=== PATIENT | male | born 1995 | race Caucasian/White ===

== ENCOUNTER 2021-03-25 11:50 | Emergency (ER) | payer BC ==
[2021-03-25 11:56] VITALS: RESP 18; TEMP 97.2
--- NOTE | 2021-03-25 12:38 | ED ---
General Adult HPI - General Chief complaint: Arrhythmia/Palpitations Stated complaint: elevated heart rate Time Seen by Provider: 03/25/21 11:55 Source: patient, RN notes reviewed, old records reviewed Mode of arrival: ambulatory Limitations: no limitations - History of Present Illness Initial comments: This is a 25-year-old male who presents emergency department stating that he missed his dialysis on Wednesday so he was dialyzed yesterday and again today. At the end of dialysis staff noted that when he got up and walked around his heart rate went up to 136 so they wanted him sent over to the emergency department to be evaluated. Patient himself indicated that he had quite a bit of fluid taken off over the last 2 days which is not typical because he normally has his dialysis today out. Patient denies any fever chills or cough. Patient denies chest pain difficulty breathing shortness of breath per patient does any abdominal pain patient has nausea vomiting or diarrhea. Patient states he currently has no symptoms she stated that when his heart was racing he can feel a racing a little but other than that he has no symptoms whatsoever and feels at his baseline. - Related Data Allergies Allergy/AdvReac Type Severity Reaction Status Date / Time No Known Allergies Allergy Verified 03/25/21 11:56 Review of Systems ROS Statement: Those systems with pertinent positive or pertinent negative responses have been documented in the HPI. ROS Other: All systems not noted in ROS Statement are negative. Past Medical History Past Medical History: Renal Disease History of Any Multi-Drug Resistant Organisms: None Reported Additional Past Surgical History / Comment(s): left kidney removed as child Past Psychological History: No Psychological Hx Reported Smoking Status: Never smoker Past Alcohol Use History: None Reported Past Drug Use History: None Reported General Exam - General Exam Comments Initial Comments: GENERAL: Patient is well-developed and well-nourished. Patient is nontoxic and well- hydrated and is in no acute distress. ENT: Neck is soft and supple. No significant lymphadenopathy is noted. Oropharynx is clear. Moist mucous membranes. Neck has full range of motion without eliciting any pain. EYES: The sclera were anicteric and conjunctiva were pink and moist. Extraocular movements were intact and pupils were equal round and reactive to light. Eyelids were unremarkable. PULMONARY: Unlabored respirations. Good breath sounds bilaterally. No audible rales rhonchi or wheezing was noted. CARDIOVASCULAR: There is a regular rate and rhythm without any murmurs gallops or rubs. Patient's heart rate is currently 86 beats ABDOMEN: Soft and nontender with normal bowel sounds. No palpable organomegaly was noted. There is no palpable pulsatile mass. SKIN: Skin is clear with no lesions or rashes and otherwise unremarkable. NEUROLOGIC: Patient is alert and oriented x3. Cranial nerves II through XII are grossly intact. Motor and sensory are also intact. Normal speech, volume and content. Symmetrical smile. MUSCULOSKELETAL: Normal extremities with adequate strength and full range of motion. No lower extremity swelling or edema. No calf tenderness. LYMPHATICS: No significant lymphadenopathy is noted PSYCHIATRIC: Normal psychiatric evaluation. Limitations: no limitations Course Vital Signs 03/25/21 03/25/21 11:53 12:37 Temperature 97.2 F L Pulse Rate 106 H Pulse Rate [ 85 Sitting [employer]] Pulse Rate [ 97 Standing [employer] Level [employer] ] Pulse Rate [ 80 Supine [employer]] Respiratory 18 Rate Blood Pressure 146/92 Blood Pressure 148/96 [Left Arm Sitting] Blood Pressure 139/100 [Left Arm Standing] Blood Pressure 139/96 [Left Arm Supine] O2 Sat by Pulse 100 Oximetry Medical Decision Making - Medical Decision Making EKG shows normal sinus rhythm at 85 bpm OH interval 152 QRS is 96 QT interval 414 QTC is 492. Patient's EKG shows no ST segment elevation or depression. I will back and reevaluate the patient he was drinking water and heart rate was in the 80s. Patient got up and ambulated his heart rate stayed below 100 at all times. Patient has no complaints at this time. - Lab Data Result diagrams: 03/25/21 12:36 03/25/21 12:36 Lab Results 03/25/21 03/25/21 Range/Units 12:36 12:36 WBC 4.8 (3.8-10.6) k/uL RBC 2.53 L (4.30-5.90) m/uL Hgb 8.1 L (13.0-17.5) gm/dL Hct 23.7 L (39.0-53.0) % MCV 93.9 (80.0-100.0) fL MCH 32.2 (25.0-35.0) pg MCHC 34.3 (31.0-37.0) g/dL RDW 14.4 (11.5-15.5) % Plt Count 233 (150-450) k/uL MPV 6.8 Neutrophils % 66 % Lymphocytes % 24 % Monocytes % 8 % Eosinophils % 0 % Basophils % 0 % Neutrophils # 3.2 (1.3-7.7) k/uL Lymphocytes # 1.1 (1.0-4.8) k/uL Monocytes # 0.4 (0-1.0) k/uL Eosinophils # 0.0 (0-0.7) k/uL Basophils # 0.0 (0-0.2) k/uL Poikilocytosis Slight Sodium 137 (137-145) mmol/L Potassium 3.4 L (3.5-5.1) mmol/L Chloride 94 L (98-107) mmol/L Carbon Dioxide 36 H (22-30) mmol/L Anion Gap 7 mmol/L BUN 5 L (9-20) mg/dL Creatinine 1.61 H (0.66-1.25) mg/dL Est GFR (CKD-EPI)AfAm 68 (>60 ml/min/1.73 sqM) Est GFR (CKD-EPI)NonAf 58 (>60 ml/min/1.73 sqM) Glucose 88 (74-99) mg/dL Calcium 8.2 L (8.4-10.2) mg/dL Total Bilirubin 0.4 (0.2-1.3) mg/dL AST 24 (17-59) U/L ALT 12 (4-49) U/L Alkaline Phosphatase 127 H (38-126) U/L Total Protein 6.3 (6.3-8.2) g/dL Albumin 3.4 L (3.5-5.0) g/dL Disposition Clinical Impression: Tachycardia Disposition: HOME SELF-CARE Condition: Good Instructions (If sedation given, give patient instructions): Supraventricular Tachycardia (ED), Tachycardia (ED) Is patient prescribed a controlled substance at d/c from ED?: No Referrals: Carol Ann Ordaz MD [Primary Care Provider] - 1-2 days Time of Disposition: 13:27
[2021-03-25 13:02] LABS: Basophils % (A) 0 %; Eosinophils % (A) 0 %; HCT 23.7 % (39.0-53.0); HGB 8.1 gm/dL (13.0-17.5); Lymphocytes # (A) 1.1 k/uL (1.0-4.8); Lymphocytes % (A) 24 %; MCH 32.2 pg (25.0-35.0); MCHC 34.3 g/dL (31.0-37.0); MCV 93.9 fL (80.0-100.0); Mean Platelet Volume 6.8; Monocytes # (A) 0.4 k/uL (0-1.0); Monocytes % (A) 8 %; Neutrophils # (A) 3.2 k/uL (1.3-7.7); Neutrophils % (A) 66 %; Platelet Count 233 k/uL (150-450); Poikilocytosis Slight; RBC 2.53 m/uL (4.30-5.90); RDW 14.4 % (11.5-15.5); WBC 4.8 k/uL (3.8-10.6)
[2021-03-25 13:23] LABS: Albumin 3.4 g/dL (3.5-5.0); Calcium 8.2 mg/dL (8.4-10.2); Potassium 3.4 mmol/L (3.5-5.1); Total Bilirubin 0.4 mg/dL (0.2-1.3); Total Protein 6.3 g/dL (6.3-8.2)
[2021-03-25 14:13] VITALS: BP 135/97; PULSE 67
== END 2021-03-25 14:11 | disposition home or self-care (01) ==
LOC: EC 11:50
DX: R00.0 Tachycardia, unspecified (principal)
CPT/HCPCS: 36415; 80053; 85025; 93005; 99285

== ENCOUNTER 2021-10-20 06:16 | Day surgery (SDC) | payer MEDICARE, OTHER ==
[2021-10-17 10:19] VITALS: BMI 28.1
[~2021-10-20 06:16] MED LIST: ACETAMINOPHEN TAB 500 MG TAB PO PRN; HEPARIN SODIUM,PORCINE/PF 5,000 UNIT/0.5 ML SYRINGE SQ PRN
[2021-10-20] MEDS ORDERED: SODIUM CHLORIDE 0.9% 1,000 ML IV ONE (07:15)
[2021-10-20 07:27] LABS: HGB 12.5 gm/dL (13.0-17.5); MCH 33.7 pg (25.0-35.0); MCHC 32.9 g/dL (31.0-37.0); MCV 102.3 fL (80.0-100.0); Macrocytosis Slight; Mean Platelet Volume 7.3; Platelet Count 158 k/uL (150-450); RBC 3.71 m/uL (4.30-5.90); RDW 13.8 % (11.5-15.5); WBC 8.9 k/uL (3.8-10.6)
[2021-10-20] MEDS ORDERED: ONDANSETRON 4 MG/2 ML VIAL ONE (07:35)
[2021-10-20] MEDS ORDERED: ONDANSETRON 4 MG/2 ML VIAL IVP ONE ×2 (07:46→10:07)
[2021-10-20] MEDS ORDERED: DEXAMETHASONE SOD PHOSPHATE 4 MG/ML 1 ML VIAL IVP ONE (07:46)
--- NOTE | 2021-10-20 07:46 | P.GSHP ---
History of Present Illness H&P Date: 10/20/21 Chief Complaint: renal failure 26-year-old male here today for dialysis catheter placement. Patient with history of hemodialysis since earlier this year. He uses a right IJ permacath for that access sites. Patient with poor venous access in other areas apparently. Patient has seen transplant surgery and preoperative testing is underway. No known hernias, no prior surgeries. Past Medical History Past Medical History: Hypertension, Renal Disease, Seizure Disorder Additional Past Medical History / Comment(s): HEMODIALYSIS TUTHSA. LAST SEIZURES IN FEBRUARY 2021., few episodes of tachycardia. History of Any Multi-Drug Resistant Organisms: None Reported Additional Past Surgical History / Comment(s): left kidney removed as child Past Anesthesia/Blood Transfusion Reactions: No Reported Reaction Smoking Status: Never smoker - Past Family History Mother Family Medical History: No Reported History Father Family Medical History: Cancer Additional Family Medical History / Comment(s): Liver Medications and Allergies Home Medications Medication Instructions Recorded Confirmed Type Calcium Carbonate [Calcium] 1 tab PO DAILY 08/20/21 10/20/21 History Sevelamer [Renvela] 2,400 mg PO AC-TID 08/20/21 10/20/21 History carvediloL [Coreg] 12.5 mg PO BID 08/20/21 10/20/21 History lisinopriL [Zestril] 20 mg PO HS 08/20/21 10/20/21 History Multivitamins, Thera [Multivitamin 1 tab PO DAILY 10/17/21 10/20/21 History (formulary)] Allergies Allergy/AdvReac Type Severity Reaction Status Date / Time No Known Allergies Allergy Verified 10/20/21 06:53 Surgical - Exam Vital Signs Temp Pulse Resp BP Pulse Ox 97.2 F L 65 16 169/104 97 10/20/21 07:03 10/20/21 07:03 10/20/21 07:03 10/20/21 07:03 10/20/21 07:03 Physical exam: General: Well-developed, well-nourished HEENT: Normocephalic, sclerae nonicteric Abdomen: Nontender, nondistended Extremities: No edema Neuro: Alert and oriented Results - Labs 10/20/21 07:15 Abnormal Lab Results - Last 24 Hours (Table) 10/20/21 Range/Units 07:15 RBC 3.71 L (4.30-5.90) m/uL Hgb 12.5 L (13.0-17.5) gm/dL Hct 38.0 L (39.0-53.0) % MCV 102.3 H (80.0-100.0) fL Assessment and Plan (1) Renal failure Narrative/Plan: Will proceed with peritoneal dialysis catheter placement at this time. Risks of bleeding, infection, poor function, scarring, fluid leak, peritonitis, bladder and bowel injury reviewed. He understands and wishes to proceed. Current Visit: Yes Status: Acute Code(s): N19 - UNSPECIFIED KIDNEY FAILURE SNOMED Code(s): 28654894
[2021-10-20] MEDS ORDERED: MINERAL OIL 1 APPLIC/ML OIL TOPICAL ONE ×2 (08:02→08:47)
[2021-10-20] MEDS ORDERED: BUPIVACAIN-EPI 0.25%-1:200,000 30 ML VIAL SQ ONE ×3 (08:03→09:00)
[2021-10-20 08:19] LABS: Calcium 9.6 mg/dL (8.4-10.2); Potassium 5.5 mmol/L (3.5-5.1)
[2021-10-20] MEDS ORDERED: PROPOFOL 10 MG/ML 20 ML VIAL IV ONE (08:20)
[2021-10-20] MEDS ORDERED: HYDROmorphone (PF) 1 MG/ML ONE (08:20)
[2021-10-20] MEDS ORDERED: MIDAZOLAM 2 MG/2 ML VIAL ONE (08:20)
[2021-10-20] MEDS ORDERED: LIDOCAINE 2% INJ 20 MG/ML (2 ML VIAL) ONE (08:20)
[2021-10-20] MEDS ORDERED: fentaNYL (PF) 50 MCG/ML 2 ML AMP ONE (08:20)
[2021-10-20] MEDS ORDERED: NALOXONE 0.4 MG/ML 1 ML VIAL IV PRN (09:37)
[2021-10-20] MEDS ORDERED: HYDROcodone/APAP 5-325MG 1 EACH TAB PO PRN (09:37)
[2021-10-20 09:40] VITALS: TEMP 97.9
--- NOTE | 2021-10-20 09:42 | P.OP ---
Date of Procedure: 10/20/21 Procedure(s) Performed: PREOPERATIVE DIAGNOSIS: Renal failure POSTOPERATIVE DIAGNOSIS: Same PROCEDURE: Peritoneal dialysis catheter insertion SURGEON: Rosa EBL: Minimal ANESTHESIA: Sedation plus local COMPLICATIONS: None OPERATIVE PROCEDURE: The patient was placed in the operative table in the supine position. The abdomen was prepped and draped in usual sterile fashion. A small vertical incision was made in the left periumbilical location. Dissection down through the subcutaneous tissues took place using electrocautery. The anterior rectus was divided vertically using the scalpel. The rectus was bluntly. The posterior rectus was visualized. An 0 Vicryl pursestring was placed. A small opening in the posterior rectus fascia and peritoneum took place using a Metzenbaum scissors. There were no adhesions to the suture that was placed. The pigtail catheter was advanced into the pelvis over a stylette. No resistance was met. The inner cuff was secured to the fascia using the 0 Vicryl pursestring that was placed. The catheter was tunneled to an exit site in the left lateral lower quadrant. The catheter was connected to the 1 L bag of saline and approximated 800 mL of saline was easily introduced into the peritoneal cavity. The fluid was then allowed to evacuate. The majority of the fluid was returned. The anterior rectus fascia was then reapproximated using a running 0 Vicryl stitch. The subcutaneous tissues reprepped using 3-0 Vicryl sutures and the skin using 4-0 Monocryl sutures. The outpatient dialysis adapter was applied to the end of the catheter. Sterile dressings were then applied after skin glue was placed over the incision. DISPOSITION: Stable to recovery room
[2021-10-20] MEDS ORDERED: DEXAMETHASONE SOD PHOSPHATE 4 MG/ML 1 ML VIAL IV ONE (10:07)
[2021-10-20] MEDS ORDERED: HYDROmorphone 0.5 MG/0.5 ML SYRINGE IVP PRN (10:07)
[2021-10-20] MEDS ORDERED: LACTATED RINGERS 1,000 ML IV SCH (10:07)
[2021-10-20] MEDS ORDERED: HYDROcodone/APAP 5-325MG 1 EACH TAB PO ONE (10:29)
[2021-10-20 10:43] VITALS: BP 160/100; PULSE 57; RESP 17
== END 2021-10-20 11:01 | disposition home or self-care (01) ==
LOC: OR 06:16
PROVIDERS: ATTEND Surgery
DX: I12.9 Hypertensive chronic kidney disease with stage 1 through stage 4 chronic kidney disease, or unspecified chronic kidney disease (principal); N18.9 Chronic kidney disease, unspecified; Z99.2 Dependence on renal dialysis; G40.909 Epilepsy, unspecified, not intractable, without status epilepticus; Z90.5 Acquired absence of kidney; Z80.0 Family history of malignant neoplasm of digestive organs; Z79.899 Other long term (current) drug therapy
CPT/HCPCS: 80048; 85027; 49421; C1752; J2250; J1100; J0690; J2405; J3010; J1170; J2704; J1644; J2001

== ENCOUNTER 2021-10-24 22:14 | Emergency (ER) | payer MEDICARE, OTHER ==
[2021-10-24 22:26] VITALS: PULSE 68; TEMP 97.9
--- NOTE | 2021-10-24 23:11 | ED ---
Recheck HPI - General Chief Complaint: Recheck/Abnormal Lab/Rx Stated Complaint: Catheter issues Time Seen by Provider: 10/24/21 22:55 Source: patient Mode of arrival: ambulatory Limitations: no limitations - Related Data Home Medications Medication Instructions Recorded Confirmed Calcium Carbonate [Calcium] 1 tab PO DAILY 08/20/21 10/20/21 Sevelamer [Renvela] 2,400 mg PO AC-TID 08/20/21 10/20/21 carvediloL [Coreg] 12.5 mg PO BID 08/20/21 10/20/21 lisinopriL [Zestril] 20 mg PO HS 08/20/21 10/20/21 Multivitamins, Thera [Multivitamin 1 tab PO DAILY 10/17/21 10/20/21 (formulary)] Previous Rx's Medication Instructions Recorded HYDROcodone/APAP 5-325MG [Kirk 1 tab PO Q6HR PRN 3 Days #6 tab 10/20/21 5-325] Allergies Allergy/AdvReac Type Severity Reaction Status Date / Time No Known Allergies Allergy Verified 10/24/21 22:26 Review of Systems ROS Statement: Those systems with pertinent positive or pertinent negative responses have been documented in the HPI. ROS Other: All systems not noted in ROS Statement are negative. Past Medical History Past Medical History: Hypertension, Renal Disease, Seizure Disorder Additional Past Medical History / Comment(s): HEMODIALYSIS TUTHSA. LAST SEIZURES IN FEBRUARY 2021., few episodes of tachycardia. History of Any Multi-Drug Resistant Organisms: None Reported Additional Past Surgical History / Comment(s): left kidney removed as child Past Anesthesia/Blood Transfusion Reactions: No Reported Reaction Past Psychological History: No Psychological Hx Reported Smoking Status: Never smoker Past Alcohol Use History: None Reported Past Drug Use History: None Reported - Past Family History Mother Family Medical History: No Reported History Father Family Medical History: Cancer Additional Family Medical History / Comment(s): Liver General Exam Limitations: no limitations Course Vital Signs 10/24/21 22:22 Temperature 97.9 F Pulse Rate 68 Respiratory 22 Rate Blood Pressure 165/103 O2 Sat by Pulse 99 Oximetry Disposition Clinical Impression: Encounter for wound re-check Disposition: HOME SELF-CARE Condition: Good Instructions (If sedation given, give patient instructions): Normal Exam (ED) Is patient prescribed a controlled substance at d/c from ED?: No Referrals: Carlos Manuel Mauro MD [Primary Care Provider] - 1-2 days
[2021-10-24 23:38] VITALS: BP 156/116; RESP 16
== END 2021-10-24 23:37 | disposition home or self-care (01) ==
LOC: EC 22:14
DX: Z48.01 Encounter for change or removal of surgical wound dressing (principal); I10 Essential (primary) hypertension; Z98.890 Other specified postprocedural states
CPT/HCPCS: 99281

== ENCOUNTER → 2022-11-16 | Outpatient (CLI) | payer MEDICARE, OTHER ==
--- NOTE | 2022-11-16 12:37 | CA ---
Stress Echo Report Lauri Last Age: 27 Gender: M : 1995 Exam Date: 11/16/2022 10:47 Exam Location: [facility] Ht (in): 67 Wt (lb): 215 Ordering Physician: Sanjiv Vieira MD Referring Physician: SANJIV VIEIRA,, Slag Wheeler: Maricel Malcolm RDCS Technologist Procedure CPT: Indication: Z01.810 pre operative cardiac eval ICD-9 Codes: Rhythm: Patient History: Asymptomatic Cardiac Medications: Medications in past 24 hours: Contrast: Stress Results Protocol: German Total dose(mL): Exercise Duration (min:sec): 9:[address] Depression (mm): Angina Score: Suarez Score: METS: 10.5 Resting HR: 82 Resting BP: 125 / 84 Peak HR: 159 Peak BP: 169 / 72 Max Predicted HR: 192 83 % Max Predicted HR Target HR: 163 Double Product: 24147 Stress Summary: The patient's target heart rate was not achieved due to leg pain BP Response: Normal Reason for Termination: General/leg fatigue Cardiac Symptoms: Leg fatigue ECG Analysis Resting ECG: Stress ECG: Arrhythmia: Echo Analysis Resting Echo: Peak Echo Analysis: MEASUREMENTS (Male/Female) Normal Values CONCLUSIONS Exercise stress echo Normal heart rate and blood pressure response Patient was short of breath at peak exercise Good exercise capacity and a German protocol for 9 minutes No ECG evidence for ischemia or arrhythmia No echocardiographic evidence for ischemia Dr. Alex Herrera MD (Electronically Signed) Final Date: 16 November 2022 12:36
== END | disposition home or self-care (01) ==
LOC: RADNMMAIN 09:36
PROVIDERS: ATTEND Transplant Surgery
DX: Z01.810 Encounter for preprocedural cardiovascular examination (principal); Z13.6 Encounter for screening for cardiovascular disorders; Z76.82 Awaiting organ transplant status
CPT/HCPCS: 93351

== ENCOUNTER 2023-01-29 00:29 | Observation (INO) | payer MEDICARE, OTHER ==
[2023-01-29] MEDS ORDERED: ACETAMINOPHEN TAB 500 MG TAB PO STA (00:52)
[2023-01-29] MEDS ORDERED: SODIUM CHLORIDE 0.9% 500 ML 500 ML IV STA (00:54)
[2023-01-29 01:32] LABS: Basophils % (A) 0 %; Eosinophils # (A) 0.2 k/uL (0-0.7); Eosinophils % (A) 1 %; HCT 32.3 % (39.0-53.0); HGB 11.2 gm/dL (13.0-17.5); Lymphocytes # (A) 1.2 k/uL (1.0-4.8); Lymphocytes % (A) 11 %; MCHC 34.5 g/dL (31.0-37.0); MCV 101.6 fL (80.0-100.0); Macrocytosis Slight; Mean Platelet Volume 7.7; Monocytes # (A) 0.5 k/uL (0-1.0); Monocytes % (A) 4 %; Neutrophils # (A) 9.2 k/uL (1.3-7.7); Neutrophils % (A) 82 %; Platelet Count 196 k/uL (150-450); RBC 3.18 m/uL (4.30-5.90); RDW 13.7 % (11.5-15.5); WBC 11.2 k/uL (3.8-10.6)
[2023-01-29 01:38] LABS: ALT 90 U/L (4-49); AST 62 U/L (17-59); Albumin 4.3 g/dL (3.5-5.0); Alkaline Phosphatase 110 U/L (38-126); Anion Gap 16 mmol/L; Blood Urea Nitrogen 56 mg/dL (9-20); Calcium 8.8 mg/dL (8.4-10.2); Carbon Dioxide 22 mmol/L (22-30); Chloride 97 mmol/L (98-107); Glucose 106 mg/dL (74-99); Sodium 135 mmol/L (137-145); Total Bilirubin 0.7 mg/dL (0.2-1.3); Total Protein 6.8 g/dL (6.3-8.2)
[2023-01-29 01:44] LABS: African American GFR (CKD) 4 (>60 ml/min/1.73 sqM); Non-African American GFR(CKD) 4 (>60 ml/min/1.73 sqM)
--- NOTE | 2023-01-29 02:44 | XR ---
EXAM: XR Chest, 2 Views CLINICAL HISTORY: XR Reason: cough, fever TECHNIQUE: Frontal and lateral views of the chest. COMPARISON: No relevant prior studies available. FINDINGS: Lungs: There are streaky linear densities in the lung bases consistent with subsegmental atelectasis versus infiltrates or scarring. No focal consolidation is seen. Pleural space: Unremarkable. No pneumothorax. Heart: Unremarkable. No cardiomegaly. Mediastinum: Unremarkable. Bones/joints: Unremarkable. Upper abdomen: There is no pneumoperitoneum under the diaphragm. IMPRESSION: There are streaky linear densities in the lung bases consistent with subsegmental atelectasis versus infiltrates or scarring. No focal consolidation is seen.
[2023-01-29] MEDS ORDERED: ACETAMINOPHEN TAB 325 MG TAB PO PRN (03:44)
[2023-01-29] MEDS ORDERED: NALOXONE 0.4 MG/ML 1 ML VIAL IV PRN (03:44)
--- NOTE | 2023-01-29 03:47 | ED ---
Recheck HPI - General Chief Complaint: Recheck/Abnormal Lab/Rx Stated Complaint: SOB Time Seen by Provider: 01/29/23 00:44 Source: patient Mode of arrival: ambulatory Limitations: no limitations - History of Present Illness Initial Comments: 27-year-old male peritoneal dialysis presenting with chief complaint of cough and shortness of breath. Patient was seen at [facility] on Wednesday for diarrhea, he was diagnosed with C. diff and was started on oral vancomycin for a 10 day course. Patient is continuing to have diarrhea and some abdominal discomfort. Patient developed a fever today. He also noted that his heart rate was elevated and he was hypotensive. He is having a cough and congestion. No chest pain. No vomiting. - Related Data Home Medications Medication Instructions Recorded Confirmed carvediloL [Coreg] 25 mg PO BID 08/20/21 12/01/22 Acetaminophen Tab [Tylenol] 500 mg PO Q6H PRN 12/01/22 12/01/22 Calcium Acetate 668 Mg Tab 3,340 mg PO TID-W/MEALS 12/01/22 12/01/22 Ergocalciferol (Vitamin D2) 1,250 mcg PO Q14D 12/01/22 12/01/22 [Drisdol (50,000 Iu)] Lanthanum Carbonate [Lanthanum 1,000 mg PO TID-W/MEALS 12/01/22 12/01/22 Carbonate Chew] Vit B Comp No.3/Folic/C/Biotin 1 tab PO DAILY 12/01/22 12/01/22 [Sheyla-Ariana Rx Tablet] calcitrioL [Calcitriol] 0.25 mcg PO MO 12/01/22 12/01/22 diphenhydrAMINE [Benadryl] 25 mg PO HS PRN 12/01/22 12/01/22 Previous Rx's Medication Instructions Recorded Darbepoetin Javid [Aranesp] 40 mcg SQ Q7D each 12/04/22 cefTAZidime [Fortaz] 1 gm INTRAPERIT Q24H each 12/04/22 Allergies Allergy/AdvReac Type Severity Reaction Status Date / Time shellfish derived [Shellfish] Allergy Rash/Hives Verified 01/29/23 00:31 Review of Systems ROS Statement: Those systems with pertinent positive or pertinent negative responses have been documented in the HPI. ROS Other: All systems not noted in ROS Statement are negative. Past Medical History Past Medical History: Hypertension, Renal Disease, Seizure Disorder Additional Past Medical History / Comment(s): HEMODIALYSIS TUTHSA. LAST SEIZURES IN FEBRUARY 2021., few episodes of tachycardia. History of Any Multi-Drug Resistant Organisms: None Reported, C-DIFF Date of last positivie culture/infection: 01/25/2023 MDRO Source:: stool Additional Past Surgical History / Comment(s): left kidney removed as child Past Anesthesia/Blood Transfusion Reactions: No Reported Reaction Past Psychological History: No Psychological Hx Reported Smoking Status: Never smoker Past Alcohol Use History: None Reported Past Drug Use History: None Reported - Past Family History Mother Family Medical History: No Reported History Father Family Medical History: Cancer Additional Family Medical History / Comment(s): Liver General Exam Limitations: no limitations General appearance: alert, in no apparent distress Head exam: Present: atraumatic, normocephalic, normal inspection Eye exam: Present: normal appearance, EOMI Neck exam: Present: normal inspection, full ROM Respiratory exam: Present: normal lung sounds bilaterally. Absent: respiratory distress, wheezes, rales, rhonchi, stridor Cardiovascular Exam: Present: normal rhythm, tachycardia, normal heart sounds. Absent: systolic murmur, diastolic murmur, rubs, gallop, clicks GI/Abdominal exam: Present: soft, tenderness. Absent: distended, guarding, rebound, rigid Neurological exam: Present: alert, oriented X3 Psychiatric exam: Present: normal affect, normal mood Skin exam: Present: warm, dry, intact, normal color. Absent: rash Course Vital Signs 01/29/23 01/29/23 01/29/23 00:31 01:42 02:52 Temperature 100.4 F H 99.1 F 99.8 F H Pulse Rate 134 H 105 H 109 H Respiratory 20 16 19 Rate Blood Pressure 97/63 100/51 O2 Sat by Pulse 97 98 96 Oximetry 01/29/23 01/29/23 01/29/23 03:26 03:50 04:45 Temperature 99.0 F 98.6 F Pulse Rate 104 H 108 H 98 Respiratory 19 23 17 Rate Blood Pressure 97/58 97/57 106/63 O2 Sat by Pulse 98 97 98 Oximetry Medical Decision Making - Medical Decision Making Was pt. sent in by a medical professional or institution (, PA, SYSTEMS REQUIREMENTS PLANNER, urgent care, hospital, or prison...) When possible be specific @ -No Did you speak to anyone other than the patient for history (EMS, parent, family, police, friend...)? What history was obtained from this source @ -No Did you review nursing and triage notes (agree or disagree)? Why? @ -I reviewed and agree with nursing and triage notes Were old charts reviewed (outside hosp., previous admission, EMS record, old EKG, old radiological studies, urgent care reports/EKG's, prison records)? Report findings @ -No old charts were reviewed Differential Diagnosis (chest pain, altered mental status, abdominal pain women, abdominal pain men, vaginal bleeding, weakness, fever, dyspnea, syncope, headache, dizziness, GI bleed, back pain, seizure, CVA, palpatations, mental health, musculoskeletal)? @ -MDM Differential Dyspnea: Coronary syndrome, arrhythmia, tamponade, asthma, COPD, pulmonary embolism, pneumonia, pneumothorax, pulmonary effusion, anaphylaxis, diabetic ketoacidosis, flailed chest, pulmonary contusion, diaphragmatic rupture, anemia, neuromuscular this is not meant to be an all-inclusive list. EKG interpreted by me (3pts min.). @ -As above X-rays interpreted by me (1pt min.). @ -There streaky linear densities in the lung bases consistent with subsegmental atelectasis versus infiltrates or scarring. No focal consolidation is seen. CT interpreted by me (1pt min.). @ -None done U/S interpreted by me (1pt. min.). @ -None done What testing was considered but not performed or refused? (CT, X-rays, U/S, labs)? Why? @ -None What meds were considered but not given or refused? Why? @ -None Did you discuss the management of the patient with other professionals (professionals i.e. , PA, SYSTEMS REQUIREMENTS PLANNER, lab, RT, psych nurse, high school social studies teacher, doctor of dental medicine, teacher, chemistry technical officer, case briefer)? Give summary @ -I spoke with Dr. Mauro who accepted admission Was smoking cessation discussed for >3mins.? @ -No Was critical care preformed (if so, how long)? @ -No Were there social determinants of health that impacted care today? How? (Homelessness, low income, unemployed, alcoholism, drug addiction, transportation, low edu. Level, literacy, decrease access to med. care, [place] [facility], rehab)? @ -No Was there de-escalation of care discussed even if they declined (Discuss DNR or withdrawal of care, Hospice)? DNR status @ -No What co-morbidities impacted this encounter? (DM, HTN, Smoking, COPD, CAD, Cancer, CVA, ARF, Chemo, Hep., AIDS, mental health diagnosis, sleep apnea, morbid obesity)? @ -Peritoneal dialysis Was patient admitted / discharged? Hospital course, mention meds given and route, prescriptions, significant lab abnormalities, going to OR and other pertinent info. @ -27-year-old male on peritoneal dialysis presenting with chief complaint of cough congestion and fever. He was recently diagnosed with C. diff and started on oral vancomycin about 4 days ago. Physical exam is conducted. There is nonspecific abdominal tenderness. WBC 11.2. BUN and creatinine are consistent with baseline. He is positive for Covid. Chest x-ray appears consistent with atypical pneumonia, to be expected given positive Covid test. Given the patient's multiple comorbidities and conditions he'll be admitted. Patient is agreeable with this plan. I discussed this case with my attending Dr. Daniels Undiagnosed new problem with uncertain prognosis? @ -No Drug Therapy requiring intensive monitoring for toxicity (Heparin, Nitro, In sulin, Cardizem)? @ -No Were any procedures done? @ -No Diagnosis/symptom? @ -Covid Acute, or Chronic, or Acute on Chronic? @ -Acute Uncomplicated (without systemic symptoms) or Complicated (systemic symptoms)? @ -complicated Side effects of treatment? @ -No Exacerbation, Progression, or Severe Exacerbation? @ -No Poses a threat to life or bodily function? How? (Chest pain, [place], [place], pneumonia, PE, COPD, DKA, ARF, appy, cholecystitis, CVA, Diverticulitis, Homicidal, Suicidal, threat to staff... and all critical care pts) @ -yes - Lab Data Result diagrams: 01/29/23 01:12 01/29/23 01:12 Lab Results 01/29/23 01/29/23 01/29/23 Range/Units 01:12 01:12 01:12 WBC 11.2 H (3.8-10.6) k/uL RBC 3.18 L (4.30-5.90) m/uL Hgb 11.2 L (13.0-17.5) gm/dL Hct 32.3 L (39.0-53.0) % MCV 101.6 H (80.0-100.0) fL MCH 35.0 (25.0-35.0) pg MCHC 34.5 (31.0-37.0) g/dL RDW 13.7 (11.5-15.5) % Plt Count 196 (150-450) k/uL MPV 7.7 Neutrophils % 82 % Lymphocytes % 11 % Monocytes % 4 % Eosinophils % 1 % Basophils % 0 % Neutrophils # 9.2 H (1.3-7.7) k/uL Lymphocytes # 1.2 (1.0-4.8) k/uL Monocytes # 0.5 (0-1.0) k/uL Eosinophils # 0.2 (0-0.7) k/uL Basophils # 0.0 (0-0.2) k/uL Macrocytosis Slight Sodium (137-145) mmol/L Potassium (3.5-5.1) mmol/L Chloride (98-107) mmol/L Carbon Dioxide (22-30) mmol/L Anion Gap mmol/L BUN (9-20) mg/dL Creatinine (0.66-1.25) mg/dL Est GFR (CKD-EPI)AfAm (>60 ml/min/1.73 sqM) Est GFR (CKD-EPI)NonAf (>60 ml/min/1.73 sqM) Glucose (74-99) mg/dL Calcium (8.4-10.2) mg/dL Total Bilirubin (0.2-1.3) mg/dL AST (17-59) U/L ALT (4-49) U/L Alkaline Phosphatase (38-126) U/L Total Protein (6.3-8.2) g/dL Albumin (3.5-5.0) g/dL Influenza Type A (PCR) Not Detected (Not Detectd) Influenza Type B (PCR) Not Detected (Not Detectd) RSV (PCR) Not Detected (Not Detectd) SARS-CoV-2 (PCR) Detected A (Not Detectd) Group A Strep (PCR) NOT DETECTED (Not Detectd) 01/29/23 Range/Units 01:12 WBC (3.8-10.6) k/uL RBC (4.30-5.90) m/uL Hgb (13.0-17.5) gm/dL Hct (39.0-53.0) % MCV (80.0-100.0) fL MCH (25.0-35.0) pg MCHC (31.0-37.0) g/dL RDW (11.5-15.5) % Plt Count (150-450) k/uL MPV Neutrophils % % Lymphocytes % % Monocytes % % Eosinophils % % Basophils % % Neutrophils # (1.3-7.7) k/uL Lymphocytes # (1.0-4.8) k/uL Monocytes # (0-1.0) k/uL Eosinophils # (0-0.7) k/uL Basophils # (0-0.2) k/uL Macrocytosis Sodium 135 L (137-145) mmol/L Potassium 4.0 (3.5-5.1) mmol/L Chloride 97 L (98-107) mmol/L Carbon Dioxide 22 (22-30) mmol/L Anion Gap 16 mmol/L BUN 56 H (9-20) mg/dL Creatinine 16.14 H* (0.66-1.25) mg/dL Est GFR (CKD-EPI)AfAm 4 (>60 ml/min/1.73 sqM) Est GFR (CKD-EPI)NonAf 4 (>60 ml/min/1.73 sqM) Glucose 106 H (74-99) mg/dL Calcium 8.8 (8.4-10.2) mg/dL Total Bilirubin 0.7 (0.2-1.3) mg/dL AST 62 H (17-59) U/L ALT 90 H (4-49) U/L Alkaline Phosphatase 110 (38-126) U/L Total Protein 6.8 (6.3-8.2) g/dL Albumin 4.3 (3.5-5.0) g/dL Influenza Type A (PCR) (Not Detectd) Influenza Type B (PCR) (Not Detectd) RSV (PCR) (Not Detectd) SARS-CoV-2 (PCR) (Not Detectd) Group A Strep (PCR) (Not Detectd) Disposition Clinical Impression: COVID, C. difficile diarrhea Disposition: ADMITTED IP TO THIS HOSP Condition: Fair Time of Disposition: 03:47
[2023-01-29] MEDS ORDERED: DEXAMETHASONE SOD PHOSPHATE 10 MG/ML 1 ML VIAL IVP SCH (09:00)
[2023-01-29] MEDS: DIALYSIS (PERIT 1.5%) 2,000 ML 30 G/2,000 ML BAG INTRAPERIT SCH ×4 (09:00→23:40)
[2023-01-29] MEDS: VANCOMYCIN 125 MG CAPSULE PO SCH ×4 (10:22→20:34)
[2023-01-29] MEDS: SODIUM CHLORIDE 0.9% 1,000 ML IV SCH (10:44)
--- NOTE | 2023-01-29 11:45 | P.NPCON ---
History of Present Illness - Reason for Consult end stage renal disease - History of Present Illness Reason for consultation: End-stage renal disease History of present illness: Patient is a 27-year-old male seen in renal consultation for end-stage renal disease. He is maintained on peritoneal dialysis. Patient says dialysate has been clear and he denies any problems with PD changes. Patient did have peritonitis and completed intraperitoneal antibiotics over a week ago. Outpatient WBC count was 19 dated 01/27/2023. Patient also had C. diff and completed antibiotics a couple weeks ago but states that Wednesday diarrhea recurred. It was progressively getting worse but is now starting to taper down. Patient felt quite dehydrated and wasn't eating and drinking much and came to the hospital. Blood pressures stable. Denies chest pain shortness of breath. No abdominal pain. Patient did have a fever of 100.4F on admission. No history of diabetes or heart disease. Vital signs are stable. General: No audible rhonchi or wheezes. HEENT: Head exam is unremarkable. LUNGS: No audible rhonchi or wheezes. HEART: Rate and Rhythm are regular. ABDOMEN: Nontender. EXTREMITITES: No edema. Past Medical History Past Medical History: Hypertension, Renal Disease, Seizure Disorder Additional Past Medical History / Comment(s): HEMODIALYSIS TUTHSA. LAST SEIZURES IN FEBRUARY 2021., few episodes of tachycardia. History of Any Multi-Drug Resistant Organisms: None Reported, C-DIFF Date of last positivie culture/infection: 01/25/2023 MDRO Source:: stool Additional Past Surgical History / Comment(s): left kidney removed as child Past Anesthesia/Blood Transfusion Reactions: No Reported Reaction Past Psychological History: No Psychological Hx Reported Smoking Status: Never smoker Past Alcohol Use History: None Reported Past Drug Use History: None Reported - Past Family History Mother Family Medical History: No Reported History Father Family Medical History: Cancer Additional Family Medical History / Comment(s): Liver Medications and Allergies Home Medications Medication Instructions Recorded Confirmed Type Calcium Acetate 668 Mg Tab 3,340 mg PO TID-W/MEALS 12/01/22 01/29/23 History Ergocalciferol (Vitamin D2) 1,250 mcg PO Q14D 12/01/22 01/29/23 History [Drisdol (50,000 Iu)] Lanthanum Carbonate [Lanthanum 1,000 mg PO TID-W/MEALS 12/01/22 01/29/23 History Carbonate Chew] Vit B Comp No.3/Folic/C/Biotin 1 tab PO DAILY 12/01/22 01/29/23 History [Sheyla-Ariana Rx Tablet] calcitrioL [Calcitriol] 0.25 mcg PO MO 12/01/22 01/29/23 History Vancomycin 125 mg PO QID 01/29/23 01/29/23 History Allergies Allergy/AdvReac Type Severity Reaction Status Date / Time shellfish derived [Shellfish] Allergy Rash/Hives Verified 01/29/23 07:00 Physical Exam Vitals: Vital Signs Temp Pulse Resp BP Pulse Ox 01/29/23 10:27 110 H 18 118/80 98 01/29/23 09:38 99 F 105 H 18 109/64 100 01/29/23 08:45 98.4 F 102 H 18 100/72 99 01/29/23 07:25 98.1 F 98 18 110/68 97 01/29/23 06:00 98.6 F 98 17 108/77 100 01/29/23 05:10 94 16 101/72 98 01/29/23 04:45 98.6 F 98 17 106/63 98 01/29/23 03:50 108 H 23 97/57 97 01/29/23 03:26 99.0 F 104 H 19 97/58 98 01/29/23 02:52 99.8 F H 109 H 19 100/51 96 01/29/23 01:42 99.1 F 105 H 16 98 01/29/23 00:31 100.4 F H 134 H 20 97/63 97 Intake and Output 01/28/23 01/29/23 01/29/23 22:59 06:59 14:59 Other: Weight 94.347 kg Results - Lab Results Most recent lab results Calcium 8.8 mg/dL (8.4-10.2) 01/29/23 01:12 01/29/23 01:12 01/29/23 01:12 Assessment and Plan Plan: Assessment: 1. End-stage renal disease maintained on peritoneal dialysis. 2. COVID-19 infection. 3. Diarrhea with recent C. diff infection. On oral vancomycin. 4. Peritonitis status post intraperitoneal antibiotics completed over a week ago. 5. Chronic kidney disease mineral bone disease. 6. Hypovolemia from diarrhea and poor intake. Plan: Start PD - 2 L exchanges every 6 hours with 1.5% solution. Check dialysate for cell count culture and Gram stain. Check stool for C. diff. Start normal saline. Check phosphorus level. Thank you for the consultation. I will continue to follow the patient with you during his hospital stay.
[2023-01-29 16:49] LABS: Appearance,BF Clear (Clear); RBC, Body Fluid 1 /UL (0-2000)
--- NOTE | 2023-01-29 18:27 | P.HPIM ---
History of Present Illness H&P Date: 01/29/23 Chief Complaint: Covid, recurrent C. diff This is a 27-year-old gentleman past medical history significant for end-stage renal disease maintained on peritoneal dialysis,recent C. diff. approximately one month ago, completed antibiotic treatment about 2 weeks ago. 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 Now reports diarrhea improving. States decreased appetite since Wednesday, felt dehydrated. Developed sore throat, congestion, dizziness and shortness of breath yesterday and came in to the hospital, testing positive for Covid-19. Reports his brother was also sick earlier in the week. Denies chest pain, palpitations. Denies nausea or vomiting, no abdominal pain. T-max 100.4, tachycardic on admission, and she O2 sats in the high 90s on room air, blood pressures soft. CBC 11.2, hemoglobin 11.2, MCV 101.6, platelets 196, sodium 135, potassium 4, chloride 97, bicarb 22, BUN 56, creatinine 16.14, glucose 106, AST 62, ALT 90. Chest x-ray reporting streaky linear densities in the lung bases consistent with subsegmental atelectasis versus infiltrates or scarring, no focal consolidation. Review of Systems ROS Other: All systems not noted in ROS Statement are negative. ROS Statement: Those systems with pertinent positive or pertinent negative responses have been documented in the HPI. Past Medical History Past Medical History: Hypertension, Renal Disease, Seizure Disorder Additional Past Medical History / Comment(s): HEMODIALYSIS TUTHSA. LAST SEIZURES IN FEBRUARY 2021., few episodes of tachycardia. History of Any Multi-Drug Resistant Organisms: None Reported, C-DIFF Date of last positivie culture/infection: 01/25/2023 MDRO Source:: stool Additional Past Surgical History / Comment(s): left kidney removed as child Past Anesthesia/Blood Transfusion Reactions: No Reported Reaction Past Psychological History: No Psychological Hx Reported Smoking Status: Never smoker Past Alcohol Use History: None Reported Past Drug Use History: None Reported - Past Family History Mother Family Medical History: No Reported History Father Family Medical History: Cancer Additional Family Medical History / Comment(s): Liver Medications and Allergies Home Medications Medication Instructions Recorded Confirmed Type Calcium Acetate 668 Mg Tab 3,340 mg PO TID-W/MEALS 09/05/23 11/03/23 History Ergocalciferol (Vitamin D2) 1,250 mcg PO Q14D 12/01/22 01/29/23 History [Drisdol (50,000 Iu)] Lanthanum Carbonate [Lanthanum 1,000 mg PO TID-W/MEALS 12/01/22 01/29/23 History Carbonate Chew] Vit B Comp No.3/Folic/C/Biotin 1 tab PO DAILY 12/01/22 01/29/23 History [Sheyla-Ariana Rx Tablet] calcitrioL [Calcitriol] 0.25 mcg PO MO 12/01/22 01/29/23 History Vancomycin 125 mg PO QID 01/29/23 01/29/23 History Allergies Allergy/AdvReac Type Severity Reaction Status Date / Time shellfish derived [Shellfish] Allergy Rash/Hives Verified 01/29/23 07:00 Physical Exam Vitals: Vital Signs Temp Pulse Resp BP Pulse Ox 01/29/23 11:30 104 H 18 98/50 94 L 01/29/23 11:00 105 H 18 118/82 95 01/29/23 10:27 110 H 18 118/80 98 01/29/23 09:38 99 F 105 H 18 109/64 100 01/29/23 08:45 98.4 F 102 H 18 100/72 99 01/29/23 07:25 98.1 F 98 18 110/68 97 01/29/23 06:00 98.6 F 98 17 108/77 100 01/29/23 05:10 94 16 101/72 98 01/29/23 04:45 98.6 F 98 17 106/63 98 01/29/23 03:50 108 H 23 97/57 97 01/29/23 03:26 99.0 F 104 H 19 97/58 98 01/29/23 02:52 99.8 F H 109 H 19 100/51 96 01/29/23 01:42 99.1 F 105 H 16 98 01/29/23 00:31 100.4 F H 134 H 20 97/63 97 Intake and Output 01/29/23 01/29/23 01/29/23 06:59 14:59 22:59 Other: Weight 94.347 kg PHYSICAL EXAM: VITAL SIGNS: As above GENERAL: Lying flat on stretcher, no acute distress HEENT: Normocephalic Conjunctivae normal. eyes normal. NECK: Supple No JVD. No thyroid enlargement. No LNs CARDIOVASCULAR: S1, S2 regular.. No murmur RESPIRATION: Unlabored, Breath sounds diminished in the bases. No rhonchi or crackles. No bronchial breathing. ABDOMEN: Soft, nontender, PD catheter .No guarding. no masses palpable. No ascites, No hepatosplenomegaly.Bowel sounds heard. LEGS: No edema. no swelling PSYCHIATRY: Alert and oriented X3, mood and affect normal. NERVOUS SYSTEM: Cranial N 2-12 grossly normal. No focal deficits. Strength and sensation grossly intact. Skin: Warm and dry, no rash Results CBC & Chem 7: 01/29/23 01:12 01/29/23 01:12 Labs: Abnormal Lab Results - Last 24 Hours (Table) 01/29/23 01/29/23 01/29/23 Range/Units 01:12 01:12 01:12 WBC 11.2 H (3.8-10.6) k/uL RBC 3.18 L (4.30-5.90) m/uL Hgb 11.2 L (13.0-17.5) gm/dL Hct 32.3 L (39.0-53.0) % MCV 101.6 H (80.0-100.0) fL Neutrophils # 9.2 H (1.3-7.7) k/uL Sodium 135 L (137-145) mmol/L Chloride 97 L (98-107) mmol/L BUN 56 H (9-20) mg/dL Creatinine 16.14 H* (0.66-1.25) mg/dL Glucose 106 H (74-99) mg/dL AST 62 H (17-59) U/L ALT 90 H (4-49) U/L SARS-CoV-2 (PCR) Detected A (Not Detectd) Assessment and Plan Assessment: Acute Covid-19 infection Recurrent C. difficile colitis-reports diagnosed at [facility] on 01/25/2023, started on oral vancomycin. Recent C. diff. approximately one month ago, completed antibiotic treatment about 2 weeks ago. Recheck stool for C. difficile Dehydration, hypovolemia secondary to the above History of recent peritonitis, discharged on 12/04/2022, completed intraperitoneal antibiotics X 3 weeks as per ID. End-stage renal disease maintained on peritoneal dialysis, Solitary right kidney Hypertension Plan: Continue on current medication regime ,monitoring and symptomatic treatment. Dexamethasone IV push, IV fluid hydration, oral vancomycin resumed. Check Stool for C. diff. ID consult in place. PD as per nephrology. The impression and plan of care has been dictated as directed. : I performed a history and examination of this patient, discussed the same with the dictator. I agree with the dictator's note ,documented as a scribe. Any additional findings or plans will be noted.
--- NOTE | 2023-01-29 21:44 | P.CONS ---
History of Present Illness - Reason for Consult Consult date: 01/29/23 Recent C. diff diagnoses Requesting physician: Sadi Hull - Chief Complaint Diarrhea 4 days - History of Present Illness Patient is a 27-year-old male with a past medical history significant for hypertension seizure disorder history of end-stage renal disease on peritoneal dialysis was admitted in November 2022 with the PD catheter associated peritonitis cultures was negative patient was given a 3-week course of vancomycin and Fortaz intraperitoneally and the patient seem to have shown overall improvement patient is now presenting to the hospital of the diarrhea that started on Wednesday and this patient complaining of multiple loose stools patient denies having any blood or mucus in the stool did have some crampy abdominal pain mild to moderate intensity without any radiation some nausea but no vomiting about a day or 2 ago the patient also have some URI symptoms denies having any chest pain did have some shortness of breath and minimal cough but no sputum production with the symptoms the patient presented to the hospital on arrival to the ER patient did have a low-grade fever 100.4 F patient was mildly tachycardic however no significant hypoxemia or need for supplemental oxygen patient did have vital of 11.2 with a left shift did have elevated BUN/creatinine levels as mildly elevated just tested positive for COVID-19 C. difficile came back negative patient was started on oral vancomycin infectious disease was consulted for further management of possible C. difficile and COVID- 19 infection patient denies having any cloudy peritoneal fluid Review of Systems Positive point and negatives has been mentioned in the HPI, complete review of systems was performed and all other systems are negative Past Medical History Past Medical History: Hypertension, Renal Disease, Seizure Disorder Additional Past Medical History / Comment(s): HEMODIALYSIS TUTHSA. LAST SEIZURES IN FEBRUARY 2021., few episodes of tachycardia. History of Any Multi-Drug Resistant Organisms: None Reported, C-DIFF Year Discovered:: 01/25/2023 MDRO Source:: stool Additional Past Surgical History / Comment(s): left kidney removed as child Past Anesthesia/Blood Transfusion Reactions: No Reported Reaction Past Psychological History: No Psychological Hx Reported Smoking Status: Never smoker Past Alcohol Use History: None Reported Past Drug Use History: None Reported - Past Family History Mother Family Medical History: No Reported History Father Family Medical History: Cancer Additional Family Medical History / Comment(s): Liver Medications and Allergies Home Medications Medication Instructions Recorded Confirmed Type Calcium Acetate 668 Mg Tab 3,340 mg PO TID-W/MEALS 12/01/22 01/29/23 History Ergocalciferol (Vitamin D2) 1,250 mcg PO Q14D 12/01/22 01/29/23 History [Drisdol (50,000 Iu)] Lanthanum Carbonate [Lanthanum 1,000 mg PO TID-W/MEALS 12/01/22 01/29/23 History Carbonate Chew] Vit B Comp No.3/Folic/C/Biotin 1 tab PO DAILY 12/01/22 01/29/23 History [Sheyla-Ariana Rx Tablet] calcitrioL [Calcitriol] 0.25 mcg PO MO 12/01/22 01/29/23 History Vancomycin 125 mg PO QID 01/29/23 01/29/23 History Diphenox-Atrop 2.5-0.025 mg 1 tab PO 5XD PRN 3 Days #15 tablet 01/31/23 Rx [Lomotil] Allergies Allergy/AdvReac Type Severity Reaction Status Date / Time shellfish derived [Shellfish] Allergy Rash/Hives Verified 01/29/23 07:00 Physical Exam Vitals: Vital Signs Temp Pulse Resp BP Pulse Ox 01/29/23 11:30 104 H 18 98/50 94 L 01/29/23 11:00 105 H 18 118/82 95 01/29/23 10:27 110 H 18 118/80 98 01/29/23 09:38 99 F 105 H 18 109/64 100 01/29/23 08:45 98.4 F 102 H 18 100/72 99 01/29/23 07:25 98.1 F 98 18 110/68 97 01/29/23 06:00 98.6 F 98 17 108/77 100 01/29/23 05:10 94 16 101/72 98 01/29/23 04:45 98.6 F 98 17 106/63 98 01/29/23 03:50 108 H 23 97/57 97 01/29/23 03:26 99.0 F 104 H 19 97/58 98 01/29/23 02:52 99.8 F H 109 H 19 100/51 96 01/29/23 01:42 99.1 F 105 H 16 98 01/29/23 00:31 100.4 F H 134 H 20 97/63 97 Intake and Output 01/28/23 01/29/23 01/29/23 22:59 06:59 14:59 Other: Weight 94.347 kg GENERAL DESCRIPTION: Middle-aged male lying in bed, no distress. No tachypnea or accessory muscle of respiration use. HEENT: Shows Pallor , no scleral icterus. Oral mucous membrane is dry. No pharyngeal erythema or thrush NECK: Trachea central, no thyromegaly. LUNGS: Unlabored breathing. Clear to auscultation anteriorly. No wheeze or crackle. HEART: S1, S2, regular rate and rhythm. No loud murmur ABDOMEN: Soft, no tenderness EXTREMITIES: No edema of feet. SKIN: No rash, no masses palpable. NEUROLOGICAL: The patient is awake, alert, oriented x3, mood and affect normal. Results CBC & Chem 7: 01/30/23 07:18 01/31/23 06:39 Labs: Abnormal Lab Results - Last 24 Hours (Table) 01/29/23 01/29/23 01/29/23 Range/Units 01:12 01:12 01:12 WBC 11.2 H (3.8-10.6) k/uL RBC 3.18 L (4.30-5.90) m/uL Hgb 11.2 L (13.0-17.5) gm/dL Hct 32.3 L (39.0-53.0) % MCV 101.6 H (80.0-100.0) fL Neutrophils # 9.2 H (1.3-7.7) k/uL Sodium 135 L (137-145) mmol/L Chloride 97 L (98-107) mmol/L BUN 56 H (9-20) mg/dL Creatinine 16.14 H* (0.66-1.25) mg/dL Glucose 106 H (74-99) mg/dL AST 62 H (17-59) U/L ALT 90 H (4-49) U/L SARS-CoV-2 (PCR) Detected A (Not Detectd) Assessment and Plan (1) COVID Current Visit: Yes Status: Acute Code(s): U07.1 - COVID-19 SNOMED Code(s): 528867254 (2) Diarrhea Current Visit: Yes Status: Acute Code(s): R19.7 - DIARRHEA, UNSPECIFIED SNOMED Code(s): 87869802 Plan: 1patient present to hospital with diarrhea 4 days duration in this patient did have previous history of C. difficile colitis and recent exposure antibiotics fo r PD catheter associated peritonitis high clinical suspicious for C. difficile colitis the initial test came back negative 2-patient also have some URI symptoms and tested positive for COVID-19 however no significant hypoxemia or need for supplemental oxygen chest x-ray with some atelectasis no focal consolidation treatment will be mostly supportive 3-we will check a stool C. difficile PCR and also check a stool culture 4-patient will be given zinc and ascorbic acid heparin, no need for remdesivir at this point We will follow on clinical condition and cultures to further adjust medication if needed Thank you for this consultation we will follow the patient along with you Dictation was produced using [employer] dictation software. please excuse any grammatical, word or spelling errors. Time with Patient: Greater than 30
[2023-01-30] MEDS: SODIUM CHLORIDE 0.9% 1,000 ML IV SCH ×2 (01:25→15:42)
[2023-01-30] MEDS: DIALYSIS (PERIT 1.5%) 2,000 ML 30 G/2,000 ML BAG INTRAPERIT SCH ×4 (05:46→23:37)
[2023-01-30 08:15] LABS: Basophils % (A) 0 %; Eosinophils % (A) 0 %; HCT 28.3 % (39.0-53.0); HGB 9.9 gm/dL (13.0-17.5); Lymphocytes # (A) 0.9 k/uL (1.0-4.8); Lymphocytes % (A) 7 %; MCH 35.9 pg (25.0-35.0); MCHC 34.9 g/dL (31.0-37.0); Macrocytosis Slight; Mean Platelet Volume 7.8; Monocytes # (A) 0.4 k/uL (0-1.0); Monocytes % (A) 4 %; Neutrophils # (A) 10.5 k/uL (1.3-7.7); Neutrophils % (A) 88 %; Platelet Count 215 k/uL (150-450); RBC 2.75 m/uL (4.30-5.90); RDW 13.6 % (11.5-15.5)
[2023-01-30 08:32] LABS: Anion Gap 18 mmol/L; Blood Urea Nitrogen 61 mg/dL (9-20); Calcium 8.3 mg/dL (8.4-10.2); Carbon Dioxide 19 mmol/L (22-30); Chloride 97 mmol/L (98-107); Glucose 131 mg/dL (74-99); Potassium 4.3 mmol/L (3.5-5.1); Sodium 134 mmol/L (137-145)
[2023-01-30 08:37] LABS: African American GFR (CKD) 4 (>60 ml/min/1.73 sqM); Non-African American GFR(CKD) 3 (>60 ml/min/1.73 sqM)
--- NOTE | 2023-01-30 08:55 | P.PN ---
Subjective Patient is a pleasant 27 old male came in with the recurrent diarrhea recurrent C. diff history, patient was recently treated for but that is better with the 2 antibiotics. Patient diarrhea improved today patient had 5 episodes of diarrhea strength yesterday. Patient was started on oral vancomycin. C. diff is negative with Grace testing because of which we [place] is being obtained. Patient is on 70 mL of IV fluids nephrology will manage the fluids and the patient is being continued on peritoneal dialysis. Patient is presently not on any other antibiotics. Constitutional: Denied any fatigue denied any fever. Cardio vascular: denied any chest pain, palpitations Gastrointestinal denied any nausea vomiting Pulmonary: Denied any shortness of breath cough Neurologic denied any new focal deficits All inpatient medications were reviewed and appropriate changes in these medications as dictated in the interval history and assessment and plan. PHYSICAL EXAMINATION: GENERAL: The patient is alert and oriented x3, not in any acute distress. Well developed, well nourished. HEENT: Pupils are round and equally reacting to light. EOMI. No scleral icterus. No conjunctival pallor. Normocephalic, atraumatic. No pharyngeal erythema. No thyromegaly. CARDIOVASCULAR: S1 and S2 present. No murmurs, rubs, or gallops. PULMONARY: Chest is clear to auscultation, no wheezing or crackles. ABDOMEN: Soft, nontender, nondistended, normoactive bowel sounds. No palpable organomegaly. MUSCULOSKELETAL: No joint swelling or deformity. EXTREMITIES: No cyanosis, clubbing, or pedal edema. NEUROLOGICAL: Gross neurological examination did not reveal any focal deficits. SKIN: No rashes. Assessment and plan --Diarrhea: Improving possibly of C. diff continue with oral vancomycin awaiting C. diff by PCR continue with IV fluids -COVID-19 infection patient is not requiring oxygen, supportive care, will not require steroids Decadron were discontinued -Dehydration, hypokalemia secondary to her diarrhea which is improving at this time -Recent history of peritonitis completed antibiotic therapy -End-stage renal disease failed renal transplant presently on peritoneal dialysis patient has a right solitary kidney -Hypertension -DVT prophylaxis: Early ambulation Objective - Vital Signs Vital signs: Vital Signs Temp 97.9 F 01/30/23 01:05 Pulse 80 01/30/23 01:05 Resp 18 01/30/23 01:05 BP 103/63 01/30/23 01:05 Pulse Ox 99 01/30/23 01:05 FiO2 Intake & Output 01/29/23 01/30/23 01/30/23 18:59 06:59 18:59 Other: # Voids 0 - Labs CBC & Chem 7: 01/30/23 07:18 01/30/23 07:18 Labs: Abnormal Lab Results - Last 24 Hours (Table) 01/30/23 01/30/23 Range/Units 07:18 07:18 WBC 12.0 H (3.8-10.6) k/uL RBC 2.75 L (4.30-5.90) m/uL Hgb 9.9 L (13.0-17.5) gm/dL Hct 28.3 L (39.0-53.0) % MCV 103.0 H (80.0-100.0) fL MCH 35.9 H (25.0-35.0) pg Neutrophils # 10.5 H (1.3-7.7) k/uL Lymphocytes # 0.9 L (1.0-4.8) k/uL Sodium 134 L (137-145) mmol/L Chloride 97 L (98-107) mmol/L Carbon Dioxide 19 L (22-30) mmol/L BUN 61 H (9-20) mg/dL Creatinine 17.04 H* (0.66-1.25) mg/dL Glucose 131 H (74-99) mg/dL Calcium 8.3 L (8.4-10.2) mg/dL Microbiology - Last 24 Hours (Table) 01/29/23 09:50 Gram Stain - Preliminary Dialysate
[2023-01-30] MEDS: ASCORBIC ACID 500 MG TAB PO SCH (10:09)
[2023-01-30] MEDS: VANCOMYCIN 125 MG CAPSULE PO SCH ×4 (10:09→21:54)
[2023-01-30] MEDS: ZINC SULFATE 220 MG CAP PO SCH (10:09)
--- NOTE | 2023-01-30 11:31 | P.PN ---
Subjective Patient is seen in follow-up for end-stage renal disease. He is maintained on peritoneal dialysis. No problems with PD exchanges. Had 5 episodes of loose bowel movements yesterday. Receiving IV fluids. Vital signs are stable. General: No acute distress. HEENT: Head exam is unremarkable. LUNGS: No audible rhonchi or wheezes. HEART: Rate and Rhythm are regular. ABDOMEN: Nontender. EXTREMITITES: No edema. Objective - Vital Signs Vital signs: Vital Signs Temp 97.6 F 01/30/23 08:00 Pulse 79 01/30/23 08:00 Resp 19 01/30/23 08:00 BP 97/59 01/30/23 08:00 Pulse Ox 97 01/30/23 08:00 FiO2 Intake & Output 01/29/23 01/30/23 01/30/23 18:59 06:59 18:59 Other: # Voids 0 - Labs CBC & Chem 7: 01/30/23 07:18 01/30/23 07:18 Labs: Abnormal Lab Results - Last 24 Hours (Table) 01/30/23 01/30/23 Range/Units 07:18 07:18 WBC 12.0 H (3.8-10.6) k/uL RBC 2.75 L (4.30-5.90) m/uL Hgb 9.9 L (13.0-17.5) gm/dL Hct 28.3 L (39.0-53.0) % MCV 103.0 H (80.0-100.0) fL MCH 35.9 H (25.0-35.0) pg Neutrophils # 10.5 H (1.3-7.7) k/uL Lymphocytes # 0.9 L (1.0-4.8) k/uL Sodium 134 L (137-145) mmol/L Chloride 97 L (98-107) mmol/L Carbon Dioxide 19 L (22-30) mmol/L BUN 61 H (9-20) mg/dL Creatinine 17.04 H* (0.66-1.25) mg/dL Glucose 131 H (74-99) mg/dL Calcium 8.3 L (8.4-10.2) mg/dL Microbiology - Last 24 Hours (Table) 01/29/23 09:50 Gram Stain - Preliminary Dialysate Assessment and Plan Plan: Assessment: 1. End-stage renal disease maintained on peritoneal dialysis. 2. COVID-19 infection. 3. Diarrhea with recent C. diff infection. On oral vancomycin. C. diff negative this admission. 4. Peritonitis status post intraperitoneal antibiotics completed over a week ago. 5. Chronic kidney disease mineral bone disease. Phosphorus level III.8 dated 01/29/2023. 6. Hypovolemia from diarrhea and poor intake. 7. Metabolic acidosis secondary to IV fluids and GI losses. Plan: Maintain PD - 2 L exchanges every 6 hours with 1.5% solution. Dialysate WBC cell count 0. Maintain IV hydration. Add oral bicarbonate.
[2023-01-30] MEDS: SODIUM BICARBONATE TAB 650 MG TAB PO SCH ×2 (13:01→21:54)
[2023-01-30] MEDS ORDERED: ERGOCALCIFEROL 1,250 MCG (50,000 IU) CAPSULE PO SCH (14:00)
[2023-01-30] MEDS ORDERED: FAMOTIDINE 20 MG TAB PO SCH (14:15)
[2023-01-30] MEDS: SEVELAMER 800 MG TAB PO SCH (16:46)
[2023-01-30] MEDS: CALCIUM ACETATE 667 MG TAB PO SCH (16:47)
[2023-01-31] MEDS: DIALYSIS (PERIT 1.5%) 2,000 ML 30 G/2,000 ML BAG INTRAPERIT SCH ×2 (05:40→12:11)
[2023-01-31] MEDS: SODIUM CHLORIDE 0.9% 1,000 ML IV SCH (05:45)
[2023-01-31 07:18] LABS: Anion Gap 17 mmol/L; Blood Urea Nitrogen 60 mg/dL (9-20); Carbon Dioxide 20 mmol/L (22-30); Chloride 98 mmol/L (98-107); Glucose 100 mg/dL (74-99); Sodium 135 mmol/L (137-145)
[2023-01-31 07:25] LABS: African American GFR (CKD) 4 (>60 ml/min/1.73 sqM); Non-African American GFR(CKD) 4 (>60 ml/min/1.73 sqM)
[2023-01-31 07:47] LABS: Potassium 3.7 mmol/L (3.5-5.1)
--- NOTE | 2023-01-31 08:51 | P.PN ---
Subjective Progress Note Date: 01/30/23 Principal diagnosis: Covid 19 and Diarrhea Patient is a 27-year-old male with a past medical history significant for hypertension seizure disorder history of end-stage renal disease on peritoneal dialysis was admitted in November 2022 with the PD catheter associated peritonitis cultures was negative patient was given a 3-week course of vancomycin and Fortaz intraperitoneally, now present to the hospital with diarrhea also have some URI symptoms and has been diagnosed with the COVID-19. On today's evaluation that is 01/30/2023, patient denies having any fever or any chills he is breathing comfortably on room air no chest pain shortness of breath occasional cough no abdominal pain diarrhea has slowed down. Patient did have a white count of 12.0 creatinine 17.04 stool C. difficile PCR pending dialysis fluid analysis pending. Objective - Vital Signs Vital signs: Vital Signs Temp 97.8 F 01/30/23 19:25 Pulse 80 01/30/23 19:25 Resp 18 01/30/23 20:00 BP 119/61 01/30/23 19:25 Pulse Ox 98 01/30/23 19:25 FiO2 Intake & Output 01/30/23 01/30/23 01/31/23 06:59 18:59 05:59 Other: # Voids 0 2 2 # Bowel Movements 2 2 - Exam GENERAL DESCRIPTION: Middle-age male lying in bed in no distress RESPIRATORY SYSTEM: Unlabored breathing , decreased breath sounds at bases HEART: S1 S2 regular rate and rhythm ,no loud murmurs ABDOMEN: Soft , no tenderness EXTREMITIES: No edema feet - Labs CBC & Chem 7: 01/30/23 07:18 01/31/23 06:39 Labs: Abnormal Lab Results - Last 24 Hours (Table) 01/30/23 01/30/23 Range/Units 07:18 07:18 WBC 12.0 H (3.8-10.6) k/uL RBC 2.75 L (4.30-5.90) m/uL Hgb 9.9 L (13.0-17.5) gm/dL Hct 28.3 L (39.0-53.0) % MCV 103.0 H (80.0-100.0) fL MCH 35.9 H (25.0-35.0) pg Neutrophils # 10.5 H (1.3-7.7) k/uL Lymphocytes # 0.9 L (1.0-4.8) k/uL Sodium 134 L (137-145) mmol/L Chloride 97 L (98-107) mmol/L Carbon Dioxide 19 L (22-30) mmol/L BUN 61 H (9-20) mg/dL Creatinine 17.04 H* (0.66-1.25) mg/dL Glucose 131 H (74-99) mg/dL Calcium 8.3 L (8.4-10.2) mg/dL Microbiology - Last 24 Hours (Table) 01/29/23 09:50 Gram Stain - Preliminary Dialysate Body Fluid Culture - Preliminary Assessment and Plan (1) Diarrhea Current Visit: Yes Status: Acute Code(s): R19.7 - DIARRHEA, UNSPECIFIED SNOMED Code(s): 17042684 (2) COVID Current Visit: Yes Status: Acute Code(s): U07.1 - COVID-19 SNOMED Code(s): 635205326 Plan: 1patient present to hospital with diarrhea 4 days duration in this patient did have previous history of C. difficile colitis and recent exposure antibiotics for PD catheter associated peritonitis high clinical suspicious for C. difficile colitis the initial test came back negative 2-patient also have some URI symptoms and tested positive for COVID-19 however no significant hypoxemia or need for supplemental oxygen chest x-ray with some atelectasis no focal consolidation treatment will be mostly supportive 3we currently waiting for stool for C. difficile PCR and stool culture continue with empiric oral vancomycin. 4patient to continue with current supportive treatment with zinc ascorbic acid heparin for underlying COVID-19 infection Dictation was produced using [employer] dictation software. please excuse any grammatical, word or spelling errors.
[2023-01-31] MEDS ORDERED: FAMOTIDINE 20 MG TAB PO SCH (09:00)
[2023-01-31] MEDS ORDERED: FOLIC ACID-VIT B COMPLEX-VIT C 1 CAP PO SCH (09:00)
[2023-01-31 09:36] VITALS: RESP 17; TEMP 98.2
[2023-01-31] MEDS: SEVELAMER 800 MG TAB PO SCH ×2 (10:33→10:41)
[2023-01-31] MEDS: CALCIUM ACETATE 667 MG TAB PO SCH ×2 (10:33→10:39)
[2023-01-31] MEDS: SODIUM BICARBONATE TAB 650 MG TAB PO SCH (10:38)
[2023-01-31] MEDS: ASCORBIC ACID 500 MG TAB PO SCH (10:39)
[2023-01-31] MEDS: ZINC SULFATE 220 MG CAP PO SCH (10:39)
--- NOTE | 2023-01-31 10:41 | P.DS ---
Providers Date of admission: 01/29/23 03:46 Attending physician: Carlos Manuel Mauro MD Consults: 01/29/23 03:44 Consult Physician Urgent Consulting Provider: Armani Hoang Consult Reason/Comments: peritoneal dialysis Do you want consulting provider notified?: Yes Consult Physician Urgent Consulting Provider: Megan Tai Consult Reason/Comments: recent c. diff diagnosis Do you want consulting provider notified?: Yes, Notify in am Primary care physician: Carlos Manuel Mauro MD Hospital Course: Patient is a pleasant 27 old male came in with the recurrent diarrhea recurrent C. diff history, patient was recently treated for but that is better with the 2 antibiotics. Patient diarrhea improved today patient had 5 episodes of diarrhea strength yesterday. Patient was started on oral vancomycin. C. diff is negative with Grace testing because of which we [place] is being obtained. Patient is on 70 mL of IV fluids nephrology will manage the fluids and the patient is being continued on peritoneal dialysis. Patient is presently not on any other antibiotics. 01/31/2023 Patient ID improved had only 2 episodes since yesterday and diarrhea is probably secondary to COVID-19. C. diff for PCR is negative as well. Patient probably will be discharged today. Patient still has leukocytosis that's from Covid again PHYSICAL EXAMINATION: GENERAL: The patient is alert and oriented x3, not in any acute distress. Well developed, well nourished. HEENT: Pupils are round and equally reacting to light. EOMI. No scleral icterus. No conjunctival pallor. Normocephalic, atraumatic. No pharyngeal erythema. No thyromegaly. CARDIOVASCULAR: S1 and S2 present. No murmurs, rubs, or gallops. PULMONARY: Chest is clear to auscultation, no wheezing or crackles. ABDOMEN: Soft, nontender, nondistended, normoactive bowel sounds. No palpable organomegaly. MUSCULOSKELETAL: No joint swelling or deformity. EXTREMITIES: No cyanosis, clubbing, or pedal edema. NEUROLOGICAL: Gross neurological examination did not reveal any focal deficits. SKIN: No rashes. Assessment and plan --Diarrhea: Improving C. diff ruled out may not need oral vancomycin secondary to COVID-19 infection improved will be discharged toda -COVID-19 infection patient is not requiring oxygen, supportive care, will not require steroids Decadron were discontinued -Dehydration, hypokalemia secondary to her diarrhea which is i improved -Recent history of peritonitis completed antibiotic therapy -End-stage renal disease failed renal transplant presently on peritoneal dialysis patient has a right solitary kidney -Hypertension Patient Condition at Discharge: Fair Plan - Discharge Summary Discharge Rx Participant: Yes New Discharge Prescriptions: Continue calcitrioL [Calcitriol] 0.25 mcg PO MO Vit B Comp No.3/Folic/C/Biotin [Sheyla-Ariana Rx Tablet] 1 tab PO DAILY Lanthanum Carbonate [Lanthanum Carbonate Chew] 1,000 mg PO TID-W/MEALS Calcium Acetate 668 Mg Tab 3,340 mg PO TID-W/MEALS Vancomycin 125 mg PO QID Ergocalciferol (Vitamin D2) [Drisdol (50,000 Iu)] 1,250 mcg PO Q14D Discharge Medication List Calcium Acetate 668 Mg Tab 3,340 mg PO TID-W/MEALS 12/01/22 [History] Ergocalciferol (Vitamin D2) [Drisdol (50,000 Iu)] 1,250 mcg PO Q14D 12/01/22 [History] Lanthanum Carbonate [Lanthanum Carbonate Chew] 1,000 mg PO TID-W/MEALS 12/01/22 [History] Vit B Comp No.3/Folic/C/Biotin [Sheyla-Ariana Rx Tablet] 1 tab PO DAILY 12/01/22 [History] calcitrioL [Calcitriol] 0.25 mcg PO MO 12/01/22 [History] Vancomycin 125 mg PO QID 01/29/23 [History] Follow up Appointment(s)/Referral(s): Carlos Manuel Mauro MD [Primary Care Provider] - 3 Days Discharge Disposition: HOME SELF-CARE
--- NOTE | 2023-01-31 12:00 | P.PN ---
Subjective Patient is seen in follow-up for end-stage renal disease. He is maintained on peritoneal dialysis. No problems with PD exchanges. States diarrhea is slowing down. Vital signs are stable. General: No acute distress. HEENT: Head exam is unremarkable. LUNGS: No audible rhonchi or wheezes. HEART: Rate and Rhythm are regular. ABDOMEN: Nontender. EXTREMITITES: No edema. Objective - Vital Signs Vital signs: Vital Signs Temp 98.2 F 01/31/23 07:35 Pulse 95 01/31/23 07:35 Resp 17 01/31/23 07:35 BP 88/59 01/31/23 07:35 Pulse Ox 96 01/31/23 07:35 FiO2 Intake & Output 01/30/23 01/31/23 01/31/23 19:59 06:59 18:59 Other: Voiding Method Toilet # Voids # Bowel Movements - Labs CBC & Chem 7: 01/30/23 07:18 01/31/23 06:39 Labs: Abnormal Lab Results - Last 24 Hours (Table) 01/31/23 Range/Units 06:39 Sodium 135 L (137-145) mmol/L Carbon Dioxide 20 L (22-30) mmol/L BUN 60 H (9-20) mg/dL Creatinine 16.27 H* (0.66-1.25) mg/dL Glucose 100 H (74-99) mg/dL Calcium 8.0 L (8.4-10.2) mg/dL Microbiology - Last 24 Hours (Table) 01/29/23 09:50 Gram Stain - Preliminary Dialysate Body Fluid Culture - Preliminary Assessment and Plan Plan: Assessment: 1. End-stage renal disease maintained on peritoneal dialysis. 2. COVID-19 infection. 3. Diarrhea with recent C. diff infection. On oral vancomycin. C. diff negative this admission. 4. Peritonitis status post intraperitoneal antibiotics completed over a week ago. 5. Chronic kidney disease mineral bone disease. Phosphorus level 3.8 dated 01/29/2023. 6. Hypovolemia from diarrhea and poor intake. 7. Metabolic acidosis secondary to IV fluids and GI losses. Better. On oral bicarbonate. Plan: Maintain PD - 2 L exchanges every 6 hours with 1.5% solution. Dialysate WBC cell count 0. Maintain IV hydration.
[2023-01-31 12:12] VITALS: BP 121/69; PULSE 103
--- NOTE | 2023-01-31 14:01 | P.PN ---
Subjective Progress Note Date: 01/31/23 Principal diagnosis: Covid 19 and Diarrhea Patient is a 27-year-old male with a past medical history significant for hypertension seizure disorder history of end-stage renal disease on peritoneal dialysis was admitted in November 2022 with the PD catheter associated peritonitis cultures was negative patient was given a 3-week course of vancomycin and Fortaz intraperitoneally, now present to the hospital with diarrhea also have some URI symptoms and has been diagnosed with the COVID-19. On today's evaluation that is 01/31/2023, the patient denies any fever or any chills, the patient is breathing comfortably on room air and no need for supplemental oxygen, the patient denies any chest pain , did have occasional dry cough and no sputum production, patient denies Abdominal pain and no nausea/vomiting , diarrhea has decreased in frequency Patient did have a white count of 12.0 as of yesterday creatinine is 16.27 stool C. difficile PCR negative Objective - Vital Signs Vital signs: Vital Signs Temp 98.2 F 01/31/23 07:35 Pulse 103 H 01/31/23 12:10 Resp 17 01/31/23 07:35 BP 121/69 01/31/23 12:10 Pulse Ox 96 01/31/23 07:35 FiO2 Intake & Output 01/30/23 01/31/23 01/31/23 19:59 06:59 18:59 Other: Voiding Method Toilet # Voids # Bowel Movements - Exam GENERAL DESCRIPTION: Middle-age male lying in bed in no distress RESPIRATORY SYSTEM: Unlabored breathing , decreased breath sounds at bases HEART: S1 S2 regular rate and rhythm ,no loud murmurs ABDOMEN: Soft , no tenderness EXTREMITIES: No edema feet - Labs CBC & Chem 7: 01/30/23 07:18 01/31/23 06:39 Labs: Abnormal Lab Results - Last 24 Hours (Table) 01/31/23 Range/Units 06:39 Sodium 135 L (137-145) mmol/L Carbon Dioxide 20 L (22-30) mmol/L BUN 60 H (9-20) mg/dL Creatinine 16.27 H* (0.66-1.25) mg/dL Glucose 100 H (74-99) mg/dL Calcium 8.0 L (8.4-10.2) mg/dL Microbiology - Last 24 Hours (Table) 01/29/23 09:50 Gram Stain - Preliminary Dialysate Body Fluid Culture - Preliminary Assessment and Plan (1) Diarrhea Current Visit: Yes Status: Acute Code(s): R19.7 - DIARRHEA, UNSPECIFIED SNOMED Code(s): 94758758 (2) COVID Current Visit: Yes Status: Acute Code(s): U07.1 - COVID-19 SNOMED Code(s): 397487736 Plan: 1patient present to hospital with diarrhea 4 days duration in this patient did have previous history of C. difficile colitis and recent exposure antibiotics for PD catheter associated peritonitis high clinical suspicious for C. difficile colitis the initial test came back negative 2-patient also have some URI symptoms and tested positive for COVID-19 however no significant hypoxemia or need for supplemental oxygen chest x-ray with some atelectasis no focal consolidation treatment will be mostly supportive 3 stool for C. difficile PCR came back negative oral vancomycin was discont inued. 4patient to continue with current supportive treatment with zinc ascorbic acid heparin for underlying COVID-19 infection and no need for antiviral or antibiotics Dictation was produced using [employer] dictation software. please excuse any grammatical, word or spelling errors. Time with Patient: Less than 30
[2023-02-01 09:54] LABS: Nucleated Cells, Body Fluid 0 /UL
== END 2023-01-31 13:47 | disposition home or self-care (01) ==
LOC: EC 00:29 → 4SSUR 03:46
PROVIDERS: ADMIT Family Medicine; ATTEND Family Medicine
DX: U07.1 COVID-19 (principal); A04.71 Enterocolitis due to Clostridium difficile, recurrent; I12.0 Hypertensive chronic kidney disease with stage 5 chronic kidney disease or end stage renal disease; N18.6 End stage renal disease; E87.6 Hypokalemia; E87.20 Acidosis, unspecified; E86.0 Dehydration; E86.1 Hypovolemia; I95.9 Hypotension, unspecified; T86.12 Kidney transplant failure; M89.8X9 Other specified disorders of bone, unspecified site; G40.909 Epilepsy, unspecified, not intractable, without status epilepticus; Z79.899 Other long term (current) drug therapy; Z91.013 Allergy to seafood; Z86.19 Personal history of other infectious and parasitic diseases; Z99.2 Dependence on renal dialysis; Z80.0 Family history of malignant neoplasm of digestive organs
CPT/HCPCS: 96361 ×4; 96374; 99285; 36415; 87651; 80053; 80048 ×2; 89050; 84100; 85025 ×2; 87324; 87493; 87070; 87205; 87045; 87046; 87636; 71046; G0378 ×3; J1100; A4722 ×3

== ENCOUNTER 2023-02-15 01:10 | Inpatient (IN) | payer MEDICARE, OTHER ==
[2023-02-15] MEDS ORDERED: SODIUM CHLORIDE 0.9% 500 ML 500 ML IV STA (01:37)
--- NOTE | 2023-02-15 01:45 | ED ---
General Adult HPI - General Chief complaint: GI Bleed Stated complaint: Syncope, Blood in stool Time Seen by Provider: 02/15/23 01:18 Source: patient, RN notes reviewed, old records reviewed Mode of arrival: ambulatory Limitations: no limitations - History of Present Illness Initial comments: 27-year-old male history of end-stage renal disease on peritoneal dialysis presents for evaluation of lightheadedness and syncopal episode which occurred yesterday morning approximately 24 hours ago. Patient states he had been dealing with diarrhea for approximately one week and was diagnosed with C. difficile. The patient states that his stool had returned to normal but then this evening he developed an episode of brown stool with some blood. He denies prior history of GI bleed. Denies fever. Denies chest pain or dyspnea. - Related Data Home Medications Medication Instructions Recorded Confirmed Calcium Acetate 668 Mg Tab 3,340 mg PO TID-W/MEALS 12/01/22 01/29/23 Ergocalciferol (Vitamin D2) 1,250 mcg PO Q14D 12/01/22 01/29/23 [Drisdol (50,000 Iu)] Lanthanum Carbonate [Lanthanum 1,000 mg PO TID-W/MEALS 12/01/22 01/29/23 Carbonate Chew] Vit B Comp No.3/Folic/C/Biotin 1 tab PO DAILY 12/01/22 01/29/23 [Sheyla-Ariana Rx Tablet] calcitrioL [Calcitriol] 0.25 mcg PO MO 12/01/22 01/29/23 Vancomycin 125 mg PO QID 01/29/23 01/29/23 Previous Rx's Medication Instructions Recorded Diphenox-Atrop 2.5-0.025 mg 1 tab PO 5XD PRN 3 Days #15 tablet 01/31/23 [Lomotil] Allergies Allergy/AdvReac Type Severity Reaction Status Date / Time shellfish derived [Shellfish] Allergy Rash/Hives Verified 02/15/23 01:17 Review of Systems ROS Statement: Those systems with pertinent positive or pertinent negative responses have been documented in the HPI. ROS Other: All systems not noted in ROS Statement are negative. Past Medical History Past Medical History: Hypertension, Renal Disease, Seizure Disorder Additional Past Medical History / Comment(s): HEMODIALYSIS TUTHSA. LAST SEIZURES IN FEBRUARY 2021., few episodes of tachycardia. History of Any Multi-Drug Resistant Organisms: None Reported, C-DIFF Date of last positivie culture/infection: 01/25/2023 MDRO Source:: stool Additional Past Surgical History / Comment(s): left kidney removed as child Past Anesthesia/Blood Transfusion Reactions: No Reported Reaction Past Psychological History: No Psychological Hx Reported Smoking Status: Never smoker Past Alcohol Use History: None Reported Past Drug Use History: None Reported - Past Family History Mother Family Medical History: No Reported History Father Family Medical History: Cancer Additional Family Medical History / Comment(s): Liver General Exam Limitations: no limitations General appearance: alert, in no apparent distress Head exam: Present: atraumatic, normocephalic Eye exam: Present: normal appearance, PERRL ENT exam: Present: mucous membranes dry Neck exam: Present: normal inspection. Absent: tenderness, meningismus Respiratory exam: Present: normal lung sounds bilaterally. Absent: respiratory distress, wheezes, rales Cardiovascular Exam: Present: normal rhythm, tachycardia GI/Abdominal exam: Present: soft. Absent: distended, tenderness, guarding Rectal exam: Absent: bloody stool, hemorrhoids Neurological exam: Present: alert, oriented X3, CN II-XII intact. Absent: motor sensory deficit Psychiatric exam: Present: normal affect, normal mood Course Vital Signs 02/15/23 02/15/23 02/15/23 01:12 01:45 03:08 Temperature 98.2 F Pulse Rate 115 H 98 96 Respiratory 20 18 16 Rate Blood Pressure 92/62 104/55 104/50 O2 Sat by Pulse 97 100 95 Oximetry Medical Decision Making - Medical Decision Making Was pt. sent in by a medical professional or institution (, PA, FASHION STYLING INTERN, urgent care, hospital, or [place] health care facility...) When possible be specific @ -No Did you speak to anyone other than the patient for history (EMS, parent, family, police, friend...)? What history was obtained from this source @ -No Did you review nursing and triage notes (agree or disagree)? Why? @ -I reviewed and agree with nursing and triage notes Were old charts reviewed (outside hosp., previous admission, EMS record, old EKG, old radiological studies, urgent care reports/EKG's, [place] health care facility records)? Report findings @ -No old charts were reviewed Differential Diagnosis (chest pain, altered mental status, abdominal pain women, abdominal pain men, vaginal bleeding, weakness, fever, dyspnea, syncope, headache, dizziness, GI bleed, back pain, seizure, CVA, palpatations, mental health, musculoskeletal)? @ -[Differential Syncope: Valvular disease, hypertrophic cardiomyopathy, pulmonary embolism, tamponade, tachycardia, bradycardia, [place], hypovolemia, hemorrhage, dissection, anemia, intracranial hemorrhage, seizure, hypoglycemia, carbon monoxide poisoning, this is not meant to be an all-inclusive list. EKG interpreted by me (3pts min.). @ -EKG: Sinus tachycardia, rate of 109, OH interval 124, QRS duration 113, QTC [address] segment elevation. X-rays interpreted by me (1pt min.). @ -None done CT interpreted by me (1pt min.). @ -None done U/S interpreted by me (1pt. min.). @ -None done What testing was considered but not performed or refused? (CT, X-rays, U/S, labs)? Why? @ -None What meds were considered but not given or refused? Why? @ -None Did you discuss the management of the patient with other professionals (professionals i.e. , PA, FASHION STYLING INTERN, lab, RT, psych nurse, social sciences lecturer, architecture technician, teacher, fire management officer, case managers)? Give summary @ -No Was smoking cessation discussed for >3mins.? @ -No Was critical care preformed (if so, how long)? @ -No Were there social determinants of health that impacted care today? How? (Homelessness, low income, unemployed, alcoholism, drug addiction, transportation, low edu. Level, literacy, decrease access to med. care, long-term, rehab)? @ -No Was there de-escalation of care discussed even if they declined (Discuss DNR or withdrawal of care, Hospice)? DNR status @ -No What co-morbidities impacted this encounter? (DM, HTN, Smoking, COPD, CAD, Cancer, CVA, ARF, Chemo, Hep., AIDS, mental health diagnosis, sleep apnea, morbid obesity)? @ -[End-stage renal disease on peritoneal dialysis Was patient admitted / discharged? Hospital course, mention meds given and route, prescriptions, significant lab abnormalities, going to OR and other pertinent info. @ -27-year-old male with syncopal episode, likely degree of dehydration secondary to diarrheal illness and poor by mouth intake. Patient is on dialysis through PD catheter. He denies abdominal pain. He had a peritonitis ap proximately 2 months ago. Denies fever. He does have a leukocytosis currently. Hemoglobin is stable. Patient will be observed given gentle IV hydration. Laboratory studies will be repeated. Undiagnosed new problem with uncertain prognosis? @ -No Drug Therapy requiring intensive monitoring for toxicity (Heparin, Nitro, Insulin, Cardizem)? @ -No Were any procedures done? @ -No Diagnosis/symptom? @ -[Syncope Acute, or Chronic, or Acute on Chronic? @ -[Acute Uncomplicated (without systemic symptoms) or Complicated (systemic symptoms)? @ -default Side effects of treatment? @ -No Exacerbation, Progression, or Severe Exacerbation? @ -No Poses a threat to life or bodily function? How? (Chest pain, [place], [place], pneumonia, PE, COPD, DKA, ARF, appy, cholecystitis, CVA, Diverticulitis, Homicidal, Suicidal, threat to staff... and all critical care pts) @ -[Low risk at this time - Lab Data Result diagrams: 02/15/23 01:41 02/15/23 01:41 Lab Results 02/15/23 02/15/23 02/15/23 Range/Units 01:41 01:41 01:41 WBC 19.0 H (3.8-10.6) k/uL RBC 2.95 L (4.30-5.90) m/uL Hgb 10.3 L (13.0-17.5) gm/dL Hct 29.5 L (39.0-53.0) % MCV 100.0 (80.0-100.0) fL MCH 34.9 (25.0-35.0) pg MCHC 34.9 (31.0-37.0) g/dL RDW 13.5 (11.5-15.5) % Plt Count 275 (150-450) k/uL MPV 7.4 Neutrophils % 82 % Lymphocytes % 11 % Monocytes % 3 % Eosinophils % 2 % Basophils % 0 % Neutrophils # 15.6 H (1.3-7.7) k/uL Lymphocytes # 2.0 (1.0-4.8) k/uL Monocytes # 0.6 (0-1.0) k/uL Eosinophils # 0.3 (0-0.7) k/uL Basophils # 0.1 (0-0.2) k/uL PT 10.4 (10.0-12.5) sec INR 0.9 (<1.2) APTT 23.0 (22.0-30.0) sec Sodium 130 L (137-145) mmol/L Potassium 3.4 L (3.5-5.1) mmol/L Chloride 92 L (98-107) mmol/L Carbon Dioxide 19 L (22-30) mmol/L Anion Gap 19 mmol/L BUN 64 H (9-20) mg/dL Creatinine 16.95 H* (0.66-1.25) mg/dL Est GFR (CKD-EPI)AfAm 4 (>60 ml/min/1.73 sqM) Est GFR (CKD-EPI)NonAf 3 (>60 ml/min/1.73 sqM) Glucose 106 H (74-99) mg/dL Calcium 8.4 (8.4-10.2) mg/dL Magnesium 1.6 (1.6-2.3) mg/dL Total Bilirubin 0.7 (0.2-1.3) mg/dL AST 45 (17-59) U/L ALT 72 H (4-49) U/L Alkaline Phosphatase 140 H (38-126) U/L Total Protein 6.3 (6.3-8.2) g/dL Albumin 3.6 (3.5-5.0) g/dL Blood Type Blood Type Recheck Bld Type Recheck Status Antibody Screen Spec Expiration Date 02/15/23 Range/Units 01:41 WBC (3.8-10.6) k/uL RBC (4.30-5.90) m/uL Hgb (13.0-17.5) gm/dL Hct (39.0-53.0) % MCV (80.0-100.0) fL MCH (25.0-35.0) pg MCHC (31.0-37.0) g/dL RDW (11.5-15.5) % Plt Count (150-450) k/uL MPV Neutrophils % % Lymphocytes % % Monocytes % % Eosinophils % % Basophils % % Neutrophils # (1.3-7.7) k/uL Lymphocytes # (1.0-4.8) k/uL Monocytes # (0-1.0) k/uL Eosinophils # (0-0.7) k/uL Basophils # (0-0.2) k/uL PT (10.0-12.5) sec INR (<1.2) APTT (22.0-30.0) sec Sodium (137-145) mmol/L Potassium (3.5-5.1) mmol/L Chloride (98-107) mmol/L Carbon Dioxide (22-30) mmol/L Anion Gap mmol/L BUN (9-20) mg/dL Creatinine (0.66-1.25) mg/dL Est GFR (CKD-EPI)AfAm (>60 ml/min/1.73 sqM) Est GFR (CKD-EPI)NonAf (>60 ml/min/1.73 sqM) Glucose (74-99) mg/dL Calcium (8.4-10.2) mg/dL Magnesium (1.6-2.3) mg/dL Total Bilirubin (0.2-1.3) mg/dL AST (17-59) U/L ALT (4-49) U/L Alkaline Phosphatase (38-126) U/L Total Protein (6.3-8.2) g/dL Albumin (3.5-5.0) g/dL Blood Type O Positive Blood Type Recheck O Pos Bld Type Recheck Status No Antibody Screen NEGATIVE Spec Expiration Date 02/18/20232340 Disposition Clinical Impression: Syncope Disposition: ADMITTED IP TO THIS [facility] Condition: Stable Is patient prescribed a controlled substance at d/c from ED?: No Referrals: Carlos Manuel Mauro MD [Primary Care Provider] - 1-2 days Time of Disposition: 03:54
[2023-02-15 02:37] LABS: Basophils # (A) 0.1 k/uL (0-0.2); Basophils % (A) 0 %; Eosinophils # (A) 0.3 k/uL (0-0.7); Eosinophils % (A) 2 %; HCT 29.5 % (39.0-53.0); HGB 10.3 gm/dL (13.0-17.5); Lymphocytes % (A) 11 %; MCH 34.9 pg (25.0-35.0); MCHC 34.9 g/dL (31.0-37.0); Mean Platelet Volume 7.4; Monocytes # (A) 0.6 k/uL (0-1.0); Monocytes % (A) 3 %; Neutrophils # (A) 15.6 k/uL (1.3-7.7); Neutrophils % (A) 82 %; Platelet Count 275 k/uL (150-450); RBC 2.95 m/uL (4.30-5.90); RDW 13.5 % (11.5-15.5)
[2023-02-15 02:38] LABS: INR 0.9 (<1.2); Prothrombin Time 10.4 sec (10.0-12.5)
[2023-02-15 02:40] LABS: ALT 72 U/L (4-49); AST 45 U/L (17-59); Albumin 3.6 g/dL (3.5-5.0); Alkaline Phosphatase 140 U/L (38-126); Anion Gap 19 mmol/L; Blood Urea Nitrogen 64 mg/dL (9-20); Calcium 8.4 mg/dL (8.4-10.2); Carbon Dioxide 19 mmol/L (22-30); Chloride 92 mmol/L (98-107); Glucose 106 mg/dL (74-99); Magnesium 1.6 mg/dL (1.6-2.3); Potassium 3.4 mmol/L (3.5-5.1); Sodium 130 mmol/L (137-145); Total Bilirubin 0.7 mg/dL (0.2-1.3); Total Protein 6.3 g/dL (6.3-8.2)
[2023-02-15 02:45] LABS: African American GFR (CKD) 4 (>60 ml/min/1.73 sqM); Non-African American GFR(CKD) 3 (>60 ml/min/1.73 sqM)
[2023-02-15] MEDS ORDERED: NALOXONE 0.4 MG/ML 1 ML VIAL IV PRN (03:50)
[2023-02-15] MEDS: SODIUM CHLORIDE 0.9% 1,000 ML IV SCH ×2 (04:37→17:32)
[2023-02-15 11:54] LABS: Anion Gap 15 mmol/L; Blood Urea Nitrogen 64 mg/dL (9-20); Calcium 8.1 mg/dL (8.4-10.2); Carbon Dioxide 21 mmol/L (22-30); Chloride 95 mmol/L (98-107); Glucose 96 mg/dL (74-99); Potassium 3.3 mmol/L (3.5-5.1); Sodium 131 mmol/L (137-145)
[2023-02-15 12:00] LABS: African American GFR (CKD) 4 (>60 ml/min/1.73 sqM); Non-African American GFR(CKD) 3 (>60 ml/min/1.73 sqM)
[2023-02-15] MEDS: DIALYSIS (PERIT 1.5%) 2,500 ML 37.5 G/2,500 ML BAG INTRAPERIT SCH ×2 (12:06→18:00)
--- NOTE | 2023-02-15 12:45 | P.CRDCN ---
History of Present Illness History of present illness: HISTORY OF PRESENT ILLNESS: This is a 27-year-old male with a past medical history significant for end-stage renal disease on peritoneal dialysis. Patient does not follow with a cook mess. We have been asked to see the patient in consultation for syncope. Patient examined at the bedside in the emergency room by Dr. Neil. Patient presented to the hospital after having a syncopal episode at home. The patient does report having some dizziness and lightheadedness. The patient also reports he has been having diarrhea. Patient was hospitalized a few weeks ago and was positive for Covid. He was negative for C. diff at that time. * EKG reveals sinus tachycardia with no signs of acute ischemia * Current home cardiac medications include none * Most recent echocardiogram obtained in November 2022 revealing ejection fraction 55-60% with trace MR * Patient underwent stress echo in October 2022 which was negative for ischemia REVIEW OF SYSTEMS: At the time of my exam: CONSTITUTIONAL: Denies fever or chills. HEENT: Denies blurred vision, vision changes, or eye pain. Denies hemoptysis CARDIOVASCULAR: Denies chest pain. Denies orthopnea. Denies PND. Denies palpitations RESPIRATORY: Denies shortness of breath. GASTROINTESTINAL: Denies abdominal pain. Denies nausea or vomiting. HEMATOLOGIC: Denies bleeding disorders. GENITOURINARY: Denies any blood in urine. SKIN: Denies pruitis. Denies rash. PHYSICAL EXAM: VITAL SIGNS: Reviewed. GENERAL: Well-developed in no acute distress. HEENT: Head is normocephalic. Pupils are equal, round. Sclerae anicteric. Mucous membranes of the mouth are moist. Neck supple. No JVD or thyromegaly LUNGS: Respirations even and unlabored. Lungs essentially clear to auscultation bilaterally. HEART: Regular rate and rhythm. S1 and S2 heard. ABDOMEN: Soft. Nondistended. Nontender. EXTREMITIES: Normal range of motion. No clubbing or cyanosis. Peripheral pulses intact. No lower extremity edema NEUROLOGIC: Awake and alert. Oriented x 3. ASSESSMENT: Syncope, suspect vasovagal in nature Diarrhea Recent Covid January 2023 End-stage renal disease on peritoneal dialysis History of catheter associated peritonitis History of C. diff PLAN: No need to obtain echocardiogram as this was performed in November 2022. It is also noted that the patient underwent stress echo in October 2022 which was negative for ischemia Continue telemetry monitoring to assess for any arrhythmias Obtain orthostatic blood pressures Check troponin and d-dimer Further recommendations pending patient's course Nurse practitioner note has been reviewed by physician. Signing provider agrees with the documented findings, assessment, and plan of care. Past Medical History Past Medical History: Hypertension, Renal Disease, Seizure Disorder Additional Past Medical History / Comment(s): HEMODIALYSIS TUTHSA. LAST SEIZURES IN FEBRUARY 2021., few episodes of tachycardia. History of Any Multi-Drug Resistant Organisms: None Reported, C-DIFF Date of last positivie culture/infection: 01/25/2023 MDRO Source:: stool Additional Past Surgical History / Comment(s): left kidney removed as child Past Anesthesia/Blood Transfusion Reactions: No Reported Reaction Past Psychological History: No Psychological Hx Reported Smoking Status: Never smoker Past Alcohol Use History: None Reported Past Drug Use History: None Reported - Past Family History Mother Family Medical History: No Reported History Father Family Medical History: Cancer Additional Family Medical History / Comment(s): Liver Medications and Allergies Home Medications Medication Instructions Recorded Confirmed Type Calcium Acetate 668 Mg Tab 3,340 mg PO TID-W/MEALS PRN 12/01/22 02/15/23 History Ergocalciferol (Vitamin D2) 1,250 mcg PO Q14D 12/01/22 02/15/23 History [Drisdol (50,000 Iu)] Lanthanum Carbonate [Lanthanum 1,000 mg PO TID-W/MEALS 12/01/22 02/15/23 History Carbonate Chew] Vit B Comp No.3/Folic/C/Biotin 1 tab PO DAILY 12/01/22 02/15/23 History [Sheyla-Ariana Rx Tablet] calcitrioL [Calcitriol] 0.25 mcg PO MO 12/01/22 02/15/23 History Diphenox-Atrop 2.5-0.025 mg 1 tab PO 5XD PRN 3 Days #15 tablet 01/31/23 02/15/23 Rx [Lomotil] MDD 8 tabs Sevelamer Carbonate 1,600 mg PO DIRECTED PRN 02/15/23 02/15/23 History Sevelamer Carbonate 4,000 mg PO AC-TID 02/15/23 02/15/23 History Allergies Allergy/AdvReac Type Severity Reaction Status Date / Time shellfish derived [Shellfish] Allergy Rash/Hives Verified 02/15/23 07:29 Physical Exam Vitals: Vital Signs Temp Pulse Pulse Resp BP BP BP 02/15/23 12:00 105 H 18 101/52 02/15/23 11:56 98 18 96/50 02/15/23 11:53 92 18 02/15/23 08:17 98.7 F 90 16 98/49 02/15/23 06:00 98 F 97 16 114/83 02/15/23 04:43 95 18 124/46 02/15/23 03:08 96 16 104/50 02/15/23 01:45 98 18 104/55 02/15/23 01:12 98.2 F 115 H 20 92/62 BP Pulse Ox 02/15/23 12:00 02/15/23 11:56 02/15/23 11:53 96/49 02/15/23 08:17 98 02/15/23 06:00 98 02/15/23 04:43 97 02/15/23 03:08 95 02/15/23 01:45 100 02/15/23 01:12 97 Intake and Output 02/14/23 02/15/23 02/15/23 22:59 06:59 14:59 Output Total 900 Balance -900 Output: Other 900 Other: Weight 90.718 kg Results 02/15/23 01:41 02/15/23 11:31 Cardiac Enzymes 02/15/23 Range/Units 01:41 AST 45 (17-59) U/L Coagulation 02/15/23 Range/Units 01:41 PT 10.4 (10.0-12.5) sec APTT 23.0 (22.0-30.0) sec CBC 02/15/23 Range/Units 01:41 WBC 19.0 H (3.8-10.6) k/uL RBC 2.95 L (4.30-5.90) m/uL Hgb 10.3 L (13.0-17.5) gm/dL Hct 29.5 L (39.0-53.0) % Plt Count 275 (150-450) k/uL Comprehensive Metabolic Panel 02/15/23 02/15/23 Range/Units 01:41 11:31 Sodium 130 L 131 L (137-145) mmol/L Potassium 3.4 L 3.3 L (3.5-5.1) mmol/L Chloride 92 L 95 L (98-107) mmol/L Carbon Dioxide 19 L 21 L (22-30) mmol/L BUN 64 H 64 H (9-20) mg/dL Creatinine 16.95 H* 17.91 H* (0.66-1.25) mg/dL Glucose 106 H 96 (74-99) mg/dL Calcium 8.4 8.1 L (8.4-10.2) mg/dL AST 45 (17-59) U/L ALT 72 H (4-49) U/L Alkaline Phosphatase 140 H (38-126) U/L Total Protein 6.3 (6.3-8.2) g/dL Albumin 3.6 (3.5-5.0) g/dL Current Medications Generic Name Dose Route Start Last Admin Trade Name Freq PRN Reason Stop Dose Admin Sodium Chloride 1,000 mls @ 50 mls/hr 02/15/23 04:00 02/15/23 04:37 Saline 0.9% IV 50 mls/hr .Q20H SALVADOR Administration Peritoneal Dialysis Solution 37.5 g in 2,500 mls @ 0 mls/hr 02/15/23 12:00 02/15/23 12:06 Delflex With 1.5% Dextrose (2,500 Ml) INTRAPERIT 2,300 mls/hr Q6HR SALVADOR Administration Protocol As Directed Naloxone HCl 0.2 mg 02/15/23 03:50 Naloxone 0.4 Mg/Ml 1 Ml Vial IV Q2M PRN Opioid Reversal Intake and Output 02/14/23 02/15/23 02/15/23 22:59 06:59 14:59 Output Total 900 Balance -900 Output: Other 900 Other: Weight 90.718 kg 02/15/23 01:41 02/15/23 11:31
[2023-02-15] MEDS ORDERED: SEVELAMER 800 MG TAB PO PRN (13:00)
[2023-02-15] MEDS ORDERED: CALCIUM ACETATE 667 MG TAB PO PRN (13:00)
[2023-02-15] MEDS ORDERED: DIPHENOX-ATROP 2.5-0.025 MG 1 EACH TAB PO PRN (13:00)
[2023-02-15] MEDS ORDERED: POTASSIUM CHLORIDE ER 20 MEQ TAB.ER PO STA (13:24)
--- NOTE | 2023-02-15 13:24 | P.NPCON ---
History of Present Illness - Reason for Consult end stage renal disease - History of Present Illness Patient is a 27-year-old male with end-stage renal disease maintained on peritoneal dialysis. He is admitted to the hospital with history of diarrhea and blood in his stool. Patient has a history of C. diff colitis and was recently discharged from the hospital about 2 weeks ago. He was done with his course of oral vancomycin but did take a couple of doses over the weekend when the diarrhea had worsened. PD fluid has been clear. No history of fever Review of Systems As per HPI Past Medical History Past Medical History: Hypertension, Renal Disease, Seizure Disorder Additional Past Medical History / Comment(s): HEMODIALYSIS TUTHSA. LAST SEIZURES IN FEBRUARY 2021., few episodes of tachycardia. History of Any Multi-Drug Resistant Organisms: None Reported, C-DIFF Date of last positivie culture/infection: 01/25/2023 MDRO Source:: stool Additional Past Surgical History / Comment(s): left kidney removed as child Past Anesthesia/Blood Transfusion Reactions: No Reported Reaction Past Psychological History: No Psychological Hx Reported Smoking Status: Never smoker Past Alcohol Use History: None Reported Past Drug Use History: None Reported - Past Family History Mother Family Medical History: No Reported History Father Family Medical History: Cancer Additional Family Medical History / Comment(s): Liver Medications and Allergies Home Medications Medication Instructions Recorded Confirmed Type Calcium Acetate 668 Mg Tab 3,340 mg PO TID-W/MEALS PRN 12/01/22 02/15/23 History Ergocalciferol (Vitamin D2) 1,250 mcg PO Q14D 12/01/22 02/15/23 History [Drisdol (50,000 Iu)] Lanthanum Carbonate [Lanthanum 1,000 mg PO TID-W/MEALS 12/01/22 02/15/23 History Carbonate Chew] Vit B Comp No.3/Folic/C/Biotin 1 tab PO DAILY 12/01/22 02/15/23 History [Sheyla-Ariana Rx Tablet] calcitrioL [Calcitriol] 0.25 mcg PO MO 12/01/22 02/15/23 History Diphenox-Atrop 2.5-0.025 mg 1 tab PO 5XD PRN 3 Days #15 tablet 01/31/23 02/15/23 Rx [Lomotil] MDD 8 tabs Sevelamer Carbonate 1,600 mg PO DIRECTED PRN 02/15/23 02/15/23 History Sevelamer Carbonate 4,000 mg PO AC-TID 02/15/23 02/15/23 History Allergies Allergy/AdvReac Type Severity Reaction Status Date / Time shellfish derived [Shellfish] Allergy Rash/Hives Verified 02/15/23 07:29 Physical Exam Vitals: Vital Signs Temp Pulse Pulse Resp BP BP BP 02/15/23 12:00 105 H 18 101/52 02/15/23 11:56 98 18 96/50 02/15/23 11:53 92 18 02/15/23 08:17 98.7 F 90 16 98/49 02/15/23 06:00 98 F 97 16 114/83 02/15/23 04:43 95 18 124/46 02/15/23 03:08 96 16 104/50 02/15/23 01:45 98 18 104/55 02/15/23 01:12 98.2 F 115 H 20 92/62 BP Pulse Ox 02/15/23 12:00 02/15/23 11:56 02/15/23 11:53 96/49 02/15/23 08:17 98 02/15/23 06:00 98 02/15/23 04:43 97 02/15/23 03:08 95 02/15/23 01:45 100 02/15/23 01:12 97 Intake and Output 02/14/23 02/15/23 02/15/23 22:59 06:59 14:59 Output Total 900 Balance -900 Output: Other 900 Other: Weight 90.718 kg Patient is awake, comfortable, no acute distress Examination of the heart S1 and S2 Examination of the lungs bilateral breath sounds are heard Abdomen is soft nontender No edema noted PLATE AND WELD INSPECTOR exam grossly intact Results - Lab Results Most recent lab results Calcium 8.1 mg/dL (8.4-10.2) L 02/15/23 11:31 Magnesium 1.6 mg/dL (1.6-2.3) 02/15/23 01:41 02/15/23 01:41 02/15/23 11:31 Assessment and Plan Assessment: 1. End-stage renal disease on peritoneal dialysis 2. C. diff colitis 3. CK D mineral bone disorder 4. Volume depletion Plan: Continue with IV fluids Resume PD exchanges Send PD fluid for cell count and culture Treatment of C. diff colitis as per ID Replace potassium
[2023-02-15] MEDS: FOLIC ACID-VIT B COMPLEX-VIT C 1 CAP PO SCH (13:51)
[2023-02-15] MEDS: PANTOPRAZOLE 40 MG/10 ML VIAL IVP SCH (13:51)
--- NOTE | 2023-02-15 13:57 | P.HPIM ---
History of Present Illness H&P Date: 02/15/23 This is a 27-year-old gentleman past medical history significant for end-stage renal disease maintained on peritoneal dialysis, recent COVID infection,recent C. diff., completed his antibiotic regimen. Reports no diarrhea since Wednesday. States Wednesday night he felt fine but then on Wednesday morning, upon awakening, and required in-stent dizziness, lightheadedness. Attempted to get up and take 2 steps, vision became blurred and he passed out. Reports he laid on the floor for half an hour to 1 hour. Notify his nurse who advised him to come to the ER. Reports he last saw his boat crew deck hand last week, reporting ncrease in his creatinine. Denies nausea vomiting or diarrhea. Denies incontinence or diaphoresis. Denies alcohol consumption. Denies chest pain, palpitations or shortness of breath. Denies fever. Received IV fluid hydration on admission and reports since last night feeling well, ambulating to bathroom with no further dizziness lightheadedness or blurred vision. EKG reported sinus tachycardia. Afebrile, WBC 19, hemoglobin 10.3, platelets 275. Sodium 1:30, potassium 3.4, b icarb 19, BUN 64, creatinine 16.95, glucose 106, magnesium 1.6, ALT 72, alk phos 140. Review of Systems ROS Other: All systems not noted in ROS Statement are negative. ROS Statement: Those systems with pertinent positive or pertinent negative responses have been documented in the HPI. Past Medical History Past Medical History: Hypertension, Renal Disease, Seizure Disorder Additional Past Medical History / Comment(s): HEMODIALYSIS TUTHSA. LAST SEIZURES IN FEBRUARY 2021., few episodes of tachycardia. History of Any Multi-Drug Resistant Organisms: None Reported, C-DIFF Date of last positivie culture/infection: 01/25/2023 MDRO Source:: stool Additional Past Surgical History / Comment(s): left kidney removed as child Past Anesthesia/Blood Transfusion Reactions: No Reported Reaction Past Psychological History: No Psychological Hx Reported Smoking Status: Never smoker Past Alcohol Use History: None Reported Past Drug Use History: None Reported - Past Family History Mother Family Medical History: No Reported History Father Family Medical History: Cancer Additional Family Medical History / Comment(s): Liver Medications and Allergies Home Medications Medication Instructions Recorded Confirmed Type Calcium Acetate 668 Mg Tab 3,340 mg PO TID-W/MEALS PRN 12/01/22 02/15/23 History Ergocalciferol (Vitamin D2) 1,250 mcg PO Q14D 12/01/22 02/15/23 History [Drisdol (50,000 Iu)] Lanthanum Carbonate [Lanthanum 1,000 mg PO TID-W/MEALS 12/01/22 02/15/23 History Carbonate Chew] Vit B Comp No.3/Folic/C/Biotin 1 tab PO DAILY 12/01/22 02/15/23 History [Sheyla-Ariana Rx Tablet] calcitrioL [Calcitriol] 0.25 mcg PO MO 12/01/22 02/15/23 History Diphenox-Atrop 2.5-0.025 mg 1 tab PO 5XD PRN 3 Days #15 tablet 01/31/23 02/15/23 Rx [Lomotil] MDD 8 tabs Sevelamer Carbonate 1,600 mg PO DIRECTED PRN 02/15/23 02/15/23 History Sevelamer Carbonate 4,000 mg PO AC-TID 02/15/23 02/15/23 History Allergies Allergy/AdvReac Type Severity Reaction Status Date / Time shellfish derived [Shellfish] Allergy Rash/Hives Verified 02/15/23 07:29 Physical Exam Vitals: Vital Signs Temp Pulse Resp BP Pulse Ox 02/15/23 08:17 98.7 F 90 16 98/49 98 02/15/23 06:00 98 F 97 16 114/83 98 02/15/23 04:43 95 18 124/46 97 02/15/23 03:08 96 16 104/50 95 02/15/23 01:45 98 18 104/55 100 02/15/23 01:12 98.2 F 115 H 20 92/62 97 Intake and Output 02/14/23 02/15/23 02/15/23 22:59 06:59 14:59 Other: Weight 90.718 kg PHYSICAL EXAM: VITAL SIGNS: As above GENERAL: Lying flat on stretcher, no acute distress HEENT: Normocephalic Conjunctivae normal. eyes normal. NECK: Supple No JVD. No thyroid enlargement. No LNs CARDIOVASCULAR: S1, S2 regular. No murmur RESPIRATION: Unlabored, Breath sounds diminished in the bases. No rhonchi or crackles. No bronchial breathing. ABDOMEN: Soft, nontender, PD catheter .No guarding. no masses palpable. No ascites, No hepatosplenomegaly.Bowel sounds heard. LEGS: No edema. no swelling PSYCHIATRY: Alert and oriented X3, mood and affect normal. NERVOUS SYSTEM: Cranial N 2-12 grossly normal. No focal deficits. Strength and sensation grossly intact. Skin: Warm and dry, no rash Results CBC & Chem 7: 02/15/23 01:41 02/15/23 11:31 Labs: Abnormal Lab Results - Last 24 Hours (Table) 02/15/23 02/15/23 Range/Units 01:41 01:41 WBC 19.0 H (3.8-10.6) k/uL RBC 2.95 L (4.30-5.90) m/uL Hgb 10.3 L (13.0-17.5) gm/dL Hct 29.5 L (39.0-53.0) % Neutrophils # 15.6 H (1.3-7.7) k/uL Sodium 130 L (137-145) mmol/L Potassium 3.4 L (3.5-5.1) mmol/L Chloride 92 L (98-107) mmol/L Carbon Dioxide 19 L (22-30) mmol/L BUN 64 H (9-20) mg/dL Creatinine 16.95 H* (0.66-1.25) mg/dL Glucose 106 H (74-99) mg/dL ALT 72 H (4-49) U/L Alkaline Phosphatase 140 H (38-126) U/L Assessment and Plan Assessment: Syncope secondary to possibly orthostatic hypotension secondary to dehydration, hypovolemia, Orthostatic vital signs pending. Recent Covid-19 infection History of recent C. difficile colitis, completed antibiotic treatment. Reports no diarrhea since Wednesday. History of recent peritonitis, completed antibiotic therapy End-stage renal disease maintained on peritoneal dialysis,solitary right kidney Hypertension Hypokalemia Plan: Continue on current medication regime ,monitoring and symptomatic treatment. Orthostatic vital signs pending.Nephrology requesting ID consult- consulted. IV fluid hydration. PD exchanges as per nephrology.PD fluid cultures ordered. Cardiology consult in place, troponin and d-dimer ordered. The impression and plan of care has been dictated as directed. : I performed a history and examination of this patient, discussed the same with the dictator. I agree with the dictator's note ,documented as a scribe. Any additional findings or plans will be noted.
[2023-02-15 15:52] LABS: Basophils # (A) 0.09 X 10*3/uL (0.00-0.10); Basophils % (A) 0.6 %; Eosinophils # (A) 0.34 X 10*3/uL (0.04-0.35); Eosinophils % (A) 2.1 %; HCT 27.6 % (39.6-50.0); HGB 9.3 g/dL (13.0-17.0); Lymphocytes # (A) 1.57 X 10*3/uL (0.90-5.00); Lymphocytes % (A) 9.7 %; MCH 34.1 pg (27.0-32.0); MCHC 33.7 g/dL (32.0-37.0); MCV 101.1 FL (80.0-97.0); Mean Platelet Volume 9.8 FL (9.5-12.2); Monocytes # (A) 0.77 X 10*3/uL (0.20-1.00); Monocytes % (A) 4.8 %; NRBC Per 100 WBC 0 X 10*3/uL (0.00-0.01); Neutrophils # (A) 12.78 X 10*3/uL (1.80-7.70); Neutrophils % (A) 78.9 %; Platelet Count 241 X 10*3/uL (140-440); RBC 2.73 X 10*6/uL (4.40-5.60); RDW 13.4 % (11.5-14.5); WBC 16.18 X 10*3/uL (4.50-10.00)
--- NOTE | 2023-02-15 16:21 | NM ---
EXAMINATION TYPE: NM pul vent and perfuse DATE OF EXAM: 02/15/2023 CLINICAL INDICATION: Male, 27 years old with history of elevated d-dimer, r/o PE, syncope; Comparison: Chest radiograph same day. TECHNIQUE: Utilizing inhalation of 66.2 mCi Tc 99m DTPA aerosol and intravenous injection of 5.2 mCi of Tc 99m MAA, ventilation and perfusion images are acquired post injection in multiple projections. FINDINGS: Normal radiotracer distribution is noted in the lungs. There is no evidence of mismatched defects. IMPRESSION:
[2023-02-15] MEDS ORDERED: LANTHANUM CARBONATE 1000 MG PO SCH (17:30)
[2023-02-15] MEDS: SEVELAMER 800 MG TAB PO SCH (17:41)
[2023-02-16] MEDS: DIALYSIS (PERIT 1.5%) 2,500 ML 37.5 G/2,500 ML BAG INTRAPERIT SCH ×5 (00:07→20:16)
[2023-02-16] MEDS: SODIUM CHLORIDE 0.9% 1,000 ML IV SCH (03:58)
[2023-02-16 05:01] LABS: Appearance,BF Hazy (Clear)
--- NOTE | 2023-02-16 08:24 | P.PN ---
Subjective HISTORY OF PRESENT ILLNESS: This is a 27-year-old male with a past medical history significant for end-stage renal disease on peritoneal dialysis. Patient does not follow with a making department preparer. We have been asked to see the patient in consultation for syncope. Patient examined at the bedside in the emergency room by Dr. Neil. Patient presented to the hospital after having a syncopal episode at home. The patient does report having some dizziness and lightheadedness. The patient also reports he has been having diarrhea. Patient was hospitalized a few weeks ago and was positive for Covid. He was negative for C. diff at that time. * EKG reveals sinus tachycardia with no signs of acute ischemia * Current home cardiac medications include none * Most recent echocardiogram obtained in November 2022 revealing ejection fraction 55-60% with trace MR * Patient underwent stress echo in October 2022 which was negative for ischemia 02/16/2021 Patient examined this morning at the bedside. Patient denies chest pain or pressure. He denies shortness of breath. No further episodes of syncope. Patient states he is not having diarrhea at this time. Vital signs are stable. Patient was found to have elevated d-dimer yesterday. He underwent VQ scan which was negative for PE. Troponin negative 1. PHYSICAL EXAM: VITAL SIGNS: Reviewed. GENERAL: Well-developed in no acute distress. HEENT: Head is normocephalic. Pupils are equal, round. Sclerae anicteric. Mucous membranes of the mouth are moist. Neck supple. No JVD or thyromegaly LUNGS: Respirations even and unlabored. Lungs essentially clear to auscultation bilaterally. HEART: Regular rate and rhythm. S1 and S2 heard. ABDOMEN: Soft. Nondistended. Nontender. EXTREMITIES: Normal range of motion. No clubbing or cyanosis. Peripheral pulses intact. No lower extremity edema NEUROLOGIC: Awake and alert. Oriented x 3. ASSESSMENT: Syncope, suspect vasovagal in nature Diarrhea Recent Covid January 2023 End-stage renal disease on peritoneal dialysis History of catheter associated peritonitis History of C. diff PLAN: Patient is currently stable from a cardiac perspective No further inpatient recommendations from a cardiology standpoint We will sign off. Please reconsult if needed. Nurse practitioner note has been reviewed by physician. Signing provider agrees with the documented findings, assessment, and plan of care. Objective - Vital Signs Vital signs: Vital Signs Temp 97.8 F 02/16/23 07:00 Pulse 85 02/16/23 07:00 Resp 16 02/16/23 07:00 BP 120/69 02/16/23 07:00 Pulse Ox 96 02/16/23 07:00 FiO2 Intake & Output 02/15/23 02/16/23 02/16/23 18:59 06:59 18:59 Intake Total 118 Output Total 900 Balance -782 Weight 90.718 kg 94.5 kg Intake: Oral 118 Output: Other 900 Other: # Voids 1 # Bowel Movements 0 - Labs CBC & Chem 7: 02/15/23 12:23 02/15/23 11:31 Labs: Abnormal Lab Results - Last 24 Hours (Table) 02/15/23 02/15/23 02/15/23 Range/Units 11:31 12:14 12:23 WBC 16.18 H (4.50-10.00) X 10*3/uL RBC 2.73 L (4.40-5.60) X 10*6/uL Hgb 9.3 L (13.0-17.0) g/dL Hct 27.6 L (39.6-50.0) % MCV 101.1 H (80.0-97.0) FL MCH 34.1 H (27.0-32.0) pg Neutrophils # 12.78 H (1.80-7.70) X 10*3/uL D-Dimer (<0.60) mg/L FEU Sodium 131 L (137-145) mmol/L Potassium 3.3 L (3.5-5.1) mmol/L Chloride 95 L (98-107) mmol/L Carbon Dioxide 21 L (22-30) mmol/L BUN 64 H (9-20) mg/dL Creatinine 17.91 H* (0.66-1.25) mg/dL Calcium 8.1 L (8.4-10.2) mg/dL Fluid Appearance Hazy A (Clear) 02/15/23 Range/Units 12:53 WBC (4.50-10.00) X 10*3/uL RBC (4.40-5.60) X 10*6/uL Hgb (13.0-17.0) g/dL Hct (39.6-50.0) % MCV (80.0-97.0) FL MCH (27.0-32.0) pg Neutrophils # (1.80-7.70) X 10*3/uL D-Dimer 3.00 H (<0.60) mg/L FEU Sodium (137-145) mmol/L Potassium (3.5-5.1) mmol/L Chloride (98-107) mmol/L Carbon Dioxide (22-30) mmol/L BUN (9-20) mg/dL Creatinine (0.66-1.25) mg/dL Calcium (8.4-10.2) mg/dL Fluid Appearance (Clear) Microbiology - Last 24 Hours (Table) 02/15/23 12:14 Gram Stain - Preliminary Peritoneal Fluid
--- NOTE | 2023-02-16 08:59 | P.CONS ---
History of Present Illness - Reason for Consult Consult date: 02/15/23 - History of Present Illness Patient is a 27-year-old male with a past medical history significant for hypertension end-stage renal disease on peritoneal dialysis seizure disorder history of C. difficile colitis patient presenting to the hospital for evaluation of lightheadedness syncopal episode which happened the day before presentation to the hospital patient did told the ER physician that he has been dealing with diarrhea for about a week and has been diagnosed with a C. difficile colitis however the patient was recently admitted at this facility from 01/29 to 01/31/2023 and at that point he was tested negative for C. difficile patient has been complaining of blood in the stools however he mentioned that his stools are forming up patient denies any abdominal pain no nausea no vomiting no headache or URI symptoms no chest pain shortness of breath or cough patient on presentation to the hospital was afebrile and no fever has been recorded subsequently patient did have a normal white count of 19,000 with a left shift elevated subs are normal hemoglobin is 10.3 infectious disease was consulted recent recurrent recent C. difficile stool studies currently pending Past Medical History Past Medical History: Hypertension, Renal Disease, Seizure Disorder Additional Past Medical History / Comment(s): HEMODIALYSIS TUTHSA. LAST SEIZURES IN FEBRUARY 2021., few episodes of tachycardia. History of Any Multi-Drug Resistant Organisms: None Reported, C-DIFF Year Discovered:: 01/25/2023 MDRO Source:: stool Additional Past Surgical History / Comment(s): left kidney removed as child Past Anesthesia/Blood Transfusion Reactions: No Reported Reaction Past Psychological History: No Psychological Hx Reported Smoking Status: Never smoker Past Alcohol Use History: None Reported Past Drug Use History: None Reported - Past Family History Mother Family Medical History: No Reported History Father Family Medical History: Cancer Additional Family Medical History / Comment(s): Liver Medications and Allergies Home Medications Medication Instructions Recorded Confirmed Type Calcium Acetate 668 Mg Tab 3,340 mg PO TID-W/MEALS PRN 12/01/22 02/15/23 History Ergocalciferol (Vitamin D2) 1,250 mcg PO Q14D 12/01/22 02/15/23 History [Drisdol (50,000 Iu)] Lanthanum Carbonate [Lanthanum 1,000 mg PO TID-W/MEALS 12/01/22 02/15/23 History Carbonate Chew] Vit B Comp No.3/Folic/C/Biotin 1 tab PO DAILY 12/01/22 02/15/23 History [Sheyla-Ariana Rx Tablet] calcitrioL [Calcitriol] 0.25 mcg PO MO 12/01/22 02/15/23 History Diphenox-Atrop 2.5-0.025 mg 1 tab PO 5XD PRN 3 Days #15 tablet 01/31/23 02/15/23 Rx [Lomotil] MDD 8 tabs Sevelamer Carbonate 1,600 mg PO DIRECTED PRN 02/15/23 02/15/23 History Sevelamer Carbonate 4,000 mg PO AC-TID 02/15/23 02/15/23 History Allergies Allergy/AdvReac Type Severity Reaction Status Date / Time shellfish derived [Shellfish] Allergy Rash/Hives Verified 02/15/23 07:29 Physical Exam Vitals: Vital Signs Temp Pulse Pulse Resp BP BP BP 02/15/23 13:48 97.9 F 97 18 95/48 02/15/23 13:00 99 18 02/15/23 12:00 105 H 18 101/52 02/15/23 11:56 98 18 96/50 02/15/23 11:53 92 18 02/15/23 08:17 98.7 F 90 16 98/49 02/15/23 06:00 98 F 97 16 114/83 02/15/23 04:43 95 18 124/46 02/15/23 03:08 96 16 104/50 02/15/23 01:45 98 18 104/55 02/15/23 01:12 98.2 F 115 H 20 92/62 BP Pulse Ox 02/15/23 13:48 94 L 02/15/23 13:00 96 02/15/23 12:00 02/15/23 11:56 02/15/23 11:53 96/49 02/15/23 08:17 98 02/15/23 06:00 98 02/15/23 04:43 97 02/15/23 03:08 95 02/15/23 01:45 100 02/15/23 01:12 97 Intake and Output 02/15/23 02/15/23 02/15/23 06:59 14:59 22:59 Output Total 900 Balance -900 Output: Other 900 Other: Weight 90.718 kg Results CBC & Chem 7: 02/15/23 12:23 02/16/23 10:40 Labs: Abnormal Lab Results - Last 24 Hours (Table) 02/15/23 02/15/23 02/15/23 Range/Units 01:41 01:41 11:31 WBC 19.0 H (3.8-10.6) k/uL RBC 2.95 L (4.30-5.90) m/uL Hgb 10.3 L (13.0-17.5) gm/dL Hct 29.5 L (39.0-53.0) % Neutrophils # 15.6 H (1.3-7.7) k/uL D-Dimer (<0.60) mg/L FEU Sodium 130 L 131 L (137-145) mmol/L Potassium 3.4 L 3.3 L (3.5-5.1) mmol/L Chloride 92 L 95 L (98-107) mmol/L Carbon Dioxide 19 L 21 L (22-30) mmol/L BUN 64 H 64 H (9-20) mg/dL Creatinine 16.95 H* 17.91 H* (0.66-1.25) mg/dL Glucose 106 H (74-99) mg/dL Calcium 8.1 L (8.4-10.2) mg/dL ALT 72 H (4-49) U/L Alkaline Phosphatase 140 H (38-126) U/L 02/15/23 Range/Units 12:53 WBC (3.8-10.6) k/uL RBC (4.30-5.90) m/uL Hgb (13.0-17.5) gm/dL Hct (39.0-53.0) % Neutrophils # (1.3-7.7) k/uL D-Dimer 3.00 H (<0.60) mg/L FEU Sodium (137-145) mmol/L Potassium (3.5-5.1) mmol/L Chloride (98-107) mmol/L Carbon Dioxide (22-30) mmol/L BUN (9-20) mg/dL Creatinine (0.66-1.25) mg/dL Glucose (74-99) mg/dL Calcium (8.4-10.2) mg/dL ALT (4-49) U/L Alkaline Phosphatase (38-126) U/L Assessment and Plan Plan: 1patient was in the hospital with weakness dizziness also complaining of blood in the stool patient did have a apparently history of C. difficile colitis however patient tested negative both for EIA as well as PCR on 01/29/2023, patient now complaining of mostly blood in the stool however he is telling me that he has semiformed stool that would go against C. difficile colitis he did have a elevated white count is slightly concerning 2-we will wait for the peritoneal fluid analysis to be completed 3-await stool for C. difficile We will follow on clinical condition and cultures to further adjust medication if needed Thank you for this consultation we will follow the patient along with you Dictation was produced using [email or web address] dictation software. please excuse any grammatical, word or spelling errors. Time with Patient: Greater than 30
[2023-02-16] MEDS: LANTHANUM CARBONATE 1000 MG PO SCH ×3 (09:47→17:32)
[2023-02-16] MEDS: SEVELAMER 800 MG TAB PO SCH ×3 (09:48→17:32)
[2023-02-16] MEDS: FOLIC ACID-VIT B COMPLEX-VIT C 1 CAP PO SCH (09:49)
[2023-02-16] MEDS: PANTOPRAZOLE 40 MG/10 ML VIAL IVP SCH (09:49)
[2023-02-16 11:11] LABS: Anion Gap 14 mmol/L; Blood Urea Nitrogen 59 mg/dL (9-20); Calcium 7.9 mg/dL (8.4-10.2); Carbon Dioxide 22 mmol/L (22-30); Chloride 95 mmol/L (98-107); Glucose 100 mg/dL (74-99); Potassium 3.2 mmol/L (3.5-5.1); Sodium 131 mmol/L (137-145)
[2023-02-16 11:17] LABS: African American GFR (CKD) 4 (>60 ml/min/1.73 sqM); Non-African American GFR(CKD) 3 (>60 ml/min/1.73 sqM)
--- NOTE | 2023-02-16 12:28 | P.PN ---
Subjective Patient is seen for follow-up for end-stage renal disease. Diarrhea is slightly improved No further bleeding noted. Patient has been tolerating his treatment fairly well. Serum creatinine remains is significantly elevated at 17. Discussed with patient that he may need to switch to temporary hemodialysis if there is no improvement in the labs over the next few days. Objective - Vital Signs Vital signs: Vital Signs Temp 97.8 F 02/16/23 07:00 Pulse 85 02/16/23 07:00 Resp 16 02/16/23 07:00 BP 120/69 02/16/23 07:00 Pulse Ox 96 02/16/23 07:00 FiO2 Intake & Output 02/15/23 02/16/23 02/16/23 18:59 06:59 18:59 Intake Total 118 Output Total 900 Balance -782 Weight 90.718 kg 94.5 kg Intake: Oral 118 Output: Other 900 Other: # Voids 1 # Bowel Movements 0 - Exam Patient is awake, comfortable, no acute distress No edema noted ASSOCIATE EMBALMER/FUNERAL DIRECTOR exam grossly intact - Labs CBC & Chem 7: 02/15/23 12:23 02/16/23 10:40 Labs: Abnormal Lab Results - Last 24 Hours (Table) 02/15/23 02/15/23 02/15/23 Range/Units 12:14 12:23 12:53 WBC 16.18 H (4.50-10.00) X 10*3/uL RBC 2.73 L (4.40-5.60) X 10*6/uL Hgb 9.3 L (13.0-17.0) g/dL Hct 27.6 L (39.6-50.0) % MCV 101.1 H (80.0-97.0) FL MCH 34.1 H (27.0-32.0) pg Neutrophils # 12.78 H (1.80-7.70) X 10*3/uL D-Dimer 3.00 H (<0.60) mg/L FEU Sodium (137-145) mmol/L Potassium (3.5-5.1) mmol/L Chloride (98-107) mmol/L BUN (9-20) mg/dL Creatinine (0.66-1.25) mg/dL Glucose (74-99) mg/dL Calcium (8.4-10.2) mg/dL Fluid Appearance Hazy A (Clear) 02/16/23 Range/Units 10:40 WBC (4.50-10.00) X 10*3/uL RBC (4.40-5.60) X 10*6/uL Hgb (13.0-17.0) g/dL Hct (39.6-50.0) % MCV (80.0-97.0) FL MCH (27.0-32.0) pg Neutrophils # (1.80-7.70) X 10*3/uL D-Dimer (<0.60) mg/L FEU Sodium 131 L (137-145) mmol/L Potassium 3.2 L (3.5-5.1) mmol/L Chloride 95 L (98-107) mmol/L BUN 59 H (9-20) mg/dL Creatinine 17.29 H* (0.66-1.25) mg/dL Glucose 100 H (74-99) mg/dL Calcium 7.9 L (8.4-10.2) mg/dL Fluid Appearance (Clear) Microbiology - Last 24 Hours (Table) 02/15/23 12:14 Gram Stain - Preliminary Peritoneal Fluid Assessment and Plan Assessment: 1. End-stage renal disease on peritoneal dialysis 2. C. diff colitis 3. CK D mineral bone disorder 4. Volume depletion Plan: Continue with IV fluids Increase PD exchanges 2 every 4 hours. May need to switch to temporary hemodialysis if there is no improvement in labs over the next couple of days. Repeat PD fluid cell count tomorrow Treatment of C. diff colitis as per ID Replace potassium
--- NOTE | 2023-02-16 14:06 | P.PN ---
Subjective Progress Note Date: 02/16/23 H&P Date: 02/15/23 This is a 27-year-old gentleman past medical history significant for end-stage renal disease maintained on peritoneal dialysis, recent COVID infection,recent C. diff., completed his antibiotic regimen. Reports no diarrhea since Wednesday. States Wednesday night he felt fine but then on Wednesday morning, upon awakening, and required in-stent dizziness, lightheadedness. Attempted to get up and take 2 steps, vision became blurred and he passed out. Reports he laid on the floor for half an hour to 1 hour. Notify his nurse who advised him to come to the ER. Reports he last saw his central office maintainer last week, reporting ncrease in his creatinine. Denies nausea vomiting or diarrhea. Denies incontinence or diaphoresis. Denies alcohol consumption. Denies chest pain, palpitations or shortness of breath. Denies fever. Received IV fluid hydration on admission and reports since last night feeling well, ambulating to bathroom with no further dizziness lightheadedness or blurred vision. EKG reported sinus tachycardia. Afebrile, WBC 19, hemoglobin 10.3, platelets 275. Sodium 1:30, potassium 3.4, bicarb 19, BUN 64, creatinine 16.95, glucose 106, magnesium 1.6, ALT 72, alk phos 140. 02/16/2023 d-dimer returned elevated at 3, VQ scan performed, reporting no evidence of mismatch defects. Orthostatic BPs negative. Maintained on IV fluid hydration .Continues on peritoneal dialysis as per nephrology, BUN 59, creatinine remains elevated 17.29. Peritoneal fluid cultures in progress. Reports form normal bowel movement yesterday denies nausea vomiting. Denies bloating. Denies abdominal pain. Denies lightheadedness, headache, cough or shortness of breath. No leg edema. Denies chest pain, palpitations. Potassium 3.2. Afebrile. Objective - Vital Signs Vital signs: Vital Signs Temp 99 F 02/16/23 12:27 Pulse 88 02/16/23 12:27 Resp 16 02/16/23 07:00 BP 92/56 02/16/23 12:27 Pulse Ox 98 02/16/23 12:27 FiO2 Intake & Output 02/15/23 02/16/23 02/16/23 18:59 06:59 18:59 Intake Total 118 Output Total 900 Balance -782 Weight 90.718 kg 94.5 kg Intake: Oral 118 Output: Other 900 Other: # Voids 1 # Bowel Movements 0 - Exam PHYSICAL EXAM: VITAL SIGNS: As above GENERAL: Alert and oriented 3, sitting up in bed, no acute distress HEENT: Normocephalic Conjunctivae normal. NECK: Supple No JVD. CARDIOVASCULAR: S1, S2 regular. No murmur RESPIRATION: Unlabored, equal air entry,CTA with bilateral bases diminished. ABDOMEN: Soft, nontender, PD catheter .No guarding. no masses palpable. +BS LEGS: No edema. no swelling. NERVOUS SYSTEM: Cranial N 2-12 grossly normal. No focal deficits. Strength and sensation grossly intact. Skin: Warm and dry, no rash - Labs CBC & Chem 7: 02/15/23 12:23 02/16/23 10:40 Labs: Abnormal Lab Results - Last 24 Hours (Table) 02/15/23 02/15/23 02/16/23 Range/Units 12:14 12:23 10:40 WBC 16.18 H (4.50-10.00) X 10*3/uL RBC 2.73 L (4.40-5.60) X 10*6/uL Hgb 9.3 L (13.0-17.0) g/dL Hct 27.6 L (39.6-50.0) % MCV 101.1 H (80.0-97.0) FL MCH 34.1 H (27.0-32.0) pg Neutrophils # 12.78 H (1.80-7.70) X 10*3/uL Sodium 131 L (137-145) mmol/L Potassium 3.2 L (3.5-5.1) mmol/L Chloride 95 L (98-107) mmol/L BUN 59 H (9-20) mg/dL Creatinine 17.29 H* (0.66-1.25) mg/dL Glucose 100 H (74-99) mg/dL Calcium 7.9 L (8.4-10.2) mg/dL Fluid Appearance Hazy A (Clear) Microbiology - Last 24 Hours (Table) 02/15/23 12:14 Gram Stain - Preliminary Peritoneal Fluid Assessment and Plan Assessment: Syncope secondary to dehydration, hypovolemia, negative for orthostatic hypotension. Leukocytosis Recent Covid-19 infection History of recent C. difficile colitis, completed antibiotic treatment. Reports no diarrhea since Wednesday. History of recent peritonitis, completed antibiotic therapy End-stage renal disease maintained on peritoneal dialysis,solitary right kidney Hypertension Hypokalemia Plan: Continue on current medication regime ,monitoring and symptomatic treatment. IV fluid hydration. Electrolyte replacements /PD exchanges as per nephrology.PD fluid cultures in progress. Currently having no diarrhea. Peritoneal fluid cultures in progress .Evaluated by infectious disease with recommendations noted. The impression and plan of care has been dictated as directed. : I performed a history and examination of this patient, discussed the same with the dictator. I agree with the dictator's note ,documented as a scribe. Any additional findings or plans will be noted.
--- NOTE | 2023-02-16 15:05 | P.PN ---
Subjective Progress Note Date: 02/16/23 Principal diagnosis: Reason for follow-up is leukocytosis and a recent C. diff Patient is a 27-year-old male with a past medical history significant for hypertension end-stage renal disease on peritoneal dialysis seizure disorder history of C. difficile colitis patient presenting to the hospital for evaluation of lightheadedness syncopal episode and apparently did have blood in the stool On today's evaluation that is 02/16/2023, the patient continues to be afebrile, the patient is breathing comfortably on room air without the need for supplemental oxygen, the patient denies shortness of breath chest pain and no significant cough , patient did have some nausea but no vomiting denies any abdominal pain and no bowel movement today per the nurse's aide No CBC was done today, creatinine 17.29 stool studies not collected Objective - Vital Signs Vital signs: Vital Signs Temp 99 F 02/16/23 12:27 Pulse 88 02/16/23 12:27 Resp 16 02/16/23 07:00 BP 92/56 02/16/23 12:27 Pulse Ox 98 02/16/23 12:27 FiO2 Intake & Output 02/15/23 02/16/23 02/16/23 18:59 06:59 18:59 Intake Total 118 Output Total 900 Balance -782 Weight 90.718 kg 94.5 kg Intake: Oral 118 Output: Other 900 Other: # Voids 1 # Bowel Movements 0 - Exam GENERAL DESCRIPTION: A middle-age male lying in bed in no distress RESPIRATORY SYSTEM: Unlabored breathing , clear to auscultation anteriorly HEART: S1 S2 regular rate and rhythm , ABDOMEN: Soft , no tenderness EXTREMITIES: No edema feet - Labs CBC & Chem 7: 02/15/23 12:23 02/16/23 10:40 Labs: Abnormal Lab Results - Last 24 Hours (Table) 02/15/23 02/15/23 02/16/23 Range/Units 12:14 12: 10:40 WBC 16.18 H (4.50-10.00) X 10*3/uL RBC 2.73 L (4.40-5.60) X 10*6/uL Hgb 9.3 L (13.0-17.0) g/dL Hct 27.6 L (39.6-50.0) % MCV 101.1 H (80.0-97.0) FL MCH 34.1 H (27.0-32.0) pg Neutrophils # 12.78 H (1.80-7.70) X 10*3/uL Sodium 131 L (137-145) mmol/L Potassium 3.2 L (3.5-5.1) mmol/L Chloride 95 L (98-107) mmol/L BUN 59 H (9-20) mg/dL Creatinine 17.29 H* (0.66-1.25) mg/dL Glucose 100 H (74-99) mg/dL Calcium 7.9 L (8.4-10.2) mg/dL Fluid Appearance Hazy A (Clear) Microbiology - Last 24 Hours (Table) 02/15/23 12:14 Gram Stain - Preliminary Peritoneal Fluid Assessment and Plan (1) Leukocytosis Current Visit: Yes Status: Acute Code(s): D72.829 - ELEVATED WHITE BLOOD CELL COUNT, UNSPECIFIED SNOMED Code(s): 644000153 Plan: 1patient was in the hospital with weakness dizziness also complaining of blood in the stool patient did have a apparently history of C. difficile colitis however patient tested negative both for EIA as well as PCR on 01/29/2023, patient now complaining of mostly blood in the stool however he is telling me that he has semiformed stool that would go against C. difficile colitis he did have a elevated white count is slightly concerning 2- peritoneal fluid showed only 60 WBC 3We will currently waiting for stool studies and we'll repeat his CBC and CRP with a.m. lab Dictation was produced using [employer] dictation software. please excuse any gr ammatical, word or spelling errors. Time with Patient: Less than 30
[2023-02-16] MEDS: POTASSIUM CHLORIDE ER 20 MEQ TAB.ER PO SCH ×2 (16:37→18:18)
[2023-02-16] MEDS ORDERED: MIDODRINE 5 MG TAB PO ONE (16:45)
[2023-02-16] MEDS ORDERED: LANTHANUM CARBONATE 1000 MG PO SCH (18:30)
[2023-02-17] MEDS: DIALYSIS (PERIT 1.5%) 2,500 ML 37.5 G/2,500 ML BAG INTRAPERIT SCH ×6 (00:31→20:12)
[2023-02-17] MEDS ORDERED: SODIUM CHLORIDE 0.9% 500 ML IV ONE ×2 (04:08→04:30)
[2023-02-17] MEDS: SODIUM CHLORIDE 0.9% 1,000 ML IV SCH ×2 (04:27→12:12)
[2023-02-17] MEDS: LANTHANUM CARBONATE 1000 MG PO SCH ×3 (06:59→17:30)
[2023-02-17] MEDS: SEVELAMER 800 MG TAB PO SCH ×3 (06:59→17:15)
[2023-02-17] MEDS: PANTOPRAZOLE 40 MG/10 ML VIAL IVP SCH (08:19)
[2023-02-17] MEDS: FOLIC ACID-VIT B COMPLEX-VIT C 1 CAP PO SCH (08:20)
[2023-02-17 08:52] LABS: Anion Gap 14 mmol/L; Blood Urea Nitrogen 52 mg/dL (9-20); Calcium 7.6 mg/dL (8.4-10.2); Carbon Dioxide 19 mmol/L (22-30); Chloride 99 mmol/L (98-107); Glucose 88 mg/dL (74-99); Magnesium 1.5 mg/dL (1.6-2.3); Potassium 3.4 mmol/L (3.5-5.1); Sodium 132 mmol/L (137-145)
[2023-02-17 08:59] LABS: African American GFR (CKD) 4 (>60 ml/min/1.73 sqM); Non-African American GFR(CKD) 3 (>60 ml/min/1.73 sqM)
[2023-02-17] MEDS ORDERED: Magnesium Replacement Protocol 1 EACH MISC MISCELLANE PRN (09:31)
[2023-02-17] MEDS ORDERED: Potassium Replacement Protocol 1 EACH MISC MISCELLANE PRN (09:31)
[2023-02-17] MEDS: MAGNESIUM SULFATE-D5W PMX 1 GM in DEXTROSE/WATER 1 100ML.BAG IVPB SCH ×2 (10:43→12:12)
[2023-02-17] MEDS: POTASSIUM CHLORIDE ER 20 MEQ TAB.ER PO SCH ×3 (10:43→16:18)
[2023-02-17 11:08] LABS: Basophils % (A) 0 %; Eosinophils # (A) 0.3 k/uL (0-0.7); Eosinophils % (A) 2 %; HCT 24.4 % (39.0-53.0); Lymphocytes # (A) 1.8 k/uL (1.0-4.8); Lymphocytes % (A) 17 %; MCHC 34.3 g/dL (31.0-37.0); Macrocytosis Slight; Mean Platelet Volume 7.8; Monocytes # (A) 0.4 k/uL (0-1.0); Monocytes % (A) 4 %; Neutrophils # (A) 7.7 k/uL (1.3-7.7); Neutrophils % (A) 75 %; Platelet Count 220 k/uL (150-450); RBC 2.39 m/uL (4.30-5.90); RDW 13.5 % (11.5-15.5); WBC 10.2 k/uL (3.8-10.6)
[2023-02-17 11:16] LABS: HGB 8.4 gm/dL (13.0-17.5)
--- NOTE | 2023-02-17 14:46 | P.PN ---
Subjective Patient is seen in follow-up for end-stage renal disease. He is maintained on peritoneal dialysis. No problems with dialysis exchanges. Dialysate is clear. No abdominal pain. No diarrhea. Vital signs are stable. General: No acute distress. HEENT: Head exam is unremarkable. LUNGS: No audible rhonchi or wheezes. HEART: Rate and Rhythm are regular. ABDOMEN: Nontender. EXTREMITITES: No edema. Objective - Vital Signs Vital signs: Vital Signs Temp 97.9 F 02/17/23 08:21 Pulse 86 02/17/23 12:14 Resp 16 02/17/23 12:14 BP 91/51 02/17/23 12:14 Pulse Ox 97 02/17/23 12:14 FiO2 Intake & Output 02/16/23 02/17/23 02/17/23 18:59 06:59 18:59 Intake Total 0 Balance 0 Weight 94.7 kg Intake: Oral 0 Other: Voiding Method CAPD CAPD # Voids 1 0 0 # Bowel Movements 0 - Labs CBC & Chem 7: 02/17/23 08:05 02/17/23 08:05 Labs: Abnormal Lab Results - Last 24 Hours (Table) 02/17/23 02/17/23 Range/Units 08:05 08:05 RBC 2.39 L (4.30-5.90) m/uL Hgb 8.4 L D (13.0-17.5) gm/dL Hct 24.4 L (39.0-53.0) % MCV 102.0 H (80.0-100.0) fL Sodium 132 L (137-145) mmol/L Potassium 3.4 L (3.5-5.1) mmol/L Carbon Dioxide 19 L (22-30) mmol/L BUN 52 H (9-20) mg/dL Creatinine 16.36 H* (0.66-1.25) mg/dL Calcium 7.6 L (8.4-10.2) mg/dL Magnesium 1.5 L (1.6-2.3) mg/dL Microbiology - Last 24 Hours (Table) 02/15/23 12:14 Gram Stain - Preliminary Peritoneal Fluid Body Fluid Culture - Preliminary Assessment and Plan Plan: Assessment: 1. End-stage liver disease maintained on peritoneal dialysis. 2. Chronic kidney disease mineral bone disease maintained on calcitriol and phosphate binders. 3. Hypovolemia maintained on IV fluids. 4. Hypokalemia from poor intake and hypomagnesemia. 5. Hypomagnesemia from GI losses. 6. Anemia of chronic kidney disease. Rule out iron deficiency. Plan: Maintain gentle IV hydration. Maintain current PD exchanges. Creatinine trending down. Plan is to transition to hemodialysis if creatinine remains elevated. Magnesium and potassium replaced. Encouraged oral intake. Dialysate fluid cell count 60 with 46% WBCs - repeat today. Check iron studies.
[2023-02-17 21:58] LABS: % Iron Saturation 39.01 (15.00-50.00)
[2023-02-18] MEDS: DIALYSIS (PERIT 1.5%) 2,500 ML 37.5 G/2,500 ML BAG INTRAPERIT SCH ×6 (00:12→20:15)
[2023-02-18] MEDS ORDERED: SODIUM FERRIC GLUCONAT-SUCROSE 125 MG in SODIUM CHLORIDE 0.9% 100 ML IVPB ONE (06:04)
--- NOTE | 2023-02-18 06:10 | P.PN ---
Subjective Progress Note Date: 02/17/23 This is a 27-year-old gentleman past medical history significant for end-stage renal disease maintained on peritoneal dialysis, recent COVID infection,recent C. diff., completed his antibiotic regimen. Reports no diarrhea since Wednesday. States Wednesday night he felt fine but then on Wednesday morning, upon awakening, and required in-stent dizziness, lightheadedness. Attempted to get up and take 2 steps, vision became blurred and he passed out. Reports he laid on the floor for half an hour to 1 hour. Notify his nurse who advised him to come to the ER. Reports he last saw his director workers compensation last week, reporting ncrease in his creatinine. Denies nausea vomiting or diarrhea. Denies incontinence or diaphoresis. Denies alcohol consumption. Denies chest pain, palpitations or shortness of breath. Denies fever. Received IV fluid hydration on admission and reports since last night feeling well, ambulating to bathroom with no further dizziness lightheadedness or blurred vision. EKG reported sinus tachycardia. Afebrile, WBC 19, hemoglobin 10.3, platelets 275. Sodium 1:30, potassium 3.4, bicarb 19, BUN 64, creatinine 16.95, glucose 106, magnesium 1.6, ALT 72, alk phos 140. 02/16/2023 d-dimer returned elevated at 3, VQ scan performed, reporting no evidence of mismatch defects. Orthostatic BPs negative. Maintained on IV fluid hydration .Continues on peritoneal dialysis as per nephrology, BUN 59, creatinine remains elevated 17.29. Peritoneal fluid cultures in progress. Reports form normal bowel movement yesterday denies nausea vomiting. Denies bloating. Denies abdominal pain. Denies lightheadedness, headache, cough or shortness of breath. No leg edema. Denies chest pain, palpitations. Potassium 3.2. Afebrile. 02/17/2023 Patient is seen and evaluated in follow-up this morning with nephrology along with cardiology and infectious disease following. Patient is maintained on peritoneal dialysis and awaiting peritoneal fluid cultures. Cultures remain negative and per patient dialysate is clear. Patient is continued on antibiotics per ID recommendations awaiting further cultures to finalize. Potassium and magnesium found to be slightly low and will replace per protocol follow-up with repeat labs. Nephrology ordered further studies including iron studies that appear to be slightly low and will give IV iron. Patient denies any further diarrhea since last Wednesday and denies nausea or vomiting. Patient has been encouraged to increase oral intake and increase activity as tolerated. Possible discharge planning in the next 24 hours. Review of systems: Constitutional: No reports of fatigue, fever, or chills Cardiovascular: No reports of chest pain or palpitations Respiratory: No reports of shortness of breath or cough GI: No reports of nausea, vomiting, or diarrhea : No reports of dysuria or retention Neurovascular: No reports of weakness or numbness All medications have been reviewed Physical exam: Gen: This is a 27-year-old male who is awake, alert and oriented 3, well- developed, well-nourished, obese HEENT: Head is atraumatic, normocephalic. Pupils equal, round. Sclerae is anicteric. NECK: Supple. No JVD. No lymphadenopathy. No thyromegaly. LUNGS: Clear to auscultation. No wheezes or rhonchi. No intercostal retractions. HEART: Regular rate and rhythm. No murmur. ABDOMEN: Soft. Bowel sounds are present. No masses. No tenderness noted on palpation. EXTREMITIES: No pedal edema. No calf tenderness. NEUROLOGICAL: Patient is awake, alert and oriented x3. Cranial nerves 2 through 12 are grossly intact. Assessment: Syncope secondary to dehydration, hypovolemia, negative for orthostatic hypotension. Leukocytosis, resolved possibly reactive secondary to dehydration Recent Covid-19 infection History of recent C. difficile colitis, completed antibiotic treatment. Reports no diarrhea since Wednesday. History of recent peritonitis, completed antibiotic therapy End-stage renal disease maintained on peritoneal dialysis,solitary right kidney Anemia of chronic disease, iron deficiency Hypertension history Hypokalemia Hypomagnesemia Obesity with BMI of 32.7 GI prophylaxis DVT prophylaxis Full code Plan: Continue on current medication and management with nephrology following. Cardiology evaluated the patient as patient was admitted for concerns of syncope most likely secondary to dehydration with recent Covid 19 infection as well as C. diff. Cardiology has signed off and cleared the patient for discharge once cleared by nephrology Nephrology following recommend monitoring overnight and electrolyte replacement. Ordered iron studies which appear to be low and will give IV iron transfusion Encouraged oral intake Encouraged increased activity as tolerated Will follow-up with repeat labs as potassium was 3.4 and magnesium 1.5 Possible discharge in 24 hours per nephrology. The impression and plan of care has been dictated by Carola Lugo, Nurse Practitioner as directed. Dr. Roland MD I have performed a history and examination and MDM of this patient, discussed the same with the dictator, and agree with the dictator's assessment and plan as written ,documented as a scribe. Based on total visit time, I have performed more than 50% of the visit. Objective - Vital Signs Vital signs: Vital Signs Temp 97.9 F 02/17/23 08:21 Pulse 80 02/17/23 08:21 Resp 16 02/17/23 08:21 BP 97/57 02/17/23 08:21 Pulse Ox 97 02/17/23 08:21 FiO2 Intake & Output 02/16/23 02/17/23 02/17/23 18:59 06:59 18:59 Intake Total 0 Balance 0 Weight 94.7 kg Intake: Oral 0 Other: Voiding Method CAPD # Voids 1 0 - Labs CBC & Chem 7: 02/17/23 08:05 02/17/23 08:05 Labs: Abnormal Lab Results - Last 24 Hours (Table) 02/16/23 02/17/23 Range/Units 10:40 08:05 Sodium 131 L 132 L (137-145) mmol/L Potassium 3.2 L 3.4 L (3.5-5.1) mmol/L Chloride 95 L (98-107) mmol/L Carbon Dioxide 19 L (22-30) mmol/L BUN 59 H 52 H (9-20) mg/dL Creatinine 17.29 H* 16.36 H* (0.66-1.25) mg/dL Glucose 100 H (74-99) mg/dL Calcium 7.9 L 7.6 L (8.4-10.2) mg/dL Magnesium 1.5 L (1.6-2.3) mg/dL Microbiology - Last 24 Hours (Table) 02/15/23 12:14 Gram Stain - Preliminary Peritoneal Fluid Body Fluid Culture - Preliminary
[2023-02-18] MEDS: SEVELAMER 800 MG TAB PO SCH ×3 (06:24→16:28)
[2023-02-18] MEDS: LANTHANUM CARBONATE 1000 MG PO SCH ×3 (06:24→16:26)
[2023-02-18 07:04] LABS: Basophils # (A) 0.1 k/uL (0-0.2); Basophils % (A) 1 %; Eosinophils # (A) 0.3 k/uL (0-0.7); Eosinophils % (A) 2 %; HCT 25.9 % (39.0-53.0); HGB 9.2 gm/dL (13.0-17.5); Lymphocytes # (A) 1.8 k/uL (1.0-4.8); Lymphocytes % (A) 17 %; MCH 35.6 pg (25.0-35.0); MCHC 35.5 g/dL (31.0-37.0); MCV 100.4 fL (80.0-100.0); Mean Platelet Volume 7.5; Monocytes # (A) 0.4 k/uL (0-1.0); Monocytes % (A) 4 %; Neutrophils % (A) 75 %; Platelet Count 258 k/uL (150-450); RBC 2.59 m/uL (4.30-5.90); RDW 13.7 % (11.5-15.5); WBC 10.7 k/uL (3.8-10.6)
[2023-02-18 07:15] LABS: Anion Gap 15 mmol/L; Blood Urea Nitrogen 42 mg/dL (9-20); Calcium 8.1 mg/dL (8.4-10.2); Carbon Dioxide 21 mmol/L (22-30); Chloride 98 mmol/L (98-107); Glucose 91 mg/dL (74-99); Magnesium 1.8 mg/dL (1.6-2.3); Potassium 3.4 mmol/L (3.5-5.1); Sodium 134 mmol/L (137-145)
[2023-02-18 07:22] LABS: African American GFR (CKD) 4 (>60 ml/min/1.73 sqM); Non-African American GFR(CKD) 4 (>60 ml/min/1.73 sqM)
[2023-02-18] MEDS: PANTOPRAZOLE 40 MG/10 ML VIAL IVP SCH (08:11)
[2023-02-18] MEDS: FOLIC ACID-VIT B COMPLEX-VIT C 1 CAP PO SCH (08:11)
[2023-02-18] MEDS ORDERED: Potassium Replacement Protocol 1 EACH MISC MISCELLANE PRN (08:22)
[2023-02-18] MEDS: SODIUM CHLORIDE 0.9% 1,000 ML IV SCH (12:17)
[2023-02-18] MEDS: POTASSIUM CHLORIDE ER 20 MEQ TAB.ER PO SCH (12:30)
--- NOTE | 2023-02-18 13:17 | P.PN ---
Subjective Progress Note Date: 02/18/23 Follow-up for ESRD. Denies any nausea vomiting diarrhea. No chest pain or shortness of breath. Objective - Vital Signs Vital signs: Vital Signs Temp 97.3 F L 02/18/23 09:00 Pulse 73 02/18/23 09:00 Resp 16 02/18/23 09:00 BP 112/57 02/18/23 09:00 Pulse Ox 99 02/18/23 09:00 FiO2 Intake & Output 02/17/23 02/18/23 02/18/23 18:59 06:59 18:59 Intake Total 0 Output Total 0 Balance 0 0 Weight 94 kg Intake: Oral 0 Output: Urine 0 Other: Voiding Method CAPD CAPD # Voids 0 # Bowel Movements 0 - Exam No acute distress S1-S2 heard Lungs clear No edema - Labs CBC & Chem 7: 02/18/23 06:23 02/18/23 06:23 Labs: Abnormal Lab Results - Last 24 Hours (Table) 02/17/23 02/18/23 02/18/23 Range/Units 08:05 06:23 06:23 WBC 10.7 H (3.8-10.6) k/uL RBC 2.59 L (4.30-5.90) m/uL Hgb 9.2 L (13.0-17.5) gm/dL Hct 25.9 L (39.0-53.0) % MCV 100.4 H (80.0-100.0) fL MCH 35.6 H (25.0-35.0) pg Neutrophils # 8.0 H (1.3-7.7) k/uL Sodium 134 L (137-145) mmol/L Potassium 3.4 L (3.5-5.1) mmol/L Carbon Dioxide 21 L (22-30) mmol/L BUN 42 H (9-20) mg/dL Creatinine 15.87 H* (0.66-1.25) mg/dL Calcium 8.1 L (8.4-10.2) mg/dL Phosphorus 6.0 H (2.5-4.5) mg/dL TIBC 182 L (228-460) UG/DL Transferrin 130.0 L (204.0-354.0) mg/dL Ferritin 1464.0 H (22.0-322.0) ng/mL Microbiology - Last 24 Hours (Table) 02/17/23 12:58 Gram Stain - Preliminary Dialysate Body Fluid Culture - Preliminary 02/15/23 12:14 Gram Stain - Preliminary Peritoneal Fluid Body Fluid Culture - Preliminary Assessment and Plan Assessment: #1 ESRD on peritoneal dialysis. #2 chronic kidney disease with anemia #3 metabolic bone disease #4 hypokalemia on replacement. Plan: #1 continue with peritoneal dialysis. #2 replace KCl #3 stable from nephrology for discharge. Reevaluate need for hemodialysis as outpatient based on the repeat labs
--- NOTE | 2023-02-18 14:06 | P.PN ---
Subjective Progress Note Date: 02/18/23 This is a 27-year-old gentleman past medical history significant for end-stage renal disease maintained on peritoneal dialysis, recent COVID infection,recent C. diff., completed his antibiotic regimen. Reports no diarrhea since Wednesday. States Wednesday night he felt fine but then on Wednesday morning, upon awakening, and required in-stent dizziness, lightheadedness. Attempted to get up and take 2 steps, vision became blurred and he passed out. Reports he laid on the floor for half an hour to 1 hour. Notify his nurse who advised him to come to the ER. Reports he last saw his manager inpatient last week, reporting ncrease in his creatinine. Denies nausea vomiting or diarrhea. Denies incontinence or di aphoresis. Denies alcohol consumption. Denies chest pain, palpitations or shortness of breath. Denies fever. Received IV fluid hydration on admission and reports since last night feeling well, ambulating to bathroom with no further dizziness lightheadedness or blurred vision. EKG reported sinus tachycardia. Afebrile, WBC 19, hemoglobin 10.3, platelets 275. Sodium 1:30, potassium 3.4, bicarb 19, BUN 64, creatinine 16.95, glucose 106, magnesium 1.6, ALT 72, alk phos 140. 02/16/2023 d-dimer returned elevated at 3, VQ scan performed, reporting no evidence of mismatch defects. Orthostatic BPs negative. Maintained on IV fluid hydration .Continues on peritoneal dialysis as per nephrology, BUN 59, creatinine remains elevated 17.29. Peritoneal fluid cultures in progress. Reports form normal bowel movement yesterday denies nausea vomiting. Denies bloating. Denies abdominal pain. Denies lightheadedness, headache, cough or shortness of breath. No leg edema. Denies chest pain, palpitations. Potassium 3.2. Afebrile. 02/17/2023 Patient is seen and evaluated in follow-up this morning with nephrology along with cardiology and infectious disease following. Patient is maintained on peritoneal dialysis and awaiting peritoneal fluid cultures. Cultures remain negative and per patient dialysate is clear. Patient is continued on antibiotics per ID recommendations awaiting further cultures to finalize. Potassium and magnesium found to be slightly low and will replace per protocol follow-up with repeat labs. Nephrology ordered further studies including iron studies that appear to be slightly low and will give IV iron. Patient denies any further diarrhea since last Wednesday and denies nausea or vomiting. 02/18. Patient seen and examined., Platelet count 258, sodium 134, potassium 3.4, BUN 42, creatinine 15.87 REVIEW OF SYSTEMS: CONSTITUTIONAL: No fever, no malaise,. CARDIOVASCULAR: No chest pain, no palpitations, no syncope. PULMONARY: No shortness of breath, no cough, GASTROINTESTINAL: No diarrhea, no nausea, no vomiting, no abdominal pain. NEUROLOGICAL: No headaches, no weakness, PHYSICAL EXAMINATION: GENERAL: The patient is alert and oriented x3, not in any acute distress. Well developed, well nourished. HEENT: Pupils are round and equally reacting to light. EOMI. No scleral icterus. No conjunctival pallor. Normocephalic, atraumatic. No pharyngeal erythema. No thyromegaly. CARDIOVASCULAR: S1 and S2 present. No murmurs, rubs, or gallops. PULMONARY: Chest is clear to auscultation, no wheezing or crackles. ABDOMEN: Soft, nontender, nondistended, normoactive bowel sounds. No palpable organomegaly. MUSCULOSKELETAL: No joint swelling or deformity. EXTREMITIES: No cyanosis, clubbing, or pedal edema. NEUROLOGICAL: Gross neurological examination did not reveal any focal deficits. SKIN: No rashes. Assessment and plan Syncope secondary to dehydration, hypovolemia, negative for orthostatic hypotension. Leukocytosis, resolved possibly reactive secondary to dehydration Recent Covid-19 infection History of recent C. difficile colitis, completed antibiotic treatment. Reports no diarrhea since Wednesday. History of recent peritonitis, completed antibiotic therapy End-stage renal disease maintained on peritoneal dialysis,solitary right kidney Anemia of chronic disease, iron deficiency Hypertension history Hypokalemia Hypomagnesemia Obesity with BMI of 32.7 Monitor vital signs Monitor CBC Monitor CMP Continue telemetry monitoring Continue on current medication and management with nephrology following. Cardiology evaluated the patient as patient was admitted for concerns of syncope most likely secondary to dehydration with recent Covid 19 infection as well as C. diff. Cardiology has signed off and cleared the patient for discharge once cleared by nephrology ID consult for recent C. diff Labs and medication were reviewed.. Continue same treatment. Continue with symptomatic treatment. Resume home medication. Monitor labs and vitals. DVT and GI prophylaxis. Further recommendations as per clinical course of the patient Dictation was produced using [employer] dictation software. please excuse any grammatical, word or spelling errors. Objective - Vital Signs Vital signs: Vital Signs Temp 97.7 F 02/18/23 08:09 Pulse 89 02/18/23 08:09 Resp 16 02/18/23 08:09 BP 108/56 02/18/23 08:09 Pulse Ox 96 02/18/23 08:09 FiO2 Intake & Output 02/17/23 02/18/23 02/18/23 18:59 06:59 18:59 Intake Total 0 Output Total 0 Balance 0 0 Weight 94 kg Intake: Oral 0 Output: Urine 0 Other: Voiding Method CAPD CAPD # Voids 0 # Bowel Movements 0 - Labs CBC & Chem 7: 02/18/23 06:23 02/18/23 06:23 Labs: Abnormal Lab Results - Last 24 Hours (Table) 02/17/23 02/17/23 02/17/23 Range/Units 08:05 08:05 08:05 WBC (3.8-10.6) k/uL RBC 2.39 L (4.30-5.90) m/uL Hgb 8.4 L D (13.0-17.5) gm/dL Hct 24.4 L (39.0-53.0) % MCV 102.0 H (80.0-100.0) fL MCH (25.0-35.0) pg Neutrophils # (1.3-7.7) k/uL Sodium 132 L (137-145) mmol/L Potassium 3.4 L (3.5-5.1) mmol/L Carbon Dioxide 19 L (22-30) mmol/L BUN 52 H (9-20) mg/dL Creatinine 16.36 H* (0.66-1.25) mg/dL Calcium 7.6 L (8.4-10.2) mg/dL Phosphorus 6.0 H (2.5-4.5) mg/dL Magnesium 1.5 L (1.6-2.3) mg/dL TIBC 182 L (228-460) UG/DL Transferrin 130.0 L (204.0-354.0) mg/dL Ferritin 1464.0 H (22.0-322.0) ng/mL 02/18/23 02/18/23 Range/Units 06:23 06:23 WBC 10.7 H (3.8-10.6) k/uL RBC 2.59 L (4.30-5.90) m/uL Hgb 9.2 L (13.0-17.5) gm/dL Hct 25.9 L (39.0-53.0) % MCV 100.4 H (80.0-100.0) fL MCH 35.6 H (25.0-35.0) pg Neutrophils # 8.0 H (1.3-7.7) k/uL Sodium 134 L (137-145) mmol/L Potassium 3.4 L (3.5-5.1) mmol/L Carbon Dioxide 21 L (22-30) mmol/L BUN 42 H (9-20) mg/dL Creatinine 15.87 H* (0.66-1.25) mg/dL Calcium 8.1 L (8.4-10.2) mg/dL Phosphorus (2.5-4.5) mg/dL Magnesium (1.6-2.3) mg/dL TIBC (228-460) UG/DL Transferrin (204.0-354.0) mg/dL Ferritin (22.0-322.0) ng/mL Microbiology - Last 24 Hours (Table) 02/17/23 12:58 Gram Stain - Preliminary Dialysate Body Fluid Culture - Preliminary 02/15/23 12:14 Gram Stain - Preliminary Peritoneal Fluid Body Fluid Culture - Preliminary
--- NOTE | 2023-02-18 14:23 | P.PN ---
Subjective Progress Note Date: 02/17/23 Principal diagnosis: Reason for follow-up is leukocytosis and a recent C. diff Patient is a 27-year-old male with a past medical history significant for hypertension end-stage renal disease on peritoneal dialysis seizure disorder history of C. difficile colitis patient presenting to the hospital for evaluation of lightheadedness syncopal episode and apparently did have blood in the stool On today's evaluation that is 02/17/2023, the patient remains to be afebrile, t he patient is breathing comfortably on room air and the patient denies any shortness of breath, the patient denies chest pain or any cough , patient denies abdominal pain, no nausea/vomiting and no diarrhea The patient white count normalized to 10.2, creatinine is 16.36 stool studies not collected Objective - Vital Signs Vital signs: Vital Signs Temp 97.9 F 02/17/23 08:21 Pulse 80 02/17/23 08:21 Resp 16 02/17/23 08:21 BP 97/57 02/17/23 08:21 Pulse Ox 97 02/17/23 08:21 FiO2 Intake & Output 02/16/23 02/17/23 02/17/23 18:59 06:59 18:59 Intake Total 0 Balance 0 Weight 94.7 kg Intake: Oral 0 Other: Voiding Method CAPD CAPD # Voids 1 0 - Exam GENERAL DESCRIPTION: A middle-age male lying in bed in no distress RESPIRATORY SYSTEM: Unlabored breathing , clear to auscultation anteriorly HEART: S1 S2 regular rate and rhythm , ABDOMEN: Soft , no tenderness EXTREMITIES: No edema feet - Labs CBC & Chem 7: 02/18/23 06:23 02/18/23 06:23 Labs: Abnormal Lab Results - Last 24 Hours (Table) 02/17/23 02/17/23 Range/Units 08:05 08:05 RBC 2.39 L (4.30-5.90) m/uL Hgb 8.4 L D (13.0-17.5) gm/dL Hct 24.4 L (39.0-53.0) % MCV 102.0 H (80.0-100.0) fL Sodium 132 L (137-145) mmol/L Potassium 3.4 L (3.5-5.1) mmol/L Carbon Dioxide 19 L (22-30) mmol/L BUN 52 H (9-20) mg/dL Creatinine 16.36 H* (0.66-1.25) mg/dL Calcium 7.6 L (8.4-10.2) mg/dL Magnesium 1.5 L (1.6-2.3) mg/dL Microbiology - Last 24 Hours (Table) 02/15/23 12:14 Gram Stain - Preliminary Peritoneal Fluid Body Fluid Culture - Preliminary Assessment and Plan (1) Leukocytosis Current Visit: Yes Status: Acute Code(s): D72.829 - ELEVATED WHITE BLOOD CELL COUNT, UNSPECIFIED SNOMED Code(s): 004312861 Plan: 1patient was in the hospital with weakness dizziness also complaining of blood in the stool patient did have a apparently history of C. difficile colitis however patient tested negative both for EIA as well as PCR on 01/29/2023, patient now complaining of mostly blood in the stool however he is telling me that he has semiformed stool that would go against C. difficile colitis he did have a elevated white count is slightly concerning 2- peritoneal fluid showed only 60 WBC 3patient did have resolution of his white count without any antibiotic therapy hence we'll monitor closely off antibiotic Dictation was produced using [employer] dictation software. please excuse any grammatical, word or spelling errors. Time with Patient: Less than 30
--- NOTE | 2023-02-18 14:24 | P.PN ---
Subjective Progress Note Date: 02/18/23 Principal diagnosis: Reason for follow-up is leukocytosis and a recent C. diff Patient is a 27-year-old male with a past medical history significant for hypertension end-stage renal disease on peritoneal dialysis seizure disorder history of C. difficile colitis patient presenting to the hospital for evaluation of lightheadedness syncopal episode and apparently did have blood in the stool On today's evaluation that is 02/18/2023, the patient continues to be afebrile, the patient is breathing comfortably on room air and the patient denies chest pain shortness of breath or cough , patient denies nausea/vomiting , no abdominal pain and patient did have a bowel movement which was formed denies having any blood in the stools The patient white count normalized to 10.7, creatinine is 15.87 stool studies not collected Objective - Vital Signs Vital signs: Vital Signs Temp 97.3 F L 02/18/23 09:00 Pulse 73 02/18/23 09:00 Resp 16 02/18/23 09:00 BP 112/57 02/18/23 09:00 Pulse Ox 99 02/18/23 09:00 FiO2 Intake & Output 02/17/23 02/18/23 02/18/23 18:59 06:59 18:59 Intake Total 0 Output Total 0 Balance 0 0 Weight 94 kg Intake: Oral 0 Output: Urine 0 Other: Voiding Method CAPD CAPD # Voids 0 # Bowel Movements 0 - Exam GENERAL DESCRIPTION: A middle-age male lying in bed in no distress RESPIRATORY SYSTEM: Unlabored breathing , clear to auscultation anteriorly HEART: S1 S2 regular rate and rhythm , ABDOMEN: Soft , no tenderness EXTREMITIES: No edema feet - Labs CBC & Chem 7: 02/18/23 06:23 02/18/23 06:23 Labs: Abnormal Lab Results - Last 24 Hours (Table) 02/17/23 02/18/23 02/18/23 Range/Units 08:05 06:23 06:23 WBC 10.7 H (3.8-10.6) k/uL RBC 2.59 L (4.30-5.90) m/uL Hgb 9.2 L (13.0-17.5) gm/dL Hct 25.9 L (39.0-53.0) % MCV 100.4 H (80.0-100.0) fL MCH 35.6 H (25.0-35.0) pg Neutrophils # 8.0 H (1.3-7.7) k/uL Sodium 134 L (137-145) mmol/L Potassium 3.4 L (3.5-5.1) mmol/L Carbon Dioxide 21 L (22-30) mmol/L BUN 42 H (9-20) mg/dL Creatinine 15.87 H* (0.66-1.25) mg/dL Calcium 8.1 L (8.4-10.2) mg/dL Phosphorus 6.0 H (2.5-4.5) mg/dL TIBC 182 L (228-460) UG/DL Transferrin 130.0 L (204.0-354.0) mg/dL Ferritin 1464.0 H (22.0-322.0) ng/mL Microbiology - Last 24 Hours (Table) 02/17/23 12:58 Gram Stain - Preliminary Dialysate Body Fluid Culture - Preliminary 02/15/23 12:14 Gram Stain - Preliminary Peritoneal Fluid Body Fluid Culture - Preliminary Assessment and Plan (1) Leukocytosis Current Visit: Yes Status: Acute Code(s): D72.829 - ELEVATED WHITE BLOOD CELL COUNT, UNSPECIFIED SNOMED Code(s): 420282179 Plan: 1patient was in the hospital with weakness dizziness also complaining of blood in the stool patient did have a apparently history of C. difficile colitis however patient tested negative both for EIA as well as PCR on 01/29/2023, patient now complaining of mostly blood in the stool however he is telling me that he has semiformed stool that would go against C. difficile colitis he did have a elevated white count is slightly concerning 2- peritoneal fluid showed only 60 WBC 3patient did have resolution of his white count without any antibiotic therapy, peritoneal fluid culture remains to be negative as well we will monitor closely off antibiotic Dictation was produced using [employer] dictation software. please excuse any grammatical, word or spelling errors. Time with Patient: Less than 30
[2023-02-19] MEDS: DIALYSIS (PERIT 1.5%) 2,500 ML 37.5 G/2,500 ML BAG INTRAPERIT SCH ×6 (00:04→21:02)
[2023-02-19] MEDS: PANTOPRAZOLE 40 MG/10 ML VIAL IVP SCH (08:46)
[2023-02-19] MEDS: SEVELAMER 800 MG TAB PO SCH ×3 (08:47→17:33)
[2023-02-19] MEDS: FOLIC ACID-VIT B COMPLEX-VIT C 1 CAP PO SCH (08:47)
[2023-02-19] MEDS: LANTHANUM CARBONATE 1000 MG PO SCH ×3 (08:47→16:32)
[2023-02-19] MEDS: SODIUM CHLORIDE 0.9% 1,000 ML IV SCH (08:48)
[2023-02-19 10:26] LABS: HCT 27.3 % (39.0-53.0); HGB 9.4 gm/dL (13.0-17.5); MCH 34.8 pg (25.0-35.0); MCHC 34.3 g/dL (31.0-37.0); MCV 101.6 fL (80.0-100.0); Macrocytosis Slight; Platelet Count 276 k/uL (150-450); RBC 2.69 m/uL (4.30-5.90); RDW 13.4 % (11.5-15.5); WBC 9.5 k/uL (3.8-10.6)
[2023-02-19 10:48] LABS: ALT 34 U/L (4-49); AST 22 U/L (17-59); Alkaline Phosphatase 94 U/L (38-126); Anion Gap 15 mmol/L; Blood Urea Nitrogen 33 mg/dL (9-20); Calcium 8.2 mg/dL (8.4-10.2); Carbon Dioxide 22 mmol/L (22-30); Chloride 97 mmol/L (98-107); Glucose 91 mg/dL (74-99); Potassium 3.4 mmol/L (3.5-5.1); Sodium 134 mmol/L (137-145); Total Bilirubin 0.4 mg/dL (0.2-1.3); Total Protein 5.5 g/dL (6.3-8.2)
[2023-02-19 10:55] LABS: African American GFR (CKD) 4 (>60 ml/min/1.73 sqM); Non-African American GFR(CKD) 4 (>60 ml/min/1.73 sqM)
--- NOTE | 2023-02-19 12:16 | P.PN ---
Subjective Progress Note Date: 02/19/23 Follow-up for ESRD. Denies any nausea vomiting diarrhea. No chest pain or shortness of breath. Objective - Vital Signs Vital signs: Vital Signs Temp 98.0 F 02/19/23 08:00 Pulse 82 02/19/23 08:00 Resp 17 02/19/23 08:00 BP 111/60 02/19/23 08:00 Pulse Ox 96 02/19/23 08:00 FiO2 Intake & Output 02/18/23 02/19/23 02/19/23 18:59 06:59 18:59 Intake Total 118 615 Output Total 200 Balance 118 415 Weight 93.1 kg Intake: Intake, IV Titration 240 Amount Sodium Chloride 0.9% 1, 240 000 ml @ 50 mls/hr IV . Q20H [facility] Rx#:[id number] Oral 118 375 Output: Urine 200 Other: Voiding Method CAPD # Bowel Movements 1 - Exam No acute distress S1-S2 heard Lungs clear No edema - Labs CBC & Chem 7: 02/19/23 09:16 02/19/23 09:16 Labs: Abnormal Lab Results - Last 24 Hours (Table) 02/19/23 02/19/23 Range/Units 09:16 09:16 RBC 2.69 L (4.30-5.90) m/uL Hgb 9.4 L (13.0-17.5) gm/dL Hct 27.3 L (39.0-53.0) % MCV 101.6 H (80.0-100.0) fL Sodium 134 L (137-145) mmol/L Potassium 3.4 L (3.5-5.1) mmol/L Chloride 97 L (98-107) mmol/L BUN 33 H (9-20) mg/dL Creatinine 14.95 H* (0.66-1.25) mg/dL Calcium 8.2 L (8.4-10.2) mg/dL Total Protein 5.5 L (6.3-8.2) g/dL Albumin 3.0 L (3.5-5.0) g/dL Microbiology - Last 24 Hours (Table) 02/17/23 12:58 Gram Stain - Preliminary Dialysate Body Fluid Culture - Preliminary 02/15/23 12:14 Gram Stain - Preliminary Peritoneal Fluid Body Fluid Culture - Preliminary Assessment and Plan Assessment: #1 ESRD on peritoneal dialysis. #2 chronic kidney disease with anemia #3 metabolic bone disease #4 hypokalemia on replacement. Plan: #1 continue with peritoneal dialysis. #2 replace KCl #3 stable from nephrology for discharge. Reevaluate need for hemodialysis as outpatient based on the repeat labs
[2023-02-20] MEDS: DIALYSIS (PERIT 1.5%) 2,500 ML 37.5 G/2,500 ML BAG INTRAPERIT SCH ×6 (00:23→20:04)
[2023-02-20] MEDS: SODIUM CHLORIDE 0.9% 1,000 ML IV SCH (04:08)
[2023-02-20] MEDS: LANTHANUM CARBONATE 1000 MG PO SCH ×3 (06:32→15:56)
[2023-02-20] MEDS: SEVELAMER 800 MG TAB PO SCH ×3 (06:33→15:55)
[2023-02-20] MEDS: PANTOPRAZOLE 40 MG/10 ML VIAL IVP SCH (08:07)
[2023-02-20] MEDS: FOLIC ACID-VIT B COMPLEX-VIT C 1 CAP PO SCH (08:09)
--- NOTE | 2023-02-20 08:11 | P.PN ---
Subjective Progress Note Date: 02/19/23 Principal diagnosis: Reason for follow-up is leukocytosis and a recent C. diff Patient is a 27-year-old male with a past medical history significant for hypertension end-stage renal disease on peritoneal dialysis seizure disorder history of C. difficile colitis patient presenting to the hospital for evaluation of lightheadedness syncopal episode and apparently did have blood in the stool On today's evaluation that is 02/19/2023, the patient denies any fever or any c hills, the patient is breathing comfortably on room air without the need for supplemental oxygen, patient denies chest pain shortness of breath and no significant cough or sputum production, patient denies Abdominal pain, no nausea/vomiting and denies having any diarrhea and no further blood in the stool The patient white count 9.5, creatinine is 14.95 stool studies not collected Objective - Vital Signs Vital signs: Vital Signs Temp 98.0 F 02/19/23 08:00 Pulse 82 02/19/23 08:00 Resp 17 02/19/23 08:00 BP 111/60 02/19/23 08:00 Pulse Ox 96 02/19/23 08:00 FiO2 Intake & Output 02/18/23 02/19/23 02/19/23 18:59 06:59 18:59 Intake Total 118 615 Output Total 200 Balance 118 415 Weight 93.1 kg Intake: Intake, IV Titration 240 Amount Sodium Chloride 0.9% 1, 240 000 ml @ 50 mls/hr IV . Q20H [facility] Rx#:[id number] Oral 118 375 Output: Urine 200 Other: Voiding Method CAPD # Bowel Movements 1 - Exam GENERAL DESCRIPTION: A middle-age male lying in bed in no distress RESPIRATORY SYSTEM: Unlabored breathing , clear to auscultation anteriorly HEART: S1 S2 regular rate and rhythm , ABDOMEN: Soft , no tenderness EXTREMITIES: No edema feet - Labs CBC & Chem 7: 02/19/23 09:16 02/19/23 09:16 Labs: Abnormal Lab Results - Last 24 Hours (Table) 02/19/23 02/19/23 Range/Units 09:16 09:16 RBC 2.69 L (4.30-5.90) m/uL Hgb 9.4 L (13.0-17.5) gm/dL Hct 27.3 L (39.0-53.0) % MCV 101.6 H (80.0-100.0) fL Sodium 134 L (137-145) mmol/L Potassium 3.4 L (3.5-5.1) mmol/L Chloride 97 L (98-107) mmol/L BUN 33 H (9-20) mg/dL Creatinine 14.95 H* (0.66-1.25) mg/dL Calcium 8.2 L (8.4-10.2) mg/dL Total Protein 5.5 L (6.3-8.2) g/dL Albumin 3.0 L (3.5-5.0) g/dL Microbiology - Last 24 Hours (Table) 02/17/23 12:58 Gram Stain - Preliminary Dialysate Body Fluid Culture - Preliminary 02/15/23 12:14 Gram Stain - Preliminary Peritoneal Fluid Body Fluid Culture - Preliminary Assessment and Plan (1) Leukocytosis Current Visit: Yes Status: Acute Code(s): D72.829 - ELEVATED WHITE BLOOD CELL COUNT, UNSPECIFIED SNOMED Code(s): 459068627 Plan: 1patient was in the hospital with weakness dizziness also complaining of blood in the stool patient did have a apparently history of C. difficile colitis however patient tested negative both for EIA as well as PCR on 01/29/2023, patient now complaining of mostly blood in the stool however he is telling me that he has semiformed stool that would go against C. difficile colitis he did have a elevated white count is slightly concerning 2- peritoneal fluid showed only 60 WBC 3patient did have resolution of his white count without any antibiotic therapy, peritoneal fluid culture remains to be negative as well , there is no need for systemic antibiotic therapy Dictation was produced using [employer] dictation software. please excuse any grammatical, word or spelling errors. Time with Patient: Less than 30
[2023-02-20 09:47] LABS: Anion Gap 13 mmol/L; Blood Urea Nitrogen 29 mg/dL (9-20); Calcium 8.4 mg/dL (8.4-10.2); Carbon Dioxide 26 mmol/L (22-30); Chloride 95 mmol/L (98-107); Glucose 90 mg/dL (74-99); Potassium 3.4 mmol/L (3.5-5.1); Sodium 134 mmol/L (137-145)
[2023-02-20 09:53] LABS: African American GFR (CKD) 4 (>60 ml/min/1.73 sqM); Non-African American GFR(CKD) 4 (>60 ml/min/1.73 sqM)
--- NOTE | 2023-02-20 10:34 | P.PN ---
Subjective Progress Note Date: 02/19/23 This is a 27-year-old gentleman past medical history significant for end-stage renal disease maintained on peritoneal dialysis, recent COVID infection,recent C. diff., completed his antibiotic regimen. Reports no diarrhea since Wednesday. States Wednesday night he felt fine but then on Wednesday morning, upon awakening, and required in-stent dizziness, lightheadedness. Attempted to get up and take 2 steps, vision became blurred and he passed out. Reports he laid on the floor for half an hour to 1 hour. Notify his nurse who advised him to come to the ER. Reports he last saw his sports leadership instructor last week, reporting ncrease in his creatinine. Denies nausea vomiting or diarrhea. Denies incontinence or di aphoresis. Denies alcohol consumption. Denies chest pain, palpitations or shortness of breath. Denies fever. Received IV fluid hydration on admission and reports since last night feeling well, ambulating to bathroom with no further dizziness lightheadedness or blurred vision. EKG reported sinus tachycardia. Afebrile, WBC 19, hemoglobin 10.3, platelets 275. Sodium 1:30, potassium 3.4, bicarb 19, BUN 64, creatinine 16.95, glucose 106, magnesium 1.6, ALT 72, alk phos 140. 02/16/2023 d-dimer returned elevated at 3, VQ scan performed, reporting no evidence of mismatch defects. Orthostatic BPs negative. Maintained on IV fluid hydration .Continues on peritoneal dialysis as per nephrology, BUN 59, creatinine remains elevated 17.29. Peritoneal fluid cultures in progress. Reports form normal bowel movement yesterday denies nausea vomiting. Denies bloating. Denies abdominal pain. Denies lightheadedness, headache, cough or shortness of breath. No leg edema. Denies chest pain, palpitations. Potassium 3.2. Afebrile. 02/17/2023 Patient is seen and evaluated in follow-up this morning with nephrology along with cardiology and infectious disease following. Patient is maintained on peritoneal dialysis and awaiting peritoneal fluid cultures. Cultures remain negative and per patient dialysate is clear. Patient is continued on antibiotics per ID recommendations awaiting further cultures to finalize. Potassium and magnesium found to be slightly low and will replace per protocol follow-up with repeat labs. Nephrology ordered further studies including iron studies that appear to be slightly low and will give IV iron. Patient denies any further diarrhea since last Wednesday and denies nausea or vomiting. 02/18. Patient seen and examined., Platelet count 258, sodium 134, potassium 3.4, BUN 42, creatinine 15.87 02/19. Patient seen and examined. Complaining of lethargy. Complaining of weakness. Denies any chest pain or palpitations REVIEW OF SYSTEMS: CONSTITUTIONAL: No fever, no malaise,. CARDIOVASCULAR: No chest pain, no palpitations, no syncope. PULMONARY: No shortness of breath, no cough, GASTROINTESTINAL: No diarrhea, no nausea, no vomiting, no abdominal pain. NEUROLOGICAL: No headaches, no weakness, PHYSICAL EXAMINATION: GENERAL: The patient is alert and oriented x3, not in any acute distress. Well developed, well nourished. HEENT: Pupils are round and equally reacting to light. EOMI. No scleral icterus. No conjunctival pallor. Normocephalic, atraumatic. No pharyngeal erythema. No thyromegaly. CARDIOVASCULAR: S1 and S2 present. No murmurs, rubs, or gallops. PULMONARY: Chest is clear to auscultation, no wheezing or crackles. ABDOMEN: Soft, nontender, nondistended, normoactive bowel sounds. No palpable organomegaly. MUSCULOSKELETAL: No joint swelling or deformity. EXTREMITIES: No cyanosis, clubbing, or pedal edema. NEUROLOGICAL: Gross neurological examination did not reveal any focal deficits. SKIN: No rashes. Assessment and plan Syncope secondary to dehydration, hypovolemia, negative for orthostatic hypotension. Leukocytosis, resolved possibly reactive secondary to dehydration Recent Covid-19 infection History of recent C. difficile colitis, completed antibiotic treatment. Reports no diarrhea since Wednesday. History of recent peritonitis, completed antibiotic therapy End-stage renal disease maintained on peritoneal dialysis,solitary right kidney Anemia of chronic disease, iron deficiency Hypertension history Hypokalemia Hypomagnesemia Obesity with BMI of 32.7 Monitor vital signs Monitor CBC Monitor CMP Continue telemetry monitoring Continue on current medication and management with nephrology following. Cardiology evaluated the patient as patient was admitted for concerns of syncope most likely secondary to dehydration with recent Covid 19 infection as well as C. diff. Cardiology has signed off and cleared the patient for discharge once cleared by nephrology ID consult for recent C. diff Labs and medication were reviewed.. Continue same treatment. Continue with symptomatic treatment. Resume home medication. Monitor labs and vitals. DVT and GI prophylaxis. Further recommendations as per clinical course of the patient Dictation was produced using [email or web address] dictation software. please excuse any grammatical, word or spelling errors. Objective - Vital Signs Vital signs: Vital Signs Temp 97.7 F 02/20/23 08:00 Pulse 112 H 02/20/23 08:00 Resp 18 02/20/23 08:00 BP 97/49 02/20/23 08:00 Pulse Ox 98 02/20/23 08:00 FiO2 Intake & Output 02/19/23 02/20/23 02/20/23 18:59 06:59 18:59 Intake Total 880 Balance 880 Weight 92.6 kg Intake: Intake, IV Titration 400 Amount Sodium Chloride 0.9% 1, 400 000 ml @ 50 mls/hr IV . Q20H [facility] Rx#:[id number] Oral 480 Other: Voiding Method CAPD CAPD CAPD - Labs CBC & Chem 7: 02/19/23 09:16 02/19/23 09:16 Labs: Abnormal Lab Results - Last 24 Hours (Table) 02/19/23 Range/Units 09:16 Sodium 134 L (137-145) mmol/L Potassium 3.4 L (3.5-5.1) mmol/L Chloride 97 L (98-107) mmol/L BUN 33 H (9-20) mg/dL Creatinine 14.95 H* (0.66-1.25) mg/dL Calcium 8.2 L (8.4-10.2) mg/dL Total Protein 5.5 L (6.3-8.2) g/dL Albumin 3.0 L (3.5-5.0) g/dL Microbiology - Last 24 Hours (Table) 02/17/23 12:58 Gram Stain - Preliminary Dialysate Body Fluid Culture - Preliminary 02/15/23 12:14 Gram Stain - Final Peritoneal Fluid Body Fluid Culture - Final
[2023-02-20] MEDS: METOPROLOL TARTRATE 12.5 MG TAB PO SCH ×2 (11:36→20:04)
--- NOTE | 2023-02-20 13:02 | P.PN ---
Subjective Progress Note Date: 02/20/23 This is a 27-year-old gentleman past medical history significant for end-stage renal disease maintained on peritoneal dialysis, recent COVID infection,recent C. diff., completed his antibiotic regimen. Reports no diarrhea since Wednesday. States Wednesday night he felt fine but then on Wednesday morning, upon awakening, and required in-stent dizziness, lightheadedness. Attempted to get up and take 2 steps, vision became blurred and he passed out. Reports he laid on the floor for half an hour to 1 hour. Notify his nurse who advised him to come to the ER. 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 Denies nausea vomiting or diarrhea. Denies incontinence or di aphoresis. Denies alcohol consumption. Denies chest pain, palpitations or shortness of breath. Denies fever. Received IV fluid hydration on admission and reports since last night feeling well, ambulating to bathroom with no further dizziness lightheadedness or blurred vision. EKG reported sinus tachycardia. Afebrile, WBC 19, hemoglobin 10.3, platelets 275. Sodium 1:30, potassium 3.4, bicarb 19, BUN 64, creatinine 16.95, glucose 106, magnesium 1.6, ALT 72, alk phos 140. 02/16/2023 d-dimer returned elevated at 3, VQ scan performed, reporting no evidence of mismatch defects. Orthostatic BPs negative. Maintained on IV fluid hydration .Continues on peritoneal dialysis as per nephrology, BUN 59, creatinine remains elevated 17.29. Peritoneal fluid cultures in progress. Reports form normal bowel movement yesterday denies nausea vomiting. Denies bloating. Denies abdominal pain. Denies lightheadedness, headache, cough or shortness of breath. No leg edema. Denies chest pain, palpitations. Potassium 3.2. Afebrile. 02/17/2023 Patient is seen and evaluated in follow-up this morning with nephrology along with cardiology and infectious disease following. Patient is maintained on peritoneal dialysis and awaiting peritoneal fluid cultures. Cultures remain negative and per patient dialysate is clear. Patient is continued on antibiotics per ID recommendations awaiting further cultures to finalize. Potassium and magnesium found to be slightly low and will replace per protocol follow-up with repeat labs. Nephrology ordered further studies including iron studies that appear to be slightly low and will give IV iron. Patient denies any further diarrhea since last Wednesday and denies nausea or vomiting. 02/18. Patient seen and examined., Platelet count 258, sodium 134, potassium 3.4, BUN 42, creatinine 15.87 02/20. Patient seen and examined. Patient gets tachycardic on slight ambulation. Start patient on Lopressor 12.5 mg twice a day. Denies any palpitations. Denies any lightheadedness or dizziness. REVIEW OF SYSTEMS: CONSTITUTIONAL: No fever, no malaise,. CARDIOVASCULAR: No chest pain, no palpitations, no syncope. PULMONARY: No shortness of breath, no cough, GASTROINTESTINAL: No diarrhea, no nausea, no vomiting, no abdominal pain. NEUROLOGICAL: No headaches, no weakness, PHYSICAL EXAMINATION: GENERAL: The patient is alert and oriented x3, not in any acute distress. Well developed, well nourished. HEENT: Pupils are round and equally reacting to light. EOMI. No scleral icterus. No conjunctival pallor. Normocephalic, atraumatic. No pharyngeal erythema. No thyromegaly. CARDIOVASCULAR: S1 and S2 present. No murmurs, rubs, or gallops. PULMONARY: Chest is clear to auscultation, no wheezing or crackles. ABDOMEN: Soft, nontender, nondistended, normoactive bowel sounds. No palpable organomegaly. MUSCULOSKELETAL: No joint swelling or deformity. EXTREMITIES: No cyanosis, clubbing, or pedal edema. NEUROLOGICAL: Gross neurological examination did not reveal any focal deficits. SKIN: No rashes. Assessment and plan Syncope secondary to dehydration, hypovolemia, negative for orthostatic hypotension. Leukocytosis, resolved possibly reactive secondary to dehydration Recent Covid-19 infection History of recent C. difficile colitis, completed antibiotic treatment. Reports no diarrhea since Wednesday. History of recent peritonitis, completed antibiotic therapy End-stage renal disease maintained on peritoneal dialysis,solitary right kidney Anemia of chronic disease, iron deficiency Hypertension history Hypokalemia Hypomagnesemia Obesity with BMI of 32.7 Monitor vital signs Monitor CBC Monitor CMP Continue telemetry monitoring Continue on current medication and management with nephrology following. Cardiology evaluated the patient as patient was admitted for concerns of syncope most likely secondary to dehydration with recent Covid 19 infection as well as C. diff. Cardiology has signed off and cleared the patient for discharge once cleared by nephrology Start on Lopressor 12.5 mg twice a day ID consult for recent C. diff Labs and medication were reviewed.. Continue same treatment. Continue with symptomatic treatment. Resume home medication. Monitor labs and vitals. DVT and GI prophylaxis. Further recommendations as per clinical course of the patient Dictation was produced using [employer] dictation software. please excuse any grammatical, word or spelling errors. Objective - Vital Signs Vital signs: Vital Signs Temp 97.7 F 02/20/23 08:00 Pulse 112 H 02/20/23 08:00 Resp 18 02/20/23 08:00 BP 97/49 02/20/23 08:00 Pulse Ox 98 02/20/23 08:00 FiO2 Intake & Output 02/19/23 02/20/23 02/20/23 18:59 06:59 18:59 Intake Total 880 Balance 880 Weight 92.6 kg Intake: Intake, IV Titration 400 Amount Sodium Chloride 0.9% 1, 400 000 ml @ 50 mls/hr IV . Q20H [facility] Rx#:[id number] Oral 480 Other: Voiding Method CAPD CAPD CAPD - Labs CBC & Chem 7: 02/19/23 09:16 02/19/23 09:16 Labs: Abnormal Lab Results - Last 24 Hours (Table) 02/19/23 Range/Units 09:16 Sodium 134 L (137-145) mmol/L Potassium 3.4 L (3.5-5.1) mmol/L Chloride 97 L (98-107) mmol/L BUN 33 H (9-20) mg/dL Creatinine 14.95 H* (0.66-1.25) mg/dL Calcium 8.2 L (8.4-10.2) mg/dL Total Protein 5.5 L (6.3-8.2) g/dL Albumin 3.0 L (3.5-5.0) g/dL Microbiology - Last 24 Hours (Table) 02/17/23 12:58 Gram Stain - Preliminary Dialysate Body Fluid Culture - Preliminary 02/15/23 12:14 Gram Stain - Final Peritoneal Fluid Body Fluid Culture - Final
--- NOTE | 2023-02-20 13:17 | P.PN ---
Subjective Progress Note Date: 02/20/23 Follow-up for ESRD. Denies any nausea vomiting diarrhea. No chest pain or shortness of breath. Objective - Vital Signs Vital signs: Vital Signs Temp 97.7 F 02/20/23 08:00 Pulse 112 H 02/20/23 08:00 Resp 18 02/20/23 08:00 BP 97/49 02/20/23 08:00 Pulse Ox 98 02/20/23 08:00 FiO2 Intake & Output 02/19/23 02/20/23 02/20/23 18:59 06:59 18:59 Intake Total 880 Balance 880 Weight 92.6 kg Intake: Intake, IV Titration 400 Amount Sodium Chloride 0.9% 1, 400 000 ml @ 50 mls/hr IV . Q20H [facility] Rx#:[id number] Oral 480 Other: Voiding Method CAPD CAPD CAPD - Exam No acute distress S1-S2 heard Lungs clear No edema - Labs CBC & Chem 7: 02/19/23 09:16 02/20/23 08:33 Labs: Abnormal Lab Results - Last 24 Hours (Table) 02/20/23 Range/Units 08:33 Sodium 134 L (137-145) mmol/L Potassium 3.4 L (3.5-5.1) mmol/L Chloride 95 L (98-107) mmol/L BUN 29 H (9-20) mg/dL Creatinine 15.46 H* (0.66-1.25) mg/dL Microbiology - Last 24 Hours (Table) 02/17/23 12:58 Gram Stain - Preliminary Dialysate Body Fluid Culture - Preliminary 02/15/23 12:14 Gram Stain - Final Peritoneal Fluid Body Fluid Culture - Final Assessment and Plan Assessment: #1 ESRD on peritoneal dialysis. #2 chronic kidney disease with anemia #3 metabolic bone disease #4 hypokalemia on replacement. #5. Tachycardia, asymptomatic Plan: #1 continue with peritoneal dialysis. #2 replace KCl #3 cardiology following. On metoprolol for tachycardia, elevated recommendations
--- NOTE | 2023-02-20 17:15 | P.PN ---
Subjective Progress Note Date: 02/20/23 Principal diagnosis: Reason for follow-up is leukocytosis and a recent C. diff Patient is a 27-year-old male with a past medical history significant for hypertension end-stage renal disease on peritoneal dialysis seizure disorder history of C. difficile colitis patient presenting to the hospital for evaluation of lightheadedness syncopal episode and apparently did have blood in the stool On today's evaluation that is 02/20/2023, the patient is afebrile, the patient is breathing comfortably on room air and denies shortness of breath, no chest pain the patient cough has decreased intensity with occasional sputum production, patient denies nausea/vomiting abdominal pain or diarrhea The patient white count 9.5, creatinine is 14.95 as of 02/19/23 , dialysis fluid cultures has been negative Objective - Vital Signs Vital signs: Vital Signs Temp 97.7 F 02/20/23 08:00 Pulse 112 H 02/20/23 08:00 Resp 18 02/20/23 08:00 BP 97/49 02/20/23 08:00 Pulse Ox 98 02/20/23 08:00 FiO2 Intake & Output 02/19/23 02/20/23 02/20/23 18:59 06:59 18:59 Intake Total 880 Balance 880 Weight 92.6 kg Intake: Intake, IV Titration 400 Amount Sodium Chloride 0.9% 1, 400 000 ml @ 50 mls/hr IV . Q20H [facility] Rx#:[id number] Oral 480 Other: Voiding Method CAPD CAPD CAPD - Exam GENERAL DESCRIPTION: A middle-age male lying in bed in no distress RESPIRATORY SYSTEM: Unlabored breathing , clear to auscultation anteriorly HEART: S1 S2 regular rate and rhythm , ABDOMEN: Soft , no tenderness EXTREMITIES: No edema feet - Labs CBC & Chem 7: 02/19/23 09:16 02/20/23 08:33 Labs: Abnormal Lab Results - Last 24 Hours (Table) 02/19/23 02/20/23 Range/Units 09:16 08:33 Sodium 134 L 134 L (137-145) mmol/L Potassium 3.4 L 3.4 L (3.5-5.1) mmol/L Chloride 97 L 95 L (98-107) mmol/L BUN 33 H 29 H (9-20) mg/dL Creatinine 14.95 H* 15.46 H* (0.66-1.25) mg/dL Calcium 8.2 L (8.4-10.2) mg/dL Total Protein 5.5 L (6.3-8.2) g/dL Albumin 3.0 L (3.5-5.0) g/dL Microbiology - Last 24 Hours (Table) 02/17/23 12:58 Gram Stain - Preliminary Dialysate Body Fluid Culture - Preliminary 02/15/23 12:14 Gram Stain - Final Peritoneal Fluid Body Fluid Culture - Final Assessment and Plan (1) Leukocytosis Current Visit: Yes Status: Acute Code(s): D72.829 - ELEVATED WHITE BLOOD CELL COUNT, UNSPECIFIED SNOMED Code(s): 560650063 Plan: 1patient was in the hospital with weakness dizziness also complaining of blood in the stool patient did have a apparently history of C. difficile colitis however patient tested negative both for EIA as well as PCR on 01/29/2023, patient now complaining of mostly blood in the stool however he is telling me that he has semiformed stool that would go against C. difficile colitis he did have a elevated white count is slightly concerning 2- peritoneal fluid showed only 60 WBC 3patient did have resolution of his white count without any antibiotic therapy, peritoneal fluid culture remains to be negative , will monitor closely off systemic antibiotic therapy Dictation was produced using [employer] dictation software. please excuse any grammatical, word or spelling errors. Time with Patient: Less than 30
[2023-02-21] MEDS: DIALYSIS (PERIT 1.5%) 2,500 ML 37.5 G/2,500 ML BAG INTRAPERIT SCH ×6 (01:18→22:11)
[2023-02-21] MEDS: LANTHANUM CARBONATE 1000 MG PO SCH ×3 (06:17→14:24)
[2023-02-21] MEDS: SEVELAMER 800 MG TAB PO SCH ×3 (07:56→17:53)
[2023-02-21] MEDS: METOPROLOL TARTRATE 12.5 MG TAB PO SCH ×2 (08:47→20:44)
[2023-02-21] MEDS: PANTOPRAZOLE 40 MG/10 ML VIAL IVP SCH (08:47)
[2023-02-21] MEDS: FOLIC ACID-VIT B COMPLEX-VIT C 1 CAP PO SCH (09:04)
[2023-02-21 12:24] LABS: HCT 33.4 % (39.0-53.0); HGB 10.9 gm/dL (13.0-17.5); MCH 33.6 pg (25.0-35.0); MCHC 32.7 g/dL (31.0-37.0); MCV 102.8 fL (80.0-100.0); Macrocytosis Slight; Mean Platelet Volume 7.1; Platelet Count 274 k/uL (150-450); RBC 3.24 m/uL (4.30-5.90); RDW 13.8 % (11.5-15.5); WBC 12.5 k/uL (3.8-10.6)
[2023-02-21 12:25] LABS: ALT 30 U/L (4-49); AST 24 U/L (17-59); Albumin 3.6 g/dL (3.5-5.0); Albumin/Globulin Ratio 1.3; Alkaline Phosphatase 98 U/L (38-126); Anion Gap 16 mmol/L; Blood Urea Nitrogen 27 mg/dL (9-20); Calcium 8.6 mg/dL (8.4-10.2); Carbon Dioxide 25 mmol/L (22-30); Chloride 91 mmol/L (98-107); Globulin 2.7 g/dL; Glucose 108 mg/dL (74-99); Potassium 3.2 mmol/L (3.5-5.1); Sodium 132 mmol/L (137-145); Total Bilirubin 0.5 mg/dL (0.2-1.3); Total Protein 6.3 g/dL (6.3-8.2)
[2023-02-21 12:31] LABS: African American GFR (CKD) 5 (>60 ml/min/1.73 sqM); Non-African American GFR(CKD) 4 (>60 ml/min/1.73 sqM)
[2023-02-21 13:06] LABS: Band Neutrophils % 3 %; Lymphocytes # (M) 1.38 k/uL (1.0-4.8); Metamyelocytes # (M) 0.25 k/uL (0); Metamyelocytes % 2 %; Monocytes # (M) 0.38 k/uL (0-1.0); Myelocytes # (M) 0.38 k/uL (0); Myelocytes % 3 %; Neutrophils % (M) 76 %; Nucleated Red Blood Cells 0 /100 WBC (0-0); Total Cells Counted 200
--- NOTE | 2023-02-21 14:19 | P.PN ---
Subjective Progress Note Date: 02/21/23 This is a 27-year-old gentleman past medical history significant for end-stage renal disease maintained on peritoneal dialysis, recent COVID infection,recent C. diff., completed his antibiotic regimen. Reports no diarrhea since Wednesday. States Wednesday night he felt fine but then on Wednesday morning, upon awakening, and required in-stent dizziness, lightheadedness. Attempted to get up and take 2 steps, vision became blurred and he passed out. Reports he laid on the floor for half an hour to 1 hour. Notify his nurse who advised him to come to the ER. Reports he last saw his stiff straw hat washer last week, reporting ncrease in his creatinine. Denies nausea vomiting or diarrhea. Denies incontinence or di aphoresis. Denies alcohol consumption. Denies chest pain, palpitations or shortness of breath. Denies fever. Received IV fluid hydration on admission and reports since last night feeling well, ambulating to bathroom with no further dizziness lightheadedness or blurred vision. EKG reported sinus tachycardia. Afebrile, WBC 19, hemoglobin 10.3, platelets 275. Sodium 1:30, potassium 3.4, bicarb 19, BUN 64, creatinine 16.95, glucose 106, magnesium 1.6, ALT 72, alk phos 140. 02/16/2023 d-dimer returned elevated at 3, VQ scan performed, reporting no evidence of mismatch defects. Orthostatic BPs negative. Maintained on IV fluid hydration .Continues on peritoneal dialysis as per nephrology, BUN 59, creatinine remains elevated 17.29. Peritoneal fluid cultures in progress. Reports form normal bowel movement yesterday denies nausea vomiting. Denies bloating. Denies abdominal pain. Denies lightheadedness, headache, cough or shortness of breath. No leg edema. Denies chest pain, palpitations. Potassium 3.2. Afebrile. 02/17/2023 Patient is seen and evaluated in follow-up this morning with nephrology along with cardiology and infectious disease following. Patient is maintained on peritoneal dialysis and awaiting peritoneal fluid cultures. Cultures remain negative and per patient dialysate is clear. Patient is continued on antibiotics per ID recommendations awaiting further cultures to finalize. Potassium and magnesium found to be slightly low and will replace per protocol follow-up with repeat labs. Nephrology ordered further studies including iron studies that appear to be slightly low and will give IV iron. Patient denies any further diarrhea since last Wednesday and denies nausea or vomiting. 02/18. Patient seen and examined., Platelet count 258, sodium 134, potassium 3.4, BUN 42, creatinine 15.87 02/20. Patient seen and examined. Patient gets tachycardic on slight ambulation. Start patient on Lopressor 12.5 mg twice a day. Denies any palpitations. Denies any lightheadedness or dizziness. 02/21. Patient seen and examined. Patient continues to have tachycardia on telemetry but denies any palpitations. Denies any chest pain REVIEW OF SYSTEMS: CONSTITUTIONAL: No fever, no malaise,. CARDIOVASCULAR: As mentioned above PULMONARY: No shortness of breath, no cough, GASTROINTESTINAL: No diarrhea, no nausea, no vomiting, no abdominal pain. NEUROLOGICAL: No headaches, no weakness, PHYSICAL EXAMINATION: GENERAL: The patient is alert and oriented x3, not in any acute distress. Well developed, well nourished. HEENT: Pupils are round and equally reacting to light. EOMI. No scleral icterus. No conjunctival pallor. Normocephalic, atraumatic. No pharyngeal erythema. No thyromegaly. CARDIOVASCULAR: S1 and S2 present. No murmurs, rubs, or gallops. PULMONARY: Chest is clear to auscultation, no wheezing or crackles. ABDOMEN: Soft, nontender, nondistended, normoactive bowel sounds. No palpable organomegaly. PD catheter seen MUSCULOSKELETAL: No joint swelling or deformity. EXTREMITIES: No cyanosis, clubbing, or pedal edema. NEUROLOGICAL: Gross neurological examination did not reveal any focal deficits. SKIN: No rashes. Assessment and plan Syncope secondary to dehydration, hypovolemia, negative for orthostatic hypotension. Leukocytosis, resolved possibly reactive secondary to dehydration Recent Covid-19 infection History of recent C. difficile colitis, completed antibiotic treatment. Reports no diarrhea since Wednesday. History of recent peritonitis, completed antibiotic therapy End-stage renal disease maintained on peritoneal dialysis,solitary right kidney Anemia of chronic disease, iron deficiency Hypertension history Hypokalemia Hypomagnesemia Obesity with BMI of 32.7 Monitor vital signs Monitor CBC Monitor CMP Continue telemetry monitoring Continue on current medication and management with nephrology following. Cardiology initially evaluated the patient as patient was admitted for concerns of syncope most likely secondary to dehydration with recent Covid 19 infection as well as C. diff. because of persistent tachycardia, patient was started on Lopressor, continues to be tachycardic, will reconsult cardiology Continue Lopressor 12.5 mg twice a day ID consult for recent C. diff Labs and medication were reviewed.. Continue same treatment. Continue with symptomatic treatment. Resume home medication. Monitor labs and vitals. DVT and GI prophylaxis. Further recommendations as per clinical course of the patient Dictation was produced using [employer] dictation software. please excuse any grammatical, word or spelling errors. Objective - Vital Signs Vital signs: Vital Signs Temp 98.1 F 02/21/23 07:51 Pulse 100 02/21/23 07:51 Resp 19 02/21/23 07:51 BP 108/71 02/21/23 07:51 Pulse Ox 98 02/21/23 08:25 FiO2 Intake & Output 02/20/23 02/21/23 02/21/23 18:59 06:59 18:59 Intake Total 240 Balance 240 Weight 94.3 kg Intake: Oral 240 Other: Voiding Method CAPD CAPD # Voids 0 - Labs CBC & Chem 7: 02/19/23 09:16 02/20/23 08:33 Labs: Abnormal Lab Results - Last 24 Hours (Table) 02/20/23 Range/Units 08:33 Sodium 134 L (137-145) mmol/L Potassium 3.4 L (3.5-5.1) mmol/L Chloride 95 L (98-107) mmol/L BUN 29 H (9-20) mg/dL Creatinine 15.46 H* (0.66-1.25) mg/dL Microbiology - Last 24 Hours (Table) 02/17/23 12:58 Gram Stain - Final Dialysate Body Fluid Culture - Final
--- NOTE | 2023-02-21 15:12 | P.PN ---
Subjective Progress Note Date: 02/21/23 Follow-up for ESRD. Denies any nausea vomiting diarrhea. No chest pain or shortness of breath. Objective - Vital Signs Vital signs: Vital Signs Temp 97.4 F L 02/21/23 14:00 Pulse 107 H 02/21/23 14:00 Resp 19 02/21/23 14:00 BP 103/64 02/21/23 14:00 Pulse Ox 98 02/21/23 14:00 FiO2 Intake & Output 02/20/23 02/21/23 02/21/23 18:59 06:59 18:59 Intake Total 240 500 Balance 240 500 Weight 94.3 kg Intake: Oral 240 500 Other: Voiding Method CAPD CAPD CAPD # Voids 0 - Exam No acute distress S1-S2 heard Lungs clear No edema - Labs CBC & Chem 7: 02/21/23 11:43 02/21/23 11:43 Labs: Abnormal Lab Results - Last 24 Hours (Table) 02/21/23 02/21/23 Range/Units 11:43 11:43 WBC 12.5 H (3.8-10.6) k/uL RBC 3.24 L (4.30-5.90) m/uL Hgb 10.9 L (13.0-17.5) gm/dL Hct 33.4 L (39.0-53.0) % MCV 102.8 H (80.0-100.0) fL Neutrophils # (Manual) 9.80 H (1.3-7.7) k/uL Metamyelocytes # (Man) 0.25 H (0) k/uL Myelocytes # (Manual) 0.38 H (0) k/uL Sodium 132 L (137-145) mmol/L Potassium 3.2 L (3.5-5.1) mmol/L Chloride 91 L (98-107) mmol/L BUN 27 H (9-20) mg/dL Creatinine 14.11 H* (0.66-1.25) mg/dL Glucose 108 H (74-99) mg/dL Microbiology - Last 24 Hours (Table) 02/17/23 12:58 Gram Stain - Final Dialysate Body Fluid Culture - Final Assessment and Plan Assessment: #1 ESRD on peritoneal dialysis. #2 chronic kidney disease with anemia #3 metabolic bone disease #4 hypokalemia on replacement. #5. Tachycardia, asymptomatic Plan: #1 continue with peritoneal dialysis for now. Evaluate for hemodialysis as outpatient based on his clearance and creatinine. #2 replace KCl #3 cardiology following. On metoprolol for tachycardia
[2023-02-22] MEDS: DIALYSIS (PERIT 1.5%) 2,500 ML 37.5 G/2,500 ML BAG INTRAPERIT SCH ×3 (02:25→10:09)
[2023-02-22] MEDS: PANTOPRAZOLE 40 MG/10 ML VIAL IVP SCH (08:13)
[2023-02-22] MEDS: METOPROLOL TARTRATE 12.5 MG TAB PO SCH (08:14)
[2023-02-22] MEDS: FOLIC ACID-VIT B COMPLEX-VIT C 1 CAP PO SCH (08:14)
[2023-02-22] MEDS: SEVELAMER 800 MG TAB PO SCH (08:14)
[2023-02-22] MEDS: LANTHANUM CARBONATE 1000 MG PO SCH (08:14)
[2023-02-22 08:57] VITALS: BP 108/74; PULSE 104; RESP 18; TEMP 97.9
--- NOTE | 2023-02-22 09:27 | P.DS ---
Providers Date of admission: 02/15/23 03:51 Attending physician: Carlos Manuel Mauro MD Consults: 02/15/23 03:50 Consult Physician Routine Consulting Provider: Carol Ann Ordaz Consult Reason/Comments: ESRD-PD Do you want consulting provider notified?: Yes 02/15/23 13:26 Consult Physician Routine Consulting Provider: Megan Tai Consult Reason/Comments: c diff-recent Do you want consulting provider notified?: Yes 02/21/23 12:53 Consult Physician Routine Consulting Provider: Teto Faith Consult Reason/Comments: Tachycardia Do you want consulting provider notified?: Already Contacted Primary care physician: Carlos Manuel Mauro MD Hospital Course: This is a 27-year-old gentleman past medical history significant for end-stage renal disease maintained on peritoneal dialysis, recent COVID infection,recent C. diff., completed his antibiotic regimen. Reports no diarrhea since Wednesday. States Wednesday night he felt fine but then on Wednesday morning, upon awakening, and required in-stent dizziness, lightheadedness. Attempted to get up and take 2 steps, vision became blurred and he passed out. Reports he laid on the floor for half an hour to 1 hour. Notify his nurse who advised him to come to the ER. Reports he last saw his wire brusher last week, reporting ncrease in his creatinine. Denies nausea vomiting or diarrhea. Denies incontinence or diaphoresis. Denies alcohol consumption. Denies chest pain, palpitations or shortness of breath. Denies fever. Received IV fluid hydration on admission and reports since last night feeling well, ambulating to bathroom with no further dizziness lightheadedness or blurred vision. EKG reported sinus tachycardia. Afebrile, WBC 19, hemoglobin 10.3, platelets 275. Sodium 1:30, potassium 3.4, bicarb 19, BUN 64, creatinine 16.95, glucose 106, magnesium 1.6, ALT 72, alk phos 140. 02/16/2023 d-dimer returned elevated at 3, VQ scan performed, reporting no evidence of mismatch defects. Orthostatic BPs negative. Maintained on IV fluid hydration .Continues on peritoneal dialysis as per nephrology, BUN 59, creatinine remains elevated 17.29. Peritoneal fluid cultures in progress. Reports form normal bowel movement yesterday denies nausea vomiting. Denies bloating. Denies abdominal pain. Denies lightheadedness, headache, cough or shortness of breath. No leg edema. Denies chest pain, palpitations. Potassium 3.2. Afebrile. 02/17/2023 Patient is seen and evaluated in follow-up this morning with nephrology along with cardiology and infectious disease following. Patient is maintained on peritoneal dialysis and awaiting peritoneal fluid cultures. Cultures remain negative and per patient dialysate is clear. Patient is continued on antibiotics per ID recommendations awaiting further cultures to finalize. Potassium and magnesium found to be slightly low and will replace per protocol follow-up with repeat labs. Nephrology ordered further studies including iron studies that appear to be slightly low and will give IV iron. Patient denies any further diarrhea since last Wednesday and denies nausea or vomiting. 02/18. Patient seen and examined., Platelet count 258, sodium 134, potassium 3.4, BUN 42, creatinine 15.87 02/20. Patient seen and examined. Patient gets tachycardic on slight ambulation. Start patient on Lopressor 12.5 mg twice a day. Denies any palpitations. Denies any lightheadedness or dizziness. 02/21. Patient seen and examined. Patient continues to have tachycardia on telemetry but denies any palpitations. Denies any chest pain 02/22. Pt feeling well, denies dizziness, chest pain, tachycarida resolved with lopressor. Cleared for discharge by nephrology. Pt discharged in stable condition and recommended to follow up with his wire brusher and PCP. Patient Condition at Discharge: Stable Plan - Discharge Summary Discharge Rx Participant: No New Discharge Prescriptions: New Metoprolol Tartrate [Lopressor] 12.5 mg PO BID #60 tab Continue calcitrioL [Calcitriol] 0.25 mcg PO MO Vit B Comp No.3/Folic/C/Biotin [Sheyla-Ariana Rx Tablet] 1 tab PO DAILY Lanthanum Carbonate [Lanthanum Carbonate Chew] 1,000 mg PO TID-W/MEALS Calcium Acetate 668 Mg Tab 3,340 mg PO TID-W/MEALS PRN PRN Reason: high phosphate levels Diphenox-Atrop 2.5-0.025 mg [Lomotil] 1 tab PO 5XD PRN 3 Days #15 tablet MDD 8 tabs PRN Reason: Diarrhea Sevelamer Carbonate 1,600 mg PO DIRECTED PRN PRN Reason: snacks Sevelamer Carbonate 4,000 mg PO AC-TID Ergocalciferol (Vitamin D2) [Drisdol (50,000 Iu)] 1,250 mcg PO Q14D Discharge Medication List Calcium Acetate 668 Mg Tab 3,340 mg PO TID-W/MEALS PRN 12/01/22 [History] Ergocalciferol (Vitamin D2) [Drisdol (50,000 Iu)] 1,250 mcg PO Q14D 12/01/22 [History] Lanthanum Carbonate [Lanthanum Carbonate Chew] 1,000 mg PO TID-W/MEALS 12/01/22 [History] Vit B Comp No.3/Folic/C/Biotin [Sheyla-Ariana Rx Tablet] 1 tab PO DAILY 12/01/22 [History] calcitrioL [Calcitriol] 0.25 mcg PO MO 12/01/22 [History] Diphenox-Atrop 2.5-0.025 mg [Lomotil] 1 tab PO 5XD PRN 3 Days #15 tablet MDD 8 tabs 01/31/23 [Rx] Sevelamer Carbonate 1,600 mg PO DIRECTED PRN 02/15/23 [History] Sevelamer Carbonate 4,000 mg PO AC-TID 02/15/23 [History] Metoprolol Tartrate [Lopressor] 12.5 mg PO BID #60 tab 02/22/23 [Rx] Follow up Appointment(s)/Referral(s): Carlos Manuel Mauro MD [Primary Care Provider] - 1-2 days Discharge Disposition: HOME SELF-CARE
--- NOTE | 2023-02-22 10:42 | P.PN ---
Subjective Patient is seen in follow-up for end-stage renal disease. He is maintained on peritoneal dialysis. No problems with dialysis exchanges. Dialysate is clear. No abdominal pain. No diarrhea. No active complaints at this time. Vital signs are stable. General: No acute distress. HEENT: Head exam is unremarkable. LUNGS: No audible rhonchi or wheezes. HEART: Tachycardic. ABDOMEN: Nontender. EXTREMITITES: No edema. Objective - Vital Signs Vital signs: Vital Signs Temp 97.9 F 02/22/23 08:00 Pulse 104 H 02/22/23 08:00 Resp 18 02/22/23 08:00 BP 108/74 02/22/23 08:00 Pulse Ox 98 02/22/23 08:00 FiO2 Intake & Output 02/21/23 02/22/23 02/22/23 18:59 06:59 18:59 Intake Total 500 118 Balance 500 118 Weight 93.6 kg Intake: Oral 500 118 Other: Voiding Method CAPD CAPD CAPD # Voids 0 - Labs CBC & Chem 7: 02/21/23 11:43 02/21/23 11:43 Labs: Abnormal Lab Results - Last 24 Hours (Table) 02/21/23 02/21/23 Range/Units 11:43 11:43 WBC 12.5 H (3.8-10.6) k/uL RBC 3.24 L (4.30-5.90) m/uL Hgb 10.9 L (13.0-17.5) gm/dL Hct 33.4 L (39.0-53.0) % MCV 102.8 H (80.0-100.0) fL Neutrophils # (Manual) 9.80 H (1.3-7.7) k/uL Metamyelocytes # (Man) 0.25 H (0) k/uL Myelocytes # (Manual) 0.38 H (0) k/uL Sodium 132 L (137-145) mmol/L Potassium 3.2 L (3.5-5.1) mmol/L Chloride 91 L (98-107) mmol/L BUN 27 H (9-20) mg/dL Creatinine 14.11 H* (0.66-1.25) mg/dL Glucose 108 H (74-99) mg/dL Microbiology - Last 24 Hours (Table) 02/17/23 12:58 Gram Stain - Final Dialysate Body Fluid Culture - Final Assessment and Plan Plan: Assessment: 1. End-stage liver disease maintained on peritoneal dialysis. 2. Chronic kidney disease mineral bone disease maintained on calcitriol and phosphate binders. Phosphorus level 6.0 dated 02/17/2023. 3. Hypovolemia s/p IV fluids. 4. Hypokalemia from poor intake and hypomagnesemia. Replaced. 5. Hypomagnesemia from GI losses.replaced. Improved. 6. Anemia of chronic kidney disease. Better. Iron replete. 7. Tachycardia maintained on Lopressor. Plan: Maintain current PD exchanges. Creatinine trending down. Plan is to transition to hemodialysis if creatinine remains elevated. Magnesium and potassium replaced. Encouraged oral intake. Add maintenance potassium and magnesium supplementation.
[2023-02-22 10:59] LABS: ALT 32 U/L (10-49); AST 19 U/L (14-35); Albumin/Globulin Ratio 1.48 Ratio (1.60-3.17); Alkaline Phosphatase 129 U/L (41-126); BUN/Creat Ratio 1.65 Ratio (12.00-20.00); Blood Urea Nitrogen 22.8 mg/dL (9.0-27.0); Calcium 9.2 mg/dL (8.7-10.3); Chloride 89 mmol/L (96-109); Globulin 2.7 g/dL (1.6-3.3); Glucose 87 mg/dL (70-110); Potassium 3.4 mmol/L (3.5-5.5); Sodium 133 mmol/L (135-145); Total Bilirubin 0.3 mg/dL (0.3-1.2); Total Protein 6.7 g/dL (6.2-8.2)
[2023-02-22] MEDS ORDERED: MAGNESIUM OXIDE 400 MG TAB PO SCH (11:00)
[2023-02-22] MEDS ORDERED: POTASSIUM CHLORIDE ER 10 MEQ TAB.ER.PRT PO SCH (11:00)
[2023-02-22 11:01] LABS: HGB 11.7 g/dL (13.0-17.0); MCHC 34.4 g/dL (32.0-37.0); MCV 98.8 FL (80.0-97.0); Mean Platelet Volume 8.9 FL (9.5-12.2); NRBC Per 100 WBC 0 X 10*3/uL (0.00-0.01); Platelet Count 294 X 10*3/uL (140-440); RBC 3.44 X 10*6/uL (4.40-5.60); RDW 13.2 % (11.5-14.5); WBC 15.79 X 10*3/uL (4.50-10.00)
[2023-02-22 11:28] VITALS: BMI 32.3
[2023-02-22 11:58] LABS: Basophils # (M) 0 X 10*3/uL (0.00-0.10); Neutrophils % (M) 72 %
[2023-02-22 13:20] LABS: Eosinophils # (M) 0.63 X 10*3/uL (0.04-0.35); Lymphocytes # (M) 3.32 X 10*3/uL (0.90-5.00); Monocytes # (M) 0.16 X 10*3/uL (0.20-1.00); Myelocytes % 2 % (0-0); Neutrophils # (M) 11.37 X 10*3/uL (1.80-7.70); RBC Morphology Normal (Normal)
[2023-02-26] MEDS ORDERED: ERGOCALCIFEROL 1,250 MCG (50,000 IU) CAPSULE PO SCH (09:00)
== END 2023-02-22 11:23 | disposition home or self-care (01) | DRG 371 ==
LOC: EC 01:10 → 6NMEDSUR 03:50 → OBSVTOIN 03:51 → 6NMEDSUR 06:37 → 3SCARD 02-16 18:34 → 6NMEDSUR 02-20 21:35
PROVIDERS: ADMIT Family Medicine; ATTEND Family Medicine
PROC: 3E1M39Z Irrigation of Peritoneal Cavity using Dialysate, Percutaneous Approach (ICD-10-PCS; principal; 2023-02-15)
DX: A04.72 Enterocolitis due to Clostridium difficile, not specified as recurrent (principal); N18.6 End stage renal disease; I12.0 Hypertensive chronic kidney disease with stage 5 chronic kidney disease or end stage renal disease; K92.1 Melena; Z99.2 Dependence on renal dialysis; G40.909 Epilepsy, unspecified, not intractable, without status epilepticus; D72.829 Elevated white blood cell count, unspecified; E86.0 Dehydration; E86.1 Hypovolemia; E87.6 Hypokalemia; M89.8X9 Other specified disorders of bone, unspecified site; Z86.16 Personal history of COVID-19; Z86.19 Personal history of other infectious and parasitic diseases; D63.1 Anemia in chronic kidney disease; K72.10 Chronic hepatic failure without coma; R00.0 Tachycardia, unspecified; E11.22 Type 2 diabetes mellitus with diabetic chronic kidney disease; Z91.013 Allergy to seafood; E86.9 Volume depletion, unspecified; E66.9 Obesity, unspecified; R55 Syncope and collapse; Z68.32 Body mass index [BMI] 32.0-32.9, adult; E83.42 Hypomagnesemia; F10.20 Alcohol dependence, uncomplicated
CPT/HCPCS: 36415; 78582; 80048; 80053; 82728; 83540; 83550; 83735; 84100; 84484; 85025; 85027; 85379; 85610; 85730; 86850; 86900; 86901; 87070; 87205; 89050; 93005; 94760; 96361; 96374; 99285

== ENCOUNTER 2023-04-29 19:34 | Emergency (ER) | payer MEDICARE, OTHER ==
[2023-04-29 20:02] VITALS: RESP 18
[2023-04-29] MEDS ORDERED: SODIUM CHLORIDE 0.9% 1,000 ML IV STA (20:12)
[2023-04-29] MEDS ORDERED: ONDANSETRON 4 MG/2 ML VIAL IVP STA (20:12)
[2023-04-29] MEDS ORDERED: MORPHINE SULFATE 4 MG/ML SYRINGE IVP STA (20:12)
--- NOTE | 2023-04-29 20:12 | ED ---
Abdominal Pain HPI - General Source: patient, RN notes reviewed, old records reviewed Mode of arrival: ambulatory Limitations: no limitations - History of Present Illness MD Complaint: abdominal pain -: hour(s) Location: diffuse, LLQ, L flank Radiation: L flank Migration to: LLQ, L flank Severity: moderate Severity scale (1-10): 7 Quality: fullness, sharp Consistency: constant Improves With: nothing Worsens With: nothing <Chauncey Elkins - Last Filed: 04/29/23 21:56> <Carola Arellano - Last Filed: 04/30/23 00:09> - General Chief Complaint: Abdominal Pain Stated Complaint: Abd Pain Time Seen by Provider: 04/29/23 20:07 - History of Present Illness Initial Comments: This is a 27-year-old male peritoneal dialysis coming in for abdominal pain. Patient did do dialysis today is complaining of left-sided abdominal pain significant (Chauncey Elkins) - Related Data Home Medications Medication Instructions Recorded Confirmed Calcium Acetate 668 Mg Tab 3,340 mg PO TID-W/MEALS PRN 12/01/22 04/29/23 Ergocalciferol (Vitamin D2) 1,250 mcg PO Q14D 12/01/22 04/29/23 [Drisdol (50,000 Iu)] Lanthanum Carbonate [Lanthanum 1,000 mg PO TID-W/MEALS 12/01/22 04/29/23 Carbonate Chewable] Vit B Comp No.3/Folic/C/Biotin 1 tab PO DAILY 12/01/22 04/29/23 [Sheyla-Ariana Rx Tablet] Sevelamer Carbonate 4,000 mg PO TID-W/MEALS 02/15/23 04/29/23 Sevelamer Carbonate 800 mg PO BID PRN 02/15/23 04/29/23 Previous Rx's Medication Instructions Recorded Metoprolol Tartrate [Lopressor] 12.5 mg PO BID #60 tab 02/22/23 Allergies Allergy/AdvReac Type Severity Reaction Status Date / Time shellfish derived [Shellfish] Allergy Rash/Hives Verified 04/29/23 22:55 Review of Systems ROS Other: All systems not noted in ROS Statement are negative. <Chauncey Elkins - Last Filed: 04/29/23 21:56> ROS Other: All systems not noted in ROS Statement are negative. <Carola Arellano P - Last Filed: 04/30/23 00:09> ROS Statement: Those systems with pertinent positive or pertinent negative responses have been documented in the HPI. Past Medical History Past Medical History: Hypertension, Renal Disease, Seizure Disorder Additional Past Medical History / Comment(s): HEMODIALYSIS [facility]. LAST SEIZURE S IN FEBRUARY 2021., few episodes of tachycardia. History of Any Multi-Drug Resistant Organisms: None Reported, C-DIFF Date of last positivie culture/infection: 01/25/2023 MDRO Source:: stool Additional Past Surgical History / Comment(s): left kidney removed as child Past Anesthesia/Blood Transfusion Reactions: No Reported Reaction Past Psychological History: No Psychological Hx Reported Smoking Status: Never smoker Past Alcohol Use History: None Reported Past Drug Use History: None Reported - Past Family History Mother Family Medical History: No Reported History Father Family Medical History: Cancer Additional Family Medical History / Comment(s): Liver <Chauncey Elkins - Last Filed: 04/29/23 21:56> General Exam Limitations: no limitations General appearance: alert, in no apparent distress Head exam: Present: atraumatic, normocephalic, normal inspection Eye exam: Present: normal appearance, PERRL, EOMI. Absent: scleral icterus, conjunctival injection, periorbital swelling ENT exam: Present: normal exam, mucous membranes moist Neck exam: Present: normal inspection. Absent: tenderness, meningismus, lymphadenopathy Respiratory exam: Present: normal lung sounds bilaterally. Absent: respiratory distress, wheezes, rales, rhonchi, stridor Cardiovascular Exam: Present: regular rate, normal rhythm, normal heart sounds. Absent: systolic murmur, diastolic murmur, rubs, gallop, clicks GI/Abdominal exam: Present: soft, normal bowel sounds. Absent: distended, tenderness, guarding, rebound, rigid Extremities exam: Present: normal inspection, full ROM, normal capillary refill. Absent: tenderness, pedal edema, joint swelling, calf tenderness Back exam: Present: normal inspection Neurological exam: Present: alert, oriented X3, CN II-XII intact Psychiatric exam: Present: normal affect, normal mood Skin exam: Present: warm, dry, intact, normal color. Absent: rash <Chauncey Elkins - Last Filed: 04/29/23 21:56> Course <MaryChauncey cunha - Last Filed: 04/29/23 21:56> Vital Signs 04/29/23 04/29/23 04/29/23 19:39 20:35 22:48 Temperature 98.5 F Pulse Rate 110 H 110 H 86 Respiratory 18 18 18 Rate Blood Pressure 132/76 118/99 111/80 O2 Sat by Pulse 98 99 99 Oximetry 04/30/23 00:03 Temperature 98.6 F Pulse Rate 89 Respiratory 18 Rate Blood Pressure 116/72 O2 Sat by Pulse 98 Oximetry - Reevaluation(s) Reevaluation #1: 04/29/23 22:06 Medical records reviewed (Chauncey Elkins) Reevaluation #2: 04/29/23 22:06 Patient's symptoms improved (Chauncey Elkins) Reevaluation #4: 04/29/23 22:06 Was pt. sent in by a medical professional or institution (Dr. PA, MEAT MOLDER, urgent care, hospital, or long-term...) When possible be specific @ -no Did you speak to anyone other than the patient for history (EMS, parent, family, police, friend...)? What history was obtained from this source @ -no Did you review nursing and triage notes (agree or disagree)? Why? @ -agree Are old charts reviewed (outside hosp., previous admission, EMS record, old EKG, old radiological studies, urgent care reports/EKG's, long-term records)? Report findings @ -yes Differential Diagnosis (chest pain, altered mental status, abdominal pain women, abdominal pain men, vaginal bleeding, weakness, fever, dyspnea, syncope, headache, dizziness, GI bleed, back pain, seizure, CVA, palpatations, mental health, musculoskeletal)? @ -prior EKG interpreted by me (3pts min.). @ -yes X-rays interpreted by me (1pt min.). @ -yes negative for acute disease CT interpreted by me (1pt min.). @ -no U/S interpreted by me (1pt. min.). @ -no What testing was considered but not performed or refused? (CT, X-rays, U/S, labs)? Why? @ -none What meds were considered but not given or refused? Why? @ -none Did you discuss the management of the patient with other professionals (professionals i.e. , PA, MEAT MOLDER, lab, RT, psych nurse, case management social worker, locker room attendant, teacher, radio division officer, nurse outreach case manager)? Give summary @ -no Was smoking cessation discussed for >3mins.? @ -no Was critical care preformed (if so, how long)? @ -no Were there social determinants of health that impacted care today? How? (Homelessness, low income, unemployed, alcoholism, drug addiction, transportation, low edu. Level, literacy, decrease access to med. care, fpc, rehab)? @ -none Was there de-escalation of care discussed even if they declined (Discuss DNR or withdrawal of care, Hospice)? DNR status @ -no What co-morbidities impacted this encounter? (DM, HTN, Smoking, COPD, CAD, Cancer, CVA, ARF, Chemo, Hep., AIDS, mental health diagnosis, sleep apnea, morbid obesity)? @ -none Was patient admitted / discharged? Hospital course, mention meds given and route, prescriptions, significant lab abnormalities, going to OR and other pertinent info. @ - Undiagnosed new problem with uncertain prognosis? @ -no Drug Therapy requiring intensive monitoring for toxicity (Heparin, Nitro, Insulin, Cardizem)? @ -no Were any procedures done? @ -no Diagnosis/symptom? @ - Acute, or Chronic, or Acute on Chronic? @ -Acute Uncomplicated (without systemic symptoms) or Complicated (systemic symptoms)? @ -Complicated Side effects of treatment? @ -no Exacerbation, Progression, or Severe Exacerbation? @ -exacerbation Poses a threat to life or bodily function? How? (Chest pain, [place], [place], pneumonia, PE, COPD, DKA, ARF, appy, cholecystitis, CVA, Diverticulitis, Homicidal, Suicidal, threat to staff... and all critical care pts) @ -yes (Chauncey Elkins) Reevaluation #5: 04/29/23 22:06 Differential Abdominal Pain Men: Appendicitis, cholecystitis, diverticulosis, ischemic bowel, pancreatitis, hepatitis, UTI, gastroenteritis, AAA, incarcerated hernia, bowel obstruction, constipation, inflammatory bowel, hepatitis, peptic ulcer disease, splenic infarction, perforated viscus, testicular torsion, this is not meant to be an all-inclusive list (Chauncey Elkins) Medical Decision Making - Lab Data Result diagrams: 04/29/23 20:28 04/29/23 20:28 <Chauncey Elkins - Last Filed: 04/29/23 21:56> - Lab Data Result diagrams: 04/29/23 20:28 04/29/23 20:28 <Carola Arellano Chito - Last Filed: 04/30/23 00:09> - Medical Decision Making CT interpreted by me (1pt min.). @ -Atrophic kidney, fluid noted in the abdomen, no significant inflammatory changes no acute findings U/S interpreted by me (1pt. min.). @ -None done What testing was considered but not performed or refused? (CT, X-rays, U/S, labs)? Why? @ -None What meds were considered but not given or refused? Why? @ -None Did you discuss the management of the patient with other professionals (professionals i.e. , PA, MEAT MOLDER, lab, RT, psych nurse, case management social worker, locker room attendant, teacher, radio division officer, nurse outreach case manager)? Give summary @ -No Was smoking cessation discussed for >3mins.? @ -No Was critical care preformed (if so, how long)? @ -No Were there social determinants of health that impacted care today? How? (Home lessness, low income, unemployed, alcoholism, drug addiction, transportation, low edu. Level, literacy, decrease access to med. care, fpc, rehab)? @ -No Was there de-escalation of care discussed even if they declined (Discuss DNR or withdrawal of care, Hospice)? DNR status @ -No What co-morbidities impacted this encounter? (DM, HTN, Smoking, COPD, CAD, Cancer, CVA, ARF, Chemo, Hep., AIDS, mental health diagnosis, sleep apnea, morbid obesity)? @ -End-stage renal disease Was patient admitted / discharged? Hospital course, mention meds given and route, prescriptions, significant lab abnormalities, going to OR and other pertinent info. @ -Discharged Patient care was signed out to me by Dr. Hernandez. Patient is a 27-year-old male on peritoneal dialysis who presented for evaluation of left lower quadrant abdominal pain. Pain is inferior to the dialysis catheter site. Pain is intermittent not worse with palpation. There is no diffuse abdominal pain. Dialysis was performed this afternoon and the solution was not cloudy did not appear infected. Patient said no fevers chills nausea or vomiting. Had a normal bowel movement earlier today. Labs here are at baseline white count is only [address] has no findings of inflammatory changes. Results were discussed with the patient after review of medical record patient did have peritonitis in November but at that time his white count was 20 he felt quite ill and had cloudy dialysis fluid. He states this does not feel like that. After negative workup patient is comfortable plan for discharge home continued outpatient follow-up. Close return parameters were discussed patient discharged home in stable condition. Undiagnosed new problem with uncertain prognosis? @ -No Drug Therapy requiring intensive monitoring for toxicity (Heparin, Nitro, Insulin, Cardizem)? @ -No Were any procedures done? @ -No Diagnosis/symptom? @ -Lower quadrant abdominal pain Acute, or Chronic, or Acute on Chronic? @ -Acute Uncomplicated (without systemic symptoms) or Complicated (systemic symptoms)? @ -Uncomplicated Side effects of treatment? @ -No Exacerbation, Progression, or Severe Exacerbation? @ -No Poses a threat to life or bodily function? How? (Chest pain, [place], [place], pneumonia, PE, COPD, DKA, ARF, appy, cholecystitis, CVA, Diverticulitis, Homicidal, Suicidal, threat to staff... and all critical care pts) @ -Unlikely (Carola Arellano) - Lab Data Lab Results 04/29/23 04/29/23 04/29/23 Range/Units 20:28 20:28 20:28 WBC 12.0 H (3.8-10.6) k/uL RBC 2.80 L (4.30-5.90) m/uL Hgb 10.2 L (13.0-17.5) gm/dL Hct 27.7 L (39.0-53.0) % MCV 99.2 (80.0-100.0) fL MCH 36.4 H (25.0-35.0) pg MCHC 36.7 (31.0-37.0) g/dL RDW 15.0 (11.5-15.5) % Plt Count 250 (150-450) k/uL MPV 7.5 Neutrophils % 78 % Lymphocytes % 17 % Monocytes % 3 % Eosinophils % 1 % Basophils % 0 % Neutrophils # 9.3 H (1.3-7.7) k/uL Lymphocytes # 2.0 (1.0-4.8) k/uL Monocytes # 0.4 (0-1.0) k/uL Eosinophils # 0.2 (0-0.7) k/uL Basophils # 0.0 (0-0.2) k/uL Macrocytosis Slight Sodium 138 (137-145) mmol/L Potassium 3.5 (3.5-5.1) mmol/L Chloride 100 (98-107) mmol/L Carbon Dioxide 25 (22-30) mmol/L Anion Gap 13 mmol/L BUN 56 H (9-20) mg/dL Creatinine 13.31 H* (0.66-1.25) mg/dL Est GFR (CKD-EPI)AfAm 5 (>60 ml/min/1.73 sqM) Est GFR (CKD-EPI)NonAf 4 (>60 ml/min/1.73 sqM) Glucose 107 H (74-99) mg/dL Plasma Lactic Acid Jose 1.1 (0.7-2.0) mmol/L Calcium 8.7 (8.4-10.2) mg/dL Total Bilirubin 0.5 (0.2-1.3) mg/dL AST 27 (17-59) U/L ALT 41 (4-49) U/L Alkaline Phosphatase 110 (38-126) U/L Total Protein 6.7 (6.3-8.2) g/dL Albumin 3.9 (3.5-5.0) g/dL Amylase 97 (30-110) U/L Lipase 132 (23-300) U/L Disposition <Chauncey Elkins B - Last Filed: 04/29/23 21:56> Is patient prescribed a controlled substance at d/c from ED?: No <Carola Arellano - Last Filed: 04/30/23 00:09> Clinical Impression: Abdominal pain Disposition: HOME SELF-CARE Condition: Stable Instructions (If sedation given, give patient instructions): Abdominal Pain (ED) Referrals: Carlos Manuel Mauro MD [Primary Care Provider] - 1-2 days
[2023-04-29 21:03] LABS: Basophils % (A) 0 %; Eosinophils # (A) 0.2 k/uL (0-0.7); Eosinophils % (A) 1 %; HCT 27.7 % (39.0-53.0); HGB 10.2 gm/dL (13.0-17.5); Lymphocytes % (A) 17 %; MCH 36.4 pg (25.0-35.0); MCHC 36.7 g/dL (31.0-37.0); MCV 99.2 fL (80.0-100.0); Macrocytosis Slight; Mean Platelet Volume 7.5; Monocytes # (A) 0.4 k/uL (0-1.0); Monocytes % (A) 3 %; Neutrophils # (A) 9.3 k/uL (1.3-7.7); Neutrophils % (A) 78 %; Platelet Count 250 k/uL (150-450)
[2023-04-29 21:15] LABS: ALT 41 U/L (4-49); AST 27 U/L (17-59); African American GFR (CKD) 5 (>60 ml/min/1.73 sqM); Albumin 3.9 g/dL (3.5-5.0); Alkaline Phosphatase 110 U/L (38-126); Amylase 97 U/L (30-110); Anion Gap 13 mmol/L; Blood Urea Nitrogen 56 mg/dL (9-20); Calcium 8.7 mg/dL (8.4-10.2); Carbon Dioxide 25 mmol/L (22-30); Chloride 100 mmol/L (98-107); Glucose 107 mg/dL (74-99); Lipase 132 U/L (23-300); Non-African American GFR(CKD) 4 (>60 ml/min/1.73 sqM); Potassium 3.5 mmol/L (3.5-5.1); Sodium 138 mmol/L (137-145); Total Bilirubin 0.5 mg/dL (0.2-1.3); Total Protein 6.7 g/dL (6.3-8.2)
--- NOTE | 2023-04-29 22:28 | CT ---
EXAMINATION TYPE: CT abdomen pelvis wo con CT DLP: 1005.1 mGycm, Automated exposure control for dose reduction was used. DATE OF EXAM: 04/29/2023 9:58 PM COMPARISON: None CLINICAL INDICATION:Male, 27 years old with history of pain; Pt. c/o left sided abdominal pain x1-2 d ays with intermittent nausea- no vomitting. Pt. is a peritoneal dialysis pt. - did an exchange at 180 0 tonight. Left kidney removed as a child. TECHNIQUE: Axial CT abdomen pelvis wo con;Sagittal and coronal reformats were created on a separate workstation. Contrast used: mL of , (none if empty) Oral contrast used: without Oral Contrast (none if empty) FINDINGS: LOWER CHEST: Left gynecomastia partially visualized. ABDOMEN LIVER: The liver contour is demonstrates nodularity with caudate lobe hypertrophy changes. GALLBLADDER AND BILE DUCTS: Unremarkable. PANCREAS: Unremarkable. SPLEEN: Unremarkable. ADRENAL GLANDS: Unremarkable. KIDNEYS AND URETERS: The left kidney is surgically absent. The right kidney is atrophic. No obstructi ve uropathy. Nonobstructing right calculus measuring 4 mm. PELVIS BLADDER: Unremarkable REPRODUCTIVE: Unremarkable. ABDOMEN & PELVIS STOMACH AND BOWEL: No evidence of bowel obstruction. Scattered colonic diverticula. PERITONEUM/RETROPERITONEUM: No evidence of pneumoperitoneum. Free fluid throughout the abdomen with p eritoneal dialysis catheter terminating in the pelvis. VASCULATURE: No evidence of aortic aneurysm. MUSCULOSKELETAL: No acute osseous abnormalities LYMPH NODES: No gross evidence for lymphadenopathy. SOFT TISSUE/ABDOMINAL WALL: Unremarkable IMPRESSION: 1. No definitive acute abdominal process. 2. Peritoneum dialysis catheter with free fluid throughout the abdomen. 3. Colonic diverticulosis. 4. Absent left kidney possibly surgically. 5. Atrophic right kidney with nonobstructing tortuous. 6. Mild left gynecomastia changes. 7. Subtle nodularity to the contralateral correlate for cirrhosis.
[2023-04-30 00:21] VITALS: BP 116/72; PULSE 89; TEMP 98.6
== END 2023-04-30 00:11 | disposition home or self-care (01) ==
LOC: EC 19:34
DX: R10.32 Left lower quadrant pain (principal); I12.0 Hypertensive chronic kidney disease with stage 5 chronic kidney disease or end stage renal disease; N18.6 End stage renal disease; Z79.899 Other long term (current) drug therapy; Z91.013 Allergy to seafood; Z99.2 Dependence on renal dialysis; Z90.5 Acquired absence of kidney
CPT/HCPCS: 36415; 80053; 82150; 83605; 83690; 85025; 74176; 99285; 96374; 96361 ×3; J2405

== ENCOUNTER 2023-12-09 09:26 | Emergency (ER) | payer MEDICARE, OTHER ==
[2023-12-09 09:37] VITALS: RESP 18
--- NOTE | 2023-12-09 09:48 | ED ---
ENT HPI - General Chief complaint: Dental/Oral Stated complaint: Oral Bleeding Time Seen by Provider: 12/09/23 09:34 Source: patient, RN notes reviewed Mode of arrival: ambulatory Limitations: no limitations - History of Present Illness Initial comments: This is a 28-year-old male presents emergency department chief complaint of bleeding from dental extractions. Patient states he had his wisdom teeth removed yesterday at [facility]. He states that he has been using gauze but is noted some oozing that remains primarily from the left side. He states his pain is tolerable he was discharged on amoxicillin and Tylenol with codeine. Denies any associated symptoms. - Related Data Home Medications Medication Instructions Recorded Confirmed Calcium Acetate 668 Mg Tab 3,340 mg PO TID-W/MEALS PRN 12/01/22 04/29/23 Ergocalciferol (Vitamin D2) 1,250 mcg PO Q14D 12/01/22 04/29/23 [Drisdol (50,000 Iu)] Lanthanum Carbonate [Lanthanum 1,000 mg PO TID-W/MEALS 12/01/22 04/29/23 Carbonate Chewable] Vit B Comp No.3/Folic/C/Biotin 1 tab PO DAILY 12/01/22 04/29/23 [Sheyla-Ariana Rx Tablet] Sevelamer Carbonate 4,000 mg PO TID-W/MEALS 02/15/23 04/29/23 Sevelamer Carbonate 800 mg PO BID PRN 02/15/23 04/29/23 Previous Rx's Medication Instructions Recorded Metoprolol Tartrate [Lopressor] 12.5 mg PO BID #60 tab 02/22/23 Allergies Allergy/AdvReac Type Severity Reaction Status Date / Time shellfish derived [Shellfish] Allergy Rash/Hives Verified 04/29/23 22:55 Review of Systems ROS Statement: Those systems with pertinent positive or pertinent negative responses have been documented in the HPI. ROS Other: All systems not noted in ROS Statement are negative. Past Medical History Past Medical History: Hypertension, Renal Disease, Seizure Disorder Additional Past Medical History / Comment(s): HEMODIALYSIS [facility]. LAST SEIZURES IN FEBRUARY 2021., few episodes of tachycardia. History of Any Multi-Drug Resistant Organisms: None Reported, C-DIFF Date of last positivie culture/infection: 01/25/2023 MDRO Source:: stool Additional Past Surgical History / Comment(s): left kidney removed as child Past Anesthesia/Blood Transfusion Reactions: No Reported Reaction Past Psychological History: No Psychological Hx Reported Smoking Status: Never smoker Past Alcohol Use History: None Reported Past Drug Use History: None Reported - Past Family History Mother Family Medical History: No Reported History Father Family Medical History: Cancer Additional Family Medical History / Comment(s): Liver General Exam Limitations: no limitations General appearance: alert, in no apparent distress Head exam: Present: atraumatic, normocephalic, normal inspection Eye exam: Present: normal appearance, PERRL, EOMI. Absent: scleral icterus, conjunctival injection, periorbital swelling ENT exam: Present: mucous membranes moist. Absent: normal oropharynx (Dental extractions upper and lower bilaterally there is small amount of oozing noted from the left upper no large hematoma noted no abscess noted) Neck exam: Present: normal inspection, full ROM. Absent: tenderness, meningismus, lymphadenopathy Respiratory exam: Present: normal lung sounds bilaterally. Absent: respiratory distress, wheezes, rales, rhonchi, stridor Cardiovascular Exam: Present: regular rate, normal rhythm, normal heart sounds. Absent: systolic murmur, diastolic murmur, rubs, gallop, clicks Course Vital Signs 12/09/23 09:28 Pulse Rate 98 Respiratory 18 Rate Blood Pressure 119/63 O2 Sat by Pulse 97 Oximetry Medical Decision Making - Medical Decision Making Was pt. sent in by a medical professional or institution (, PA, MANAGER QUALITY IMPROVEMENT, urgent care, hospital, or group home...) When possible be specific @ -No Did you speak to anyone other than the patient for history (EMS, parent, family, police, friend...)? What history was obtained from this source @ -No Did you review nursing and triage notes (agree or disagree)? Why? @ -I reviewed and agree with nursing and triage notes Were old charts reviewed (outside hosp., previous admission, EMS record, old EKG, old radiological studies, urgent care reports/EKG's, group home records)? Report findings @ -No old charts were reviewed Differential Diagnosis (chest pain, altered mental status, abdominal pain women, abdominal pain men, vaginal bleeding, weakness, fever, dyspnea, syncope, headache, dizziness, GI bleed, back pain, seizure, CVA, palpatations, mental health, musculoskeletal)? @ -Dental bleeding, dental pain EKG interpreted by me (3pts min.). @ -[None X-rays interpreted by me (1pt min.). @ -None done CT interpreted by me (1pt min.). @ -None done U/S interpreted by me (1pt. min.). @ -None done What testing was considered but not performed or refused? (CT, X-rays, U/S, labs)? Why? @ -None What meds were considered but not given or refused? Why? @ -None Did you discuss the management of the patient with other professionals (professionals i.e. Dr., PA, MANAGER QUALITY IMPROVEMENT, lab, RT, psych nurse, geriatric social worker, greige goods inspector, teacher, systems support officer, child welfare caseworker)? Give summary @ -No Was smoking cessation discussed for >3mins.? @ -No Was critical care preformed (if so, how long)? @ -No Were there social determinants of health that impacted care today? How? (Homelessness, low income, unemployed, alcoholism, drug addiction, transportation, low edu. Level, literacy, decrease access to med. care, alf, rehab)? @ -No Was there de-escalation of care discussed even if they declined (Discuss DNR or withdrawal of care, Hospice)? DNR status @ -No What co-morbidities impacted this encounter? (DM, HTN, Smoking, COPD, CAD, Cancer, CVA, ARF, Chemo, Hep., AIDS, mental health diagnosis, sleep apnea, morbid obesity)? @ -None Was patient admitted / discharged? Hospital course, mention meds given and route, prescriptions, significant lab abnormalities, going to OR and other pertinent info. @ -Urged patient held gauze over the areas with pressure and TXA with resolution of bleeding. He is advised to follow-up with [facility] return parameters discussed Undiagnosed new problem with uncertain prognosis? @ -No Drug Therapy requiring intensive monitoring for toxicity (Heparin, Nitro, Insulin, Cardizem)? @ -No Were any procedures done? @ -No Diagnosis/symptom? @ -Dental bleeding after procedure Acute, or Chronic, or Acute on Chronic? @ -Acute Uncomplicated (without systemic symptoms) or Complicated (systemic symptoms)? @ -Uncomplicated Side effects of treatment? @ -No Exacerbation, Progression, or Severe Exacerbation? @ -No Poses a threat to life or bodily function? How? (Chest pain, [place], [place], pneumonia, PE, COPD, DKA, ARF, appy, cholecystitis, CVA, Diverticulitis, Homicidal, Suicidal, threat to staff... and all critical care pts) @ -No Disposition Clinical Impression: Surgical wound hemorrhage after dental procedure Disposition: HOME SELF-CARE Condition: Stable Additional Instructions: Please return to the Emergency Department if symptoms worsen or any other concerns. Is patient prescribed a controlled substance at d/c from ED?: No Referrals: Carlos Manuel Mauro MD [Primary Care Provider] - 1-2 days Time of Disposition: 11:20
[2023-12-09] MEDS: TRANEXAMIC ACID 1,000 MG/10 ML VIAL MISCELLANE ONE (10:05)
[2023-12-09 11:33] VITALS: BP 117/82; PULSE 86; TEMP 98.4
== END 2023-12-09 11:35 | disposition home or self-care (01) ==
LOC: EC 09:26
CPT/HCPCS: 99282

== ENCOUNTER → 2024-01-05 | Outpatient (CLI) | payer MEDICARE, OTHER ==
--- NOTE | 2024-01-06 07:28 | CA ---
Transthoracic Echo Report Name: Lauri Last Age: 28 Gender: M : 1995 Exam Date: 01/05/2024 15:39 Exam Location: [facility] Ht (in): 68 Wt (lb): 210 Ordering Physician: Carol Ann Ordaz MD Attending/Referring Phys: Carol Ann Ordaz MD Psychological Aide Lola Amaya RDCS Procedure CPT: Indications: N18.6 END STAGE RENAL DISEASE Cardiac Hx: Technical Quality: Fair Contrast 1: Total Dose (mL): Contrast 2: Total Dose (mL): MEASUREMENTS (Male / Female) Normal Values 2D ECHO LV Diastolic Diameter PLAX 4.8 cm 4.2 - 5.9 / 3.9 - 5.3 cm LV Systolic Diameter PLAX 3.4 cm IVS Diastolic Thickness 1.5 cm 0.6 - 1.0 / 0.6 - 0.9 cm LVPW Diastolic Thickness 1.6 cm 0.6 - 1.0 / 0.6 - 0.9 cm LV Relative Wall Thickness 0.7 RV Internal Dim ED PLAX 2.9 cm LA Systolic Diameter LX 3.9 cm 3.0 - 4.0 / 2.7 - 3.8 cm LV Diastolic Volume MOD 4C 120.1 cm??? LV Systolic Volume MOD 4C 39.8 cm??? LV Ejection Fraction MOD 4C 66.9 % LV Cardiac Index MOD 4C 2962.3 cm???/min???m??? LV Diastolic Length 4C 9.3 cm LV Systolic Length 4C 7.8 cm LV Diastolic Volume MOD 2C 100.8 cm??? LV Systolic Volume MOD 2C 31.0 cm??? LV Ejection Fraction MOD 2C 69.3 % LV Cardiac Index MOD 2C 2577.7 cm???/min???m??? LV Diastolic Length 2C 8.7 cm LV Systolic Length 2C 7.1 cm LA Volume 35.9 cm??? 18 - 58 / 22 - 52 cm??? LA Volume Index 16.6 cm???/m??? 16 - 28 cm???/m??? M-MODE Aortic Root Diameter MM 3.7 cm AV Cusp Separation MM 2.8 cm DOPPLER AV Peak Velocity 124.1 cm/s AV Peak Gradient 6.2 mmHg MV Area PHT 4.0 cm??? Mitral E Point Velocity 86.0 cm/s Mitral A Point Velocity 78.6 cm/s Mitral E to A Ratio 1.1 MV Deceleration Time 190.6 ms FINDINGS Left Ventricle Left ventricular ejection fraction is estimated at 55-60 %. Normal left ventricular wall motion. Left ventricular cavity size normal.Moderately increased left ventricular wall thickness. Right Ventricle Normal right ventricular size and function. Unable to estimate the right ventricular systolic pressure. Right Atrium Normal right atrial size. No right atrial thrombus or mass seen. Left Atrium Normal left atrial size. No left atrial thrombus or mass present. Mitral Valve Structurally normal mitral valve. No mitral stenosis, or prolapse.trace to mild mitral regurgitation. Aortic Valve Trileaflet aortic valve. No aortic valve stenosis or regurgitation. Tricuspid Valve Structurally normal tricuspid valve. No tricuspid stenosis, or prolapse.trace to mild tricuspid regurgitation. Pulmonic Valve Structurally normal pulmonic valve. No pulmonic regurgitation. Pericardium No pericardial or pleural effusion. Aorta Normal size aortic root and proximal ascending aorta. CONCLUSIONS 1. Normal left ventricular size and systolic function 2. Trace to mild mitral and tricuspid regurgitation Previewed by: Dr. Aline Rodriguez MD (Electronically Signed) Final Date: 06 January 2024 07:27
== END | disposition home or self-care (01) ==
LOC: RADECHMAIN 15:29
PROVIDERS: ATTEND Internal Medicine Nephrology
DX: N18.6 End stage renal disease
CPT/HCPCS: 93306

== ENCOUNTER 2024-01-18 03:58 | Emergency (ER) | payer MEDICARE, OTHER ==
[2024-01-18 04:03] VITALS: RESP 18; TEMP 98.4
--- NOTE | 2024-01-18 05:15 | ED ---
General Adult HPI - General Chief complaint: Recheck/Abnormal Lab/Rx Stated complaint: Catheter Issue Time Seen by Provider: 01/18/24 04:28 Source: patient Mode of arrival: ambulatory Limitations: no limitations - History of Present Illness Initial comments: Patient complains of problem with his peritoneal dialysis catheter. He states that he was performed a dialysate change approximately 30 minutes ago when "my peritoneal dialysis catheter kind of snapped off." The patient denies other problems. Onset/Timin -: minutes(s) Severity scale (1-10): 0 Improves with: none Worsens with: none Associated Symptoms: denies other symptoms - Related Data Home Medications Medication Instructions Recorded Confirmed Calcium Acetate 668 Mg Tab 3,340 mg PO TID-W/MEALS PRN 12/01/22 04/29/23 Ergocalciferol (Vitamin D2) 1,250 mcg PO Q14D 12/01/22 04/29/23 [Drisdol (50,000 Iu)] Lanthanum Carbonate [Lanthanum 1,000 mg PO TID-W/MEALS 12/01/22 04/29/23 Carbonate Chewable] Vit B Comp No.3/Folic/C/Biotin 1 tab PO DAILY 12/01/22 04/29/23 [Sheyla-Ariana Rx Tablet] Sevelamer Carbonate 4,000 mg PO TID-W/MEALS 02/15/23 04/29/23 Sevelamer Carbonate 800 mg PO BID PRN 02/15/23 04/29/23 Previous Rx's Medication Instructions Recorded Metoprolol Tartrate [Lopressor] 12.5 mg PO BID #60 tab 02/22/23 Allergies Allergy/AdvReac Type Severity Reaction Status Date / Time shellfish derived [Shellfish] Allergy Rash/Hives Verified 01/18/24 04:03 Review of Systems ROS Statement: Those systems with pertinent positive or pertinent negative responses have been documented in the HPI. ROS Other: All systems not noted in ROS Statement are negative. Constitutional: Denies: fever Gastrointestinal: Denies: abdominal pain Skin: Denies: lesions Past Medical History Past Medical History: Hypertension, Renal Disease, Seizure Disorder Additional Past Medical History / Comment(s): HEMODIALYSIS [place]. LAST SEIZURES IN FEBRUARY 2021., few episodes of tachycardia. History of Any Multi-Drug Resistant Organisms: None Reported, C-DIFF Date of last positivie culture/infection: 01/25/2023 MDRO Source:: stool Additional Past Surgical History / Comment(s): left kidney removed as child Past Anesthesia/Blood Transfusion Reactions: No Reported Reaction Past Psychological History: No Psychological Hx Reported Smoking Status: Never smoker Past Alcohol Use History: None Reported Past Drug Use History: None Reported - Past Family History Mother Family Medical History: No Reported History Father Family Medical History: Cancer Additional Family Medical History / Comment(s): Liver General Exam Limitations: no limitations General appearance: alert, in no apparent distress Head exam: Present: atraumatic, normocephalic Eye exam: Present: normal appearance Respiratory exam: Present: normal lung sounds bilaterally. Absent: respiratory distress, wheezes, rales, rhonchi, stridor, accessory muscle use Cardiovascular Exam: Present: regular rate, normal rhythm, normal heart sounds. Absent: systolic murmur, diastolic murmur, rubs, gallop GI/Abdominal exam: Present: soft. Absent: distended, tenderness, guarding, rebound, rigid, mass Skin exam: Present: warm, dry, intact, normal color. Absent: rash Course Vital Signs 01/18/24 01/18/24 03:59 05:22 Temperature 98.4 F Pulse Rate 81 70 Respiratory 18 18 Rate Blood Pressure 131/84 121/76 O2 Sat by Pulse 97 96 Oximetry Medical Decision Making - Medical Decision Making Patient brought the component of the peritoneal dialysis catheter that had broken off. I was able to sterilize both ends of the catheter using Betadine solution and then mate the fittings together. Patient is instructed to follow- up with his surgeon Dr. Lee. Was pt. sent in by a medical professional or institution (, PA, IMPREGNATING TANK OPERATOR, urgent care, hospital, or fci...) When possible be specific @ -[No] Did you speak to anyone other than the patient for history (EMS, parent, family, police, friend...)? What history was obtained from this source @ -[No] Did you review nursing and triage notes (agree or disagree)? Why? @ -[I reviewed and agree with nursing and triage notes] Were old charts reviewed (outside hosp., previous admission, EMS record, old EKG, old radiological studies, urgent care reports/EKG's, fci records)? Report findings @ -[No old charts were reviewed] Differential Diagnosis (chest pain, altered mental status, abdominal pain women, abdominal pain men, vaginal bleeding, weakness, fever, dyspnea, syncope, headache, dizziness, GI bleed, back pain, seizure, CVA, palpatations, mental health, musculoskeletal)? @ -[Equipment failure for dialysis EKG interpreted by me (3pts min.). @ -[As above] X-rays interpreted by me (1pt min.). @ -[None done] CT interpreted by me (1pt min.). @ -[None done] U/S interpreted by me (1pt. min.). @ -[None done] What testing was considered but not performed or refused? (CT, X-rays, U/S, labs)? Why? @ -[None] What meds were considered but not given or refused? Why? @ -[None] Did you discuss the management of the patient with other professionals (professionals i.e. , PA, IMPREGNATING TANK OPERATOR, lab, RT, psych nurse, social media content manager, garbage truck helper, teacher, chief creative officer, shoe caser)? Give summary @ -[No] Was smoking cessation discussed for >3mins.? @ -[No] Was critical care preformed (if so, how long)? @ -[No] Were there social determinants of health that impacted care today? How? (Homelessness, low income, unemployed, alcoholism, drug addiction, transportation, low edu. Level, literacy, decrease access to med. care, longterm, rehab)? @ -[No] Was there de-escalation of care discussed even if they declined (Discuss DNR or withdrawal of care, Hospice)? DNR status @ -[No] What co-morbidities impacted this encounter? (DM, HTN, Smoking, COPD, CAD, Cancer, CVA, ARF, Chemo, Hep., AIDS, mental health diagnosis, sleep apnea, mor bid obesity)? @ -[None] Was patient admitted / discharged? Hospital course, mention meds given and route, prescriptions, significant lab abnormalities, going to OR and other pertinent info. @ -[See above Undiagnosed new problem with uncertain prognosis? @ -[No] Drug Therapy requiring intensive monitoring for toxicity (Heparin, Nitro, Insulin, Cardizem)? @ -[No] Were any procedures done? @ -[No] Diagnosis/symptom? @ -[Peritoneal dialysis catheter malfunction Acute, or Chronic, or Acute on Chronic? @ -[Acute Uncomplicated (without systemic symptoms) or Complicated (systemic symptoms)? @ -[Uncomplicated Side effects of treatment? @ -[No] Exacerbation, Progression, or Severe Exacerbation? @ -[No] Poses a threat to life or bodily function? How? (Chest pain, [place], [place], pneumonia, PE, COPD, DKA, ARF, appy, cholecystitis, CVA, Diverticulitis, Homicidal, Suicidal, threat to staff... and all critical care pts) @ -[There is small risk of infection despite precautions taken here, patient directed to have follow-up Disposition Clinical Impression: Peritoneal dialysis catheter mechanical complication Disposition: HOME SELF-CARE Condition: Good Instructions (If sedation given, give patient instructions): Peritoneal Dialysis Catheter Care (ED) Is patient prescribed a controlled substance at d/c from ED?: No Referrals: Carlos Manuel Mauro MD [Primary Care Provider] - 1-2 days
[2024-01-18 05:24] VITALS: BP 121/76; PULSE 70
== END 2024-01-18 05:24 | disposition home or self-care (01) ==
LOC: EC 03:58
DX: T85.691A Other mechanical complication of intraperitoneal dialysis catheter, initial encounter (principal); Z91.013 Allergy to seafood
CPT/HCPCS: 99283

== ENCOUNTER 2024-03-08 09:11 | Observation (INO) | payer MEDICARE, OTHER ==
--- NOTE | 2024-03-08 10:20 | XR ---
EXAMINATION TYPE: XR chest 2V DATE OF EXAM: 03/08/2024 10:11 AM COMPARISON: 01/29/2023 CLINICAL INDICATION: Male, 28 years old with history of Chest Pain, TECHNIQUE: XR chest 2V view(s) obtained. FINDINGS: The heart size is normal. The pulmonary vasculature is normal. Mild infiltrates along the right base may be some subsegmental atelectasis. Minimal subsegmental atel ectasis may be along the left lung base IMPRESSION: 1. Bibasilar subsegmental atelectasis. Follow-up can be performed as clinically indicated [facility], , 03/08/2024 10:17 AM
[2024-03-08 10:37] LABS: Basophils % (A) 0 %; Eosinophils # (A) 0.1 k/uL (0-0.7); Eosinophils % (A) 1 %; HCT 31.9 % (39.0-53.0); Lymphocytes # (A) 1.2 k/uL (1.0-4.8); Lymphocytes % (A) 7 %; MCH 35.5 pg (25.0-35.0); MCHC 34.4 g/dL (31.0-37.0); Macrocytosis Slight; Mean Platelet Volume 7.4; Monocytes # (A) 0.4 k/uL (0-1.0); Monocytes % (A) 3 %; Neutrophils # (A) 14.4 k/uL (1.3-7.7); Neutrophils % (A) 89 %; Platelet Count 212 k/uL (150-450); WBC 16.3 k/uL (3.8-10.6)
--- NOTE | 2024-03-08 11:10 | ED ---
General Adult HPI - General Chief complaint: Chest Pain Stated complaint: Chest pain/SOB Time Seen by Provider: 03/08/24 10:18 Source: patient, RN notes reviewed, old records reviewed Mode of arrival: ambulatory Limitations: no limitations - History of Present Illness Initial comments: 28-year-old male history of end-stage renal disease presenting for evaluation of chest discomfort. Patient has had symptoms today. He states he has previous history of end-stage renal disease on peritoneal dialysis. He states that he has not had any weight gain or significant difficulty breathing. No fever. No abdominal pain. Pain is in the center of his chest, worse with deep inspiration. - Related Data Home Medications Medication Instructions Recorded Confirmed Calcium Acetate 668 Mg Tab 3,340 mg PO TID-W/MEALS PRN 12/01/22 04/29/23 Ergocalciferol (Vitamin D2) 1,250 mcg PO Q14D 12/01/22 04/29/23 [Drisdol (50,000 Iu)] Lanthanum Carbonate [Lanthanum 1,000 mg PO TID-W/MEALS 12/01/22 04/29/23 Carbonate Chewable] Vit B Comp No.3/Folic/C/Biotin 1 tab PO DAILY 12/01/22 04/29/23 [Sheyla-Ariana Rx Tablet] Sevelamer Carbonate 4,000 mg PO TID-W/MEALS 02/15/23 04/29/23 Sevelamer Carbonate 800 mg PO BID PRN 02/15/23 04/29/23 Previous Rx's Medication Instructions Recorded Metoprolol Tartrate [Lopressor] 12.5 mg PO BID #60 tab 02/22/23 Allergies Allergy/AdvReac Type Severity Reaction Status Date / Time shellfish derived [Shellfish] Allergy Rash/Hives Verified 03/08/24 09:24 Review of Systems ROS Statement: Those systems with pertinent positive or pertinent negative responses have been documented in the HPI. ROS Other: All systems not noted in ROS Statement are negative. Past Medical History Past Medical History: Hypertension, Renal Disease, Seizure Disorder Additional Past Medical History / Comment(s): LAST SEIZURES IN FEBRUARY 2021., few episodes of tachycardia. Peritoneal Dialysis daily History of Any Multi-Drug Resistant Organisms: None Reported, C-DIFF Date of last positivie culture/infection: 01/25/2023 MDRO Source:: stool Additional Past Surgical History / Comment(s): left kidney removed as child Past Anesthesia/Blood Transfusion Reactions: No Reported Reaction Past Psychological History: No Psychological Hx Reported Smoking Status: Never smoker Past Alcohol Use History: None Reported Past Drug Use History: None Reported - Past Family History Mother Family Medical History: No Reported History Father Family Medical History: Cancer Additional Family Medical History / Comment(s): Liver General Exam Limitations: no limitations General appearance: alert, in no apparent distress Head exam: Present: atraumatic, normocephalic Eye exam: Present: normal appearance, PERRL ENT exam: Present: normal exam Neck exam: Present: normal inspection. Absent: tenderness, meningismus Respiratory exam: Present: normal lung sounds bilaterally. Absent: respiratory distress, wheezes Cardiovascular Exam: Present: normal rhythm, tachycardia GI/Abdominal exam: Present: soft. Absent: distended, tenderness, guarding Extremities exam: Present: normal inspection, normal capillary refill. Absent: pedal edema, calf tenderness Neurological exam: Present: alert, oriented X3, CN II-XII intact. Absent: motor sensory deficit, reflexes normal Psychiatric exam: Present: normal affect, normal mood Skin exam: Present: warm, dry, intact. Absent: cyanosis, diaphoretic Course Vital Signs 03/08/24 09:24 Temperature 98.9 F Pulse Rate 103 H Respiratory 20 Rate Blood Pressure 146/91 O2 Sat by Pulse 99 Oximetry Medical Decision Making - Medical Decision Making Was pt. sent in by a medical professional or institution (ROBERT Parry, ADDICTION PSYCHIATRIST, urgent care, hospital, or correction...) When possible be specific @ -No Did you speak to anyone other than the patient for history (EMS, parent, family, police, friend...)? What history was obtained from this source @ -No Did you review nursing and triage notes (agree or disagree)? Why? @ -I reviewed and agree with nursing and triage notes Were old charts reviewed (outside hosp., previous admission, EMS record, old EKG, old radiological studies, urgent care reports/EKG's, correction records)? Report findings @ -No old charts were reviewed Differential Chest Pain: Stable Angina, Unstable Angina, STEMI, NSTEMI Aortic Dissection, Pneumothorax, Musculoskeletal, Esophageal Spasm GERD, Cholecystitis, Pancreatitis, Zoster, this is not meant to be an all-inclusive list. EKG interpreted by me (3pts min.). @Sinus tachycardia rate of 103, ID interval 152, QRS duration 109, QTc [address] segment elevation. X-rays interpreted by me (1pt min.). @ -Chest x-ray shows minimal bilateral atelectasis, no consolidated pneumonia, no pneumothorax CT interpreted by me (1pt min.). @ -None done U/S interpreted by me (1pt. min.). @ -None done What testing was considered but not performed or refused? (CT, X-rays, U/S, labs)? Why? @ -None What meds were considered but not given or refused? Why? @ -None Did you discuss the management of the patient with other professionals (professionals i.e. DrManoj, PA, ADDICTION PSYCHIATRIST, lab, RT, psych nurse, social media campaign manager, assembler metal furniture, t eacher, preventive medicine officer, manager rn case)? Give summary @ -[Dr. Mauro will admit, Dr. Ordaz covering for nephrology Was smoking cessation discussed for >3mins.? @ -No Was critical care preformed (if so, how long)? @ -No Were there social determinants of health that impacted care today? How? (Homele ssness, low income, unemployed, alcoholism, drug addiction, transportation, low edu. Level, literacy, decrease access to med. care, half-way, rehab)? @ -No Was there de-escalation of care discussed even if they declined (Discuss DNR or withdrawal of care, Hospice)? DNR status @ -No What co-morbidities impacted this encounter? (DM, HTN, Smoking, COPD, CAD, Cancer, CVA, ARF, Chemo, Hep., AIDS, mental health diagnosis, sleep apnea, morbid obesity)? @ -End-stage renal disease on peritoneal dialysis Was patient admitted / discharged? Hospital course, mention meds given and route, prescriptions, significant lab abnormalities, going to OR and other pertinent info. @ -28-year-old male history of end-stage renal disease on peritoneal dialysis presents for evaluation of chest pain. Pain is central chest, mild associated dyspnea. Pain is worse with deep inspiration. Patient is mildly tachycardic just over 100. Chest x-ray shows bilateral atelectasis, no consolidated pneumonia or pneumothorax. Patient has a leukocytosis, stable hemoglobin, normal potassium. Troponin is negative. D-dimer is positive and given the fact that the patient does make small volume of urine VQ scan has been ordered to avoid IV contrast. Patient admitted to his primary care for further evaluation and testing, Dr. Mauro. Undiagnosed new problem with uncertain prognosis? @ -No Drug Therapy requiring intensive monitoring for toxicity (Heparin, Nitro, Insulin, Cardizem)? @ -No Were any procedures done? @ -No Diagnosis/symptom? @ -Chest pain, positive D-dimer, rule out PE Acute, or Chronic, or Acute on Chronic? @ -Acute Uncomplicated (without systemic symptoms) or Complicated (systemic symptoms)? @ -Default Side effects of treatment? @ -No Exacerbation, Progression, or Severe Exacerbation? @ -No Poses a threat to life or bodily function? How? (Chest pain, [place], [place], pneumonia, PE, COPD, DKA, ARF, appy, cholecystitis, CVA, Diverticulitis, Homicidal, Suicidal, threat to staff... and all critical care pts) @ -Moderate risk - Lab Data Result diagrams: 03/08/24 10:26 03/08/24 10:26 Lab Results 03/08/24 03/08/24 03/08/24 Range/Units 10:26 10:26 10:26 WBC 16.3 H (3.8-10.6) k/uL RBC 3.10 L (4.30-5.90) m/uL Hgb 11.0 L (13.0-17.5) gm/dL Hct 31.9 L (39.0-53.0) % MCV 103.0 H (80.0-100.0) fL MCH 35.5 H (25.0-35.0) pg MCHC 34.4 (31.0-37.0) g/dL RDW 13.0 (11.5-15.5) % Plt Count 212 (150-450) k/uL MPV 7.4 Neutrophils % 89 % Lymphocytes % 7 % Monocytes % 3 % Eosinophils % 1 % Basophils % 0 % Neutrophils # 14.4 H (1.3-7.7) k/uL Lymphocytes # 1.2 (1.0-4.8) k/uL Monocytes # 0.4 (0-1.0) k/uL Eosinophils # 0.1 (0-0.7) k/uL Basophils # 0.0 (0-0.2) k/uL Macrocytosis Slight PT 10.4 (10.0-12.5) sec INR 0.9 (<1.2) APTT 23.8 (22.0-30.0) sec D-Dimer 0.91 H (<0.60) mg/L FEU Sodium 136 L (137-145) mmol/L Potassium 4.4 (3.5-5.1) mmol/L Chloride 97 L (98-107) mmol/L Carbon Dioxide 20 L (22-30) mmol/L Anion Gap 19 mmol/L BUN 84 H (9-20) mg/dL Creatinine 17.44 H* (0.66-1.25) mg/dL Est GFR (CKD-EPI)AfAm 4 (>60 ml/min/1.73 sqM) Est GFR (CKD-EPI)NonAf 3 (>60 ml/min/1.73 sqM) Glucose 121 H (74-99) mg/dL Calcium 8.1 L (8.4-10.2) mg/dL Magnesium 1.4 L (1.6-2.3) mg/dL Total Bilirubin 0.4 (0.2-1.3) mg/dL AST 25 (17-59) U/L ALT 37 (4-49) U/L Alkaline Phosphatase 132 H (38-126) U/L Troponin I (0.000-0.034) ng/mL Total Protein 6.9 (6.3-8.2) g/dL Albumin 4.6 (3.5-5.0) g/dL Influenza Type A (PCR) (Not Detectd) Influenza Type B (PCR) (Not Detectd) RSV (PCR) (Not Detectd) SARS-CoV-2 (PCR) (Not Detectd) 03/08/24 03/08/24 Range/Units 10:26 11:33 WBC (3.8-10.6) k/uL RBC (4.30-5.90) m/uL Hgb (13.0-17.5) gm/dL Hct (39.0-53.0) % MCV (80.0-100.0) fL MCH (25.0-35.0) pg MCHC (31.0-37.0) g/dL RDW (11.5-15.5) % Plt Count (150-450) k/uL MPV Neutrophils % % Lymphocytes % % Monocytes % % Eosinophils % % Basophils % % Neutrophils # (1.3-7.7) k/uL Lymphocytes # (1.0-4.8) k/uL Monocytes # (0-1.0) k/uL Eosinophils # (0-0.7) k/uL Basophils # (0-0.2) k/uL Macrocytosis PT (10.0-12.5) sec INR (<1.2) APTT (22.0-30.0) sec D-Dimer (<0.60) mg/L FEU Sodium (137-145) mmol/L Potassium (3.5-5.1) mmol/L Chloride (98-107) mmol/L Carbon Dioxide (22-30) mmol/L Anion Gap mmol/L BUN (9-20) mg/dL Creatinine (0.66-1.25) mg/dL Est GFR (CKD-EPI)AfAm (>60 ml/min/1.73 sqM) Est GFR (CKD-EPI)NonAf (>60 ml/min/1.73 sqM) Glucose (74-99) mg/dL Calcium (8.4-10.2) mg/dL Magnesium (1.6-2.3) mg/dL Total Bilirubin (0.2-1.3) mg/dL AST (17-59) U/L ALT (4-49) U/L Alkaline Phosphatase (38-126) U/L Troponin I <0.012 (0.000-0.034) ng/mL Total Protein (6.3-8.2) g/dL Albumin (3.5-5.0) g/dL Influenza Type A (PCR) Not Detected (Not Detectd) Influenza Type B (PCR) Not Detected (Not Detectd) RSV (PCR) Not Detected (Not Detectd) SARS-CoV-2 (PCR) Not Detected (Not Detectd) Disposition Clinical Impression: Chest pain, Positive D dimer Disposition: ADMITTED IP TO THIS [facility] Condition: Stable Is patient prescribed a controlled substance at d/c from ED?: No Referrals: Carlos Manuel Mauro MD [Primary Care Provider] - 1-2 days Time of Disposition: 13:43
[2024-03-08 11:14] LABS: INR 0.9 (<1.2); Partial Thromboplastin Time 23.8 sec (22.0-30.0); Prothrombin Time 10.4 sec (10.0-12.5)
[2024-03-08 11:42] LABS: ALT 37 U/L (4-49); AST 25 U/L (17-59); Albumin 4.6 g/dL (3.5-5.0); Alkaline Phosphatase 132 U/L (38-126); Anion Gap 19 mmol/L; Blood Urea Nitrogen 84 mg/dL (9-20); Calcium 8.1 mg/dL (8.4-10.2); Carbon Dioxide 20 mmol/L (22-30); Chloride 97 mmol/L (98-107); Glucose 121 mg/dL (74-99); Magnesium 1.4 mg/dL (1.6-2.3); Potassium 4.4 mmol/L (3.5-5.1); Sodium 136 mmol/L (137-145); Total Bilirubin 0.4 mg/dL (0.2-1.3); Total Protein 6.9 g/dL (6.3-8.2)
[2024-03-08 11:48] LABS: African American GFR (CKD) 4 (>60 ml/min/1.73 sqM); Non-African American GFR(CKD) 3 (>60 ml/min/1.73 sqM)
[2024-03-08] MEDS: HYDROmorphone 0.5 MG/0.5 ML SYRINGE IVP STA (12:39)
[2024-03-08] MEDS: PANTOPRAZOLE 40 MG/10 ML VIAL IVP STA (12:48)
[2024-03-08] MEDS ORDERED: NALOXONE 0.4 MG/ML 1 ML VIAL IV PRN (13:39)
[2024-03-08] MEDS ORDERED: ACETAMINOPHEN TAB 325 MG TAB PO PRN (13:39)
[2024-03-08] MEDS: HYDROmorphone 0.5 MG/0.5 ML SYRINGE IVP PRN (16:08)
--- NOTE | 2024-03-08 18:19 | NM ---
EXAMINATION TYPE: NM pul vent and perfuse DATE OF EXAM: 03/08/2024 CLINICAL INDICATION: Male, 28 years old with history of CP, pos dimer; COMPARISON: Chest x-ray 03/08/2024 TECHNIQUE: Utilizing inhalation of 39.8 mCi Tc 99m DTPA aerosol and intravenous injection of 4.3 mCi of Tc 99m MAA, ventilation and perfusion images are acquired post injection in multiple projections. FINDINGS: Normal radiotracer distribution is noted in the lungs. There is no evidence of mismatched defects. No moderate or large mismatched defects are evident. No triple matched defects evident. IMPRESSION: Low probability for acute pulmonary embolism. [facility], , 03/08/2024 6:17 PM
[2024-03-08] MEDS: DIALYSIS (PERIT 1.5%) 2,500 ML 37.5 G/2,500 ML BAG INTRAPERIT SCH (18:30)
[2024-03-08] MEDS: DIALYSIS (PERIT 2.5%) 2,500 ML 62.5 G/2,500 ML BAG INTRAPERIT SCH (23:54)
[2024-03-09 06:47] VITALS: TEMP 99.1
[2024-03-09 07:31] VITALS: BP 116/77; PULSE 107; RESP 20
[2024-03-09] MEDS ORDERED: PANTOPRAZOLE 40 MG/10 ML VIAL IV SCH (09:00)
[2024-03-09] MEDS: PANTOPRAZOLE 40 MG/10 ML VIAL IV SCH (09:10)
[2024-03-09] MEDS: METOPROLOL TARTRATE 12.5 MG TAB PO SCH (09:10)
--- NOTE | 2024-03-10 18:22 | P.HPIM ---
History of Present Illness H&P Date: 03/09/24 Chief Complaint: Mid epigastric pain History and Physical and Discharge Summary This is a 28-year-old gentleman with past medical history significant for end- stage renal disease maintained on peritoneal dialysis presented with complaints of mid epigastric discomfort/tightness that started on Wednesday night accompanied by a couple episodes of nausea. Reports it was not affected by dialysis exchanges. Reports he was compliant and had not missed any of his exchanges. Denies chest pain, palpitations or shortness of breath. Also complained of muscle soreness on his right chest wall, reproducible. Denies lightheadedness dizziness or focal deficits. Denies nausea ,vomiting, diarrhea or abdominal pain. Tmax 99.1, WBC 16.3, hemoglobin 11, platelets 212. D-dimer 0.91, VQ scan reported low probability for acute PE. Chest x-ray reported bibasilar subsegmental atelectasis. Troponins negative x 3, EKG reported sinus tachycardia, viral studies negative. Nephrology consult in place. Review of Systems ROS Other: All systems not noted in ROS Statement are negative. ROS Statement: Those systems with pertinent positive or pertinent negative responses have been documented in the HPI. Past Medical History Past Medical History: Hypertension, Renal Disease, Seizure Disorder Additional Past Medical History / Comment(s): LAST SEIZURES IN FEBRUARY 2021., few episodes of tachycardia. Peritoneal Dialysis daily History of Any Multi-Drug Resistant Organisms: None Reported, C-DIFF Date of last positivie culture/infection: 01/25/2023 MDRO Source:: stool Additional Past Surgical History / Comment(s): left kidney removed as child, PD catheter placement Past Anesthesia/Blood Transfusion Reactions: No Reported Reaction Past Psychological History: No Psychological Hx Reported Smoking Status: Never smoker Past Alcohol Use History: None Reported Past Drug Use History: None Reported - Past Family History Mother Family Medical History: No Reported History Father Family Medical History: Cancer Additional Family Medical History / Comment(s): Liver Medications and Allergies Home Medications Medication Instructions Recorded Confirmed Type Lanthanum Carbonate [Lanthanum 1,000 mg PO TID-W/MEALS 12/01/22 03/08/24 History Carbonate Chewable] Sevelamer Carbonate 4,000 mg PO TID-W/MEALS 02/15/23 03/08/24 History Sevelamer Carbonate 800 mg PO BID PRN 02/15/23 03/08/24 History Metoprolol Tartrate [Lopressor] 12.5 mg PO BID 03/08/24 03/08/24 History Ondansetron Odt [Zofran ODT] 4 mg TRANSLINGU DAILY 03/08/24 03/08/24 History Ondansetron Odt [Zofran ODT] 4 mg TRANSLINGU DAILY PRN 03/08/24 03/08/24 History calcitrioL [Rocaltrol] 0.25 mcg PO HARTLEY 03/08/24 03/08/24 History Diclofenac Sodium Gel [Voltaren 1% 4 gm TOPICAL QID #100 gm 03/09/24 Rx Gel] Pantoprazole [Protonix] 40 mg PO BID #60 tab 03/09/24 Rx Allergies Allergy/AdvReac Type Severity Reaction Status Date / Time shellfish derived [Shellfish] Allergy Rash/Hives Verified 03/08/24 14:04 Physical Exam Vitals: Vital Signs Temp Pulse Pulse Resp BP BP BP 03/09/24 07:00 99.1 F 107 H 20 116/77 03/09/24 05:59 99.1 F 92 17 120/78 03/09/24 00:28 98.7 F 98 18 121/86 03/09/24 00:25 98.7 F 98 18 121/86 03/08/24 20:00 98.2 F 96 18 117/71 03/08/24 15:29 98.6 F 95 18 120/80 03/08/24 15:00 97.7 F 101 H 16 116/68 Pulse Ox 03/09/24 07:00 91 L 03/09/24 05:59 92 L 03/09/24 00:28 95 03/09/24 00:25 95 03/08/24 20:00 96 03/08/24 15:29 96 03/08/24 15:00 96 Intake and Output 03/08/24 03/09/24 03/09/24 22:59 06:59 14:59 Intake Total 0 Balance 0 Intake: Oral 0 Other: Voiding Method CAPD CAPD CAPD # Voids 1 # Bowel Movements 0 PHYSICAL EXAM: VITAL SIGNS: Reviewed GENERAL: Alert and oriented x 3, sitting up in bed, no acute distress HEENT: Normocephalic Conjunctivae normal. eyes normal. NECK: Supple No JVD. No thyroid enlargement. No LNs CARDIOVASCULAR: S1, S2 regular.. No murmur RESPIRATION: Unlabored, Breath sounds diminished in the bases. No rhonchi or crackles. No bronchial breathing. ABDOMEN: Soft, nontender, PD catheter .No guarding. no masses palpable. No ascites, No hepatosplenomegaly.Bowel sounds heard. LEGS: No edema. no swelling NERVOUS SYSTEM: Cranial N 2-12 grossly normal. No focal deficits. Strength and sensation grossly intact. Skin: Warm and dry, no rash Results CBC & Chem 7: 03/08/24 10:26 03/08/24 10:26 Thrombosis Risk Factor Assmnt - Choose All That Apply Any of the Below Risk Factors Present?: No Other Risk Factors: No Other congenital or acquired thrombophilia - If yes, enter type in comment: No Thrombosis Risk Factor Assessment Level: Very Low Risk Assessment and Plan Assessment: Gastritis, PPI twice daily x 1 month Elevated D-dimer, VQ scan reported low probability of PE Bibasilar atelectasis Possible mild costochondritis, Voltaren cream recommended End-stage renal disease maintained on peritoneal dialysis, Solitary right kidney Hypertension Plan: Continue on current medication regimen ,monitoring and symptomatic treatment. Patient will be discharged home today in a stable condition with guarded prognosis pending evaluation, final DC recommendations and clearance per nephrology. Discharge Medication List Lanthanum Carbonate [Lanthanum Carbonate Chewable] 1,000 mg PO TID-W/MEALS 12/01/22 [History] Sevelamer Carbonate 4,000 mg PO TID-W/MEALS 02/15/23 [History] Sevelamer Carbonate 800 mg PO BID PRN 02/15/23 [History] Metoprolol Tartrate [Lopressor] 12.5 mg PO BID 03/08/24 [History] Ondansetron Odt [Zofran ODT] 4 mg TRANSLINGU DAILY 03/08/24 [History] Ondansetron Odt [Zofran ODT] 4 mg TRANSLINGU DAILY PRN 03/08/24 [History] calcitrioL [Rocaltrol] 0.25 mcg PO HARTLEY 03/08/24 [History] Diclofenac Sodium Gel [Voltaren 1% Gel] 4 gm TOPICAL QID #100 gm 03/09/24 [Rx] Pantoprazole [Protonix] 40 mg PO BID #60 tab 03/09/24 [Rx] The impression and plan of care has been dictated as directed. : I performed a history and examination of this patient, discussed the same with the dictator. I agree with the dictator's note ,documented as a scribe. Any additional findings or plans will be noted.
== END 2024-03-09 12:33 | disposition home or self-care (01) ==
LOC: EC 09:11 → 6NMEDSUR 13:40
PROVIDERS: ADMIT Family Medicine; ATTEND Family Medicine
DX: K29.70 Gastritis, unspecified, without bleeding (principal); R79.89 Other specified abnormal findings of blood chemistry; J98.11 Atelectasis; I12.0 Hypertensive chronic kidney disease with stage 5 chronic kidney disease or end stage renal disease; N18.6 End stage renal disease; Q60.0 Renal agenesis, unilateral; Z99.2 Dependence on renal dialysis; Z79.899 Other long term (current) drug therapy
CPT/HCPCS: 96376 ×2; 96374 ×2; 96375; 99285; 36415; 93005; 85379; 80053; 83735; 84484; 85025; 85610; 85730; 87636; 71046; 78582; G0378 ×2; A9540; A9567; A4722 ×3; J1171 ×2; J2470 ×2

== ENCOUNTER 2024-03-20 18:13 | Inpatient (IN) | payer MEDICARE, OTHER ==
[2024-03-20] MEDS ORDERED: NALOXONE 0.4 MG/ML 1 ML VIAL IV PRN (21:04)
--- NOTE | 2024-03-20 21:04 | ED ---
General Adult HPI - General Chief complaint: Recheck/Abnormal Lab/Rx Stated complaint: Chest pain Time Seen by Provider: 03/20/24 18:15 Source: patient Mode of arrival: ambulatory Limitations: no limitations - History of Present Illness Initial comments: Dictation was produced using [employer] dictation software. please excuse any grammatical, word or spelling errors. Chief Complaint: 28-year-old male with history of ESRD presents to the ER for pericardial fusion History of Present Illness: Patient 28-year-old male he initially presented to [facility]. He was there for chest pain and shortness of breath. He had negative high-sensitivity troponin and elevated BNP. He had a 2D echo performed in the ER that showed pericardial effusion. Patient had stable blood pressures. Denies any fever, chills or night sweats. The ROS documented in this emergency department record has been reviewed and confirmed by me. Those systems with pertinent positive or negative responses have been documented in the HPI. All other systems are other negative and/or noncontributory. - Related Data Home Medications Medication Instructions Recorded Confirmed Lanthanum Carbonate [Lanthanum 1,000 mg PO TID-W/MEALS 12/01/22 03/20/24 Carbonate Chewable] Sevelamer Carbonate 4,000 mg PO TID-W/MEALS 02/15/23 03/20/24 Sevelamer Carbonate 800 mg PO BID PRN 02/15/23 03/20/24 Metoprolol Tartrate [Lopressor] 12.5 mg PO BID 03/08/24 03/20/24 Ondansetron Odt [Zofran ODT] 4 mg TRANSLINGU DAILY 03/08/24 03/20/24 Ondansetron Odt [Zofran ODT] 4 mg TRANSLINGU DAILY PRN 03/08/24 03/20/24 calcitrioL [Rocaltrol] 0.25 mcg PO HARTLEY 03/08/24 03/20/24 Diclofenac Sodium Gel [Voltaren 1% 4 gm TOPICAL QID PRN 03/20/24 03/20/24 Gel] Previous Rx's Medication Instructions Recorded Pantoprazole [Protonix] 40 mg PO BID #60 tab 03/09/24 Allergies Allergy/AdvReac Type Severity Reaction Status Date / Time shellfish derived [Shellfish] Allergy Rash/Hives Verified 03/20/24 20:52 Review of Systems ROS Statement: Those systems with pertinent positive or pertinent negative responses have been documented in the HPI. ROS Other: All systems not noted in ROS Statement are negative. Past Medical History Past Medical History: Hypertension, Renal Disease, Seizure Disorder Additional Past Medical History / Comment(s): LAST SEIZURES IN FEBRUARY 2021., few episodes of tachycardia. Peritoneal Dialysis daily History of Any Multi-Drug Resistant Organisms: None Reported, C-DIFF Date of last positivie culture/infection: 01/25/2023 MDRO Source:: stool Additional Past Surgical History / Comment(s): left kidney removed as child, PD catheter placement Past Anesthesia/Blood Transfusion Reactions: No Reported Reaction Past Psychological History: No Psychological Hx Reported Smoking Status: Never smoker Past Alcohol Use History: None Reported Past Drug Use History: None Reported - Past Family History Mother Family Medical History: No Reported History Father Family Medical History: Cancer Additional Family Medical History / Comment(s): Liver General Exam - General Exam Comments Initial Comments: PHYSICAL EXAM: General Impression: Alert and oriented x3, not in acute distress HEENT: Normocephalic atraumatic, extra-ocular movements intact, pupils equal and reactive to light bilaterally, mucous membranes moist. Cardiovascular: Heart regular rate and rhythm Chest: Able to complete full sentences, no retractions, no tachypnea Abdomen: abdomen soft, non-tender, non-distended, no organomegaly Musculoskeletal: Pulses present and equal in all extremities, no peripheral edema Motor: no focal deficits noted Neurological: CN II-XII grossly intact, no focal motor or sensory deficits noted Skin: Intact with no visualized rashes Psych: Normal affect and mood Limitations: no limitations Course Vital Signs 03/20/24 03/20/24 18:16 19:42 Temperature 98 F 98.5 F Pulse Rate 110 H 106 H Respiratory 18 24 Rate Blood Pressure 125/71 106/67 O2 Sat by Pulse 94 L 94 L Oximetry EKG Findings - EKG Comments: EKG Findings:: My EKG interpretation: Ventricular rate 113, sinus tachycardia,. 120, QRS 100, QTc 411. No [place] prolongation, no QTC prolongation, no ST or T-wave changes noted. EKG compared to March 08, 2024 showing no changes. Overall, this EKG is unremarkable Medical Decision Making - Medical Decision Making Was pt. sent in by a medical professional or institution (, PA, LAB[employer]ER [employer], urgent care, hospital, or halfway...) When possible be specific @ -Outside emergency department Did you speak to anyone other than the patient for history (EMS, parent, family, police, friend...)? What history was obtained from this source @ -Spoke with transferring ER doctor Did you review nursing and triage notes (agree or disagree)? Why? @ -I reviewed and agree with nursing and triage notes Were old charts reviewed (outside hosp., previous admission, EMS record, old EKG, old radiological studies, urgent care reports/EKG's, halfway records)? Report findings @ -Transfer documentations were reviewed Differential Diagnosis (chest pain, altered mental status, abdominal pain women, abdominal pain men, vaginal bleeding, musculoskeletal, weakness, fever, dyspnea, syncope, headache, dizziness, GI bleed, back pain, seizure, CVA, palpatations, mental health)? @ -Differential Chest Pain: Stable Angina, Unstable Angina, STEMI, NSTEMI Aortic Dissection, Pneumothorax, Musculoskeletal, Esophageal Spasm GERD, Cholecystitis, Pancreatitis, Zoster, this is not meant to be an all-inclusive list. EKG interpreted by me (3pts min.). @ -See above X-rays interpreted by me (1pt min.). @ -None done CT interpreted by me (1pt min.). @ -None done U/S interpreted by me (1pt. min.). @ -None done What testing was considered but not performed or refused? (CT, X-rays, U/S, labs)? Why? @ -None What meds were considered but not given or refused? Why? @ -None Was smoking cessation discussed for >3mins.? @ -No Were there social determinants of health that impacted care today? How? (Homelessness, low income, unemployed, alcoholism, drug addiction, transportation, low edu. Level, literacy, decrease access to med. care, fdc, rehab)? @ -No Was there de-escalation of care discussed even if they declined (Discuss DNR or withdrawal of care, Hospice)? DNR status @ -No What co-morbidities impacted this encounter? (DM, HTN, Smoking, COPD, CAD, Cancer, CVA, ARF, Chemo, Hep., AIDS, mental health diagnosis, sleep apnea, morbid obesity)? @ -ESRD on peritoneal dialysis Was patient admitted / discharged? Hospital course, mention meds given and route, prescriptions, significant lab abnormalities, going to OR and other pertinent info. @ -28-year-old male presents to the emergency department as a ER to ER transfer from [facility]. He initially presented there for chest pain and shortness of breath. He had a 2D echo that showed pericardial effusion without any signs of tamponade. Patient stable at the bedside he is well-appearing no acute distress. Case discussed with hospitalist for admission. Discussed with nurse practitioner with cardiothoracic surgery states that she will consult on the patient tomorrow Did you discuss the management of the patient with other professionals (professionals i.e. , PA, [employer], lab, RT, psych nurse, socially responsible investment adviser, convict guard, teacher, community resource officer, case management rn)? Give summary @ -See above Was critical care preformed (if so, how long)? @ -No Undiagnosed new problem with uncertain prognosis? @ -No Drug Therapy requiring intensive monitoring for toxicity (Heparin, Nitro, Insulin, Cardizem)? @ -No Were any procedures done? @ -No Diagnosis/symptom? Acute, or Chronic, or Acute on Chronic? Uncomplicated (without systemic symptoms) or Complicated (systemic symptoms)? @ -Pericardial effusion Side effects of treatment? @ -No Exacerbation, Progression, or Severe Exacerbation? @ -No Poses a threat to life or bodily function? How? (Chest pain, [place], [place], pneumonia, PE, COPD, DKA, ARF, appy, cholecystitis, CVA, Diverticulitis, Homicidal, Suicidal, threat to staff... and all critical care pts) @ -yes Disposition Clinical Impression: Pericardial effusion Disposition: ADMITTED IP TO THIS HOSP Condition: Fair Referrals: Carlos Manuel Mauro MD [Primary Care Provider] - 1-2 days Decision Time: 21:04
[2024-03-20] MEDS: SODIUM CHLORIDE 0.9% 1,000 ML IV SCH (21:08)
[2024-03-20] MEDS: DIALYSIS (PERIT 2.5%) 2,000 ML 50 G/2,000 ML BAG INTRAPERIT SCH (23:56)
--- NOTE | 2024-03-21 07:43 | P.GSCN ---
History of Present Illness Consult date: 03/21/24 Reason for Consult: Pericardial effusion Requesting physician: Jose Daniels History of present illness: This is a 28-year-old gentleman who follows outpatient with nurse practitioner Mickie Edwards at Dr. Mauro's office for primary care as well as Dr. Ordaz for nephrology. 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 He presented to [facility] yesterday for reported progressive shortness of breath since last . He also endorses a few episodes of right sided chest pain with strenuous activity. He denied any fever, nausea, vomiting, lightheadedness, dizziness, or any other symptomatology. Lab work at [facility] revealed WBC 18.3, hemoglobin 9.4, BUN 78, creatinine 17.39, BNP 6951, troponins were negative, INR 1.12, and virus screen was negative. While there he had a transthoracic echocardiogram reportedly demonstrating pericardial effusion without tamponade physiology. Due to this finding the patient was transferred to [facility] for cardiothoracic surgery consultation. Of note there is no CD of the echocardiogram nor a report for our services to review. Last echocardiogram in our system reported normal left and right ventricular systolic function with EF 55 to 60%, no pericardial effusion, normal size aortic root and proximal ascending aorta. Review of Systems Review of systems was completed and was negative except as noted - Cardiovascular Reports as per HPI, Reports chest pain, Reports shortness of breath Past Medical History Past Medical History: Hypertension, Renal Disease, Seizure Disorder Additional Past Medical History / Comment(s): LAST SEIZURES IN FEBRUARY 2021., few episodes of tachycardia. Peritoneal Dialysis daily History of Any Multi-Drug Resistant Organisms: None Reported, C-DIFF Year Discovered:: 01/25/2023 MDRO Source:: stool Additional Past Surgical History / Comment(s): left kidney removed as child, PD catheter placement Past Anesthesia/Blood Transfusion Reactions: No Reported Reaction Past Psychological History: No Psychological Hx Reported Smoking Status: Never smoker Past Alcohol Use History: None Reported Past Drug Use History: None Reported - Past Family History Mother Additional Family Medical History / Comment(s): from heart failure Father Family Medical History: Cancer Additional Family Medical History / Comment(s): from liver cancer Medications and Allergies Home Medications Medication Instructions Recorded Confirmed Type Lanthanum Carbonate [Lanthanum 1,000 mg PO TID-W/MEALS 12/01/22 03/20/24 History Carbonate Chewable] Sevelamer Carbonate 4,000 mg PO TID-W/MEALS 02/15/23 03/20/24 History Sevelamer Carbonate 800 mg PO BID PRN 02/15/23 03/20/24 History Metoprolol Tartrate [Lopressor] 12.5 mg PO BID 03/08/24 03/20/24 History Ondansetron Odt [Zofran ODT] 4 mg TRANSLINGU DAILY 03/08/24 03/20/24 History Ondansetron Odt [Zofran ODT] 4 mg TRANSLINGU DAILY PRN 03/08/24 03/20/24 History calcitrioL [Rocaltrol] 0.25 mcg PO HARTLEY 03/08/24 03/20/24 History Pantoprazole [Protonix] 40 mg PO BID #60 tab 03/09/24 03/20/24 Rx Diclofenac Sodium Gel [Voltaren 1% 4 gm TOPICAL QID PRN 03/20/24 03/20/24 History Gel] Allergies Allergy/AdvReac Type Severity Reaction Status Date / Time shellfish derived [Shellfish] Allergy Rash/Hives Verified 03/20/24 20:52 Surgical - Exam Vital Signs Temp Pulse Resp BP Pulse Ox 98 F 110 H 18 125/71 94 L 03/20/24 18:16 03/20/24 18:16 03/20/24 18:16 03/20/24 18:16 03/20/24 18:16 CONSTITUTIONAL: Awake and alert, appears comfortable, cooperative, well- developed, well-nourished, no pain, no acute distress EYES: Pupils equal, round, reactive to light, normal ocular movement ENT: Moist mucous membranes without oral lesions present NECK: No masses, no bruits, trachea midline RESPIRATORY: Lungs sounds clear to auscultation bilaterally. Respirations even, nonlabored. Currently on room air with oxygen saturation 94%. Strong cough. No chest wall deformities. No clubbing or cyanosis present CARDIOVASCULAR: S1, S2 present. Regular rate and rhythm, sinus rhythm to sinus tach on telemetry. Palpable peripheral pulses bilaterally. No edema present. No calf pain or tenderness noted GASTROINTESTINAL: Abdomen soft, nontender, nondistended, obese without masses or organomegaly noted. There is no rebound or guarding present. Active bowel sounds present 4 quadrants. 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 He remains hemodynamically stable with heart rate slightly tachycardic, normotensive, on room air with oxygen saturation in the mid 90s. The patient states he does feel better since admission to the hospital. Reviewed chart sent from [facility], there is no echocardiogram report nor CD of echocardiogram film. Will order stat echocardiogram for our surgeons to review. Peritoneal dialysis per nephr ology. Increase activity as tolerated. Will discuss the case in detail with Dr. Melendez. More recommendations to follow once echocardiogram completed and reviewed. Medical management of other comorbidities per internal medicine, cardiology, nephrology. Thank you for this consult, we will continue to follow along with you and make further recommendations as appropriate. I have personally seen and examined the patient, performed the documentation and the assessment and plan as written. Number of minutes spent on the visit: 30. ELVI Caraballo
[2024-03-21 08:06] LABS: HCT 25.7 % (39.0-53.0); MCH 35.3 pg (25.0-35.0); MCHC 33.8 g/dL (31.0-37.0); MCV 104.3 fL (80.0-100.0); Macrocytosis Slight; Mean Platelet Volume 7.2; Platelet Count 260 k/uL (150-450); RBC 2.46 m/uL (4.30-5.90); RDW 12.8 % (11.5-15.5); WBC 14.7 k/uL (3.8-10.6)
[2024-03-21 08:10] LABS: Anion Gap 17 mmol/L; Blood Urea Nitrogen 91 mg/dL (9-20); Calcium 8.4 mg/dL (8.4-10.2); Carbon Dioxide 26 mmol/L (22-30); Chloride 92 mmol/L (98-107); Glucose 107 mg/dL (74-99); Potassium 3.7 mmol/L (3.5-5.1); Sodium 135 mmol/L (137-145)
[2024-03-21 08:12] LABS: HGB 8.7 gm/dL (13.0-17.5)
[2024-03-21 08:20] LABS: African American GFR (CKD) 4 (>60 ml/min/1.73 sqM); Non-African American GFR(CKD) 3 (>60 ml/min/1.73 sqM)
--- NOTE | 2024-03-21 08:34 | XR ---
EXAMINATION TYPE: XR chest 2V DATE OF EXAM: 03/21/2024 8:21 AM COMPARISON: 03/08/2024 CLINICAL INDICATION: Male, 28 years old with shortness of breath, history of Effusion, , TECHNIQUE: PA and lateral views FINDINGS: Heart is borderline enlarged. Mild patency density at the left lung base. More strandy-appearing dens ities suggesting atelectasis of the right base. No pleural effusion. Punctate ingested material proje cting within the colon could represent various medications, antacids, multivitamins, etc. Addition, t here is a 1.3 cm high density fragment also noted in the upper abdomen probably ingested medication t ablet. IMPRESSION: 1. Mild cardiomegaly. Correlate as to any known underlying diagnosis. 2. Some patchy atelectasis versus developing infiltrate at the left base. [facility], , 03/21/2024 8:31 AM
[2024-03-21] MEDS: LIDOCAINE 1% INJ 10MG/ML (20 ML MDV) SQ ONE ×2 (10:24)
[2024-03-21] MEDS: HEPARIN SODIUM 1,000 UN/ML (10ML VL) IVP ONE (10:32)
--- NOTE | 2024-03-21 10:43 | P.GSCN ---
History of Present Illness History of present illness: 28-year-old gentleman history of chronic renal failure on peritoneal dialysis. Started for placement of a dialysis catheter right femoral approach patient has history of diabetes, chronic kidney disease Patient was seen in the emergency room neck is supple no bruit appreciated Chest is clear good entry both lung. Second sound present Abdomen soft nontender Vascular femorals are 1+ bilateral Plan is placement of a dialysis catheter risk and complication discussed Past Medical History Past Medical History: Hypertension, Renal Disease, Seizure Disorder Additional Past Medical History / Comment(s): LAST SEIZURES IN FEBRUARY 2021., few episodes of tachycardia. Peritoneal Dialysis daily History of Any Multi-Drug Resistant Organisms: None Reported, C-DIFF Year Discovered:: 01/25/2023 MDRO Source:: stool Additional Past Surgical History / Comment(s): left kidney removed as child, PD catheter placement Past Anesthesia/Blood Transfusion Reactions: No Reported Reaction Past Psychological History: No Psychological Hx Reported Smoking Status: Never smoker Past Alcohol Use History: None Reported Past Drug Use History: None Reported - Past Family History Mother Family Medical History: No Reported History Additional Family Medical History / Comment(s): from heart failure Father Family Medical History: Cancer Additional Family Medical History / Comment(s): from liver cancer Medications and Allergies Home Medications Medication Instructions Recorded Confirmed Type Lanthanum Carbonate [Lanthanum 1,000 mg PO TID-W/MEALS 12/01/22 03/20/24 History Carbonate Chewable] Sevelamer Carbonate 4,000 mg PO TID-W/MEALS 02/15/23 03/20/24 History Sevelamer Carbonate 800 mg PO BID PRN 02/15/23 03/20/24 History Metoprolol Tartrate [Lopressor] 12.5 mg PO BID 03/08/24 03/20/24 History Ondansetron Odt [Zofran ODT] 4 mg TRANSLINGU DAILY 03/08/24 03/20/24 History Ondansetron Odt [Zofran ODT] 4 mg TRANSLINGU DAILY PRN 03/08/24 03/20/24 History calcitrioL [Rocaltrol] 0.25 mcg PO HARTLEY 03/08/24 03/20/24 History Pantoprazole [Protonix] 40 mg PO BID #60 tab 03/09/24 03/20/24 Rx Diclofenac Sodium Gel [Voltaren 1% 4 gm TOPICAL QID PRN 03/20/24 03/20/24 History Gel] Allergies Allergy/AdvReac Type Severity Reaction Status Date / Time shellfish derived [Shellfish] Allergy Rash/Hives Verified 03/20/24 20:52 Surgical - Exam Vital Signs Temp Pulse Resp BP Pulse Ox 98 F 110 H 18 125/71 94 L 03/20/24 18:16 03/20/24 18:16 03/20/24 18:16 03/20/24 18:16 03/20/24 18:16 Results - Labs 03/21/24 07:21 03/21/24 07:21 Abnormal Lab Results - Last 24 Hours (Table) 03/21/24 03/21/24 Range/Units 07:21 07:21 WBC 14.7 H (3.8-10.6) k/uL RBC 2.46 L (4.30-5.90) m/uL Hgb 8.7 L D (13.0-17.5) gm/dL Hct 25.7 L (39.0-53.0) % MCV 104.3 H (80.0-100.0) fL MCH 35.3 H (25.0-35.0) pg Sodium 135 L (137-145) mmol/L Chloride 92 L (98-107) mmol/L BUN 91 H (9-20) mg/dL Creatinine 18.04 H* (0.66-1.25) mg/dL Glucose 107 H (74-99) mg/dL Diabetes panel 03/21/24 Range/Units 07:21 Sodium 135 L (137-145) mmol/L Potassium 3.7 (3.5-5.1) mmol/L Chloride 92 L (98-107) mmol/L Carbon Dioxide 26 (22-30) mmol/L BUN 91 H (9-20) mg/dL Creatinine 18.04 H* (0.66-1.25) mg/dL Glucose 107 H (74-99) mg/dL Calcium 8.4 (8.4-10.2) mg/dL Calcium panel 03/21/24 Range/Units 07:21 Calcium 8.4 (8.4-10.2) mg/dL Pituitary panel 03/21/24 Range/Units 07:21 Sodium 135 L (137-145) mmol/L Potassium 3.7 (3.5-5.1) mmol/L Chloride 92 L (98-107) mmol/L Carbon Dioxide 26 (22-30) mmol/L BUN 91 H (9-20) mg/dL Creatinine 18.04 H* (0.66-1.25) mg/dL Glucose 107 H (74-99) mg/dL Calcium 8.4 (8.4-10.2) mg/dL Adrenal panel 03/21/24 Range/Units 07:21 Sodium 135 L (137-145) mmol/L Potassium 3.7 (3.5-5.1) mmol/L Chloride 92 L (98-107) mmol/L Carbon Dioxide 26 (22-30) mmol/L BUN 91 H (9-20) mg/dL Creatinine 18.04 H* (0.66-1.25) mg/dL Glucose 107 H (74-99) mg/dL Calcium 8.4 (8.4-10.2) mg/dL
[2024-03-21] MEDS: COLCHICINE 0.6 MG EACH PO SCH ×2 (10:48→13:12)
--- NOTE | 2024-03-21 10:50 | P.NPCON ---
History of Present Illness - Reason for Consult end stage renal disease - History of Present Illness Reason for consultation: End-stage renal disease History of present illness: Patient is a 28-year-old male seen in renal consultation for end-stage renal disease. Patient was seen and examined in the emergency room. Patient presented to [facility] due to chest pain and shortness of breath with exertion yesterday. He was noted to have pericardial effusion and was transferred to [facility]. Patient states he noticed chest discomfort and shortness of breath with minimal exertion yesterday. Patient states he had to sit down if he walked for even 10 minutes. He denies fever or chills. No cough. No vomiting or diarrhea. Oral intake has been good. Patient is maintained on peritoneal dialysis and states has been compliant with dialysis treatments. Creatinine is elevated at 18.04. He did receive PD exchanges overnight. He denies history of diabetes or coronary artery disease. He does make urine. Vital signs are stable. General: No acute distress. HEENT: Head exam is unremarkable. LUNGS: No audible rhonchi or wheezes. HEART: Rate and Rhythm are regular. ABDOMEN: Nontender. EXTREMITITES: No edema. Past Medical History Past Medical History: Hypertension, Renal Disease, Seizure Disorder Additional Past Medical History / Comment(s): LAST SEIZURES IN FEBRUARY 2021., few episodes of tachycardia. Peritoneal Dialysis daily History of Any Multi-Drug Resistant Organisms: None Reported, C-DIFF Date of last positivie culture/infection: 01/25/2023 MDRO Source:: stool Additional Past Surgical History / Comment(s): left kidney removed as child, PD catheter placement Past Anesthesia/Blood Transfusion Reactions: No Reported Reaction Past Psychological History: No Psychological Hx Reported Smoking Status: Never smoker Past Alcohol Use History: None Reported Past Drug Use History: None Reported - Past Family History Mother Family Medical History: No Reported History Additional Family Medical History / Comment(s): from heart failure Father Family Medical History: Cancer Additional Family Medical History / Comment(s): from liver cancer Medications and Allergies Home Medications Medication Instructions Recorded Confirmed Type Lanthanum Carbonate [Lanthanum 1,000 mg PO TID-W/MEALS 12/01/22 03/20/24 History Carbonate Chewable] Sevelamer Carbonate 4,000 mg PO TID-W/MEALS 02/15/23 03/20/24 History Sevelamer Carbonate 800 mg PO BID PRN 02/15/23 03/20/24 History Metoprolol Tartrate [Lopressor] 12.5 mg PO BID 03/08/24 03/20/24 History Ondansetron Odt [Zofran ODT] 4 mg TRANSLINGU DAILY 03/08/24 03/20/24 History Ondansetron Odt [Zofran ODT] 4 mg TRANSLINGU DAILY PRN 03/08/24 03/20/24 History calcitrioL [Rocaltrol] 0.25 mcg PO HARTLEY 03/08/24 03/20/24 History Pantoprazole [Protonix] 40 mg PO BID #60 tab 03/09/24 03/20/24 Rx Diclofenac Sodium Gel [Voltaren 1% 4 gm TOPICAL QID PRN 03/20/24 03/20/24 History Gel] Allergies Allergy/AdvReac Type Severity Reaction Status Date / Time shellfish derived [Shellfish] Allergy Rash/Hives Verified 03/20/24 20:52 Physical Exam Vitals: Vital Signs Temp Pulse Resp BP Pulse Ox 03/21/24 06:35 98.5 F 100 24 118/76 94 L 03/21/24 05:29 98.9 F 101 H 20 118/80 95 03/21/24 00:47 98.1 F 98 24 116/74 95 03/20/24 23:55 98.8 F 105 H 19 110/82 94 L 03/20/24 19:42 98.5 F 106 H 24 106/67 94 L 03/20/24 18:16 98 F 110 H 18 125/71 94 L Intake and Output 03/20/24 03/21/24 03/21/24 22:59 06:59 14:59 Other: Weight 95.254 kg Results - Lab Results Most recent lab results Calcium 8.4 mg/dL (8.4-10.2) 03/21/24 07:21 03/21/24 07:21 03/21/24 07:21 Assessment and Plan Plan: Assessment: 1. End-stage renal disease maintained on peritoneal dialysis. 2. Pericardial effusion. Concern for uremic pericarditis as creatinine is 18 and BUN is 91. 3. Anemia of chronic kidney disease. 4. Chronic kidney disease mineral bone disease. Plan: Stop peritoneal dialysis after current PD exchange. Consult vascular surgery for hemodialysis catheter placement. Due to pericardial effusion and concern for uremic pericarditis, will do daily hemodialysis treatments. Add low-dose colchicine. Check iron studies. Case discussed with cardiothoracic surgery. Thank you for the consultation. I will continue to follow the patient with you during his hospital stay.
--- NOTE | 2024-03-21 11:41 | IR ---
EXAMINATION TYPE: IR cvc insert non tunneled DATE OF EXAM: 03/21/2024 COMPARISON: NONE CLINICAL INDICATION: Male, 28 years old with history of Dialysis, bedside ER, Rt [id number] 20cm Mahurkar catheter; Fluoroscopy was provided to the referring clinician. [facility], , 03/21/2024 11:38 AM
--- NOTE | 2024-03-21 12:04 | P.HPIM ---
History of Present Illness H&P Date: 03/21/24 History of present illness; patient is a 28-year-old gentleman with past medical history significant for end-stage renal disease who is a transfer from [facility] for pericardial effusion. Patient initially presented to [facility] for chest pain and shortness of breath. Patient stated that he has been feeling short of breath for the last few days. Patient stated that he was only able to walk a few feet before getting short of breath. Denies any orthopnea or PND. Patient was complaining of chest pain, chest pain was central location, nonradiating, no aggravating or relieving factors associated chest pain. Patient was worked up in the ER of [facility], 2D echo done showed myla biggs to have pericardial effusion for which patient was referred to [facility] Initial lab work done in the ER showed WBC 14.7, hemoglobin 8.7, platelet count 260, sodium 139 potassium 3.7, BUN 19, creatinine 18.04, glucose 107, calcium 8.4 troponin 0.012 Patient admitted to internal medicine service REVIEW OF SYSTEMS: CONSTITUTIONAL: No fever, no malaise, no fatigue. HEENT: No recent visual problems or hearing problems. Denied any sore throat. CARDIOVASCULAR: As mentioned above PULMONARY: As mentioned above GASTROINTESTINAL: No diarrhea, no nausea, no vomiting, no abdominal pain. NEUROLOGICAL: No headaches, no weakness, no numbness. HEMATOLOGICAL: Denies any bleeding or petechiae. GENITOURINARY: Denies any burning micturition, frequency, or urgency. MUSCULOSKELETAL/RHEUMATOLOGICAL: Denies any joint pain, swelling, or any muscle pain. ENDOCRINE: Denies any polyuria or polydipsia. The rest of the 14-point review of systems is negative. PHYSICAL EXAMINATION: GENERAL: The patient is alert and oriented x3, not in any acute distress. Well developed, well nourished. HEENT: Pupils are round and equally reacting to light. EOMI. No scleral icterus. No conjunctival pallor. Normocephalic, atraumatic. No pharyngeal erythema. No thyromegaly. CARDIOVASCULAR: S1 and S2 present. No murmurs, rubs, or gallops. PULMONARY: Chest is clear to auscultation, no wheezing or crackles. ABDOMEN: Soft, nontender, nondistended, normoactive bowel sounds. No palpable organomegaly. MUSCULOSKELETAL: No joint swelling or deformity. EXTREMITIES: No cyanosis, clubbing, or pedal edema. NEUROLOGICAL: Gross neurological examination did not reveal any focal deficits. SKIN: No rashes. Assessment and plan Pericardial effusion Uremic pericarditis Chest pain End-stage renal disease on peritoneal dialysis Monitor vital signs Monitor CBC Monitor CMP Continue telemetry monitoring Trend troponin Ordered 2D echo Ordered colchicine Resume home med Consult nephrology Consult cardiology Consulted CT surgeon Labs and medication were reviewed.. Continue same treatment. Continue with symptomatic treatment. Resume home medication. Monitor labs and vitals. DVT and GI prophylaxis. Further recommendations as per clinical course of the patient Dictation was produced using [employer] dictation software. please excuse any grammatical, word or spelling errors. Past Medical History Past Medical History: Hypertension, Renal Disease, Seizure Disorder Additional Past Medical History / Comment(s): LAST SEIZURES IN FEBRUARY 2021., few episodes of tachycardia. Peritoneal Dialysis daily History of Any Multi-Drug Resistant Organisms: None Reported, C-DIFF Date of last positivie culture/infection: 01/25/2023 MDRO Source:: stool Additional Past Surgical History / Comment(s): left kidney removed as child, PD catheter placement Past Anesthesia/Blood Transfusion Reactions: No Reported Reaction Past Psychological History: No Psychological Hx Reported Smoking Status: Never smoker Past Alcohol Use History: None Reported Past Drug Use History: None Reported - Past Family History Mother Family Medical History: No Reported History Additional Family Medical History / Comment(s): from heart failure Father Family Medical History: Cancer Additional Family Medical History / Comment(s): from liver cancer Medications and Allergies Home Medications Medication Instructions Recorded Confirmed Type Lanthanum Carbonate [Lanthanum 1,000 mg PO TID-W/MEALS 12/01/22 03/20/24 History Carbonate Chewable] Sevelamer Carbonate 4,000 mg PO TID-W/MEALS 02/15/23 03/20/24 History Sevelamer Carbonate 800 mg PO BID PRN 02/15/23 03/20/24 History Metoprolol Tartrate [Lopressor] 12.5 mg PO BID 03/08/24 03/20/24 History Ondansetron Odt [Zofran ODT] 4 mg TRANSLINGU DAILY 03/08/24 03/20/24 History Ondansetron Odt [Zofran ODT] 4 mg TRANSLINGU DAILY PRN 03/08/24 03/20/24 History calcitrioL [Rocaltrol] 0.25 mcg PO HARTLEY 03/08/24 03/20/24 History Pantoprazole [Protonix] 40 mg PO BID #60 tab 03/09/24 03/20/24 Rx Diclofenac Sodium Gel [Voltaren 1% 4 gm TOPICAL QID PRN 03/20/24 03/20/24 Hist ory Gel] Allergies Allergy/AdvReac Type Severity Reaction Status Date / Time shellfish derived [Shellfish] Allergy Rash/Hives Verified 03/20/24 20:52 Physical Exam Vitals: Vital Signs Temp Pulse Resp BP Pulse Ox 03/21/24 06:35 98.5 F 100 24 118/76 94 L 03/21/24 05:29 98.9 F 101 H 20 118/80 95 03/21/24 00:47 98.1 F 98 24 116/74 95 03/20/24 23:55 98.8 F 105 H 19 110/82 94 L 03/20/24 19:42 98.5 F 106 H 24 106/67 94 L 03/20/24 18:16 98 F 110 H 18 125/71 94 L Intake and Output 03/20/24 03/21/24 03/21/24 22:59 06:59 14:59 Other: Weight 95.254 kg Results CBC & Chem 7: 03/21/24 07:21 03/21/24 07:21 Labs: Abnormal Lab Results - Last 24 Hours (Table) 03/21/24 03/21/24 Range/Units 07:21 07:21 WBC 14.7 H (3.8-10.6) k/uL RBC 2.46 L (4.30-5.90) m/uL Hgb 8.7 L D (13.0-17.5) gm/dL Hct 25.7 L (39.0-53.0) % MCV 104.3 H (80.0-100.0) fL MCH 35.3 H (25.0-35.0) pg Sodium 135 L (137-145) mmol/L Chloride 92 L (98-107) mmol/L BUN 91 H (9-20) mg/dL Creatinine 18.04 H* (0.66-1.25) mg/dL Glucose 107 H (74-99) mg/dL
--- NOTE | 2024-03-21 13:48 | CA ---
Transthoracic Echo Report Name: Lauri Last Age: 28 Gender: M : 1995 Exam Date: 03/21/2024 07:38 Exam Location: [place] [facility] Ht (in): 68 Wt (lb): 210 Ordering Physician: Annette Patel Attending/Referring Phys: [id number], Amanda [employer] Karla Sarkar, RDCS Procedure CPT: Indications: SHORTNESS OF BREATH Cardiac Hx: Technical Quality: Fair Contrast 1: Total Dose (mL): Contrast 2: Total Dose (mL): MEASUREMENTS (Male / Female) Normal Values 2D ECHO LV Diastolic Diameter PLAX 3.8 cm 4.2 - 5.9 / 3.9 - 5.3 cm LV Systolic Diameter PLAX 3.0 cm IVS Diastolic Thickness 1.6 cm 0.6 - 1.0 / 0.6 - 0.9 cm LVPW Diastolic Thickness 1.4 cm 0.6 - 1.0 / 0.6 - 0.9 cm LV Relative Wall Thickness 0.8 RV Internal Dim ED PLAX 2.0 cm LA Systolic Diameter LX 3.8 cm 3.0 - 4.0 / 2.7 - 3.8 cm LV Diastolic Volume MOD 4C 78.8 cm??? LV Systolic Volume MOD 4C 23.2 cm??? LV Ejection Fraction MOD 4C 70.6 % LV Cardiac Index MOD 4C 2358.7 cm???/min???m??? LV Diastolic Length 4C 9.2 cm LV Systolic Length 4C 8.1 cm FINDINGS Left Ventricle Left ventricular ejection fraction is estimated at 60-65%. Moderately increased septal wall thickness. Normal left ventricular systolic function with no obvious regional wall motion abnormalities. Right Ventricle Normal right ventricular size and function. Right Atrium Left Atrium Mitral Valve Aortic Valve Tricuspid Valve Pulmonic Valve Pericardium Large pericardial effusion. Doppler findings suggest a hemodynamically significant pericardial effusion. Respiratory variation of tricuspid flow. Aorta CONCLUSIONS LVH with preserved systolic function Previewed by: Dr. Alex Herrera MD (Electronically Signed) Final Date: 21 March 2024 13:48
[2024-03-21 15:50] LABS: % Iron Saturation 19.82 (15.00-50.00)
--- NOTE | 2024-03-21 22:28 | P.CRDCN ---
History of Present Illness Consult date: 03/21/24 History of present illness: HISTORY OF PRESENTING ILLNESS Patient is a 28-year-old with past medical history of ESRD who was transferred from [facility] for pericardial effusion. Patient initially presented to [facility] with symptoms of shortness of breath, feeling poorly and feeling generalized weakness. To me he denies having any substernal chest pressure symptoms or chest pain symptoms. He does report symptoms of exertional shortness of breath and exertional fatigue which got him concerned to go to the ER. Initial blood work showed hemoglobin 8.7, WBC 14.7, platelets 260, BUN 19, creatinine 18, troponin 0.012. Echocardiogram shows EF 60 to 65%, moderate concentric LVH, large pericardial effusion with respiratory variation in tricuspid flow however no systolic collapse of right atrium or diastolic collapse of right ventricle seen. REVIEW OF SYSTEMS 14 point review of system is negative except what is mentioned above in HPI. PHYSICAL EXAMINATION Eyes: Sclerae nonicteric. Neck: Brisk carotid upstroke, no jugular venous distention. Lungs: Clear to auscultation. Heart: Regular rate and rhythm, S1-S2, no S3, no murmur or rub. Abdomen: Soft nontender, positive bowel sounds. Extremities: No edema, intact distal pulses. Neuro: Alert, oritented, no focal deficits. Detailed neuro exam was not performed. ASSESSMENT Large pericardial effusion with borderline signs of tamponade however not hemodynamically significant Uremic pericarditis ESRD on peritoneal dialysis. Signs of peritoneal dialysis failure with elevated creatinine and pericardial effusion. EKG shows sinus tachycardia, RSR pattern in QRS, T wave inversions in 1 and aVL PLAN At this time I would agree with CT surgery team on holding back pericardiocentesis or doing pericardial window. Patient's pericardial effusion is most likely because of failure of peritoneal dialysis. Would recommend setting up hemodialysis and see how patient does hemodynamically. If patient gets hypotensive or hemodynamically unstable while getting hemodialysis, consider reevaluation for pericardiocentesis/pericardial window. I would do 1-2 doses of colchicine however will not put him on colchicine long- term as this medication is not dialyzable. Avoid using NSAIDs as patient is asymptomatic and does not have any chest pain. Garett Degroot MD, FACC, RPVI Thank you for allowing [facility] to participate in this patient's care. Feel free to reach out in case of any followup questions. Past Medical History Past Medical History: Hypertension, Renal Disease, Seizure Disorder Additional Past Medical History / Comment(s): LAST SEIZURES IN FEBRUARY 2021., few episodes of tachycardia. Peritoneal Dialysis daily History of Any Multi-Drug Resistant Organisms: None Reported, C-DIFF Date of last positivie culture/infection: 01/25/2023 MDRO Source:: stool Additional Past Surgical History / Comment(s): left kidney removed as child, PD catheter placement Past Anesthesia/Blood Transfusion Reactions: No Reported Reaction Past Psychological History: No Psychological Hx Reported Smoking Status: Never smoker Past Alcohol Use History: None Reported Past Drug Use History: None Reported - Past Family History Mother Family Medical History: No Reported History Additional Family Medical History / Comment(s): from heart failure Father Family Medical History: Cancer Additional Family Medical History / Comment(s): from liver cancer Medications and Allergies Home Medications Medication Instructions Recorded Confirmed Type Lanthanum Carbonate [Lanthanum 1,000 mg PO TID-W/MEALS 12/01/22 03/20/24 History Carbonate Chewable] Sevelamer Carbonate 4,000 mg PO TID-W/MEALS 02/15/23 03/20/24 History Sevelamer Carbonate 800 mg PO BID PRN 02/15/23 03/20/24 History Metoprolol Tartrate [Lopressor] 12.5 mg PO BID 03/08/24 03/20/24 History Ondansetron Odt [Zofran ODT] 4 mg TRANSLINGU DAILY 03/08/24 03/20/24 History Ondansetron Odt [Zofran ODT] 4 mg TRANSLINGU DAILY PRN 03/08/24 03/20/24 History calcitrioL [Rocaltrol] 0.25 mcg PO HARTLEY 03/08/24 03/20/24 History Pantoprazole [Protonix] 40 mg PO BID #60 tab 03/09/24 03/20/24 Rx Diclofenac Sodium Gel [Voltaren 1% 4 gm TOPICAL QID PRN 03/20/24 03/20/24 History Gel] Allergies Allergy/AdvReac Type Severity Reaction Status Date / Time shellfish derived [Shellfish] Allergy Rash/Hives Verified 03/20/24 20:52 Physical Exam Vitals: Vital Signs Temp Pulse Resp BP BP Pulse Ox 03/21/24 21:16 102 H 18 94/73 95 03/21/24 17:53 98.6 F 18 104/73 03/21/24 13:00 96 18 126/72 94 L 03/21/24 12:00 94 18 101/63 94 L 03/21/24 11:00 94 18 100/67 94 L 03/21/24 10:00 96 18 103/72 94 L 03/21/24 09:00 92 18 107/75 94 L 03/21/24 08:00 92 18 111/61 94 L 03/21/24 06:35 98.5 F 100 24 118/76 94 L 03/21/24 05:29 98.9 F 101 H 20 118/80 95 03/21/24 00:47 98.1 F 98 24 116/74 95 03/20/24 23:55 98.8 F 105 H 19 110/82 94 L Intake and Output 03/21/24 03/21/24 03/21/24 06:59 14:59 22:59 Intake Total 400 Output Total 4400 Balance -4000 Intake: Hemodialysis 400 Output: Hemodialysis 2400 Hemodialysis Net Amount 2000 Other: Weight 95.254 kg Results 03/21/24 07:21 03/21/24 07:21 Cardiac Enzymes 03/21/24 Range/Units 01:00 Troponin I 0.012 (0.000-0.034) ng/mL CBC 03/21/24 Range/Units 07:21 WBC 14.7 H (3.8-10.6) k/uL RBC 2.46 L (4.30-5.90) m/uL Hgb 8.7 L D (13.0-17.5) gm/dL Hct 25.7 L (39.0-53.0) % Plt Count 260 (150-450) k/uL Comprehensive Metabolic Panel 03/21/24 Range/Units 07:21 Sodium 135 L (137-145) mmol/L Potassium 3.7 (3.5-5.1) mmol/L Chloride 92 L (98-107) mmol/L Carbon Dioxide 26 (22-30) mmol/L BUN 91 H (9-20) mg/dL Creatinine 18.04 H* (0.66-1.25) mg/dL Glucose 107 H (74-99) mg/dL Calcium 8.4 (8.4-10.2) mg/dL Current Medications Generic Name Dose Route Start Last Admin Trade Name Freq PRN Reason Stop Dose Admin Sodium Chloride 1,000 mls @ 20 mls/hr 03/20/24 21:15 03/21/24 21:59 Saline 0.9% IV 20 mls/hr .Q24H SALVADOR Administration Naloxone HCl 0.2 mg 03/20/24 21:04 Naloxone 0.4 Mg/Ml 1 Ml Vial IV Q2M PRN Opioid Reversal Intake and Output 03/21/24 03/21/24 03/21/24 06:59 14:59 22:59 Intake Total 400 Output Total 4400 Balance -4000 Intake: Hemodialysis 400 Output: Hemodialysis 2400 Hemodialysis Net Amount 2000 Other: Weight 95.254 kg Patient Weight 03/22/24 06:59 Weight 95.254 kg 03/21/24 07:21 03/21/24 07:21
--- NOTE | 2024-03-22 09:55 | P.PN ---
Subjective Patient is seen in follow-up for end-stage renal disease. Patient is maintained on peritoneal dialysis outpatient. Started on hemodialysis March 21, 2024 due to pericardial effusion. Tolerated 2 L ultrafiltration yesterday. Feels tired. Vital signs are stable. General: No acute distress. HEENT: Head exam is unremarkable. LUNGS: No audible rhonchi or wheezes. HEART: Rate and Rhythm are regular. ABDOMEN: Nontender. EXTREMITITES: No edema. Objective - Vital Signs Vital signs: Vital Signs Temp 98.9 F 03/22/24 08:00 Pulse 101 H 03/22/24 08:00 Resp 18 03/22/24 08:00 BP 104/63 03/22/24 08:00 Pulse Ox 96 03/22/24 08:00 FiO2 Intake & Output 03/21/24 03/22/24 03/22/24 18:59 06:59 18:59 Intake Total 400 Output Total 4400 Balance -4000 Weight 91.9 kg Intake: Hemodialysis 400 Output: Hemodialysis 2400 Hemodialysis Net Amount 2000 Other: Voiding Method Toilet # Voids 1 - Labs CBC & Chem 7: 03/21/24 07:21 03/21/24 07:21 Labs: Abnormal Lab Results - Last 24 Hours (Table) 03/21/24 Range/Units 07:21 Iron 45 L (65-175) UG/DL TIBC 227 L (228-460) UG/DL Transferrin 162.0 L (204.0-354.0) mg/dL Ferritin 3027.0 H (22.0-322.0) ng/mL Assessment and Plan Plan: Assessment: 1. End-stage renal disease maintained on peritoneal dialysis. 2. Pericardial effusion. Concern for uremic pericarditis as creatinine is 18 and BUN 91 on admission. 3. Anemia of chronic kidney disease. High ferritin noted. 4. Chronic kidney disease mineral bone disease. Plan: Peritoneal dialysis on hold. Started on hemodialysis March 21, 2024. Has temporary dialysis catheter. Continue with daily hemodialysis for now. Add Aranesp. Check phosphorus level. Repeat BMP in the morning.
--- NOTE | 2024-03-22 10:55 | PN ---
PROGRESS NOTE SUBJECTIVE: This is a 28-year-old gentleman with history of end-stage renal disease, who was transferred from [facility] following a large pericardial effusion that was noted. An echocardiogram revealed a large pericardial effusion without any evidence of tamponade physiology. He was evaluated by CT Surgery who suggested watchful waiting at this time, hoping that the pericardial effusion would improve with adequate dialysis. At the time of my evaluation this morning, the patient is undergoing hemodialysis, free of symptoms. PHYSICAL EXAMINATION: VITAL SIGNS: Blood pressure is relatively stable at 104/63, heart rate is 100 beats per minute, respiratory rate is 18, O2 saturation is 96%. CHEST: Reveals good air entry bilaterally. HEART: Reveals first and second heart sounds. No gallop. EXTREMITIES: Did not reveal any edema. LABORATORY DATA: Labs show a hemoglobin of 8.7, platelet count is 260. BUN is 91, creatinine is 18. ASSESSMENT: Large pericardial effusion without any clinical evidence of tamponade. PLAN: I am going to repeat a limited 2D echo on him tomorrow to assess for any progression of the underlying pericardial effusion. MMODL / IJN: [id number] /
[2024-03-22] MEDS: DARBEPOETIN ALFA 40 MCG/0.4 ML SYRINGE SQ SCH (15:16)
[2024-03-22] MEDS ORDERED: SEVELAMER 800 MG TAB PO PRN (16:12)
--- NOTE | 2024-03-22 16:15 | P.PN ---
Subjective Progress Note Date: 03/22/24 patient is a 28-year-old gentleman with past medical history significant for end-stage renal disease who is a transfer from [facility] for pericardial effusion. Patient initially presented to [facility] for chest pain and shortness of breath. Patient stated that he has been feeling short of breath for the last few days. Patient stated that he was only able to walk a few feet before getting short of breath. Denies any orthopnea or PND. Patient was complaining of chest pain, chest pain was central location, nonradiating, no aggravating or relieving factors associated chest pain. Patient was worked up in the ER of [facility], 2D echo done showed patient to have pericardial effusion for which patient was referred to [facility] Initial lab work done in the ER showed WBC 14.7, hemoglobin 8.7, platelet count 260, sodium 139 potassium 3.7, BUN 19, creatinine 18.04, glucose 107, calcium 8.4 troponin 0.012 Patient admitted to internal medicine service 03/22. Patient seen and examined. Patient undergoing hemodialysis today. Denies any chest pain or shortness of breath. REVIEW OF SYSTEMS: CONSTITUTIONAL: No fever, no malaise,. CARDIOVASCULAR: No chest pain, no palpitations, no syncope. PULMONARY: No shortness of breath, no cough, GASTROINTESTINAL: No diarrhea, no nausea, no vomiting, no abdominal pain. NEUROLOGICAL: No headaches, no weakness, PHYSICAL EXAMINATION: GENERAL: The patient is alert and oriented x3, not in any acute distress. Well developed, well nourished. HEENT: Pupils are round and equally reacting to light. EOMI. No scleral icterus. No conjunctival pallor. Normocephalic, atraumatic. No pharyngeal erythema. No thyromegaly. CARDIOVASCULAR: S1 and S2 present. No murmurs, rubs, or gallops. PULMONARY: Chest is clear to auscultation, no wheezing or crackles. ABDOMEN: Soft, nontender, nondistended, normoactive bowel sounds. No palpable organomegaly. MUSCULOSKELETAL: No joint swelling or deformity. EXTREMITIES: No cyanosis, clubbing, or pedal edema. NEUROLOGICAL: Gross neurological examination did not reveal any focal deficits. SKIN: No rashes. Assessment and plan Pericardial effusion Uremic pericarditis Chest pain End-stage renal disease on peritoneal dialysis Monitor vital signs Monitor CBC Monitor CMP Continue telemetry monitoring Trend troponin Serial 2D echoes Continue colchicine Nephrology following Cardiology following CT surgery evaluated, not planning any pericardiocentesis at this time Labs and medication were reviewed.. Continue same treatment. Continue with symptomatic treatment. Resume home medication. Monitor labs and vitals. DVT and GI prophylaxis. Further recommendations as per clinical course of the patient Dictation was produced using [employer] dictation software. please excuse any grammatical, word or spelling errors. Objective - Vital Signs Vital signs: Vital Signs Temp 98.9 F 03/22/24 15:46 Pulse 105 H 03/22/24 15:46 Resp 16 03/22/24 15:46 BP 111/67 03/22/24 15:46 Pulse Ox 93 L 03/22/24 15:46 FiO2 Intake & Output 03/21/24 03/22/24 03/22/24 18:59 06:59 18:59 Intake Total 400 940 Output Total 4400 3700 Balance -4000 -2760 Weight 91.9 kg Intake: Oral 240 Hemodialysis 400 700 Output: Hemodialysis 2400 2200 Hemodialysis Net Amount 2000 1500 Other: Voiding Method Toilet # Voids 1 1 - Labs CBC & Chem 7: 03/21/24 07:21 03/21/24 07:21 Labs: Abnormal Lab Results - Last 24 Hours (Table) 03/21/24 Range/Units 07:21 Ferritin 3027.0 H (22.0-322.0) ng/mL
[2024-03-22] MEDS: LANTHANUM CARBONATE 1000 MG PO SCH (16:27)
[2024-03-22] MEDS: SEVELAMER 800 MG TAB PO SCH (16:36)
[2024-03-22] MEDS: PANTOPRAZOLE 40 MG TABLET PO SCH (16:36)
[2024-03-22] MEDS: METOPROLOL TARTRATE 12.5 MG TAB PO SCH (19:56)
[2024-03-23 06:58] LABS: Basophils % (A) 0 %; Eosinophils # (A) 0.2 k/uL (0-0.7); Eosinophils % (A) 2 %; HCT 27.7 % (39.0-53.0); HGB 9.3 gm/dL (13.0-17.5); Lymphocytes # (A) 1.2 k/uL (1.0-4.8); Lymphocytes % (A) 10 %; MCH 34.4 pg (25.0-35.0); MCHC 33.7 g/dL (31.0-37.0); MCV 102.2 fL (80.0-100.0); Mean Platelet Volume 7.1; Monocytes # (A) 0.7 k/uL (0-1.0); Monocytes % (A) 6 %; Neutrophils # (A) 10.1 k/uL (1.3-7.7); Neutrophils % (A) 82 %; Platelet Count 275 k/uL (150-450); RBC 2.71 m/uL (4.30-5.90); RDW 12.6 % (11.5-15.5); WBC 12.4 k/uL (3.8-10.6)
[2024-03-23 07:11] LABS: African American GFR (CKD) 8 (>60 ml/min/1.73 sqM); Anion Gap 15 mmol/L; Blood Urea Nitrogen 43 mg/dL (9-20); Calcium 8.9 mg/dL (8.4-10.2); Carbon Dioxide 25 mmol/L (22-30); Chloride 91 mmol/L (98-107); Glucose 95 mg/dL (74-99); Non-African American GFR(CKD) 7 (>60 ml/min/1.73 sqM); Phosphorus 7.8 mg/dL (2.5-4.5); Potassium 3.9 mmol/L (3.5-5.1); Sodium 131 mmol/L (137-145)
--- NOTE | 2024-03-23 09:35 | P.PN ---
Subjective Patient is seen in follow-up for end-stage renal disease. Patient is maintained on peritoneal dialysis outpatient. Started on hemodialysis March 21, 2024 due to pericardial effusion. Tolerated 1.5 L ultrafiltration yesterday. No active complaints. Tolerating dialysis well. Vital signs are stable. General: No acute distress. HEENT: Head exam is unremarkable. LUNGS: No audible rhonchi or wheezes. HEART: Rate and Rhythm are regular. ABDOMEN: Nontender. EXTREMITITES: No edema. Objective - Vital Signs Vital signs: Vital Signs Temp 98.7 F 03/23/24 04:00 Pulse 91 03/23/24 04:00 Resp 16 03/23/24 04:00 BP 102/60 03/23/24 04:00 Pulse Ox 94 L 03/23/24 04:00 FiO2 Intake & Output 03/22/24 03/23/24 03/23/24 18:59 06:59 18:59 Intake Total 940 200 Output Total 3700 Balance -2760 200 Weight 90.1 kg Intake: Oral 240 200 Hemodialysis 700 Output: Hemodialysis 2200 Hemodialysis Net Amount 1500 Other: Voiding Method Toilet Toilet # Voids 1 1 - Labs CBC & Chem 7: 03/23/24 06:19 03/23/24 06:19 Labs: Abnormal Lab Results - Last 24 Hours (Table) 03/23/24 03/23/24 Range/Units 06:19 06:19 WBC 12.4 H (3.8-10.6) k/uL RBC 2.71 L (4.30-5.90) m/uL Hgb 9.3 L (13.0-17.5) gm/dL Hct 27.7 L (39.0-53.0) % MCV 102.2 H (80.0-100.0) fL Neutrophils # 10.1 H (1.3-7.7) k/uL Sodium 131 L (137-145) mmol/L Chloride 91 L (98-107) mmol/L BUN 43 H (9-20) mg/dL Creatinine 9.46 H* (0.66-1.25) mg/dL Phosphorus 7.8 H (2.5-4.5) mg/dL Assessment and Plan Plan: Assessment: 1. End-stage renal disease maintained on peritoneal dialysis. 2. Pericardial effusion. Concern for uremic pericarditis as creatinine is 18 and BUN 91 on admission. 3. Anemia of chronic kidney disease. High ferritin noted. On Aranesp. 4. Chronic kidney disease mineral bone disease. Phosphorus level 7.8 dated March 23, 2024. On phosphate binders. Plan: Peritoneal dialysis on hold. Started on hemodialysis March 21, 2024. Has temporary dialysis catheter. Continue with daily hemodialysis for now. Currently seen while undergoing hemodialysis. Add low-dose colchicine.
[2024-03-23] MEDS: COLCHICINE 0.6 MG EACH PO SCH (12:15)
[2024-03-23] MEDS: LIDOCAINE 1% INJ 10MG/ML (20 ML MDV) SQ ONE (14:08)
[2024-03-23] MEDS: SODIUM CHLORIDE 0.9% 250 ML IV ONE (14:08)
[2024-03-23] MEDS: MIDAZOLAM 2 MG/2 ML VIAL IVP ONE (14:08)
[2024-03-23] MEDS: IOPAMIDOL-370 100ML BTL INJ ONE (14:16)
--- NOTE | 2024-03-23 14:45 | P.PN ---
Subjective Progress Note Date: 03/23/24 patient is a 28-year-old gentleman with past medical history significant for end-stage renal disease who is a transfer from [facility] for pericardial effusion. Patient initially presented to [facility] for chest pain and shortness of breath. Patient stated that he has been feeling short of breath for the last few days. Patient stated that he was only able to walk a few feet before getting short of breath. Denies any orthopnea or PND. Patient was complaining of chest pain, chest pain was central location, nonradiating, no aggravating or relieving factors associated chest pain. Patient was worked up in the ER of [facility], 2D echo done showed patient to have pericardial effusion for which patient was referred to [facility] Initial lab work done in the ER showed WBC 14.7, hemoglobin 8.7, platelet count 260, sodium 139 potassium 3.7, BUN 19, creatinine 18.04, glucose 107, calcium 8.4 troponin 0.012 Patient admitted to internal medicine service 03/22. Patient seen and examined. Patient undergoing hemodialysis today. Denies any chest pain or shortness of breath. 03/23. Patient seen and examined. Patient is undergoing dialysis again today, states there is no chest pain or breathing issues. REVIEW OF SYSTEMS: CONSTITUTIONAL: No fever, no malaise,. CARDIOVASCULAR: No chest pain, no palpitations, no syncope. PULMONARY: No shortness of breath, no cough, GASTROINTESTINAL: No diarrhea, no nausea, no vomiting, no abdominal pain. NEUROLOGICAL: No headaches, no weakness, PHYSICAL EXAMINATION: GENERAL: The patient is alert and oriented x3, not in any acute distress. Well developed, well nourished. HEENT: Pupils are round and equally reacting to light. EOMI. No scleral icterus. No conjunctival pallor. Normocephalic, atraumatic. No pharyngeal erythema. No thyromegaly. CARDIOVASCULAR: S1 and S2 present. No murmurs, rubs, or gallops. PULMONARY: Chest is clear to auscultation, no wheezing or crackles. ABDOMEN: Soft, nontender, nondistended, normoactive bowel sounds. No palpable organomegaly. MUSCULOSKELETAL: No joint swelling or deformity. EXTREMITIES: No cyanosis, clubbing, or pedal edema. NEUROLOGICAL: Gross neurological examination did not reveal any focal deficits. SKIN: No rashes. Assessment and plan Pericardial effusion Uremic pericarditis Chest pain End-stage renal disease on peritoneal dialysis Monitor vital signs Monitor CBC Monitor CMP Continue telemetry monitoring Trend troponin Serial 2D echoes Continue colchicine Nephrology following Cardiology following CT surgery evaluated, not planning any pericardiocentesis at this time Labs and medication were reviewed.. Continue same treatment. Continue with symptomatic treatment. Resume home medication. Monitor labs and vitals. DVT and GI prophylaxis. Further recommendations as per clinical course of the patient Dictation was produced using [employer] dictation software. please excuse any grammatical, word or spelling errors. Objective - Vital Signs Vital signs: Vital Signs Temp 98.7 F 03/23/24 04:00 Pulse 91 03/23/24 04:00 Resp 16 03/23/24 04:00 BP 102/60 03/23/24 04:00 Pulse Ox 94 L 03/23/24 04:00 FiO2 Intake & Output 03/22/24 03/23/24 03/23/24 18:59 06:59 18:59 Intake Total 940 200 Output Total 3700 Balance -2760 200 Weight 90.1 kg Intake: Oral 240 200 Hemodialysis 700 Output: Hemodialysis 2200 Hemodialysis Net Amount 1500 Other: Voiding Method Toilet Toilet # Voids 1 1 - Labs CBC & Chem 7: 03/23/24 06:19 03/23/24 06:19 Labs: Abnormal Lab Results - Last 24 Hours (Table) 03/23/24 03/23/24 Range/Units 06:19 06:19 WBC 12.4 H (3.8-10.6) k/uL RBC 2.71 L (4.30-5.90) m/uL Hgb 9.3 L (13.0-17.5) gm/dL Hct 27.7 L (39.0-53.0) % MCV 102.2 H (80.0-100.0) fL Neutrophils # 10.1 H (1.3-7.7) k/uL Sodium 131 L (137-145) mmol/L Chloride 91 L (98-107) mmol/L BUN 43 H (9-20) mg/dL Creatinine 9.46 H* (0.66-1.25) mg/dL Phosphorus 7.8 H (2.5-4.5) mg/dL
--- NOTE | 2024-03-23 14:55 | P.PCN ---
Description of Procedure: Preop diagnosis acute chronic renal failure malfunctioning right femoral dialysis catheter Postop the same Procedure #1 is inferior venacavogram #2 use placement of a 30 cm dialysis catheter right femoral approach Procedure this patient was brought to the [facility] patient had a right femoral catheter placed to 2 days ago in the emergency room for dialysis patient has a difficulty in accessing and positional dialysis catheter right and left groins were prepped draped in Prestel manner of 1% lidocaine with IV sedation guide was passed through the catheter catheter was removed for ventilator part of the guidewire. Then with hand-injection venacavogram was performed inferior vena cava and iliac vein were visualized which was patent for that to be removed the dilator and we placed a triple-lumen 30 cm dialysis catheter flushed with heparin saline hep-locked secured with 3 nylon patient tarted the procedure well
--- NOTE | 2024-03-23 15:10 | IR ---
EXAMINATION TYPE: IR cvc insert non tunneled DATE OF EXAM: 03/23/2024 FLUOROSCOPY hemodialysis catheter exchange, 1.3min fluoro, [id number] images are submitted. [facility], , 03/23/2024 3:08 PM
--- NOTE | 2024-03-23 15:20 | P.PN ---
Subjective Progress Note Date: 03/23/24 HISTORY OF PRESENTING ILLNESS Patient is a 28-year-old with past medical history of ESRD who was transferred from [facility] for pericardial effusion. Patient initially presented to [facility] with symptoms of shortness of breath, feeling poorly and feeling generalized weakness. To me he denies having any substernal chest pressure symptoms or chest pain symptoms. He does report symptoms of exertional shortness of breath and exertional fatigue which got him concerned to go to the ER. Initial blood work showed hemoglobin 8.7, WBC 14.7, platelets 260, BUN 19, creatinine 18, troponin 0.012. Progress note 03/23/2024 Patient is seen and examined bedside this a.m. Patient is going for hemodialysis today. BP and heart rate is holding well. No clinical signs of tamponade physiology at this time PHYSICAL EXAMINATION Eyes: Sclerae nonicteric. Neck: Brisk carotid upstroke, no jugular venous distention. Lungs: Clear to auscultation. Heart: Regular rate and rhythm, S1-S2, no S3, no murmur or rub. Abdomen: Soft nontender, positive bowel sounds. Extremities: No edema, intact distal pulses. Neuro: Alert, oritented, no focal deficits. Detailed neuro exam was not performed. ASSESSMENT Large pericardial effusion with borderline signs of tamponade however not hemodynamically significant Uremic pericarditis ESRD on peritoneal dialysis. Signs of peritoneal dialysis failure with elevated creatinine and pericardial effusion. Cardiac testing EKG shows sinus tachycardia, RSR pattern in QRS, T wave inversions in 1 and aVL Echocardiogram shows EF 60 to 65%, moderate concentric LVH, large pericardial effusion with respiratory variation in tricuspid flow however no systolic c ollapse of right atrium or diastolic collapse of right ventricle seen. PLAN At this time I would agree with CT surgery team on holding back pericardiocentesis or doing pericardial window. Patient's pericardial effusion is most likely because of failure of peritoneal dialysis. Would recommend sett ing up hemodialysis and see how patient does hemodynamically. If patient gets hypotensive or hemodynamically unstable while getting hemodialysis, consider reevaluation for pericardiocentesis/pericardial window. On low-dose colchicine 0.3 mg daily Avoid using NSAIDs as patient is asymptomatic and does not have any chest pain. Objective - Vital Signs Vital signs: Vital Signs Temp 98.2 F 03/23/24 09:35 Pulse 92 03/23/24 11:50 Resp 16 03/23/24 11:50 BP 121/61 03/23/24 11:50 Pulse Ox 94 L 03/23/24 04:00 FiO2 Intake & Output 03/22/24 03/23/24 03/23/24 18:59 06:59 18:59 Intake Total 940 1610 Output Total 3700 1400 Balance -2760 210 Weight 90.1 kg Intake: IV 10 Oral 240 200 Hemodialysis 700 1400 Output: Hemodialysis 2200 400 Hemodialysis Net Amount 1500 1000 Other: Voiding Method Toilet Toilet Toilet # Voids 1 1 - Labs CBC & Chem 7: 03/23/24 06:19 03/23/24 06:19 Labs: Abnormal Lab Results - Last 24 Hours (Table) 03/23/24 03/23/24 Range/Units 06:19 06:19 WBC 12.4 H (3.8-10.6) k/uL RBC 2.71 L (4.30-5.90) m/uL Hgb 9.3 L (13.0-17.5) gm/dL Hct 27.7 L (39.0-53.0) % MCV 102.2 H (80.0-100.0) fL Neutrophils # 10.1 H (1.3-7.7) k/uL Sodium 131 L (137-145) mmol/L Chloride 91 L (98-107) mmol/L BUN 43 H (9-20) mg/dL Creatinine 9.46 H* (0.66-1.25) mg/dL Phosphorus 7.8 H (2.5-4.5) mg/dL
[2024-03-23] MEDS: MELATONIN 5 MG TABLET PO PRN (20:26)
[2024-03-24] MEDS: LANTHANUM CARBONATE 1000 MG PO SCH (05:41)
[2024-03-24 07:11] LABS: HCT 26.1 % (39.0-53.0); HGB 8.9 gm/dL (13.0-17.5); MCH 34.8 pg (25.0-35.0); MCHC 34.1 g/dL (31.0-37.0); MCV 102.1 fL (80.0-100.0); Mean Platelet Volume 7.6; Platelet Count 269 k/uL (150-450); RBC 2.56 m/uL (4.30-5.90); RDW 12.6 % (11.5-15.5); WBC 12.6 k/uL (3.8-10.6)
[2024-03-24 07:56] LABS: ALT 77 U/L (4-49); AST 32 U/L (17-59); African American GFR (CKD) 8 (>60 ml/min/1.73 sqM); Albumin 3.7 g/dL (3.5-5.0); Alkaline Phosphatase 136 U/L (38-126); Anion Gap 13 mmol/L; Blood Urea Nitrogen 39 mg/dL (9-20); Calcium 8.4 mg/dL (8.4-10.2); Carbon Dioxide 26 mmol/L (22-30); Chloride 91 mmol/L (98-107); Glucose 100 mg/dL (74-99); Magnesium 2.2 mg/dL (1.6-2.3); Non-African American GFR(CKD) 7 (>60 ml/min/1.73 sqM); Phosphorus 5.8 mg/dL (2.5-4.5); Sodium 130 mmol/L (137-145); Total Bilirubin 0.5 mg/dL (0.2-1.3); Total Protein 6.1 g/dL (6.3-8.2)
--- NOTE | 2024-03-24 08:03 | CA ---
Transthoracic Echo Report Name: Lauri Last Age: 28 Gender: M : 1995 Exam Date: 03/23/2024 16:59 Exam Location: [facility] Ht (in): 68 Wt (lb): 198 Ordering Physician: Garett Degroot MD ([id number]) Attending/Referring Phys: [employer] Lola Amaya RDCS Procedure CPT: Indications: pericardial effusion Cardiac Hx: Technical Quality: Fair Contrast 1: Total Dose (mL): Contrast 2: Total Dose (mL): MEASUREMENTS (Male / Female) Normal Values FINDINGS Left Ventricle Left ventricular ejection fraction is estimated at 60-65 %. Right Ventricle Right Atrium Left Atrium Mitral Valve Aortic Valve Tricuspid Valve Pulmonic Valve Pericardium Moderate pericardial effusion. Looks smaller than before on 03/21/25 Aorta CONCLUSIONS Moderate pericardial effusion Normal LV systolic function Previewed by: Dr. Luis Neil MD (Electronically Signed) Final Date: 24 March 2024 08:03
--- NOTE | 2024-03-24 09:52 | P.PN ---
Subjective Patient is seen in follow-up for end-stage renal disease. Patient is maintained on peritoneal dialysis outpatient. Started on hemodialysis March 21, 2024 due to pericardial effusion. Tolerated 1 L ultrafiltration yesterday. No active complaints. Tolerating dialysis well. Vital signs are stable. General: No acute distress. HEENT: Head exam is unremarkable. LUNGS: No audible rhonchi or wheezes. HEART: Rate and Rhythm are regular. ABDOMEN: Nontender. EXTREMITITES: No edema. Objective - Vital Signs Vital signs: Vital Signs Temp 98.2 F 03/24/24 09:20 Pulse 95 03/24/24 09:20 Resp 16 03/24/24 09:20 BP 119/68 03/24/24 09:20 Pulse Ox 97 03/24/24 09:20 FiO2 Intake & Output 03/23/24 03/24/24 03/24/24 18:59 06:59 18:59 Intake Total 1760 Output Total 1400 100 Balance 360 -100 Weight 89.8 kg Intake: IV 10 Oral 350 Hemodialysis 1400 Output: Urine 100 Hemodialysis 400 Hemodialysis Net Amount 1000 Other: Voiding Method Toilet Toilet Toilet # Voids 0 # Bowel Movements 0 - Labs CBC & Chem 7: 03/24/24 06:50 03/24/24 06:50 Labs: Abnormal Lab Results - Last 24 Hours (Table) 03/24/24 03/24/24 Range/Units 06:50 06:50 WBC 12.6 H (3.8-10.6) k/uL RBC 2.56 L (4.30-5.90) m/uL Hgb 8.9 L (13.0-17.5) gm/dL Hct 26.1 L (39.0-53.0) % MCV 102.1 H (80.0-100.0) fL Sodium 130 L (137-145) mmol/L Chloride 91 L (98-107) mmol/L BUN 39 H (9-20) mg/dL Creatinine 8.78 H* (0.66-1.25) mg/dL Glucose 100 H (74-99) mg/dL Phosphorus 5.8 H (2.5-4.5) mg/dL ALT 77 H (4-49) U/L Alkaline Phosphatase 136 H (38-126) U/L Total Protein 6.1 L (6.3-8.2) g/dL Assessment and Plan Plan: Assessment: 1. End-stage renal disease maintained on peritoneal dialysis. 2. Pericardial effusion. Concern for uremic pericarditis as creatinine is 18 and BUN 91 on admission. Improved post hemodialysis. 3. Anemia of chronic kidney disease. High ferritin noted. On Aranesp. 4. Chronic kidney disease mineral bone disease. Phosphorus level 7.8 dated March 23, 2024. On phosphate binders. Plan: Peritoneal dialysis on hold. Started on hemodialysis March 21, 2024. Has temporary dialysis catheter. Continue with daily hemodialysis for now. Currently seen while undergoing hemodialysis. Maintain low-dose colchicine. Echocardiogram from March 23, 2024 still shows moderate pericardial effusion. Discussed with patient intensifying PD upon discharge versus transitioning to hemodialysis. He is open to both.
--- NOTE | 2024-03-24 14:33 | P.PN ---
Subjective Progress Note Date: 03/24/24 patient is a 28-year-old gentleman with past medical history significant for end-stage renal disease who is a transfer from [facility] for pericardial effusion. Patient initially presented to [facility] for chest pain and shortness of breath. Patient stated that he has been feeling short of breath for the last few days. Patient stated that he was only able to walk a few feet before getting short of breath. Denies any orthopnea or PND. Patient was complaining of chest pain, chest pain was central location, nonradiating, no aggravating or relieving factors associated chest pain. Patient was worked up in the ER of [facility], 2D echo done showed patient to have pericardial effusion for which patient was referred to [facility] Initial lab work done in the ER showed WBC 14.7, hemoglobin 8.7, platelet count 260, sodium 139 potassium 3.7, BUN 19, creatinine 18.04, glucose 107, calcium 8.4 troponin 0.012 Patient admitted to internal medicine service 03/22. Patient seen and examined. Patient undergoing hemodialysis today. Denies any chest pain or shortness of breath. 03/23. Patient seen and examined. Patient is undergoing dialysis again today, states there is no chest pain or breathing issues. 03/24. Patient examined. Repeat 2D echo on 03/23 still showed moderate pericardial effusion. Denies any chest pain or shortness of breath. REVIEW OF SYSTEMS: CONSTITUTIONAL: No fever, no malaise,. CARDIOVASCULAR: No chest pain, no palpitations, no syncope. PULMONARY: No shortness of breath, no cough, GASTROINTESTINAL: No diarrhea, no nausea, no vomiting, no abdominal pain. NEUROLOGICAL: No headaches, no weakness, PHYSICAL EXAMINATION: GENERAL: The patient is alert and oriented x3, not in any acute distress. Well developed, well nourished. HEENT: Pupils are round and equally reacting to light. EOMI. No scleral icterus. No conjunctival pallor. Normocephalic, atraumatic. No pharyngeal erythema. No thyromegaly. CARDIOVASCULAR: S1 and S2 present. No murmurs, rubs, or gallops. PULMONARY: Chest is clear to auscultation, no wheezing or crackles. ABDOMEN: Soft, nontender, nondistended, normoactive bowel sounds. No palpable organomegaly. MUSCULOSKELETAL: No joint swelling or deformity. EXTREMITIES: No cyanosis, clubbing, or pedal edema. NEUROLOGICAL: Gross neurological examination did not reveal any focal deficits. SKIN: No rashes. Assessment and plan Pericardial effusion Uremic pericarditis Chest pain End-stage renal disease on peritoneal dialysis Monitor vital signs Monitor CBC Monitor CMP Continue telemetry monitoring Trend troponin Serial 2D echoes Continue colchicine Nephrology following, recommend daily hemodialysis to document improvement in pericardial effusion. Patient will be needing hemodialysis at [place] if no improvement Cardiology following CT surgery evaluated, not planning any pericardiocentesis at this time Labs and medication were reviewed.. Continue same treatment. Continue with symptomatic treatment. Resume home medication. Monitor labs and vitals. DVT and GI prophylaxis. Further recommendations as per clinical course of the patient Dictation was produced using [employer] dictation software. please excuse any grammatical, word or spelling errors. Objective - Vital Signs Vital signs: Vital Signs Temp 98.2 F 03/24/24 09:20 Pulse 95 03/24/24 09:20 Resp 16 03/24/24 09:20 BP 119/68 03/24/24 09:20 Pulse Ox 97 03/24/24 09:20 FiO2 Intake & Output 03/23/24 03/24/24 03/24/24 18:59 06:59 18:59 Intake Total 1760 Output Total 1400 100 Balance 360 -100 Weight 89.8 kg Intake: IV 10 Oral 350 Hemodialysis 1400 Output: Urine 100 Hemodialysis 400 Hemodialysis Net Amount 1000 Other: Voiding Method Toilet Toilet Toilet # Voids 0 # Bowel Movements 0 - Labs CBC & Chem 7: 03/24/24 06:50 03/24/24 06:50 Labs: Abnormal Lab Results - Last 24 Hours (Table) 03/24/24 03/24/24 Range/Units 06:50 06:50 WBC 12.6 H (3.8-10.6) k/uL RBC 2.56 L (4.30-5.90) m/uL Hgb 8.9 L (13.0-17.5) gm/dL Hct 26.1 L (39.0-53.0) % MCV 102.1 H (80.0-100.0) fL Sodium 130 L (137-145) mmol/L Chloride 91 L (98-107) mmol/L BUN 39 H (9-20) mg/dL Creatinine 8.78 H* (0.66-1.25) mg/dL Glucose 100 H (74-99) mg/dL Phosphorus 5.8 H (2.5-4.5) mg/dL ALT 77 H (4-49) U/L Alkaline Phosphatase 136 H (38-126) U/L Total Protein 6.1 L (6.3-8.2) g/dL
--- NOTE | 2024-03-24 14:52 | P.PN ---
Subjective HISTORY OF PRESENT ILLNESS: Patient is a 28-year-old with past medical history of ESRD who was transferred from [facility] for pericardial effusion. Patient initially presented to [facility] with symptoms of shortness of breath, feeling poorly and feeling generalized weakness. To me he denies having any substernal chest pre ssure symptoms or chest pain symptoms. He does report symptoms of exertional shortness of breath and exertional fatigue which got him concerned to go to the ER. Initial blood work showed hemoglobin 8.7, WBC 14.7, platelets 260, BUN 19, creatinine 18, troponin 0.012. Progress note 03/23/2024 Patient is seen and examined bedside this a.m. Patient is going for hemodialysis today. BP and heart rate is holding well. No clinical signs of tamponade physiology at this time 03/24/2024 Patient examined this morning the bedside. Patient currently denies chest pain or pressure. Denies shortness of breath. Vital signs are stable. PHYSICAL EXAM: VITAL SIGNS: Reviewed. GENERAL: Well-developed in no acute distress. NECK: Supple. No JVD or thyromegaly LUNGS: Respirations even and unlabored. Lungs essentially clear to auscultation bilaterally. HEART: Regular rate and rhythm. S1 and S2 heard. EXTREMITIES: Normal range of motion. No clubbing or cyanosis. Peripheral pulses intact. No lower extremity edema ASSESSMENT: Large pericardial effusion with borderline signs of tamponade however not hemodynamically significant Uremic pericarditis ESRD on peritoneal dialysis. Signs of peritoneal dialysis failure with elevated creatinine and pericardial effusion. Cardiac testing EKG shows sinus tachycardia, RSR pattern in QRS, T wave inversions in 1 and aVL Echocardiogram shows EF 60 to 65%, moderate concentric LVH, large pericardial effusion with respiratory variation in tricuspid flow however no systolic collapse of right atrium or diastolic collapse of right ventricle seen. PLAN: Continue current cardiac medications Recommend continuing colchicine for 1 month and then reassessing Recommend repeating echocardiogram on an outpatient basis No further inpatient recommendations from a cardiac standpoint We will sign off. Please reconsult if needed. Nurse practitioner note has been reviewed by physician. Signing provider agrees with the documented findings, assessment, and plan of care documented by ASSORTER LAUNDRY as a scribe. Objective - Vital Signs Vital signs: Vital Signs Temp 98.2 F 03/24/24 09:20 Pulse 100 03/24/24 11:40 Resp 18 03/24/24 12:47 BP 102/66 03/24/24 12:47 Pulse Ox 98 03/24/24 11:40 FiO2 Intake & Output 03/23/24 03/24/24 03/24/24 18:59 06:59 18:59 Intake Total 1760 1900 Output Total 7887 512 2856 Balance 360 -100 0 Weight 89.8 kg Intake: IV 10 Oral 350 Hemodialysis 1400 1900 Output: Urine 100 Hemodialysis 400 400 Hemodialysis Net Amount 1000 1500 Other: Voiding Method Toilet Toilet Toilet # Voids 0 # Bowel Movements 0 - Labs CBC & Chem 7: 03/24/24 06:50 03/24/24 06:50 Labs: Abnormal Lab Results - Last 24 Hours (Table) 03/24/24 03/24/24 Range/Units 06:50 06:50 WBC 12.6 H (3.8-10.6) k/uL RBC 2.56 L (4.30-5.90) m/uL Hgb 8.9 L (13.0-17.5) gm/dL Hct 26.1 L (39.0-53.0) % MCV 102.1 H (80.0-100.0) fL Sodium 130 L (137-145) mmol/L Chloride 91 L (98-107) mmol/L BUN 39 H (9-20) mg/dL Creatinine 8.78 H* (0.66-1.25) mg/dL Glucose 100 H (74-99) mg/dL Phosphorus 5.8 H (2.5-4.5) mg/dL ALT 77 H (4-49) U/L Alkaline Phosphatase 136 H (38-126) U/L Total Protein 6.1 L (6.3-8.2) g/dL
[2024-03-24] MEDS: SODIUM CHLORIDE 0.9% 250 ML IV SCH (17:55)
--- NOTE | 2024-03-25 14:36 | P.PN ---
Subjective Progress Note Date: 03/25/24 Patient is seen in follow-up for end-stage renal disease. Patient is maintained on peritoneal dialysis outpatient. Started on hemodialysis March 21, 2024 due to pericardial effusion. No active complaints. Seen while on HD today. Vital signs are stable. General: No acute distress. HEENT: Head exam is unremarkable. LUNGS: No audible rhonchi or wheezes. HEART: Rate and Rhythm are regular. ABDOMEN: Nontender. EXTREMITITES: No edema. Objective - Vital Signs Vital signs: Vital Signs Temp 98.2 F 03/25/24 09:10 Pulse 92 03/25/24 11:16 Resp 16 03/25/24 09:11 BP 104/63 03/25/24 11:16 Pulse Ox 96 03/25/24 09:10 FiO2 Intake & Output 03/24/24 03/25/24 03/25/24 18:59 06:59 18:59 Intake Total 2122 200 Output Total 1900 0 0 Balance 222 0 200 Weight 89.9 kg Intake: Oral 222 200 Hemodialysis 1900 Output: Urine 0 0 0 Hemodialysis 400 Hemodialysis Net Amount 1500 Other: Voiding Method Toilet Toilet Toilet - Labs CBC & Chem 7: 03/24/24 06:50 03/24/24 06:50 Assessment and Plan Assessment: 1. End-stage renal disease maintained on peritoneal dialysis. 2. Pericardial effusion. Concern for uremic pericarditis as creatinine is 18 and BUN 91 on admission. Improved post hemodialysis. 3. Anemia of chronic kidney disease. High ferritin noted. On Aranesp. 4. Chronic kidney disease mineral bone disease. Phosphorus level 7.8 dated March 23, 2024. On phosphate binders. Plan: Peritoneal dialysis on hold. Started on hemodialysis March 21, 2024. Has temporary dialysis catheter. Next HD Wednesday Maintain low-dose colchicine. Echocardiogram from March 23, 2024 still shows moderate pericardial effusion. Will need HD for few month until resolution of pericardial effusion Vascular to have Permcath placed
--- NOTE | 2024-03-25 15:24 | P.PN ---
Subjective Progress Note Date: 03/25/24 patient is a 28-year-old gentleman with past medical history significant for end-stage renal disease who is a transfer from [facility] for pericardial effusion. Patient initially presented to [facility] for chest pain and shortness of breath. Patient stated that he has been feeling short of breath for the last few days. Patient stated that he was only able to walk a few feet before getting short of breath. Denies any orthopnea or PND. Patient was complaining of chest pain, chest pain was central location, nonradiating, no aggravating or relieving factors associated chest pain. Patient was worked up in the ER of [facility], 2D echo done showed patient to have pericardial effusion for which patient was referred to [facility] Initial lab work done in the ER showed WBC 14.7, hemoglobin 8.7, platelet count 260, sodium 139 potassium 3.7, BUN 19, creatinine 18.04, glucose 107, calcium 8.4 troponin 0.012 Patient admitted to internal medicine service 03/22. Patient seen and examined. Patient undergoing hemodialysis today. Denies any chest pain or shortness of breath. 03/23. Patient seen and examined. Patient is undergoing dialysis again today, states there is no chest pain or breathing issues. 03/24. Patient examined. Repeat 2D echo on 03/23 still showed moderate pericardial effusion. Denies any chest pain or shortness of breath. 03/25. Patient seen and examined. Patient underwent another session of dialysis today, neck session of dialysis scheduled for Wednesday REVIEW OF SYSTEMS: CONSTITUTIONAL: No fever, no malaise,. CARDIOVASCULAR: No chest pain, no palpitations, no syncope. PULMONARY: No shortness of breath, no cough, GASTROINTESTINAL: No diarrhea, no nausea, no vomiting, no abdominal pain. NEUROLOGICAL: No headaches, no weakness, PHYSICAL EXAMINATION: GENERAL: The patient is alert and oriented x3, not in any acute distress. Well developed, well nourished. HEENT: Pupils are round and equally reacting to light. EOMI. No scleral icterus. No conjunctival pallor. Normocephalic, atraumatic. No pharyngeal erythema. No thyromegaly. CARDIOVASCULAR: S1 and S2 present. No murmurs, rubs, or gallops. PULMONARY: Chest is clear to auscultation, no wheezing or crackles. ABDOMEN: Soft, nontender, nondistended, normoactive bowel sounds. No palpable organomegaly. MUSCULOSKELETAL: No joint swelling or deformity. EXTREMITIES: No cyanosis, clubbing, or pedal edema. NEUROLOGICAL: Gross neurological examination did not reveal any focal deficits. SKIN: No rashes. Assessment and plan Pericardial effusion Uremic pericarditis Chest pain End-stage renal disease on peritoneal dialysis Monitor vital signs Monitor CBC Monitor CMP Continue telemetry monitoring Continue colchicine Nephrology following, recommend daily hemodialysis Patient will be needing hemodialysis at [place] if no improvement Cardiology following CT surgery evaluated, not planning any pericardiocentesis at this time Labs and medication were reviewed.. Continue same treatment. Continue with symptomatic treatment. Resume home medication. Monitor labs and vitals. DVT and GI prophylaxis. Further recommendations as per clinical course of the patient Dictation was produced using [employer] dictation software. please excuse any grammatical, word or spelling errors. Objective - Vital Signs Vital signs: Vital Signs Temp 98.8 F 03/25/24 15:09 Pulse 95 03/25/24 15:09 Resp 16 03/25/24 15:09 BP 100/58 03/25/24 15:09 Pulse Ox 94 L 03/25/24 15:09 FiO2 Intake & Output 03/24/24 03/25/24 03/25/24 18:59 06:59 18:59 Intake Total 2122 300 Output Total 1900 0 0 Balance 222 0 300 Weight 89.9 kg Intake: Oral 222 300 Hemodialysis 1900 Output: Urine 0 0 0 Hemodialysis 400 Hemodialysis Net Amount 1500 Other: Voiding Method Toilet Toilet Toilet - Labs CBC & Chem 7: 03/24/24 06:50 03/24/24 06:50
[2024-03-25] MEDS: polyethylene glycoL 3350 17 GM POWD.PACK PO SCH (16:46)
[2024-03-25] MEDS: ACETAMINOPHEN TAB 325 MG TAB PO PRN (16:46)
--- NOTE | 2024-03-26 11:27 | P.PN ---
Subjective Progress Note Date: 03/26/24 Patient is seen in follow-up for end-stage renal disease. Patient is maintained on peritoneal dialysis outpatient. Started on hemodialysis March 21, 2024 due to pericardial effusion. No active complaints. Vital signs are stable. General: No acute distress. HEENT: Head exam is unremarkable. LUNGS: No audible rhonchi or wheezes. HEART: Rate and Rhythm are regular. ABDOMEN: Nontender. EXTREMITITES: No edema. Objective - Vital Signs Vital signs: Vital Signs Temp 98.7 F 03/26/24 07:42 Pulse 91 03/26/24 07:42 Resp 16 03/26/24 07:42 BP 121/70 03/26/24 07:42 Pulse Ox 93 L 03/26/24 07:42 FiO2 Intake & Output 03/25/24 03/26/24 03/26/24 18:59 06:59 18:59 Intake Total 418 400 Output Total 0 2400 Balance 418 -2000 Weight 90.4 kg Intake: Oral 418 Hemodialysis 400 Output: Urine 0 Hemodialysis 1400 Hemodialysis Net Amount 1000 Other: Voiding Method Toilet Toilet - Labs CBC & Chem 7: 03/24/24 06:50 03/24/24 06:50 Assessment and Plan Assessment: 1. End-stage renal disease maintained on peritoneal dialysis. 2. Pericardial effusion. Concern for uremic pericarditis as creatinine is 18 and BUN 91 on admission. Improved post hemodialysis. 3. Anemia of chronic kidney disease. High ferritin noted. On Aranesp. 4. Chronic kidney disease mineral bone disease. Phosphorus level 7.8 dated March 23, 2024. On phosphate binders. Plan: Peritoneal dialysis on hold. Started on hemodialysis March 21, 2024. Has temporary dialysis catheter. Next HD Wednesday Maintain low-dose colchicine. Echocardiogram from March 23, 2024 still shows moderate pericardial effusion. Continue HD for few months until resolution of pericardial effusion Vascular to have Permcath placed Wednesday Will need social work change from home PD to in-center HD at [facility]
--- NOTE | 2024-03-26 15:04 | P.PN ---
Subjective Progress Note Date: 03/26/24 patient is a 28-year-old gentleman with past medical history significant for end-stage renal disease who is a transfer from [facility] for pericardial effusion. Patient initially presented to [facility] for chest pain and shortness of breath. Patient stated that he has been feeling short of breath for the last few days. Patient stated that he was only able to walk a few feet before getting short of breath. Denies any orthopnea or PND. Patient was complaining of chest pain, chest pain was central location, nonradiating, no aggravating or relieving factors associated chest pain. Patient was worked up in the ER of [facility], 2D echo done showed patient to have pericardial effusion for which patient was referred to [facility] Initial lab work done in the ER showed WBC 14.7, hemoglobin 8.7, platelet count 260, sodium 139 potassium 3.7, BUN 19, creatinine 18.04, glucose 107, calcium 8.4 troponin 0.012 Patient admitted to internal medicine service 03/22. Patient seen and examined. Patient undergoing hemodialysis today. Denies any chest pain or shortness of breath. 03/23. Patient seen and examined. Patient is undergoing dialysis again today, states there is no chest pain or breathing issues. 03/24. Patient examined. Repeat 2D echo on 03/23 still showed moderate pericardial effusion. Denies any chest pain or shortness of breath. 03/25. Patient seen and examined. Patient underwent another session of dialysis today, neck session of dialysis scheduled for Monday 03/26. Patient seen and examined. Patient scheduled for tunneled dialysis catheter placement for tomorrow, possible discharge afterwards REVIEW OF SYSTEMS: CONSTITUTIONAL: No fever, no malaise,. CARDIOVASCULAR: No chest pain, no palpitations, no syncope. PULMONARY: No shortness of breath, no cough, GASTROINTESTINAL: No diarrhea, no nausea, no vomiting, no abdominal pain. NEUROLOGICAL: No headaches, no weakness, PHYSICAL EXAMINATION: GENERAL: The patient is alert and oriented x3, not in any acute distress. Well developed, well nourished. HEENT: Pupils are round and equally reacting to light. EOMI. No scleral icterus. No conjunctival pallor. Normocephalic, atraumatic. No pharyngeal erythema. No thyromegaly. CARDIOVASCULAR: S1 and S2 present. No murmurs, rubs, or gallops. PULMONARY: Chest is clear to auscultation, no wheezing or crackles. ABDOMEN: Soft, nontender, nondistended, normoactive bowel sounds. No palpable organomegaly. MUSCULOSKELETAL: No joint swelling or deformity. EXTREMITIES: No cyanosis, clubbing, or pedal edema. NEUROLOGICAL: Gross neurological examination did not reveal any focal deficits. SKIN: No rashes. Assessment and plan Pericardial effusion Uremic pericarditis Chest pain End-stage renal disease on peritoneal dialysis Monitor vital signs Monitor CBC Monitor CMP Continue telemetry monitoring Continue colchicine Nephrology following,Patient scheduled for tunneled dialysis catheter placement for tomorrow, possible discharge afterwards Cardiology following CT surgery evaluated, not planning any pericardiocentesis at this time Labs and medication were reviewed.. Continue same treatment. Continue with symptomatic treatment. Resume home medication. Monitor labs and vitals. DVT and GI prophylaxis. Further recommendations as per clinical course of the patient Dictation was produced using [employer] dictation software. please excuse any grammatical, word or spelling errors. Objective - Vital Signs Vital signs: Vital Signs Temp 98.9 F 03/26/24 14:14 Pulse 93 03/26/24 13:17 Resp 18 03/26/24 13:17 BP 109/64 03/26/24 13:17 Pulse Ox 92 L 03/26/24 13:17 FiO2 Intake & Output 03/25/24 03/26/24 03/26/24 18:59 06:59 18:59 Intake Total 418 400 Output Total 0 2400 Balance 418 -2000 Weight 90.4 kg Intake: Oral 418 Hemodialysis 400 Output: Urine 0 Hemodialysis 1400 Hemodialysis Net Amount 1000 Other: Voiding Method Toilet Toilet Toilet - Labs CBC & Chem 7: 03/24/24 06:50 03/24/24 06:50
--- NOTE | 2024-03-27 12:51 | P.PN ---
Subjective Progress Note Date: 03/27/24 Patient is seen in follow-up for end-stage renal disease. Patient is maintained on peritoneal dialysis outpatient. Started on hemodialysis March 21, 2024 due to pericardial effusion. No active complaints. Vital signs are stable. General: No acute distress. HEENT: Head exam is unremarkable. LUNGS: No audible rhonchi or wheezes. HEART: Rate and Rhythm are regular. ABDOMEN: Nontender. EXTREMITITES: No edema. Objective - Vital Signs Vital signs: Vital Signs Temp 98.6 F 03/27/24 06:56 Pulse 79 03/27/24 06:56 Resp 16 03/27/24 06:56 BP 103/66 03/27/24 06:56 Pulse Ox 96 03/27/24 06:56 FiO2 Intake & Output 03/26/24 03/27/24 03/27/24 18:59 06:59 18:59 Intake Total 540 540 Balance 540 540 Weight 91.4 kg Intake: Oral 540 540 Other: Voiding Method Toilet Toilet - Labs CBC & Chem 7: 03/24/24 06:50 03/24/24 06:50 Assessment and Plan Assessment: 1. End-stage renal disease maintained on peritoneal dialysis. 2. Pericardial effusion. Concern for uremic pericarditis as creatinine is 18 and BUN 91 on admission. Improved post hemodialysis. 3. Anemia of chronic kidney disease. High ferritin noted. On Aranesp. 4. Chronic kidney disease mineral bone disease. Phosphorus level 7.8 dated March 23, 2024. On phosphate binders. Plan: Peritoneal dialysis on hold. Started on hemodialysis March 21, 2024. Has temporary dialysis catheter. Seen on HD today. HD again tomorrow Maintain low-dose colchicine. Echocardiogram from March 23, 2024 still shows moderate pericardial effusion. Continue HD for few months until resolution of pericardial effusion Vascular to have Permcath placed tomorrow. Will need social work change from home PD to in-center HD at [facility]
[2024-03-27] MEDS: IV FLUID CONTINUATION 1,000 ML IV ONE (14:15)
--- NOTE | 2024-03-27 14:16 | P.PN ---
Subjective Progress Note Date: 03/27/24 patient is a 28-year-old gentleman with past medical history significant for end-stage renal disease who is a transfer from [facility] for pericardial effusion. Patient initially presented to [facility] for chest pain and shortness of breath. Patient stated that he has been feeling short of breath for the last few days. Patient stated that he was only able to walk a few feet before getting short of breath. Denies any orthopnea or PND. Patient was complaining of chest pain, chest pain was central location, nonradiating, no aggravating or relieving factors associated chest pain. Patient was worked up in the ER of [facility], 2D echo done showed patient to have pericardial effusion for which patient was referred to [facility] Initial lab work done in the ER showed WBC 14.7, hemoglobin 8.7, platelet count 260, sodium 139 potassium 3.7, BUN 19, creatinine 18.04, glucose 107, calcium 8.4 troponin 0.012 Patient admitted to internal medicine service 03/22. Patient seen and examined. Patient undergoing hemodialysis today. Denies any chest pain or shortness of breath. 03/23. Patient seen and examined. Patient is undergoing dialysis again today, states there is no chest pain or breathing issues. 03/24. Patient examined. Repeat 2D echo on 03/23 still showed moderate pericardial effusion. Denies any chest pain or shortness of breath. 03/25. Patient seen and examined. Patient underwent another session of dialysis today, neck session of dialysis scheduled for Monday 03/26. Patient seen and examined. Patient scheduled for tunneled dialysis catheter placement for tomorrow, possible discharge afterwards 03/27. Patient seen and examined. Dialysis catheter scheduled for tomorrow, outpatient dialysis has been set up already. REVIEW OF SYSTEMS: CONSTITUTIONAL: No fever, no malaise,. CARDIOVASCULAR: No chest pain, no palpitations, no syncope. PULMONARY: No shortness of breath, no cough, GASTROINTESTINAL: No diarrhea, no nausea, no vomiting, no abdominal pain. NEUROLOGICAL: No headaches, no weakness, PHYSICAL EXAMINATION: GENERAL: The patient is alert and oriented x3, not in any acute distress. Well developed, well nourished. HEENT: Pupils are round and equally reacting to light. EOMI. No scleral icterus. No conjunctival pallor. Normocephalic, atraumatic. No pharyngeal erythema. No thyromegaly. CARDIOVASCULAR: S1 and S2 present. No murmurs, rubs, or gallops. PULMONARY: Chest is clear to auscultation, no wheezing or crackles. ABDOMEN: Soft, nontender, nondistended, normoactive bowel sounds. No palpable organomegaly. MUSCULOSKELETAL: No joint swelling or deformity. EXTREMITIES: No cyanosis, clubbing, or pedal edema. NEUROLOGICAL: Gross neurological examination did not reveal any focal deficits. SKIN: No rashes. Assessment and plan Pericardial effusion Uremic pericarditis Chest pain End-stage renal disease on peritoneal dialysis Monitor vital signs Monitor CBC Monitor CMP Continue telemetry monitoring Continue colchicine Nephrology following,Patient scheduled for tunneled dialysis catheter placement for tomorrow Cardiology following CT surgery evaluated, not planning any pericardiocentesis at this time Labs and medication were reviewed.. Continue same treatment. Continue with symptomatic treatment. Resume home medication. Monitor labs and vitals. DVT and GI prophylaxis. Further recommendations as per clinical course of the patient Dictation was produced using [employer] dictation software. please excuse any grammatical, word or spelling errors. Objective - Vital Signs Vital signs: Vital Signs Temp 98.6 F 03/27/24 12:54 Pulse 95 03/27/24 12:54 Resp 17 03/27/24 12:54 BP 109/67 03/27/24 12:54 Pulse Ox 95 03/27/24 12:54 FiO2 Intake & Output 03/26/24 03/27/24 03/27/24 18:59 06:59 18:59 Intake Total 540 540 400 Output Total 3400 Balance 540 540 -3000 Weight 91.4 kg Intake: Oral 540 540 Hemodialysis 400 Output: Hemodialysis 1900 Hemodialysis Net Amount 1500 Other: Voiding Method Toilet Toilet Toilet - Labs CBC & Chem 7: 03/24/24 06:50 03/24/24 06:50
[2024-03-27 15:06] VITALS: BMI 30.6
[2024-03-27] MEDS: LIDOCAINE 1% INJ 10MG/ML (20 ML MDV) SQ ONE ×2 (16:19→16:45)
[2024-03-27] MEDS: MIDAZOLAM 2 MG/2 ML VIAL IVP ONE (16:20)
[2024-03-27] MEDS: HEPARIN SODIUM 1,000 UN/ML (10ML VL) MISCELLANE ONE ×3 (16:44)
--- NOTE | 2024-03-27 17:07 | P.PCN ---
Description of Procedure: Preop diagnosis acute chronic renal failure postop the same Procedure #1 ultrasound-guided 23 cm dialysis catheter placed left jugular approach 2. Removal of the right femoral catheter Procedure patient was brought to the [facility] right and left flank was prepped draped in Prestel manner we did the ultrasound right jugular is small and occluded with left jugular vein was was prepped and draped in Prestel manner 1% lidocaine plain infiltrated with IV sedation ultrasound-guided micropuncture introduced right jugular vein then we passed a regular guidewire which was parked at the inferior vena cava a tunnel was created through the tunnel we brought 23 cm dialysis catheter a dilator was advanced out of the guidewire under fluoroscopy control it was found of all guidewire through the sheath we reduced dialysis catheter tip catheter superior vena cava atrial junction flushed with heparin saline hep-locked secured with 3 nylon then right groin was prepped right femoral catheter was removed pressure hide patient tarted the procedure well and transferred recovery process with condition x-ray of the chest
--- NOTE | 2024-03-27 17:42 | XR ---
EXAMINATION TYPE: XR chest 1V confirm line [facility] DATE OF EXAM: 03/27/2024 5:25 PM COMPARISON: None. CLINICAL INDICATION: Male, 28 years old with history of CONFIRM HEMODIALYSIS PLACEMENT, TECHNIQUE: XR chest 1V confirm line plcnv view(s) obtained. FINDINGS: The heart size is normal. The pulmonary vasculature is normal. The lungs are clear. There is placement of a left double lumen catheter with the tips in the superior vena cava region. No pneumothorax is evident. IMPRESSION: 1. No acute pulmonary process. 2. No pneumothorax post left catheter placement [facility], , 03/27/2024 5:40 PM
--- NOTE | 2024-03-28 08:21 | IR ---
EXAMINATION TYPE: IR cvc insert central tunneled DATE OF EXAM: 03/27/2024 FLUOROSCOPY Catheter placement, 2.6min, 6.45 DAP No images are provided. [facility], , 03/28/2024 8:19 AM
[2024-03-28 08:56] LABS: ALT 52 U/L (10-49); AST 29 U/L (14-35); Albumin 3.5 g/dL (3.8-4.9); Albumin/Globulin Ratio 1.52 Ratio (1.60-3.17); Alkaline Phosphatase 122 U/L (41-126); Calcium 8.1 mg/dL (8.7-10.3); Carbon Dioxide 24.9 mmol/L (21.6-31.8); Chloride 98 mmol/L (96-109); Globulin 2.3 g/dL (1.6-3.3); Glucose 113 mg/dL (70-110); Phosphorus 4.7 mg/dL (2.4-5.1); Potassium 4.3 mmol/L (3.5-5.5); Sodium 137 mmol/L (135-145); Total Bilirubin 0.3 mg/dL (0.3-1.2); Total Protein 5.8 g/dL (6.2-8.2)
[2024-03-28 09:13] LABS: Basophils # (A) 0.04 X 10*3/uL (0.00-0.10); Basophils % (A) 0.4 %; Eosinophils # (A) 0.21 X 10*3/uL (0.04-0.35); Eosinophils % (A) 2.2 %; HCT 23.6 % (39.6-50.0); HGB 7.9 g/dL (13.0-17.0); Lymphocytes # (A) 1.28 X 10*3/uL (0.90-5.00); Lymphocytes % (A) 13.1 %; MCH 34.3 pg (27.0-32.0); MCHC 33.5 g/dL (32.0-37.0); MCV 102.6 FL (80.0-97.0); Mean Platelet Volume 8.9 FL (9.5-12.2); Monocytes % (A) 6.2 %; NRBC Per 100 WBC 0 X 10*3/uL (0.00-0.01); Neutrophils # (A) 7.37 X 10*3/uL (1.80-7.70); Neutrophils % (A) 75.6 %; Platelet Count 240 X 10*3/uL (140-440); RDW 12.6 % (11.5-14.5); WBC 9.74 X 10*3/uL (4.50-10.00)
--- NOTE | 2024-03-28 15:40 | P.DS ---
Providers Date of admission: 03/20/24 21:05 Expected date of discharge: 03/28/24 Attending physician: Ulysses Torre Consults: 03/20/24 21:04 Consult Physician Routine Consulting Provider: Donnie Shepard Consult Reason/Comments: pericardial effusion, spoke w patrice rowland Do you want consulting provider notified?: Yes 03/20/24 21:06 Consult Physician Routine Consulting Provider: Armani Hoang Consult Reason/Comments: esrd Do you want consulting provider notified?: Yes 03/21/24 08:30 Consult Physician Urgent Consulting Provider: Armani Hoang Consult Reason/Comments: Critical Creatinine, Peritoneal Dialysis Do you want consulting provider notified?: Yes 03/21/24 09:36 Consult Physician Stat Consulting Provider: Dmitry Blanco Consult Reason/Comments: Temporary Hemodialysis needed today Do you want consulting provider notified?: Yes Primary care physician: Carlos Manuel Mauro MD Hospital Course: Discharge diagnoses; Pericardial effusion Uremic pericarditis Chest pain End-stage renal disease on peritoneal dialysis Hospital course; patient is a 28-year-old gentleman with past medical history significant for end-stage renal disease who is a transfer from [facility] for pericardial effusion. Patient initially presented to [facility] for chest pain and shortness of breath. Patient stated that he has been feeling short of breath for the last few days. Patient stated that he was only able to walk a few feet before getting short of breath. Denies any orthopnea or PND. Patient was complaining of chest pain, chest pain was central location, nonradiating, no aggravating or relieving factors associated chest pain. Patient was worked up in the ER of [facility], 2D echo done showed patient to have pericardial effusion for which patient was referred to [facility] Initial lab work done in the ER showed WBC 14.7, hemoglobin 8.7, platelet count 260, sodium 139 potassium 3.7, BUN 19, creatinine 18.04, glucose 107, calcium 8.4 troponin 0.012 Patient admitted to internal medicine service 03/22. Patient seen and examined. Patient undergoing hemodialysis today. Denies any chest pain or shortness of breath. 03/23. Patient seen and examined. Patient is undergoing dialysis again today, states there is no chest pain or breathing issues. 03/24. Patient examined. Repeat 2D echo on 03/23 still showed moderate pericardial effusion. Denies any chest pain or shortness of breath. 03/25. Patient seen and examined. Patient underwent another session of dialysis today, neck session of dialysis scheduled for Monday 03/26. Patient seen and examined. Patient scheduled for tunneled dialysis catheter placement for tomorrow, possible discharge afterwards 03/27. Patient seen and examined. Dialysis catheter scheduled for tomorrow, outpatient dialysis has been set up already. 03/28. Patient seen and examined. Patient underwent dialysis catheter placement yesterday, will be undergoing dialysis today and will be discharged af terwards. PHYSICAL EXAMINATION: GENERAL: The patient is alert and oriented x3, not in any acute distress. Well developed, well nourished. HEENT: Pupils are round and equally reacting to light. EOMI. No scleral icterus. No conjunctival pallor. Normocephalic, atraumatic. No pharyngeal erythema. No thyromegaly. CARDIOVASCULAR: S1 and S2 present. No murmurs, rubs, or gallops. PULMONARY: Chest is clear to auscultation, no wheezing or crackles. ABDOMEN: Soft, nontender, nondistended, normoactive bowel sounds. No palpable organomegaly. MUSCULOSKELETAL: No joint swelling or deformity. EXTREMITIES: No cyanosis, clubbing, or pedal edema. NEUROLOGICAL: Gross neurological examination did not reveal any focal deficits. SKIN: No rashes. Dictation was produced using [employer] dictation software. please excuse any grammatical, word or spelling errors. Patient Condition at Discharge: Fair Plan - Discharge Summary Discharge Rx Participant: No New Discharge Prescriptions: Continue Lanthanum Carbonate [Lanthanum Carbonate Chewable] 1,000 mg PO TID-W/MEALS Sevelamer Carbonate 800 mg PO BID PRN PRN Reason: SNACKS Sevelamer Carbonate 4,000 mg PO TID-W/MEALS Metoprolol Tartrate [Lopressor] 12.5 mg PO BID Ondansetron Odt [Zofran ODT] 4 mg TRANSLINGU DAILY Ondansetron Odt [Zofran ODT] 4 mg TRANSLINGU DAILY PRN PRN Reason: Nausea calcitrioL [Rocaltrol] 0.25 mcg PO HARTLEY Pantoprazole [Protonix] 40 mg PO BID #60 tab Diclofenac Sodium Gel [Voltaren 1% Gel] 4 gm TOPICAL QID PRN PRN Reason: Pain Discharge Medication List Lanthanum Carbonate [Lanthanum Carbonate Chewable] 1,000 mg PO TID-W/MEALS 12/01/22 [History] Sevelamer Carbonate 4,000 mg PO TID-W/MEALS 02/15/23 [History] Sevelamer Carbonate 800 mg PO BID PRN 02/15/23 [History] Metoprolol Tartrate [Lopressor] 12.5 mg PO BID 03/08/24 [History] Ondansetron Odt [Zofran ODT] 4 mg TRANSLINGU DAILY 03/08/24 [History] Ondansetron Odt [Zofran ODT] 4 mg TRANSLINGU DAILY PRN 03/08/24 [History] calcitrioL [Rocaltrol] 0.25 mcg PO HARTLEY 03/08/24 [History] Pantoprazole [Protonix] 40 mg PO BID #60 tab 03/09/24 [Rx] Diclofenac Sodium Gel [Voltaren 1% Gel] 4 gm TOPICAL QID PRN 03/20/24 [History] Follow up Appointment(s)/Referral(s): Carlos Manuel Mauro MD [Primary Care Provider] - 1-2 days [facility] [NON-STAFF] - 1 Week Activity/Diet/Wound Care/Special Instructions: [facility] [place] Chair Time: Wednesday / / Wednesday at 12:10PM Initial Start Date 03/30/24 Discharge Disposition: HOME SELF-CARE
[2024-03-28 19:30] VITALS: BP 107/75; PULSE 97; RESP 18; TEMP 98.5
--- NOTE | 2024-03-29 13:29 | P.PN ---
Subjective Patient is seen for follow-up for end-stage renal disease. Scheduled for hemodialysis today. No significant complaints. Patient will continue with hemodialysis postdischarge for at least 4 to 6 weeks due to pericardial effusion. Objective - Vital Signs Vital signs: Vital Signs Temp 98.5 F 03/28/24 19:28 Pulse 97 03/28/24 19:28 Resp 18 03/28/24 19:28 BP 107/75 03/28/24 19:28 Pulse Ox 97 03/28/24 13:16 FiO2 Intake & Output 03/28/24 03/29/24 03/29/24 18:59 06:59 18:59 Intake Total 1080 500 Output Total 4500 Balance 1080 -4000 Intake: Oral 1080 Hemodialysis 500 Output: Hemodialysis 2500 Hemodialysis Net Amount 2000 Other: Voiding Method Toilet - Exam Patient is awake, comfortable, no acute distress Alert oriented x 3 Examination of the heart S1 and S2 Examination of the lungs bilateral breath sounds are heard Abdomen is soft nontender Examination of lower extremities shows no significant edema [employer] exam grossly intact - Labs CBC & Chem 7: 03/28/24 04:29 03/28/24 04:29 Assessment and Plan Assessment: 1. End-stage renal disease maintained on peritoneal dialysis. Patient may not have been compliant with his treatments as creatinine was significantly elevated on admission. 2. Pericardial effusion. Concern for uremic pericarditis as creatinine is 18 and BUN 91 on admission. Improved post hemodialysis. 3. Anemia of chronic kidney disease. High ferritin noted. On Aranesp. 4. Chronic kidney disease mineral bone disease. Phosphorus level 7.8 dated March 23, 2024. On phosphate binders. Plan: Continue with hemodialysis postdischarge. Will evaluate for PD in the next 1 to 2 months.
== END 2024-03-28 18:51 | disposition home or self-care (01) | DRG 314 ==
LOC: EC 18:13 → 3SCARD 21:05 → 3NCARDOBS 03-24 09:20 → 5NMEDONC 03-25 16:04
PROVIDERS: ADMIT Hospitalist; ATTEND Hospitalist
PROC: 5A1D70Z Performance of Urinary Filtration, Intermittent, Less than 6 Hours Per Day (ICD-10-PCS; 2024-03-21)
PROC: 3E1M39Z Irrigation of Peritoneal Cavity using Dialysate, Percutaneous Approach (ICD-10-PCS; 2024-03-21)
PROC: 06H033Z Insertion of Infusion Device into Inferior Vena Cava, Percutaneous Approach (ICD-10-PCS; 2024-03-23)
PROC: 06PY33Z Removal of Infusion Device from Lower Vein, Percutaneous Approach (ICD-10-PCS; principal; 2024-03-23 13:40)
PROC: 0JH63XZ Insertion of Tunneled Vascular Access Device into Chest Subcutaneous Tissue and Fascia, Percutaneous Approach (ICD-10-PCS; 2024-03-27)
PROC: 02HV33Z Insertion of Infusion Device into Superior Vena Cava, Percutaneous Approach (ICD-10-PCS; 2024-03-27)
DX: I31.39 Other pericardial effusion (noninflammatory) (principal); N18.6 End stage renal disease; T82.41XA Breakdown (mechanical) of vascular dialysis catheter, initial encounter; I12.0 Hypertensive chronic kidney disease with stage 5 chronic kidney disease or end stage renal disease; D63.1 Anemia in chronic kidney disease; Z99.2 Dependence on renal dialysis; E11.22 Type 2 diabetes mellitus with diabetic chronic kidney disease; I32 Pericarditis in diseases classified elsewhere; M89.8X9 Other specified disorders of bone, unspecified site; Y71.8 Miscellaneous cardiovascular devices associated with adverse incidents, not elsewhere classified; Z79.899 Other long term (current) drug therapy; Z90.5 Acquired absence of kidney; Z86.69 Personal history of other diseases of the nervous system and sense organs
CPT/HCPCS: 36556; 36558; 71046; 80048; 80053; 80069; 82728; 83540; 83550; 83735; 84100; 84484; 85025; 85027; 86850; 86900; 86901; 90935; 93308; 99285

== ENCOUNTER 2024-05-26 08:26 | Day surgery (SDC) | payer MEDICARE, OTHER ==
[2024-05-24 11:31] VITALS: BMI 30.4
[~2024-05-26 08:26] MED LIST changes: -ACETAMINOPHEN TAB 500 MG TAB PO PRN; -HEPARIN SODIUM,PORCINE/PF 5,000 UNIT/0.5 ML SYRINGE SQ PRN; +HYDROmorphone 0.5 MG/0.5 ML SYRINGE IVP PRN; +LACTATED RINGERS 1,000 ML IV SCH; +MIDAZOLAM 2 MG/2 ML VIAL IV PRN; +SCOPOLAMINE 1 MG/72 HR PATCH TRANSDERM ONE
[2024-05-26] MEDS: ACETAMINOPHEN TAB 500 MG TAB PO PRN (08:56)
[2024-05-26 09:00] VITALS: TEMP 98.7
[2024-05-26] MEDS: DEXAMETHASONE SOD PHOSPHATE 4 MG/ML 1 ML VIAL IV ONE (09:07)
[2024-05-26] MEDS: ONDANSETRON 4 MG/2 ML VIAL IVP ONE (09:07)
[2024-05-26] MEDS: HEPARIN SODIUM,PORCINE 5,000 UNIT/ML 1 ML VIAL SQ PRN (09:07)
--- NOTE | 2024-05-26 09:08 | P.GSHP ---
History of Present Illness H&P Date: 05/26/24 Chief Complaint: Renal failure 28-year-old male male here for peritoneal catheter removal. The patient's catheter became disconnected from the Luer-Nathan adapter last fall. Since then the patient's catheter has not been functioning properly and a left IJ PermCath was placed. Patient is now switching over to hemodialysis. Was dialyzed yesterday. No abdominal pain currently. Past Medical History Past Medical History: GERD/Reflux, Hypertension, Renal Disease, Seizure Disorder Additional Past Medical History / Comment(s): LAST SEIZURES IN FEBRUARY 2021., few episodes of tachycardia. 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, PD catheter placement Past Anesthesia/Blood Transfusion Reactions: No Reported Reaction Smoking Status: Never smoker - Past Family History Mother Family Medical History: No Reported History Additional Family Medical History / Comment(s): from heart failure Father Family Medical History: Cancer Additional Family Medical History / Comment(s): from liver cancer Medications and Allergies Home Medications Medication Instructions Recorded Confirmed Type Lanthanum Carbonate [Lanthanum 1,000 mg PO TID-W/MEALS 12/01/22 05/24/24 History Carbonate Chewable] Sevelamer Carbonate 4,000 mg PO TID-W/MEALS 02/15/23 05/24/24 History Sevelamer Carbonate 800 mg PO BID PRN 02/15/23 05/24/24 History Metoprolol Tartrate [Lopressor] 12.5 mg PO BID 03/08/24 05/24/24 History Ondansetron Odt [Zofran ODT] 4 mg TRANSLINGU DAILY PRN 03/08/24 05/26/24 History calcitrioL [Rocaltrol] 0.25 mcg PO HARTLEY 03/08/24 05/24/24 History Pantoprazole [Protonix] 40 mg PO BID #60 tab 03/09/24 05/24/24 Rx Colchicine [Colcrys] 0.3 mg PO HS 05/24/24 05/24/24 History amLODIPine 10 mg PO HS 05/24/24 05/24/24 History Allergies Allergy/AdvReac Type Severity Reaction Status Date / Time shellfish derived [Shellfish] Allergy Rash/Hives Verified 05/26/24 08:45 Surgical - Exam Vital Signs Temp Pulse Resp BP Pulse Ox 98.7 F 78 18 124/81 97 05/26/24 08:59 05/26/24 08:59 05/26/24 08:59 05/26/24 08:59 05/26/24 08:59 Physical exam: General: Well-developed, well-nourished HEENT: Normocephalic, sclerae nonicteric Abdomen: Nontender, nondistended, left-sided catheter in place Extremities: No edema Neuro: Alert and oriented Assessment and Plan (1) Renal failure Narrative/Plan: Will proceed with peritoneal dialysis catheter removal at this time. Current Visit: No Status: Acute Code(s): N19 - UNSPECIFIED KIDNEY FAILURE SNOMED Code(s): 08156355
[2024-05-26] MEDS: SODIUM CHLORIDE 0.9% 1,000 ML IV ONE (09:09)
[2024-05-26] MEDS ORDERED: MIDAZOLAM 2 MG/2 ML VIAL ONE (09:18)
[2024-05-26] MEDS ORDERED: LIDOCAINE 1% INJ 10MG/ML (20 ML MDV) ONE (09:18)
[2024-05-26] MEDS ORDERED: fentaNYL (PF) 50 MCG/ML 2 ML AMP ONE (09:18)
[2024-05-26] MEDS ORDERED: PROPOFOL 10 MG/ML 20 ML VIAL IV ONE (09:18)
[2024-05-26 09:19] LABS: Anisocytosis Slight; HCT 39.8 % (39.0-53.0); HGB 12.7 gm/dL (13.0-17.5); Hypochromasia Slight; MCHC 31.8 g/dL (31.0-37.0); MCV 100.6 fL (80.0-100.0); Macrocytosis Slight; Mean Platelet Volume 7.4; Platelet Count 257 k/uL (150-450); Poikilocytosis Slight; RBC 3.96 m/uL (4.30-5.90); RDW 17.2 % (11.5-15.5)
[2024-05-26] MEDS: IV FLUID CONTINUATION 1,000 ML IV ONE (09:22)
[2024-05-26 09:33] LABS: African American GFR (CKD) 10 (>60 ml/min/1.73 sqM); Anion Gap 16 mmol/L; Blood Urea Nitrogen 48 mg/dL (9-20); Calcium 9.1 mg/dL (8.4-10.2); Carbon Dioxide 29 mmol/L (22-30); Chloride 94 mmol/L (98-107); Glucose 87 mg/dL (74-99); Non-African American GFR(CKD) 8 (>60 ml/min/1.73 sqM); Potassium 4.8 mmol/L (3.5-5.1); Sodium 139 mmol/L (137-145)
[2024-05-26] MEDS: BUPIVACAINE (PF) 0.25% 30 ML VIAL MISCELLANE ONE (09:37)
[2024-05-26] MEDS: BUPIVACAINE (PF) 0.25% 30 ML VIAL SQ ONE (09:37)
[2024-05-26] MEDS ORDERED: HYDROcodone/APAP 5-325MG 1 EACH TAB PO PRN (10:09)
[2024-05-26] MEDS ORDERED: NALOXONE 0.4 MG/ML 1 ML VIAL IV PRN (10:09)
--- NOTE | 2024-05-26 10:12 | P.OP ---
Date of Procedure: 05/26/24 Procedure(s) Performed: PREOPERATIVE DIAGNOSIS: Renal failure POSTOPERATIVE DIAGNOSIS: Same PROCEDURE: PD cath removal SURGEON: Rosa EBL: 10 mL ANESTHESIA: Sedation and local COMPLICATIONS: None OPERATIVE PROCEDURE: Patient was placed in the supine position. The abdomen was prepped and draped in usual sterile fashion. The previous paramedian incision was re-incised after localizing the skin. The subcutaneous tissues were divided using electrocautery. Blunt dissection around the cuff that was present at the fascia and peritoneum took place. The cuff was fully mobilized. The catheter was removed from the perineal cavity. The outer cuff was dissected from the saphenous fascia using electrocautery. The catheter was cut on the other side of that cuff and the catheter was removed. The fascial defect was closed using a short running 0 Vicryl stitch. The subcutaneous tissues were closed using 3-0 Vicryl sutures and the skin using 4-0 Monocryl sutures. Skin glue and sterile dressings were applied. DISPOSITION: Stable to recovery room
[2024-05-26 10:41] VITALS: RESP 16
[2024-05-26 11:08] VITALS: BP 104/66; PULSE 78
== END 2024-05-26 12:06 | disposition home or self-care (01) ==
LOC: OR 08:26
PROVIDERS: ATTEND Surgery
DX: N19 Unspecified kidney failure (principal); I10 Essential (primary) hypertension; R00.0 Tachycardia, unspecified; G40.909 Epilepsy, unspecified, not intractable, without status epilepticus; K21.9 Gastro-esophageal reflux disease without esophagitis; F41.9 Anxiety disorder, unspecified; Z79.899 Other long term (current) drug therapy; Z91.013 Allergy to seafood; Z90.5 Acquired absence of kidney
CPT/HCPCS: 80048; 85027; 49422; J2250; J1644; J1100; J0690; J2405; J2003; J3010; J2704; J0665

== ENCOUNTER 2024-06-17 07:03 | Emergency (ER) | payer MEDICARE, OTHER ==
[2024-06-17 07:09] VITALS: RESP 18; TEMP 97.8
--- NOTE | 2024-06-17 07:27 | ED ---
Extremity Problem HPI - General Chief complaint: Extremity Problem,Nontraumatic Stated complaint: Swelling in arm Time Seen by Provider: 06/17/24 07:26 Source: patient, RN notes reviewed Mode of arrival: ambulatory Limitations: no limitations - History of Present Illness Initial comments: 28-year-old male with a past medical history significant of hypertension, renal disorder on dialysis and seizure disorder presented to the ER for evaluation of right elbow pain. He states since Wednesday he has been having a sharp achy pain to his right elbow that has progressively worsened. He states pain does mildly radiate distally. He also notes mild swelling to the elbow. He denies any injuries or traumas. Patient denies any paresthesias to right upper extremity. No weakness, neck pain or shoulder pain. Patient does not have a fistula in that extremity instead he has a left chest wall port. He denies any fevers, chills or other complaints at this time. - Related Data Home Medications Medication Instructions Recorded Confirmed Lanthanum Carbonate [Lanthanum 1,000 mg PO TID-W/MEALS 12/01/22 05/24/24 Carbonate Chewable] Sevelamer Carbonate 4,000 mg PO TID-W/MEALS 02/15/23 05/24/24 Sevelamer Carbonate 800 mg PO BID PRN 02/15/23 05/24/24 Metoprolol Tartrate [Lopressor] 12.5 mg PO BID 03/08/24 05/24/24 Ondansetron Odt [Zofran ODT] 4 mg TRANSLINGU DAILY PRN 03/08/24 05/26/24 calcitrioL [Rocaltrol] 0.25 mcg PO HARTLEY 03/08/24 05/24/24 Colchicine [Colcrys] 0.3 mg PO HS 05/24/24 05/24/24 amLODIPine 10 mg PO HS 05/24/24 05/24/24 Previous Rx's Medication Instructions Recorded Pantoprazole [Protonix] 40 mg PO BID #60 tab 03/09/24 HYDROcodone/APAP 5-325MG [[place] 1 tab PO Q6HR PRN 3 Days #6 tab 05/26/24 5-325] Allergies Allergy/AdvReac Type Severity Reaction Status Date / Time shellfish derived [Shellfish] Allergy Rash/Hives Verified 06/17/24 07:09 Review of Systems ROS Statement: Those systems with pertinent positive or pertinent negative responses have been documented in the HPI. ROS Other: All systems not noted in ROS Statement are negative. Past Medical History Past Medical History: GERD/Reflux, Hypertension, Renal Disease, Seizure Disorder Additional Past Medical History / Comment(s): LAST SEIZURES IN FEBRUARY 2021., few episodes of tachycardia. 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, PD catheter placement Past Anesthesia/Blood Transfusion Reactions: No Reported Reaction Past Psychological History: Anxiety Smoking Status: Never smoker Past Alcohol Use History: None Reported Past Drug Use History: None Reported - Past Family History Mother Family Medical History: No Reported History Additional Family Medical History / Comment(s): from heart failure Father Family Medical History: Cancer Additional Family Medical History / Comment(s): from liver cancer General Exam Limitations: no limitations General appearance: alert, in no apparent distress Respiratory exam: Present: normal lung sounds bilaterally. Absent: respiratory distress, wheezes, rales, rhonchi, stridor Cardiovascular Exam: Present: regular rate, normal rhythm, normal heart sounds. Absent: systolic murmur, diastolic murmur, rubs, gallop, clicks Extremities exam: Present: tenderness (Right olecranon process. There is mild overlying swelling. No overlying skin changes), normal capillary refill (2+ right radial pulse.), other (Limited active ROM given pain- full passive ROM with pain) Neurological exam: Present: alert, oriented X3, CN II-XII intact Psychiatric exam: Present: normal affect, normal mood Skin exam: Present: warm, dry, intact, normal color. Absent: rash Course Vital Signs 06/17/24 06/17/24 07:05 09:08 Temperature 97.8 F Pulse Rate 73 84 Respiratory 18 18 Rate Blood Pressure 145/85 117/82 O2 Sat by Pulse 99 98 Oximetry Medical Decision Making - Medical Decision Making Was pt. sent in by a medical professional or institution (, PA, AGRONOMY ADVISOR, urgent care, hospital, or skilled nursing...) When possible be specific @ -No Did you speak to anyone other than the patient for history (EMS, parent, family, police, friend...)? What history was obtained from this source @ -No Did you review nursing and triage notes (agree or disagree)? Why? @ -I reviewed and agree with nursing and triage notes Were old charts reviewed (outside hosp., previous admission, EMS record, old EKG, old radiological studies, urgent care reports/EKG's, skilled nursing records)? Report findings @ -No old charts were reviewed Differential Diagnosis (chest pain, altered mental status, abdominal pain women, abdominal pain men, vaginal bleeding, weakness, fever, dyspnea, syncope, headache, dizziness, GI bleed, back pain, seizure, CVA, palpatations, mental health, musculoskeletal)? @ -Differential Musculoskeletal: Muscular strain, contusion, ligament sprain, fracture, arthritis, septic arthritis, bursitis, cellulitis, muscle spasm, nerve compression, DVT, arterial occlusion, herpes zoster, electrolyte abnormality, tumor.... This is not meant to be in all inclusive list EKG interpreted by me (3pts min.). @ -None done X-rays interpreted by me (1pt min.). @ -Right forearm and elbow x-ray interpreted by me negative for acute fractures or dislocations. CT interpreted by me (1pt min.). @ -None done U/S interpreted by me (1pt. min.). @ -None done What testing was considered but not performed or refused? (CT, X-rays, U/S, labs)? Why? @ -None What meds were considered but not given or refused? Why? @ -None Did you discuss the management of the patient with other professionals (professionals i.e. , PA, AGRONOMY ADVISOR, lab, RT, psych nurse, social worker assistant, guest relations manager, teacher, loan service officer, special education case manager)? Give summary @ -No Was smoking cessation discussed for >3mins.? @ -No Was critical care preformed (if so, how long)? @ -No Were there social determinants of health that impacted care today? How? (Homelessness, low income, unemployed, alcoholism, drug addiction, transportation, low edu. Level, literacy, decrease access to med. care, half-way, rehab)? @ -No Was there de-escalation of care discussed even if they declined (Discuss DNR or withdrawal of care, Hospice)? DNR status @ -No What co-morbidities impacted this encounter? (DM, HTN, Smoking, COPD, CAD, Cancer, CVA, ARF, Chemo, Hep., AIDS, mental health diagnosis, sleep apnea, morbid obesity)? @ -CKD on dialysis Was patient admitted / discharged? Hospital course, mention meds given and route, prescriptions, significant lab abnormalities, going to OR and other pertinent info. @ -Discharge. 28-year-old male presented the ER for evaluation of right elbow pain. Upon rooming, history and physical exam completed. There is tenderness noted over right olecranon process with mild focal swelling. No overlying skin changes. There is painful active ROM. Patient is neurovascularly intact. X- rays obtained negative for acute process. Patient given Tylenol for pain control, as he is on dialysis. Findings consistent with olecranon bursitis. Conservative treatment options discussed with patient. Return parameters discussed. Patient discharged in stable condition with follow-up to PCP. Patient verbally expressed understanding agree with care plan. Case discussed with ED attending with Dr. Whitehead. Undiagnosed new problem with uncertain prognosis? @ -No Drug Therapy requiring intensive monitoring for toxicity (Heparin, Nitro, Insulin, Cardizem)? @ -No Were any procedures done? @ -No Diagnosis/symptom? @ -Olecranon bursitis Acute, or Chronic, or Acute on Chronic? @ -Acute Uncomplicated (without systemic symptoms) or Complicated (systemic symptoms)? @ -Uncomplicated Side effects of treatment? @ -No Exacerbation, Progression, or Severe Exacerbation? @ -No Poses a threat to life or bodily function? How? (Chest pain, USA, MS, pneumonia, PE, COPD, DKA, ARF, appy, cholecystitis, CVA, Diverticulitis, Homicidal, Suicidal, threat to staff... and all critical care pts) @ -No - Radiology Data Radiology results: report reviewed, image reviewed Disposition Clinical Impression: Olecranon bursitis Disposition: HOME SELF-CARE Condition: Stable Instructions (If sedation given, give patient instructions): Elbow Bursitis (ED) Additional Instructions: Follow-up with PCP. Return to the ER for any new or worsening symptoms. Is patient prescribed a controlled substance at d/c from ED?: No Referrals: Carlos Manuel Mauro MD [Primary Care Provider] - 1-2 days Time of Disposition: 08:52
[2024-06-17] MEDS: ACETAMINOPHEN TAB 325 MG TAB PO STA (07:50)
--- NOTE | 2024-06-17 08:24 | XR ---
EXAMINATION TYPE: XR elbow complete RT, XR forearm RT DATE OF EXAM: 06/17/2024 COMPARISON: None CLINICAL INDICATION: Male, 28 years old with history of pain, pain TECHNIQUE: Frontal, lateral and oblique images of the right elbow are obtained. 2 views right forear m. FINDINGS: No acute displaced fracture right elbow. Suboptimal lateral positioning. No obvious abnorm al fat-pad. There is no acute fracture/dislocation evident in the right forearm. No suspicious focal osseous lesion. The overlying soft tissue appears unremarkable. IMPRESSION: Unremarkable studies. [facility], , 06/17/2024 8:22 AM
[2024-06-17 09:09] VITALS: BP 117/82; PULSE 84
== END 2024-06-17 09:09 | disposition home or self-care (01) ==
LOC: EC 07:03
DX: M70.21 Olecranon bursitis, right elbow (principal); Z91.013 Allergy to seafood
CPT/HCPCS: 99283

== ENCOUNTER → 2024-08-11 | Outpatient (CLI) | payer MEDICARE, OTHER ==
--- NOTE | 2024-08-11 16:41 | CA ---
Transthoracic Echo Report Name: Lauri Last Age: 28 Gender: M : 1995 Exam Date: 08/11/2024 08:29 Exam Location: [facility] Ht (in): 68 Wt (lb): 200 Ordering Physician: Carol Ann Ordaz MD Attending/Referring Phys: Myra Fernandez [facility] Sample Nichol Lutz RDCS Procedure CPT: Indications: E87.70 Fluid overload/hypervolemia Cardiac Hx: Technical Quality: Good Contrast 1: Total Dose (mL): Contrast 2: Total Dose (mL): MEASUREMENTS (Male / Female) Normal Values 2D ECHO LV Diastolic Diameter PLAX 3.2 cm 4.2 - 5.9 / 3.9 - 5.3 cm LV Systolic Diameter PLAX 2.4 cm IVS Diastolic Thickness 1.5 cm 0.6 - 1.0 / 0.6 - 0.9 cm LVPW Diastolic Thickness 1.2 cm 0.6 - 1.0 / 0.6 - 0.9 cm LV Relative Wall Thickness 0.8 LVOT Diameter 2.5 cm Aortic Root Diameter 3.2 cm LV Diastolic Volume MOD BP 96.6 cm??? 67 - 155 / 56 - 104 cm??? LV Systolic Volume MOD BP 41.2 cm??? 22 - 58 / 19 - 49 cm??? LV Ejection Fraction MOD BP 57.4 % >= 55 % LV Cardiac Index MOD BP 1967.1 cm???/min???m??? LV Diastolic Volume MOD 4C 96.5 cm??? LV Systolic Volume MOD 4C 40.3 cm??? LV Ejection Fraction MOD 4C 58.3 % LV Cardiac Index MOD 4C 1997.8 cm???/min???m??? LV Diastolic Length 4C 8.9 cm LV Systolic Length 4C 7.8 cm LV Diastolic Volume MOD 2C 97.1 cm??? LV Systolic Volume MOD 2C 39.6 cm??? LV Ejection Fraction MOD 2C 59.2 % LV Cardiac Index MOD 2C 2041.9 cm???/min???m??? LV Diastolic Length 2C 8.9 cm LV Systolic Length 2C 7.3 cm LA Volume 43.1 cm??? 18 - 58 / 22 - 52 cm??? LA Volume Index 20.4 cm???/m??? 16 - 28 cm???/m??? Ascending Aorta Diameter 3.3 cm DOPPLER AV Peak Velocity 124.5 cm/s AV Peak Gradient 6.2 mmHg AV Mean Velocity 84.2 cm/s AV Mean Gradient 3.2 mmHg AV Velocity Time Integral 22.1 cm LVOT Peak Velocity 115.1 cm/s LVOT Peak Gradient 5.3 mmHg LVOT Velocity Time Integral 20.0 cm LVOT Stroke Volume 98.3 cm??? LVOT Stroke Volume Index 48.1 ml/m??? LVOT Cardiac Index 3490.3 cm???/min???m??? AV Area Cont Eq vti 4.4 cm??? AV Area Cont Eq pk 4.5 cm??? MV Area PHT 3.8 cm??? Mitral E Point Velocity 73.5 cm/s Mitral A Point Velocity 63.5 cm/s Mitral E to A Ratio 1.2 MV Deceleration Time 200.3 ms PV Peak Velocity 87.8 cm/s PV Peak Gradient 3.1 mmHg FINDINGS Left Ventricle Left ventricular ejection fraction is estimated at 55-60 %. Moderately increased septal wall thickness. Left ventricular cavity size normal. No obvious regional wall motion abnormalities. Right Ventricle Normal right ventricular size and function. Unable to estimate the right ventricular systolic pressure. Right Atrium Normal right atrial size. Left Atrium Normal left atrial size. Mitral Valve Structurally normal mitral valve. No mitral stenosis, regurgitation or prolapse. Aortic Valve Trileaflet aortic valve. No aortic valve stenosis or regurgitation. Tricuspid Valve Structurally normal tricuspid valve. No tricuspid stenosis. No tricuspid regurgitation. Pulmonic Valve Structurally normal pulmonic valve. No pulmonic stenosis. Trace pulmonic regurgitation. Pericardium No pericardial effusion. Aorta Normal size aortic root and proximal ascending aorta. CONCLUSIONS Normal LV size and systolic function. No significant abnormality on the Doppler exam. No pericardial Previewed by: Dr. Zuleyma Langford MD (Electronically Signed) Final Date: 11 Aug 2024 16:40
== END | disposition home or self-care (01) ==
LOC: RADECHMAIN 08:18
PROVIDERS: ATTEND Internal Medicine Nephrology
DX: E87.70 Fluid overload, unspecified (principal); I37.1 Nonrheumatic pulmonary valve insufficiency
CPT/HCPCS: 93306

== ENCOUNTER 2024-08-23 05:38 | Day surgery (SDC) | payer MEDICARE, OTHER ==
[2024-08-18 14:49] VITALS: BMI 29.6
[2024-08-23] MEDS: SCOPOLAMINE 1 MG/72 HR PATCH TRANSDERM ONE (06:08)
[2024-08-23] MEDS: DEXAMETHASONE SOD PHOSPHATE 4 MG/ML 1 ML VIAL IV ONE (06:08)
[2024-08-23] MEDS: ONDANSETRON 4 MG/2 ML VIAL IVP ONE (06:08)
[2024-08-23] MEDS ORDERED: LACTATED RINGERS 1,000 ML IV SCH (06:08)
[2024-08-23] MEDS: IV FLUID CONTINUATION 1,000 ML IV ONE (06:31)
[2024-08-23 06:44] VITALS: TEMP 97.8
[2024-08-23] MEDS ORDERED: HYDROmorphone 0.5 MG/0.5 ML SYRINGE IVP PRN (07:00)
[2024-08-23 07:09] LABS: Potassium 4.4 mmol/L (3.5-5.1)
[2024-08-23] MEDS: MIDAZOLAM 2 MG/2 ML VIAL IV PRN (07:14)
[2024-08-23] MEDS ORDERED: SODIUM CHLORIDE 0.9% 500 ML 500 ML IV SCH (07:15)
[2024-08-23] MEDS: fentaNYL (PF) 50 MCG/ML 2 ML AMP IVP PRN (07:20)
[2024-08-23] MEDS ORDERED: ePHEDrine 50 MG/ML 1 ML VIAL ONE (07:33)
[2024-08-23] MEDS ORDERED: HEPARIN SODIUM,PORCINE 5,000 UNIT/ML 1 ML VIAL ONE (07:33)
[2024-08-23] MEDS ORDERED: PHENYLEPHRINE 10 MG/ML VIAL ONE (07:33)
[2024-08-23] MEDS ORDERED: fentaNYL (PF) 50 MCG/ML 2 ML AMP ONE (07:33)
[2024-08-23] MEDS ORDERED: VASOPRESSIN 20 UNIT/ML 1 ML VIAL ONE (07:33)
[2024-08-23] MEDS ORDERED: DEXAMETHASONE SOD PHOSPHATE 4 MG/ML 1 ML VIAL ONE (07:33)
[2024-08-23] MEDS ORDERED: ROPIVACAINE 5 MG/ML 30 ML VIAL ONE (07:33)
[2024-08-23] MEDS ORDERED: PROPOFOL 10 MG/ML 20 ML VIAL IV ONE (07:33)
[2024-08-23] MEDS ORDERED: MIDAZOLAM 2 MG/2 ML VIAL ONE (07:33)
[2024-08-23] MEDS ORDERED: LIDOCAINE 1% INJ 10MG/ML (20 ML MDV) ONE (07:33)
[2024-08-23] MEDS: ceFAZolin 2 GM in SODIUM CHLORIDE 0.9% 500 ML 500 ML IRRIGATION ONE (07:38)
[2024-08-23] MEDS: HEPARIN SODIUM,PORCINE (1 ML) 2,000 UNIT in SODIUM CHLORIDE 0.9% 500 ML 500 ML IRRIGATION ONE (07:38)
[2024-08-23] MEDS: ceFAZolin 2 GM in DEXTROSE 5% IN WATER 50 ML IVPB PRN (07:38)
[2024-08-23] MEDS: LIDOCAINE 1%-EPI 1:100,000 20 ML VIAL SQ ONE (08:02)
[2024-08-23] MEDS: BUPIVACAINE (PF) 0.5% 30 ML VIAL SQ ONE (08:02)
--- NOTE | 2024-08-23 08:11 | P.ANPRN ---
Procedure Note - Anesthesia - Nerve Block Performed Right Axillary Single Time Out Performed: Yes Date of Procedure: 08/23/24 Procedure Start Time: 07:14 Procedure Stop Time: 07:20 Location of Patient: PreOp Indication: Acute Post-Operative Pain, Requested by Surgeon Sedation Type: Sedate with meaningful contact maintained Preparation: Sterile Prep Position: Supine Needle Types: Pajunk Needle Gauge: 21 Ultrasound used to visualize needle placement: Yes Ultrasound used to observe medication spread: Yes Injectate: 0.5% Ropivacaine (see comment for volume) (30 ml + 4 mg Dexam ethasone) Blood Aspirated: No Pain Paresthesia on Injection Noted: No Resistance on Injection: Normal Image Stored and Saved: Yes Events: Uneventful and Well Tolerated
[2024-08-23 09:51] VITALS: RESP 16
[2024-08-23 11:11] VITALS: BP 95/64; PULSE 91
--- NOTE | 2024-08-31 14:57 | P.OP ---
Date of Procedure: 08/23/24 Description of Procedure: Preoperative diagnosis: Need for dialysis Postoperative diagnosis: Same Procedure: Right upper extremity loop forearm graft Surgeon: Rachel Grace D.O. Anesthesia: Regional block with sedation EBL: 15 mL IV fluids: See operative records Urine output: Not measured Drains: None Complications: None immediately apparent Condition: Stable to PACU Operative indication and findings: Procedure in detail: The patient was taken to the operative suite and placed in supine position. The upper extremity is prepped and draped in usual sterile fashion. A preprocedure timeout was performed, all parties were in agreement. A transverse incision was made just distal to the antecubital fossa and carried down to the level of the brachial artery. It was dissected free circumferentially and proximal and distal Vesseloops were placed. Attention was then turned towards the venous outflow. The most appropriate sized appearing vein was the median cubital vein therefore it was dissected free and encircled proximally and distally. The 4 x 7 propatent graft was then tunneled through a counter incision in the forearm and a subcutaneous tissues. The patient was then heparinized. Flow was occluded through the artery. An arteriotomy was performed and anastomosis to the graft was performed with 6-0 Prolene. The graft was then flushed and the anastomosis was tied. Flow was resumed through the artery. Attention was then turned towards the venous anastomosis. Flow was occluded through the vein and a venotomy was performed. Anastomosis created with 6-0 Prolene. Prior to completion of the anastomosis the graft was flushed as well as the veins themselves. Fow was reinstituted. There remained a palpable pulse proximal and distal to the arterial anastomosis as well as a palpable pulse in the wrist. Thrombin Gelfoam was used for hemostasis. The incision sites were copiously irrigated the subcutaneous tissues were approximately with 3-0 Vicryl in interrupted fashion and the skin was reapproximated with running 4-0 Monocryl. Skin glue was placed. The patient was allowed awaken from anesthesia and transferred to PACU in stable condition having tolerated the procedure well.
== END 2024-08-23 11:41 | disposition home or self-care (01) ==
LOC: OR 05:38
PROVIDERS: ATTEND Surgery
DX: I12.0 Hypertensive chronic kidney disease with stage 5 chronic kidney disease or end stage renal disease (principal); N18.6 End stage renal disease; Z99.2 Dependence on renal dialysis; G89.18 Other acute postprocedural pain; R56.9 Unspecified convulsions; K21.9 Gastro-esophageal reflux disease without esophagitis; F41.9 Anxiety disorder, unspecified; Z79.899 Other long term (current) drug therapy; Z91.013 Allergy to seafood
CPT/HCPCS: 36830; 64417; 80051; L8670; J2250; J1644; J1100; J0690; J2405; J2003; J3010; J2795; J2704; J2371; J0665

== ENCOUNTER 2024-10-04 12:33 | Day surgery (SDC) | payer MEDICARE, OTHER ==
[2024-10-02 14:14] VITALS: BMI 28.8
[~2024-10-04 12:33] MED LIST changes: -LACTATED RINGERS 1,000 ML IV SCH; -MIDAZOLAM 2 MG/2 ML VIAL IV PRN; -SCOPOLAMINE 1 MG/72 HR PATCH TRANSDERM ONE
[2024-10-04 13:12] VITALS: TEMP 97.7
[2024-10-04] MEDS: IV FLUID CONTINUATION 1,000 ML IV ONE (13:13)
[2024-10-04] MEDS: LACTATED RINGERS 1,000 ML IV SCH (13:21)
[2024-10-04] MEDS: DEXAMETHASONE SOD PHOSPHATE 4 MG/ML 1 ML VIAL IV ONE (13:34)
[2024-10-04] MEDS: ONDANSETRON 4 MG/2 ML VIAL IVP ONE (13:35)
[2024-10-04] MEDS ORDERED: MIDAZOLAM 2 MG/2 ML VIAL ONE (14:53)
[2024-10-04] MEDS ORDERED: PROPOFOL 10 MG/ML 20 ML VIAL IV ONE (14:53)
[2024-10-04] MEDS ORDERED: fentaNYL (PF) 50 MCG/ML 2 ML AMP ONE (14:53)
[2024-10-04] MEDS: LIDOCAINE 1% INJ 10MG/ML (20 ML MDV) SQ ONE ×2 (15:19)
[2024-10-04] MEDS: HEPARIN SODIUM (1,000 UNIT/ML) 2,000 UNIT in SODIUM CHLORIDE 0.9% 1,000 ML IRRIGATION ONE (15:20)
[2024-10-04] MEDS: ceFAZolin 2 GM in SODIUM CHLORIDE 0.9% 500 ML 500 ML IRRIGATION ONE (15:20)
--- NOTE | 2024-10-04 16:07 | P.OP ---
Date of Procedure: 10/04/24 Description of Procedure: Preoperative diagnosis: Thrombosed right upper extremity loop forearm graft Postoperative diagnosis: Same Procedure: Thrombectomy of right upper extremity loop forearm graft Surgeon: Rcahel Grace D.O. EBL: Minimal IV fluids: See records Urine output: Not measured Drains: None Complications: None immediately apparent stable to recovery Condition: Operative indication and findings: Patient is a 29-year-old male end-stage renal disease getting dialysis via a chest wall catheter. Recently a loop forearm graft was placed. There is no overt concerns at the time however ultrasound follow-up was found to have occlusion of this due to this there was recommendation undergo thrombectomy. Risk and benefits were discussed. He seemingly understood and was willing to proceed. Procedure in detail: Patient was taken the op suite placed in supine position. The right upper extremities prepped and draped in usual sterile fashion. A preprocedural timeout was performed, all parties were in agreement. At the apex of the graft t, incision was made and carried down through the level of the graft itself. A graftotomy was created in transverse fashion and Jett was passed multiple times proximally and distally with multiple passes revealing significant amount of thrombus. There was minimal backbleeding or forward flow. After multiple passes no further things to be done, different sized Jett's were utilized without any overt success. Due to this the procedure was co ncluded. The graft was reapproximated with 6-0 Prolene. The skin was reapproximated with 3-0 Vicryl and 4-0 Monocryl in subcuticular running fashion. Glue and a dressing were placed. The patient tolerated procedure well. He will need further workup for a different access site as this one is no longer viable option Plan - Discharge Summary Discharge Rx Participant: Yes New Discharge Prescriptions: No Action Lanthanum Carbonate [Lanthanum Carbonate Chewable] 1,000 mg PO TID-W/MEALS Sevelamer Carbonate 800 mg PO BID PRN PRN Reason: SNACKS Sevelamer Carbonate 4,000 mg PO TID-W/MEALS Metoprolol Tartrate [Lopressor] 12.5 mg PO BID amLODIPine 10 mg PO HS FLUoxetine HCL [PROzac] 10 mg PO HS Ondansetron Odt [Zofran ODT] 4 mg TRANSLINGU DAILY PRN PRN Reason: Nausea calcitrioL [Rocaltrol] 0.25 mcg PO TUTH Pantoprazole [Protonix] 40 mg PO BID PRN PRN Reason: Heartburn Discharge Medication List Lanthanum Carbonate [Lanthanum Carbonate Chewable] 1,000 mg PO TID-W/MEALS 12/01/22 [History] Sevelamer Carbonate 4,000 mg PO TID-W/MEALS 02/15/23 [History] Sevelamer Carbonate 800 mg PO BID PRN 02/15/23 [History] Metoprolol Tartrate [Lopressor] 12.5 mg PO BID 03/08/24 [History] Ondansetron Odt [Zofran ODT] 4 mg TRANSLINGU DAILY PRN 03/08/24 [History] calcitrioL [Rocaltrol] 0.25 mcg PO TUTH 03/08/24 [History] amLODIPine 10 mg PO HS 05/24/24 [History] FLUoxetine HCL [PROzac] 10 mg PO HS 08/18/24 [History] Pantoprazole [Protonix] 40 mg PO BID PRN 08/18/24 [History]
[2024-10-04 16:38] VITALS: RESP 16
[2024-10-04 17:23] VITALS: BP 110/76; PULSE 81
== END 2024-10-04 17:28 | disposition home or self-care (01) ==
LOC: OR 12:33
PROVIDERS: ATTEND Surgery
DX: T82.868A Thrombosis due to vascular prosthetic devices, implants and grafts, initial encounter (principal); I12.0 Hypertensive chronic kidney disease with stage 5 chronic kidney disease or end stage renal disease; N18.6 End stage renal disease; Z99.2 Dependence on renal dialysis; G40.909 Epilepsy, unspecified, not intractable, without status epilepticus; K21.9 Gastro-esophageal reflux disease without esophagitis; Z79.899 Other long term (current) drug therapy; Z90.5 Acquired absence of kidney; Z91.013 Allergy to seafood
CPT/HCPCS: 84132; 36831; C1757; J2250; J1100; J0690; J2405; J2003; J3010; J1644; J2704

== ENCOUNTER 2024-10-10 06:53 | Emergency (ER) | payer MEDICARE, OTHER ==
[2024-10-10 07:58] LABS: Basophils # (A) 0.05 10*3/uL (0.00-0.10); Basophils % (A) 0.4 %; Eosinophils # (A) 0.30 10*3/uL (0.04-0.35); Eosinophils % (A) 2.3 %; HCT 32.8 % (39.6-50.0); HGB 11.3 g/dL (13.0-17.0); Lymphocytes # (A) 1.47 10*3/uL (0.90-5.00); Lymphocytes % (A) 11.2 %; MCH 34.7 pg (27.0-32.0); MCHC 34.5 g/dL (32.0-37.0); MCV 100.6 fL (80.0-97.0); Monocytes # (A) 0.62 10*3/uL (0.20-1.00); Monocytes % (A) 4.7 %; Neutrophils # (A) 10.61 10*3/uL (1.80-7.70); Neutrophils % (A) 80.5 %; Platelet Count 203 10*3/uL (140-440); RBC 3.26 10*6/uL (4.40-5.60); RDW 14.2 % (11.5-14.5); WBC 13.17 10*3/uL (4.50-10.00)
--- NOTE | 2024-10-10 08:07 | ED ---
Chest Pain HPI - General Chief Complaint: Chest Pain Stated Complaint: Chest Pain, Shortness of Breath Time Seen by Provider: 10/10/24 07:00 Source: patient, RN notes reviewed Mode of arrival: ambulatory Limitations: no limitations - History of Present Illness Initial Comments: 29-year-old male presents emergency department complaint of mild chest discom fort. Patient states started on Wednesday when he thought he just had the flu. Patient states all symptoms have resolved but he states he has some mild central chest discomfort that is positional. He denies any current shortness of breath no leg pain or leg swelling. Patient states he does dialysis Wednesday he is scheduled to go today. Denies any reports of fever no headache o r dizziness no other associated symptoms - Related Data Home Medications Medication Instructions Recorded Confirmed Lanthanum Carbonate [Lanthanum 1,000 mg PO TID-W/MEALS 12/01/22 10/04/24 Carbonate Chewable] Sevelamer Carbonate 4,000 mg PO TID-W/MEALS 02/15/23 10/04/24 Sevelamer Carbonate 800 mg PO BID PRN 02/15/23 10/04/24 Metoprolol Tartrate [Lopressor] 12.5 mg PO BID 03/08/24 10/04/24 Ondansetron Odt [Zofran ODT] 4 mg TRANSLINGU DAILY PRN 03/08/24 10/04/24 calcitrioL [Rocaltrol] 0.25 mcg PO TUTH 03/08/24 10/04/24 amLODIPine 10 mg PO HS 05/24/24 10/04/24 FLUoxetine HCL [PROzac] 10 mg PO HS 08/18/24 10/04/24 Pantoprazole [Protonix] 40 mg PO BID PRN 08/18/24 10/04/24 Previous Rx's Medication Instructions Recorded Amoxic-Pot Clav 875-125Mg 1 tab PO Q12HR #20 tab 10/10/24 [Augmentin 875-125] Allergies Allergy/AdvReac Type Severity Reaction Status Date / Time shellfish derived [Shellfish] Allergy Rash/Hives Verified 10/10/24 06:56 Review of Systems ROS Statement: Those systems with pertinent positive or pertinent negative responses have been documented in the HPI. ROS Other: All systems not noted in ROS Statement are negative. EKG Findings - EKG Comments: EKG Findings:: EKG performed at 7: 23 sinus rhythm rate of 90 NJ 144 QRS 97 QT/QTc 355/403 - EKG Results: EKG: interpreted by RAMEZ Past Medical History Past Medical History: Dialysis, Eye Disorder, GERD/Reflux, Hypertension, Renal Disease, Seizure Disorder Additional Past Medical History / Comment(s): LAST SEIZURES IN JUNE 2024., few episodes of tachycardia. Astigmatism. 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 "Permacast in left chest." Current Hemodialysis- Wednesday, and Wednesday. Peritoneal Dialysis in the past. History of Any Multi-Drug Resistant Organisms: C-DIFF Date of last positivie culture/infection: 01/25/2023 MDRO Source:: stool Additional Past Surgical History / Comment(s): left kidney removed as child, PD catheter placement- has been removed. RT LOOP forearm graft placed 08/23/24. Past Anesthesia/Blood Transfusion Reactions: No Reported Reaction Past Psychological History: Anxiety Smoking Status: Never smoker Past Alcohol Use History: None Reported Past Drug Use History: None Reported - Past Family History Mother Family Medical History: No Reported History Additional Family Medical History / Comment(s): from heart failure. Maternal grandfather-DVT. Father Family Medical History: Cancer Additional Family Medical History / Comment(s): from liver cancer General Exam Limitations: no limitations General appearance: alert, in no apparent distress Head exam: Present: atraumatic, normocephalic, normal inspection Eye exam: Present: normal appearance, PERRL, EOMI. Absent: scleral icterus, conjunctival injection, periorbital swelling ENT exam: Present: normal exam, normal oropharynx, mucous membranes moist Neck exam: Present: normal inspection, full ROM. Absent: tenderness, meningismus, lymphadenopathy Respiratory exam: Present: normal lung sounds bilaterally, other (Left-sided permacath). Absent: respiratory distress, wheezes, rales, rhonchi, stridor Cardiovascular Exam: Present: regular rate, normal rhythm, normal heart sounds. Absent: systolic murmur, diastolic murmur, rubs, gallop, clicks GI/Abdominal exam: Present: soft, normal bowel sounds. Absent: distended, tenderness, guarding, rebound, rigid Course Vital Signs 10/10/24 10/10/24 10/10/24 06:54 07:18 08:35 Temperature 98.4 F Pulse Rate 97 91 92 Pulse Rate [ 92 Job Analysis Manager ] Respiratory 18 18 19 Rate Blood Pressure 139/77 101/73 O2 Sat by Pulse 97 94 L 95 Oximetry 10/10/24 09:26 Temperature 98.6 F Pulse Rate 96 Pulse Rate [ Job Analysis Manager ] Respiratory 18 Rate Blood Pressure 120/99 O2 Sat by Pulse 94 L Oximetry Chest Pain MDM - MDM Was pt. sent in by a medical professional or institution (, PA, AIRSET CASTER, urgent care, hospital, or fdc...) When possible be specific @ -No Did you speak to anyone other than the patient for history (EMS, parent, family, police, friend...)? What history was obtained from this source @ -No Did you review nursing and triage notes (agree or disagree)? Why? @ -I reviewed and agree with nursing and triage notes Were old charts reviewed (outside hosp., previous admission, EMS record, old EKG, old radiological studies, urgent care reports/EKG's, fdc records)? Report findings @ -No old charts were reviewed Differential Diagnosis (chest pain, altered mental status, abdominal pain women, abdominal pain men, vaginal bleeding, weakness, fever, dyspnea, syncope, headache, dizziness, GI bleed, back pain, seizure, CVA, palpatations, mental health, musculoskeletal)? @Differential Chest Pain: Stable Angina, Unstable Angina, STEMI, NSTEMI Aortic Dissection, Pneumothorax, Musculoskeletal, Esophageal Spasm GERD, Cholecystitis, Pancreatitis, Zoster, this is not meant to be an all-inclusive list. EKG interpreted by me (3pts min.). @ -As above X-rays interpreted by me (1pt min.). @ -Chest ray shows atelectasis, pulm edema possible early infiltrate CT interpreted by me (1pt min.). @ -None done U/S interpreted by me (1pt. min.). @ -None done What testing was considered but not performed or refused? (CT, X-rays, U/S, labs)? Why? @ -None What meds were considered but not given or refused? Why? @ -None Did you discuss the management of the patient with other professionals (professionals i.e. , ROBERT, AIRSET CASTER, lab, RT, psych nurse, social security specialist, draughtsman, te acher, security vehicle patrol officer, transplant case manager)? Give summary @ -No Was smoking cessation discussed for >3mins.? @ -No Was critical care preformed (if so, how long)? @ -No Were there social determinants of health that impacted care today? How? (Homelessness, low income, unemployed, alcoholism, drug addiction, transportation, low edu. Level, literacy, decrease access to med. care, [facility], rehab)? @ -No Was there de-escalation of care discussed even if they declined (Discuss DNR or withdrawal of care, Hospice)? DNR status @ -No What co-morbidities impacted this encounter? (DM, HTN, Smoking, COPD, CAD, Cancer, CVA, ARF, Chemo, Hep., AIDS, mental health diagnosis, sleep apnea, morbid obesity)? @ -ESRD Was patient admitted / discharged? Hospital course, mention meds given and route, prescriptions, significant lab abnormalities, going to OR and other pertinent info. @ -Discharge patient presented for discomfort, cough congestion. Patient does have mild leukocytosis, possible early infiltrate. Patient has mild pulm edema mild hyperkalemia will be discharged to dialysis. Patient has no signs distress vitals otherwise stable. Undiagnosed new problem with uncertain prognosis? @ -No Drug Therapy requiring intensive monitoring for toxicity (Heparin, Nitro, Insulin, Cardizem)? @ -No Were any procedures done? @ -No Diagnosis/symptom? @ -ESRD and, acute tracheobronchitis, pulmonary edema Acute, or Chronic, or Acute on Chronic? @ -Acute Uncomplicated (without systemic symptoms) or Complicated (systemic symptoms)? @ -Gated Side effects of treatment? @ -No Exacerbation, Progression, or Severe Exacerbation? @ -No Poses a threat to life or bodily function? How? (Chest pain, [place], OR, pneumonia, PE, COPD, DKA, ARF, appy, cholecystitis, CVA, Diverticulitis, Homicidal, Suicidal, threat to staff... and all critical care pts) @ -Risk to pulmonary function Disposition Clinical Impression: Acute tracheobronchitis, Pulmonary edema, ESRD (end stage renal disease) on dialysis Disposition: HOME SELF-CARE Condition: Stable Instructions (If sedation given, give patient instructions): Chest Pain (ED) Additional Instructions: Please go to your dialysis appt at your scheduled time. Please return to the Emergency Department if symptoms worsen or any other concerns. Prescriptions: Amoxic-Pot Clav 875-125Mg [Augmentin 875-125] 1 tab PO Q12HR #20 tab Is patient prescribed a controlled substance at d/c from ED?: No Referrals: Carlos Manuel Mauro MD [Primary Care Provider] - 1-2 days Time of Disposition: 09:27
[2024-10-10 08:13] LABS: INR 0.9 (<1.2); Partial Thromboplastin Time 23.7 sec (22.0-30.0); Prothrombin Time 10.2 sec (10.0-12.5)
[2024-10-10 08:16] LABS: ALT 47 U/L (4-49); AST 54 U/L (17-59); African American GFR (CKD) 5 (>60 ml/min/1.73 sqM); Albumin 4.6 g/dL (3.5-5.0); Alkaline Phosphatase 188 U/L (38-126); Anion Gap 20 mmol/L; Blood Urea Nitrogen 81 mg/dL (9-20); Calcium 9.4 mg/dL (8.4-10.2); Carbon Dioxide 22 mmol/L (22-30); Chloride 97 mmol/L (98-107); Glucose 94 mg/dL (74-99); Magnesium 2.4 mg/dL (1.6-2.3); Non-African American GFR(CKD) 4 (>60 ml/min/1.73 sqM); Potassium 5.7 mmol/L (3.5-5.1); Sodium 139 mmol/L (137-145); Total Protein 7.3 g/dL (6.3-8.2)
--- NOTE | 2024-10-10 09:12 | XR ---
EXAMINATION TYPE: XR chest 2V DATE OF EXAM: 10/10/2024 8:53 AM COMPARISON: 03/27/2024 CLINICAL INDICATION: Male, 29 years old with history of Chest Pain, , TECHNIQUE: PA and lateral views FINDINGS: Heart is moderately enlarged. Diffuse interstitial and vascular densities have increased. Patchy biba silar opacities, right greater than left have increased. Left-sided double-lumen hemodialysis cathete r with tips in the right atrium. Possible trace left pleural effusion. IMPRESSION: Fluid overload with cardiomegaly and pulmonary vascular congestion. Trace left pleural effusion. Patc hy bibasilar atelectasis versus developing airspace disease. [facility], , 10/10/2024 9:10 AM
[2024-10-10 09:29] VITALS: BP 120/99; PULSE 96; RESP 18; TEMP 98.6
== END 2024-10-10 09:40 | disposition home or self-care (01) ==
LOC: EC 06:53
DX: J20.9 Acute bronchitis, unspecified (principal); J81.1 Chronic pulmonary edema; N18.6 End stage renal disease; Z99.2 Dependence on renal dialysis; Z91.013 Allergy to seafood
CPT/HCPCS: 36415; 71046; 80053; 83735; 84484; 85025; 85610; 85730; 93005; 99285